=== PATIENT | female | born 1955 | race Caucasian/White ===

== ENCOUNTER → 2017-08-06 | Day surgery (SDC) | payer OTHER ==
[~2017-08-06] MED LIST: BETA15CR5 TP; COLC0.6T34 PO; DULA1.5P SQ; EXEN2VIA SQ; FURO-68 PO; HYDR-2680 PO; HYDROmorphone 2 MG/ML VIAL IV PRN; IV RINGERS,LACTATED 1000ML 1,000 ML IV SCH; LEVO112T4 PO; LIDOCAINE 1% 1 ML SYRINGE. ID PRN; LIDOCAINE 2% PF Vial for OR 5 ML VIAL. ONE; LOSA100T6 PO; MELO15TA6 PO; METF-620 PO; MORPHINE SULFATE 2 MG/ML DISP.SYRIN. IV PRN; OMEP20TA63 PO; ONDANSETRON PF 4 MG/2 ML VIAL. IV PRN; PENT400T2 PO; POTA20TA4 PO; PRED-220 PO; PROCHLORPERAZINE 10 MG/2 ML VIAL. IV PRN; PROPOFOL 40 ML IV ONE; VALS1TAB14 PO; fentaNYL PF VIAL 100 MCG/2 ML VIAL IV PRN
[2017-08-06 08:44] VITALS: BP 118/60
--- NOTE | 2017-08-07 10:26 | PATHOLOGY ---
PATHOLOGY REPORT * * * * * * * * FINAL DIAGNOSIS: A. Colonic mucosa "rectal polyp biopsy": - Tubular adenoma. - There is no evidence of high grade dysplasia or malignancy. B. Colonic mucosa "transverse colon polyp biopsy": - Tubular adenoma. - There is no evidence of high grade dysplasia or malignancy. ([facility]:mm; 08/07/2017) REPORT ELECTRONICALLY SIGNED BY: Gary Almazan M.D. DATE/TIME: 08/07/2017 10:25 * * * * * * * * GROSS PATHOLOGY: A. Received in formalin labeled "Tawana Epstein, rectal polyp," is a segment of butts soft tissue measuring 0.4 cm in maximum dimension. The specimen is submitted entirely in cassette A1. B. Received in formalin labeled "transverse colon polyp," is a segment of butts soft tissue measuring 0.3 cm in maximum dimension. The specimen is submitted entirely in cassette B1. ([facility]; 08/06/17) INITIAL CPT CODE(S): A; 29497 B; 81667 Professional services performed by [facility] [place] [address] Technical services performed by [facility] at [address] [place] [address]. SPECIMEN(S) RECEIVED: A.Rectal polyp B.Transverse colon polyp CLINICAL HISTORY: Anemia; non-erosive gastritis, rectal polyp, transverse colon polyp PATIENT: TAWANA EPSTEIN /AGE: 8 1955 (Age: 62) PATIENT #: [id number] ALT CASE #: SPECIMEN COLLECTION DATE: 08/06/2017 SPECIMEN RECEIVED DATE: 08/06/2017 [facility] - [address] [place] [address] - PHONE: [phone] * * * END OF REPORT * * *
== END | disposition home or self-care (01) ==
LOC: ENDOS 07:13
PROVIDERS: ATTEND Internal Medicine Gastroenterology
DX: D12.3 Benign neoplasm of transverse colon (principal); K62.1 Rectal polyp; D50.0 Iron deficiency anemia secondary to blood loss (chronic); K63.5 Polyp of colon; K64.0 First degree hemorrhoids; K29.50 Unspecified chronic gastritis without bleeding; E11.9 Type 2 diabetes mellitus without complications; M19.90 Unspecified osteoarthritis, unspecified site; K21.9 Gastro-esophageal reflux disease without esophagitis; E78.00 Pure hypercholesterolemia, unspecified; I10 Essential (primary) hypertension; E03.9 Hypothyroidism, unspecified; Z83.3 Family history of diabetes mellitus; Z82.49 Family history of ischemic heart disease and other diseases of the circulatory system; Z90.710 Acquired absence of both cervix and uterus; Z91.040 Latex allergy status; Z98.890 Other specified postprocedural states
CPT/HCPCS: 43235; 45385; 88305; J2704; J2001

== ENCOUNTER → 2019-12-27 | Outpatient (CLI) | payer OTHER ==
[2017-08-06 08:44] VITALS: BP 118/60
[~2019-12-27] MED LIST changes: +ALBU2.5V8 IH; +ALLO300T PO; +CALC625T PO; +CHOL-5 PO; +CLOB15CR TP; +CYCL10TA2 PO; +DAPA10TA PO; +DOCU-109 PO; +GLIM4TAB8 PO; -HYDROmorphone 2 MG/ML VIAL IV PRN; -IV RINGERS,LACTATED 1000ML 1,000 ML IV SCH; -LIDOCAINE 1% 1 ML SYRINGE. ID PRN; -LIDOCAINE 2% PF Vial for OR 5 ML VIAL. ONE; +LOSA100T14 PO; -LOSA100T6 PO; +MAGN400T5 PO; -METF-620 PO; +METF10007 PO; -MORPHINE SULFATE 2 MG/ML DISP.SYRIN. IV PRN; +ONDA8TAB9 PO; -ONDANSETRON PF 4 MG/2 ML VIAL. IV PRN; -PENT400T2 PO; +PENT400T7 PO; -PROCHLORPERAZINE 10 MG/2 ML VIAL. IV PRN; +PROM25TA10 PO; -PROPOFOL 40 ML IV ONE; +QUIN324C3 PO; +SITA100T PO; +VALS160T3 PO; -fentaNYL PF VIAL 100 MCG/2 ML VIAL IV PRN
[2019-12-27 09:05] LABS: ALBUMIN 3.7 g/dL (3.4-5.0); CALCIUM 9.5 mg/dL (8.5-10.1); CREATININE 0.8 mg/dL (0.6-1.0); GFR 72.2; POTASSIUM 4.4 mmol/L (3.5-5.1)
[2019-12-27 09:07] LABS: BASO % 1 % (0-3); EOS % 1 % (0-3); HEMATOCRIT 35.2 % (36.0-47.0); HEMOGLOBIN 11.7 g/dL (12.0-15.5); LYMPH % 24 % (24-48); MEAN CORPUSCULAR HEMOGLOBIN 31 pg (25-35); MEAN CORPUSCULAR HGB CONC 33 g/dL (31-37); MEAN CORPUSCULAR VOLUME 94 fL (79-100); MONO # 0.4 x10^3/uL (0.0-1.1); MONO % 10 % (0-9); NEUT # 2.6 x10^3/uL (1.8-7.7); NEUT % 64 % (31-73); PLATELET COUNT 122 x10^3/uL (140-400); RED BLOOD COUNT 3.74 x10^6/uL (3.50-5.40); RED CELL DISTRIBUTION WIDTH 17.2 % (11.5-14.5); WHITE BLOOD COUNT 4.1 x10^3/uL (4.0-11.0)
[2019-12-27 09:14] LABS: PROTHROMBIN TIME PATIENT 13.5 SEC (11.7-14.0)
--- NOTE | 2019-12-27 13:21 | EKG ---
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
--- NOTE | 2019-12-27 14:38 | RAD ---
EXAM: CHEST 2 VIEWS. HISTORY: Preoperative risk factors, hypertension. COMPARISON: None. FINDINGS: Frontal and lateral views of the chest are obtained. There are no confluent infiltrates. There is no pneumothorax or pleural effusion. The heart is not enlarged. There are atherosclerotic calcifications of the aorta. Calcified lymph nodes likely reflect old granulomatous disease. IMPRESSION: 1. No confluent infiltrates. Electronically signed by: King Rodriguez MD (12/27/2019 2:36 PM) [facility]
[2019-12-28 00:07] LABS: HEMOGLOBIN A1C 6.2 % (4.8-5.6)
== END | disposition home or self-care (01) ==
LOC: SURGPAT 13:45
PROVIDERS: ATTEND Orthopaedic Surgery Sports Medicine
DX: Z01.818 Encounter for other preprocedural examination (principal); M17.12 Unilateral primary osteoarthritis, left knee; Z91.041 Radiographic dye allergy status
CPT/HCPCS: 36415; 71046; 80048; 82040; 82306; 83036; 85025; 85610; 85651; 85730; 87641; 93005

== ENCOUNTER → 2020-01-05 | Outpatient (CLI) | payer OTHER ==
[2017-08-06 08:44] VITALS: BP 118/60
[~2020-01-05] MED LIST changes: +REGADENOSON 0.4 MG/5 ML DISP.SYRIN. IV ONE
--- NOTE | 2020-01-05 13:32 | RAD ---
MR#: [id number] Date of Study: 01/05/2020 Ordering Physician: ADRIÁN CHERY Referring Physician: PHIL MELVIN Tech: GUILHERME Stewart APPROVED REPORT Test Type: Pharmacological Stress Nurse/Tech: Damien Awan RN Test Indications: pre-op clearance Cardiac History: HTN, DM Medications: See Electronic Medical Record Medical History: See Electronic Medical Record Resting ECG: SR prolonged MS interval Resting Heart Rate: 70 bpm Resting Blood Pressure: 129/75mmHg Pretest Chest Pain: None Nurse/Tech Notes lungs CTA, S1S2. EKG and final report did not print during exam. No St elevation or depression noted during exam. Blood pressure remained stable. no ectopy noted. Pt did not have chest pain or pressure Consent: The procedure was explained to the patient in lay terms. Informed consent was witnessed. William eout was entered into Spiration. History and Stress Test performed by RT [facility] (R) (N) Pharm. Details Pharmacologic stress testing was performed using 0.4mg per 5ml of regadenoson given intravenously ove r 7-10 seconds. Stress Symptoms No chest pain or symptoms. POST EXERCISE Reason for Termination: Infusion complete Max HR: 97 bpm Max Blood Pressure: 135/58mmHg Blood Pressure response to exercise: Normal blood pressure response during stress. Heart Rate response to exercise: Normal response Chest Pain: No. Arrhythmia: No. ST Change: No. INTERPRETATION Stress EKG Conclusion: The resting EKG shows a sinus rhythm. The stress EKG shows no significant changes from baseline. No EKG evidence of stress induced ischemia. Imaging Protocol IMAGE PROTOCOL: Rest Tc-99m/stress Tc-99m 1 day Rest: Stress: Viability: Radiopharm.Tc99m FoeffnahkIx67m Sestamibi Bciw16yGo 33mCi Duration 15min. 13min. Img Date 01/05/2020 01/05/2020 Inj-Img Tdsh76ish. 60min. Rest Admin Site:IV - Right WristAdministrator:GUILHERME Stewart Stress Admin Site: IV - Right WristAdministrator: García Floyd, RT (R)(N) STRESS DATA End Diast. Vol.70.0mlLVEDV index BSA36.0ml End Syst. Vol.12.0mlLVESV index BSA6.0ml Myocardial Woeq833.0gEject. Gnjgkprq11.0% Stress Scores Regional WT0.00Summed WT3.00 Regional WM0.00Summed WM0.00 LV Perfusion The stress scans show no significant changes. The rest scans show no suignificant changes. Nuclear scans show no reversible ischemia or infarct. Wall Motion LV systiolic function is normal with an EF of greater than 70%. LV Perf. Quant 17 Seg. SSS0.00 17 Seg. SRS0.00 17 Seg. SDS0.00 Stress Defect Extent (% LAD)0.00Rest Defect Extent (% LAD)0.00Rev. Defect Extent (% LAD)0.00 Stress Defect Extent (% LCX) 0.00Rest Defect Extent (% LCX)0.00Rev. Defect Extent (% LCX)0.00 Stress Defect Extent (% RCA)0.00Rest Defect Extent (% RCA)0.00Rev. Defect Extent (% RCA)0.00 Stress Defect Extent (% GEMMA)0.00Rest Defect Extent (% GEMMA)0.00Rev. Defect Extent (% GEMMA)0.00 Conclusion 1. No EKG evidence of stress induced ischemia. 2. Nuclear imaging shows no reversibvble ischemia or infarct. 3. Normal LV function with an EF of greater than 70%. 4. Low risk study. Signed by : Michael Estrada MD Electronically Approved : 01/05/2020 13:31:50
== END | disposition home or self-care (01) ==
LOC: NM 08:33
PROVIDERS: ATTEND Internal Medicine Cardiovascular Disease
DX: Z01.818 Encounter for other preprocedural examination (principal); I10 Essential (primary) hypertension; E11.9 Type 2 diabetes mellitus without complications
CPT/HCPCS: 78452; 93017; A9500; J2785

== ENCOUNTER → 2020-01-10 | Outpatient (CLI) | payer OTHER ==
[2017-08-06 08:44] VITALS: BP 118/60
[~2020-01-10] MED LIST changes: +ACET500T68 PO; -ALBU2.5V8 IH; +ALBU2.5V8 INH; +CHOL500021 PO; +DIPH25TA24 PO; +LORA10TA68 PO; -REGADENOSON 0.4 MG/5 ML DISP.SYRIN. IV ONE
--- NOTE | 2020-01-10 13:48 | CARD ---
MR#: [id number] Date of Study: 01/10/2020 Ordering Physician: ADRIÁN JAMA, Referring Physician: ADRIÁN JAMA, Tech: Joellen Tucker ABBY APPROVED REPORT EXAM: Two-dimensional and M-mode echocardiogram with Doppler and color Doppler. Other Information Quality : GoodHR: 78bpm Rhythm : NSR INDICATION Pre-op knee replacement clearance. Hx: HTN, HLP, DM. 2D DIMENSIONS RVDd3.8 (2.9-3.5cm)IVSd1.2 (0.7-1.1cm) Aortic Root(2D)3.3 (2.0-3.7cm)LVDd3.8 (3.9-5.9cm) LVOT Diameter2.0 (1.8-2.4cm)PWd1.0 (0.7-1.1cm) LVDs2.6 (2.5-4.0cm)FS (%) 29.8 % SV34.8 mlLVEF(%)57.8 (>50%) Aortic Valve AoV Peak Zeferino.179.3cm/Genny Peak GR.12.9mmHg LVOT Peak Zeferino.138.5cm/sAVA (VMAX)2.34cm2 Mitral Valve MV E Ctgatzxx33.7cm/sMV DECEL CQBZ164nn MV A Gmxuugkc539.0cm/sE/A Ratio0.7 MV A Xualqogi452qk Pulmonary Valve PV Peak Sjyxiqkj387.0cm/s Tricuspid Valve TR P. Ekbyuhho625it/sRAP HMPIVUXF6knNz TR Peak Gr.37eqIiVBAT12jdQr Pulmonary Vein S1 Erhlpmfz45.0cm/sD2 Snkwkhfa92.8cm/s PVa arytozpf52llad LEFT VENTRICLE The left ventricle is normal size. Mild proximal septal thickening is noted. The left ventricular sys tolic function is normal. The Ejection Fraction is 65%. There is normal LV segmental wall motion. Tra nsmitral Doppler flow pattern is Grade I-abnormal relaxation pattern. RIGHT VENTRICLE The right ventricle is normal size. The right ventricular systolic function is normal. ATRIA The left atrium is mildly dilated. The right atrium size is normal. The interatrial septum is intact with no evidence for an atrial septal defect or patent foramen ovale as noted on 2-D or Doppler imagi ng. AORTIC VALVE The aortic valve is normal in structure and function. Leaflets are mildly calcified. No aortic regurg itation. No aortic valvular stenosis. MITRAL VALVE The mitral valve is normal in structure and function. There is no mitral valve stenosis. No mitral va lve regurgitation noted. TRICUSPID VALVE The tricuspid valve is normal in structure and function. Trace tricuspid regurgitation. Estimated PAP is 20-25mmHg. There is no tricuspid valve stenosis. PULMONIC VALVE The pulmonary valve is normal in structure and function. Trace pulmonic valvular regurgitation. GREAT VESSELS The aortic root is normal in size. The ascending aorta is normal in size. The IVC is normal in size a nd collapses >50% with inspiration. PERICARDIAL EFFUSION There is no evidence of significant pericardial effusion. Critical Notification Critical Value: No <Conclusion> The left ventricular systolic function is normal. The Ejection Fraction is 65%. There is normal LV segmental wall motion. Transmitral Doppler flow pattern is Grade I-abnormal relaxation pattern. Trace tricuspid regurgitation. Estimated PAP is 20-25mmHg. There is no evidence of significant pericardial effusion. Signed by : Adrián Jama, Electronically Approved : 01/10/2020 13:47:48
== END | disposition home or self-care (01) ==
LOC: ECHO 09:55
PROVIDERS: ATTEND Internal Medicine Cardiovascular Disease
DX: Z01.818 Encounter for other preprocedural examination (principal); M17.12 Unilateral primary osteoarthritis, left knee; I35.8 Other nonrheumatic aortic valve disorders
CPT/HCPCS: 93306

== ENCOUNTER 2020-01-17 06:06 | Inpatient (IN) | payer OTHER ==
[~2020-01-17] VITALS: Ht 167.6 cm; Wt 86.2 kg
[2020-01-17] VITALS (8 sets, daily range): BP systolic 98–130; BP diastolic 49–69
[~2020-01-17 06:06] MED LIST changes: +ACETAMINOPHEN 500 MG TABLET PO PRN; +MELOXICAM 7.5 MG TABLET PO PRN; +MORPHINE SULFATE 5 MG, KETOROLAC 30MG VIAL 30 MG, ROPIVacaine 0.5% PF 60 ML, EPINEPHrin... INT ART ONE; +TRANEXAMIC ACID 1,000 MG in IV NS 50ML -- 1ST BAG INJ ONE
[2020-01-17] MEDS: IV RINGERS,LACTATED 1000ML 1,000 ML IV SCH ×2 (06:55→09:42)
[2020-01-17] MEDS ORDERED: PROCHLORPERAZINE 10 MG/2 ML VIAL. IV PRN (07:00)
[2020-01-17] MEDS ORDERED: HYDROmorphone 2 MG/ML VIAL IV PRN (07:00)
[2020-01-17] MEDS ORDERED: ONDANSETRON PF 4 MG/2 ML VIAL. IV PRN (07:00)
[2020-01-17] MEDS ORDERED: LIDOCAINE 1% PF 2 ML VIAL. ID PRN (07:00)
[2020-01-17] MEDS ORDERED: fentaNYL PF VIAL 100 MCG/2 ML VIAL IV PRN ×2 (07:00→07:45)
[2020-01-17] MEDS ORDERED: ONDANSETRON PF 4 MG/2 ML VIAL. ONE ×2 (07:18→07:39)
[2020-01-17] MEDS ORDERED: LIDOCAINE 2% PF 5 ML VIAL. ONE (07:18)
[2020-01-17] MEDS ORDERED: FAMOTIDINE 20 MG/2 ML VIAL ONE (07:18)
[2020-01-17] MEDS ORDERED: DEXAMETHASONE SOD PHOS 4 MG/ML VIAL ONE (07:18)
[2020-01-17] MEDS ORDERED: PROPOFOL 20 ML IV ONE (07:18)
[2020-01-17] MEDS ORDERED: ROCURONIUM 50 MG/5 ML VIAL. ONE (07:19)
[2020-01-17] MEDS ORDERED: MIDAZOLAM HCL/PF 2 MG/2 ML VIAL. ONE (07:19)
[2020-01-17] MEDS ORDERED: fentaNYL PF VIAL 250 MCG/5 ML VIAL ONE (07:19)
[2020-01-17] MEDS: INSULIN LISPRO 100 UNIT/ML 3ML VIAL for OP,RR ONLY. SQ PRN ×2 (07:22→10:26)
[2020-01-17] MEDS ORDERED: diphenhydrAMINE 50 MG/ML VIAL ONE (07:39)
[2020-01-17] MEDS ORDERED: 0.9 % SODIUM CHLORIDE 10 ML DISP.SYRIN. IV PRN (07:45)
[2020-01-17] MEDS ORDERED: PROCHLORPERAZINE 5 MG TABLET. PO PRN (07:45)
[2020-01-17] MEDS ORDERED: NON FORMULARY ITEM (Ondansetron Hcl (Zofran) 8 MG) PO PRN (07:45)
[2020-01-17] MEDS ORDERED: DEXTROSE 50% 25 GM / 50ML DISP.SYRIN. IV PRN (07:45)
[2020-01-17] MEDS ORDERED: METOCLOPRAMIDE HCL 10 MG/2 ML VIAL. IV PRN (07:45)
[2020-01-17] MEDS ORDERED: MORPHINE SULFATE 2 MG/ML VIAL. IV PRN (07:45)
[2020-01-17] MEDS ORDERED: ZOLPIDEM 5 MG TABLET. PO PRN (07:45)
[2020-01-17] MEDS ORDERED: diphenhydrAMINE 50 MG/ML VIAL IV PRN (07:45)
[2020-01-17] MEDS ORDERED: CYCLOBENZAPRINE 10 MG TABLET. PO PRN (07:45)
[2020-01-17] MEDS ORDERED: CALCIUM CARBONATE 500 MG TAB.CHEW PO PRN (07:45)
[2020-01-17] MEDS ORDERED: COLCHICINE 0.6 MG TABLET PO PRN (07:45)
[2020-01-17] MEDS ORDERED: ALBUTEROL SULFATE 2.5 MG/3 ML NEBU. NEB PRN (08:00)
[2020-01-17] MEDS ORDERED: SCOPOLAMINE 1.5MG PATCH. TD ONE (08:00)
[2020-01-17] MEDS ORDERED: CLOBETASOL EMOLLIENT 0.05% TOPICAL CREAM 15GM TUBE. TP PRN (08:00)
[2020-01-17] MEDS ORDERED: TRANEXAMIC ACID 1,000 MG in IV NS 50ML -- 2ND BAG INJ ONE (08:00)
[2020-01-17] MEDS ORDERED: GLYCOPYRROLATE 1 MG/5 ML VIAL. ONE (08:54)
[2020-01-17] MEDS ORDERED: NEOSTIGMINE METHYLSULFATE 5 MG/5 ML SYRINGE. ONE (08:54)
--- NOTE | 2020-01-17 09:20 | PDOC4 ---
Operative Note Operative Note Date of procedure: 01/17/20 Surgeon: Jose Elias Munroe.: Esvin Gregorio, CRISTOBAL Camilo Preoperative diagnosis: Advanced primary left knee degenerative joint disease Postoperative diagnosis: Same Procedure performed: Left total knee arthroplasty, using robotic assistance Anesthesia: Gen. Findings: Advanced primary right knee degenerative joint disease Tourniquet time: 57 minutes Blood loss: 50 mL Complications: None Components inserted: Castro and nephew size 5 Journey II cobalt chrome right femur, 23 mm biconvex patella, 9 mm thick polyethylene articular insert, size 4 journey tibial baseplate Reason for procedure: Patient is a very pleasant woman who had seen in my outpatient clinic for complaints of progressive knee pain interfering with her activities of daily living. Clinical and radiographic examination were consistent with the preoperative diagnosis. She had tried and failed conservative therapies including an exercise program, anti-inflammatories, and injections and despite this her pain had been progressive. Therefore, herand I had a discussion of risks, benefits, and alternatives to proceeding with a right knee replacement and she wished to proceed. Description of procedure: Patient was greeted in the preoperative holding area by myself for the correct extremity was verified and marked. She was taken back to the operative suite and his antibiotics were started as he was brought back. Once in the operating room, she was transferred gently supine to the operative table and secured the bed with successful induction of a general anesthetic. All pressure points were padded. Examination under anesthesia demonstrated range of motion from 0 to 140. Knee was stable to varus and valgus. Nonsterile tourniquet was taped in place to her left upper thigh. Padded rest was secured to the bed at her hip as well as across foot of the bed to maintain her leg at 90 passively. Left lower extremity was then prepped and draped in our usual sterile fashion including an [place]. We then conducted our standard preoperative timeout. I then palpated and marked surface anatomy and erick a line from my standard anterior midline skin incision. Extremity was exsanguinated with an Esmarch and tourniquet was insufflated to 250 mmHg. Skin was incised with a scalpel and dissected subcutaneous tissue and cauterized bleeders with electrocautery. I identified the patients quadriceps tendon, borders of her patella, patellar tendon and tibial tubercle. I then made my standard medial parapatellar arthrotomy. The knee was then flexed and the cruciates were excised. After this, used a Rongeur to remove osteophytes. After this, I placed my robotic guidance pins unicortically at the distal femur and tibia. I made stab incisions and spread down to bone and then placed the pins unicortically under power. After this, I proceeded with capturing range of motion and testing stability as well as the hip center of rotation using the robotic assistance. I had also sent my rotational axis. I then painted the distal femur and proximal tibia until enough data had been gathered. I then confirm the robotic plan, making some small adjustments. After this, I used the tristan to remove the distal femur followed by burring my holes for my distal femoral cutting block, I then impacted the stylus and these as well. After this, I impacted my distal femoral 5 in 1 cutting block and secured it with threaded pins and made my distal femoral cuts. I then removed the cutting block and the loose bony pieces. I next directed my attention to using the top hat on the robotic tristan, and using this to guide placement of my proximal tibial cutting block which I then pinned into position. I protected the collaterals and had a posterior retractor and is well. I made my proximal tibial cut and deliver this from the operative field. I then proceeded to trial the above size tibial baseplate, I selected the 4. I then impacted this into position referencing her, tibial tubercle for rotation. I then drilled and punched for the tibial baseplate. I then directed my attention back to the femur and impacted my trial femoral component position, secured it with a pin and reamed and punched for the cam portion. I then applied and secured the cam portion in place. After this, I trialed the 10 mm trial polyethylene, which I felt was a little too tight, so I downsized to a 9 and was happy with the range of motion and stability. Range of motion was 0-140. Knee was stable to varus and valgus in extension and mid flexion. I then directed my attention to reaming for my patella, with all components and he had full range of motion, good stability and excellent patellar tracking. I then removed all trial components and thoroughly irrigated the bony surfaces and then proceeded to cement in place the tibial component followed by the femoral component. Care was taken to remove excess cement. A trial articular insert was then engaged into position and the cement was allowed to polymerize with the leg in extension. I again checked for any excess cement. The patellar button was clamped in place and secured with cement. I then injected my periarticular mixture into the arvind-incisional soft tissue envelope. The tourniquet was let down, bleeders were cauterized. She had a fair amount of oozing from the exposed bony surfaces and I elected to place a 1/8 inch Hemovac exiting superolaterally from her knee. After this, the arthrotomy was closed with simple interrupted #1 Vicryl with the exception of a rtuzfc-rt-aenvc proximally. Arthrotomy closure tested in flexion and no extravasation of blood was noted. Inverted interrupted 2 was used for subcutaneous tissue and running 3-0 Monocryl in a buried subcuticular fashion was used for skin. Prior to wound closure all counts correct 2. At the conclusion of the surgery, leg was cleansed and dried and our incisional wound vacuum was applied. Surgery was tolerated well by the patient. She was awakened from anesthesia and transferred gently supine to the hospital bed and taken to the PACU in a stable and ex tubated condition. Postoperative plan is to admit him to the floor, weightbearing as tolerated, she will receive DVT and antibiotic prophylaxis. She will also receive PT and OT. JOSE ELIAS MORRISON II, MD Jan 17, 2020 09:20
[2020-01-17] MEDS ORDERED: PROMETHAZINE 12.5 MG TABLET. PO PRN (09:30)
--- NOTE | 2020-01-17 09:58 | RAD ---
KNEE LEFT 2V History: Postop Technique: 2 views left knee. Comparison: September 21, 2019 Findings: Interval left total knee arthroplasty with expected postoperative changes subcutaneous and intra-articular gas. Surgical drain noted. Normal alignment. No fracture. Anterior knee soft tissue swelling. Surgical screw tracks within the distal femur and proximal tibia. Impression: 1. Interval left total knee arthroplasty. No immediate hardware complications. Electronically signed by: Don Elias DO (01/17/2020 9:55 AM) [id number]
[2020-01-17] MEDS: MORPHINE SULFATE 2 MG/ML VIAL. IV PRN ×2 (10:02→10:23)
[2020-01-17] MEDS: fentaNYL PF VIAL 100 MCG/2 ML VIAL IV PRN ×2 (10:16→10:27)
[2020-01-17] MEDS: ONDANSETRON PF 4 MG/2 ML VIAL. IV SCH ×2 (12:00→18:00)
[2020-01-17] MEDS: INSULIN LISPRO 300 UNITS/3 ML VIAL. SQ SCH ×2 (12:00→17:32)
[2020-01-17] MEDS ORDERED: IV NORMAL SALINE 1000ML BAG 1,000 ML IV SCH (12:00)
[2020-01-17] MEDS: ONDANSETRON ODT 4 MG TAB.RAPDIS. PO SCH ×2 (12:00→18:00)
[2020-01-17] MEDS: ALLOPURINOL 300 MG TABLET. PO SCH (12:30)
[2020-01-17] MEDS: PANTOPRAZOLE 40 MG TABLET.DR. PO SCH (12:30)
[2020-01-17] MEDS: LEVOTHYROXINE 112 MCG TABLET PO SCH (12:30)
[2020-01-17] MEDS: LOSARTAN POTASSIUM 50 MG TABLET. PO SCH (12:30)
[2020-01-17] MEDS: DOCUSATE SODIUM 100 MG CAPSULE. PO SCH (12:43)
[2020-01-17] MEDS: CETIRIZINE HCL 10 MG TABLET. PO SCH (12:43)
[2020-01-17] MEDS: LINAGLIPTIN 5 MG TABLET PO SCH (12:44)
[2020-01-17] MEDS: POTASSIUM CHLORIDE 20 MEQ TABLET.ER. PO SCH (12:44)
[2020-01-17] MEDS: oxyCODONE IR 5 MG TABLET PO PRN ×3 (12:45→21:00)
[2020-01-17] MEDS: FUROSEMIDE 40 MG TABLET. PO SCH (12:45)
[2020-01-17] MEDS ORDERED: WARFARIN 7.5 MG TABLET. PO ONE (16:00)
[2020-01-17] MEDS ORDERED: FERROUS SULFATE 325 MG TABLET. PO SCH (17:00)
[2020-01-17] MEDS: GLIMEPIRIDE 2 MG TABLET. PO SCH (17:06)
[2020-01-17] MEDS: CALCIUM POLYCARBOPHIL 625 MG TABLET PO SCH (17:06)
[2020-01-17] MEDS: metFORMIN 500 MG TABLET PO SCH (17:06)
[2020-01-17] MEDS: Dapagliflozin Propanediol (Farxiga) 10 MG PO SCH (17:27)
[2020-01-17] MEDS: MAGNESIUM OXIDE 400 MG TABLET PO SCH (21:00)
[2020-01-17] MEDS: ACETAMINOPHEN 500 MG TABLET PO SCH (21:34)
[2020-01-18] MEDS: oxyCODONE IR 5 MG TABLET PO PRN ×4 (02:27→21:05)
[2020-01-18 03:00] VITALS: BP 104/51
[2020-01-18] MEDS: ONDANSETRON PF 4 MG/2 ML VIAL. IV SCH ×2 (06:00)
[2020-01-18] MEDS ORDERED: MAGNESIUM HYDROXIDE 2,400 MG/30 ML ORAL.SUSP. PO PRN (06:00)
[2020-01-18] MEDS: traMADol 50 MG TABLET PO SCH ×3 (06:06→17:43)
[2020-01-18] MEDS: PANTOPRAZOLE 40 MG TABLET.DR. PO SCH (06:06)
[2020-01-18] MEDS: ACETAMINOPHEN 500 MG TABLET PO SCH ×3 (06:06→17:42)
[2020-01-18] MEDS: LEVOTHYROXINE 112 MCG TABLET PO SCH (06:06)
[2020-01-18] MEDS: ONDANSETRON ODT 4 MG TAB.RAPDIS. PO SCH ×2 (06:07)
[2020-01-18 07:02] LABS: HEMATOCRIT 30.3 % (36.0-47.0); HEMOGLOBIN 10.2 g/dL (12.0-15.5)
[2020-01-18 07:15] VITALS: BP 101/51
[2020-01-18 07:20] LABS: PROTHROMBIN TIME PATIENT 17.1 SEC (11.7-14.0)
--- NOTE | 2020-01-18 07:54 | PDOC ---
ORTHO PROGRESS NOTES Subjective c/o sore throat, usual for her secondary to PND. Pain tolerable, no other complaints Vitals Vital Signs Date Time Temp Pulse Resp B/P (MAP) Pulse Ox O2 Delivery O2 Flow Rate FiO2 01/18/20 07:15 101.1 90 20 101/51 (68) 95 Room Air 101.1 01/17/20 19:45 2.0 Labs Laboratory Tests Test 01/17/20 06:40 01/17/20 06:44 01/17/20 10:18 01/17/20 11:54 Prothrombin Time 14.0 SEC (11.7-14.0) Prothromb Time International Ratio 1.1 (0.8-1.1) Activated Partial Thromboplast Time 35 SEC (24-38) Glucose (Fingerstick) 134 mg/dL (70-99) 268 mg/dL (70-99) 240 mg/dL (70-99) Test 01/17/20 17:05 01/17/20 20:36 01/18/20 06:38 01/18/20 07:21 Glucose (Fingerstick) 256 mg/dL (70-99) 187 mg/dL (70-99) 108 mg/dL (70-99) Hemoglobin 10.2 g/dL (12.0-15.5) Hematocrit 30.3 % (36.0-47.0) Mean Corpuscular Hemoglobin Concent 34 g/dL (31-37) Prothrombin Time 17.1 SEC (11.7-14.0) Prothromb Time International Ratio 1.4 (0.8-1.1) Laboratory Tests Test 01/17/20 10:18 01/17/20 11:54 01/17/20 17:05 01/17/20 20:36 Glucose (Fingerstick) 268 mg/dL (70-99) 240 mg/dL (70-99) 256 mg/dL (70-99) 187 mg/dL (70-99) Test 01/18/20 06:38 01/18/20 07:21 Hemoglobin 10.2 g/dL (12.0-15.5) Hematocrit 30.3 % (36.0-47.0) Mean Corpuscular Hemoglobin Concent 34 g/dL (31-37) Prothrombin Time 17.1 SEC (11.7-14.0) Prothromb Time International Ratio 1.4 (0.8-1.1) Glucose (Fingerstick) 108 mg/dL (70-99) Notes A and A LLE: normal motor and sensation drain, dressing in place Assessment and Plan will admit PT/OT, coumadin will monitor temp, encouraged IS LOGAN MORRISON II, MD Jan 18, 2020 07:54
[2020-01-18] MEDS: INSULIN LISPRO 300 UNITS/3 ML VIAL. SQ SCH ×3 (08:00→16:29)
[2020-01-18] MEDS ORDERED: BENZOCAINE/MENTHOL LOZENGE. PO PRN (08:15)
[2020-01-18] MEDS: metFORMIN 500 MG TABLET PO SCH ×2 (08:46→16:28)
[2020-01-18] MEDS: ALLOPURINOL 300 MG TABLET. PO SCH (08:46)
[2020-01-18] MEDS: POTASSIUM CHLORIDE 20 MEQ TABLET.ER. PO SCH (08:46)
[2020-01-18] MEDS: DOCUSATE SODIUM 100 MG CAPSULE. PO SCH (08:46)
[2020-01-18] MEDS: CETIRIZINE HCL 10 MG TABLET. PO SCH (08:46)
[2020-01-18] MEDS: FUROSEMIDE 40 MG TABLET. PO SCH (08:47)
[2020-01-18] MEDS: CALCIUM POLYCARBOPHIL 625 MG TABLET PO SCH ×2 (08:47→16:29)
[2020-01-18] MEDS: GLIMEPIRIDE 2 MG TABLET. PO SCH ×2 (08:47→16:28)
[2020-01-18] MEDS: SENNOSIDES/DOCUSATE 8.6/50MG TABLET. PO SCH (08:47)
[2020-01-18] MEDS: Dapagliflozin Propanediol (Farxiga) 10 MG PO SCH (08:55)
[2020-01-18] MEDS: LOSARTAN POTASSIUM 50 MG TABLET. PO SCH (09:00)
[2020-01-18] MEDS: MULTIVITAMIN with MINERAL TABLET. PO SCH (09:01)
[2020-01-18] MEDS: LINAGLIPTIN 5 MG TABLET PO SCH (09:01)
[2020-01-18] MEDS ORDERED: ONDANSETRON PF 4 MG/2 ML VIAL. IV PRN (12:00)
[2020-01-18] MEDS ORDERED: ONDANSETRON ODT 4 MG TAB.RAPDIS. PO PRN (12:00)
--- NOTE | 2020-01-18 14:35 | NUR ---
Pharmacy Warfarin Dosing Note S:Pharmacy consulted to assist with anticoagulation therapy started 01/16/20 with target INR: 1.6 - 2.5 O:MARBELLA BURRELL is a 64 year old F with TKA LABS: Last INR: 1.4 Last HGB: 10.2 Last HCT: 30.3 Last PLT: - Last dose of 7.5 mg given on 01/17/20 at 1706 Vitamin K given: N A:INR of 1.4 is below desired range. Target range for this patient is: 1.6 - 2.5 P: Warfarin dose: 4 mg Today at 1600 Bridge Therapy: None Next INR due tomorrow Pharmacy anticoagulation service will continue to follow. Mag Mazariegos [facility], 01/18/20 4599
[2020-01-18] MEDS ORDERED: WARFARIN 4 MG TABLET. PO ONE (16:00)
[2020-01-18] MEDS ORDERED: BISACODYL 10 MG SUPP.RECT. PR PRN (16:00)
[2020-01-18 18:02] VITALS: BP 121/73
--- NOTE | 2020-01-18 21:00 | NUR ---
Nataliya given for c/o pain. In recliner, visiting w/ family. Saline lock DC'd per her request.
[2020-01-18] MEDS: MAGNESIUM OXIDE 400 MG TABLET PO SCH (21:05)
[2020-01-19] MEDS: ACETAMINOPHEN 500 MG TABLET PO SCH ×4 (02:27→17:48)
[2020-01-19] MEDS: oxyCODONE IR 5 MG TABLET PO PRN ×2 (02:27→08:49)
[2020-01-19 04:54] LABS: HEMATOCRIT 32.2 % (36.0-47.0); HEMOGLOBIN 10.8 g/dL (12.0-15.5)
[2020-01-19 04:59] LABS: PROTHROMBIN TIME PATIENT 19.1 SEC (11.7-14.0)
[2020-01-19 05:32] VITALS: BP 133/57
[2020-01-19] MEDS: PANTOPRAZOLE 40 MG TABLET.DR. PO SCH (06:54)
[2020-01-19] MEDS: traMADol 50 MG TABLET PO SCH ×4 (06:54→17:48)
[2020-01-19] MEDS: LEVOTHYROXINE 112 MCG TABLET PO SCH (06:54)
[2020-01-19] MEDS: INSULIN LISPRO 300 UNITS/3 ML VIAL. SQ SCH ×3 (08:00→17:03)
[2020-01-19] MEDS: LOSARTAN POTASSIUM 50 MG TABLET. PO SCH (08:14)
[2020-01-19] MEDS: CETIRIZINE HCL 10 MG TABLET. PO SCH (08:14)
[2020-01-19] MEDS: metFORMIN 500 MG TABLET PO SCH ×2 (08:15→16:56)
[2020-01-19] MEDS: DOCUSATE SODIUM 100 MG CAPSULE. PO SCH (08:15)
[2020-01-19] MEDS: ALLOPURINOL 300 MG TABLET. PO SCH (08:15)
[2020-01-19] MEDS: LINAGLIPTIN 5 MG TABLET PO SCH (08:15)
[2020-01-19] MEDS: SENNOSIDES/DOCUSATE 8.6/50MG TABLET. PO SCH (08:15)
[2020-01-19] MEDS: CALCIUM POLYCARBOPHIL 625 MG TABLET PO SCH ×2 (08:15→16:56)
[2020-01-19] MEDS: MULTIVITAMIN with MINERAL TABLET. PO SCH (08:15)
[2020-01-19] MEDS: GLIMEPIRIDE 2 MG TABLET. PO SCH ×2 (08:16→16:55)
[2020-01-19] MEDS: POTASSIUM CHLORIDE 20 MEQ TABLET.ER. PO SCH (08:16)
[2020-01-19] MEDS: FUROSEMIDE 40 MG TABLET. PO SCH (08:16)
[2020-01-19] MEDS: Dapagliflozin Propanediol (Farxiga) 10 MG PO SCH (08:17)
--- NOTE | 2020-01-19 09:09 | DISCH ---
DISCHARGE INSTRUCTIONS Condition on Discharge Condition on Discharge: Stable Activity After Discharge Activity Instructions for Disc: Activity as tolerated Bathing Instructions: Shower-keep dressing dry Driving Instructions after Dis: Do not drive Diet after Discharge Diet after Discharge: Regular Wound Incision Care Wound/Incision Care: Ice to area for comfort, Keep wound/cast CDI, Do not change dressing Contacting the DRFady after DC Call your doctor for: Concerns you may have Follow-Up Follow up with: Beverly in 2 weeks Follow Up With: outpatient physical therapy Warfarin Follow-Up Warfarin Follow UP: per pharmacy LOGAN MORRISON II, MD Jan 19, 2020 09:09
--- NOTE | 2020-01-19 09:10 | PDOC ---
ORTHO PROGRESS NOTES Subjective She feels like she is doing well overall. Her sore throat is better Vitals Vital Signs Date Time Temp Pulse Resp B/P (MAP) Pulse Ox O2 Delivery O2 Flow Rate FiO2 01/19/20 08:49 Room Air 01/19/20 08:14 103 133/57 01/19/20 06:54 20 01/19/20 05:32 100.2 93 100.2 Labs Laboratory Tests Test 01/17/20 10:18 01/17/20 11:54 01/17/20 17:05 01/17/20 20:36 Glucose (Fingerstick) 268 mg/dL (70-99) 240 mg/dL (70-99) 256 mg/dL (70-99) 187 mg/dL (70-99) Test 01/18/20 06:38 01/18/20 07:21 01/18/20 12:03 01/18/20 16:27 Hemoglobin 10.2 g/dL (12.0-15.5) Hematocrit 30.3 % (36.0-47.0) Mean Corpuscular Hemoglobin Concent 34 g/dL (31-37) Prothrombin Time 17.1 SEC (11.7-14.0) Prothromb Time International Ratio 1.4 (0.8-1.1) Glucose (Fingerstick) 108 mg/dL (70-99) 208 mg/dL (70-99) 125 mg/dL (70-99) Test 01/19/20 04:25 01/19/20 06:58 Hemoglobin 10.8 g/dL (12.0-15.5) Hematocrit 32.2 % (36.0-47.0) Mean Corpuscular Hemoglobin Concent 34 g/dL (31-37) Prothrombin Time 19.1 SEC (11.7-14.0) Prothromb Time International Ratio 1.6 (0.8-1.1) Glucose (Fingerstick) 111 mg/dL (70-99) Laboratory Tests Test 01/18/20 12:03 01/18/20 16:27 01/19/20 04:25 01/19/20 06:58 Glucose (Fingerstick) 208 mg/dL (70-99) 125 mg/dL (70-99) 111 mg/dL (70-99) Hemoglobin 10.8 g/dL (12.0-15.5) Hematocrit 32.2 % (36.0-47.0) Mean Corpuscular Hemoglobin Concent 34 g/dL (31-37) Prothrombin Time 19.1 SEC (11.7-14.0) Prothromb Time International Ratio 1.6 (0.8-1.1) Notes She is awake and alert and sitting in a chair. Normal motor and sensation are present in her leg, very small amount of dried drainage present at her dressing. Assessment and Plan We will continue PT OT, Coumadin, weight-bear as tolerated. I would anticipate discharge home tomorrow with outpatient physical therapy LOGAN MORRISON II, MD Jan 19, 2020 09:10
--- NOTE | 2020-01-19 15:23 | NUR ---
Pharmacy Warfarin Dosing Note S: Pharmacy consulted to assist with anticoagulation therapy started 01/16/20 O: MARBELLA BURRELL is a 64 year old F with TKA LABS: Last INR: 1.6 Last HGB: 10.8 Last HCT: 32.2 Last PLT: - Last dose of 4 mg given on 01/18/20 at 1628 Vitamin K given: N Ongoing Drug Interactions: allopurinol A:INR of 1.6 is within desired range. Target range for this patient is: 1.6 - 2.5 P: Warfarin dose: 3 mg Today at 1600 Bridge Therapy: None Next INR due tomorrow Pharmacy anticoagulation service will continue to follow. Mag Mazariegos Marta, 01/19/20 5416
[2020-01-19] MEDS ORDERED: WARFARIN 3 MG TABLET. PO ONE (16:00)
[2020-01-19 17:45] VITALS: BP 98/56
--- NOTE | 2020-01-19 18:06 | PATHOLOGY ---
[facility] Accession Number: [id number] . 01 Material submitted: . knee - LEFT KNEE BONE AND TISSUE. Modifiers: left . 01 Clinical history: . None provided . 02 Diagnosis: Segments of bone and soft tissue, robotic left total knee arthroplasty: - Degenerative arthritis. - Focal polarizable crystalline deposits within fibrocartilaginous tissue consistent with calcium pyrophosphate. - Focal mild chronic inflammation of synovial tissue. (JPM:paving rammer; 01/19/2020) MBR 01/19/2020 1659 Local . 02 Electronically signed: . Killian Bradshaw MD, Pathologist NPI- [id number] . 01 Gross description: . The specimen is received in formalin, labeled "Tawana Epstein, left knee bone and tissue" and consists of multiple segments of pink-butts bone including the tibial plateau as well as yellow lobulated soft tissue measuring 11.4 x 9.6 x 2.3 cm. The meniscus is present. The articular surfaces are smooth to roughened with adherent white soft chalky material. Analysis Director sections are submitted in A1-A2 with A2 following decalcification. (SDY; 01/17/2020) SYU/SYU 01/19/2020 1538 Local . 02 Pathologist provided ICD-10: M17.12 . 02 CPT . 500342, [id number] Specimen Comment: A courtesy copy of this report has been sent to [phone], [phone] Specimen Comment: [phone] Specimen Comment: Report sent to and Performed at: [address], [place], [place] [id number] MD Richard López MD Phone: [phone] Performed at: 02 [facility] [address] [place], [place] [id number] MD Killian Bradshaw MD Phone: [phone]
[2020-01-19] MEDS ORDERED: MAGNESIUM CITRATE 296 ML SOLUTION. PO ONE (19:30)
[2020-01-19] MEDS: MAGNESIUM OXIDE 400 MG TABLET PO SCH (20:40)
[2020-01-20] MEDS: ACETAMINOPHEN 500 MG TABLET PO SCH ×3 (00:32→11:57)
[2020-01-20] MEDS: oxyCODONE IR 5 MG TABLET PO PRN ×2 (00:32→15:41)
[2020-01-20 04:25] LABS: HEMATOCRIT 29.3 % (36.0-47.0); HEMOGLOBIN 9.9 g/dL (12.0-15.5)
[2020-01-20 04:36] LABS: PROTHROMBIN TIME PATIENT 18.4 SEC (11.7-14.0)
[2020-01-20] MEDS: LEVOTHYROXINE 112 MCG TABLET PO SCH (05:50)
[2020-01-20] MEDS: PANTOPRAZOLE 40 MG TABLET.DR. PO SCH (05:51)
[2020-01-20] MEDS: traMADol 50 MG TABLET PO SCH ×3 (05:51→11:57)
[2020-01-20 06:15] VITALS: BP 103/59
[2020-01-20] MEDS: INSULIN LISPRO 300 UNITS/3 ML VIAL. SQ SCH ×2 (07:59→11:57)
[2020-01-20 08:00] VITALS: BP 108/57
[2020-01-20] MEDS: POTASSIUM CHLORIDE 20 MEQ TABLET.ER. PO SCH (08:10)
[2020-01-20] MEDS: Dapagliflozin Propanediol (Farxiga) 10 MG PO SCH (08:10)
[2020-01-20] MEDS: CETIRIZINE HCL 10 MG TABLET. PO SCH (08:11)
[2020-01-20] MEDS: ALLOPURINOL 300 MG TABLET. PO SCH (08:11)
[2020-01-20] MEDS: CALCIUM POLYCARBOPHIL 625 MG TABLET PO SCH (08:11)
[2020-01-20] MEDS: FUROSEMIDE 40 MG TABLET. PO SCH (08:11)
[2020-01-20] MEDS: MULTIVITAMIN with MINERAL TABLET. PO SCH (08:11)
[2020-01-20] MEDS: metFORMIN 500 MG TABLET PO SCH (08:11)
[2020-01-20] MEDS: DOCUSATE SODIUM 100 MG CAPSULE. PO SCH (08:11)
[2020-01-20] MEDS: LINAGLIPTIN 5 MG TABLET PO SCH (08:11)
[2020-01-20] MEDS: GLIMEPIRIDE 2 MG TABLET. PO SCH (08:15)
[2020-01-20] MEDS: SENNOSIDES/DOCUSATE 8.6/50MG TABLET. PO SCH (08:15)
[2020-01-20] MEDS: LOSARTAN POTASSIUM 50 MG TABLET. PO SCH (09:00)
--- NOTE | 2020-01-20 09:10 | NUR ---
Pharmacy Warfarin Dosing Note S:Pharmacy consulted to assist with anticoagulation therapy started 01/16/20 with target INR: 1.6 - 2.5 O:MARBELLA BURRELL is a 64 year old F with TKA. LABS: Last INR: 1.6 Last HGB: 9.9 Last HCT: 29.3 Last PLT: - Last dose of 3 mg given on 01/19/20 at 1657 Vitamin K given: N A:INR of 1.6 is within desired range. Target range for this patient is: 1.6 - 2.5 P: Warfarin dose: 3 mg Prior to Discharge Bridge Therapy: None Next INR due 01/24/20. Pharmacy anticoagulation service will continue to follow. JENISE MCCULLOUGH Marta, 01/20/20 0957
[2020-01-20 09:43] VITALS: BP 100/59
--- NOTE | 2020-01-20 10:02 | PDOC3 ---
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 Brief Hospital Course Allergies Allergies Coded Allergies Type Severity Reaction Last Updated Verified Iezgjvv-Djl-Qya Reductase Inhibitor Allergy Intermediate RHABDO SYMPTOMS 01/17/20 Yes latex Allergy Intermediate RASH 01/17/20 Yes ezetimibe Adverse Reaction Intermediate BODY ACHES 01/17/20 Yes rosuvastatin Adverse Reaction Intermediate BODY ACHES 01/17/20 Yes Vital Signs Vital Signs Date Time Temp Pulse Resp B/P (MAP) Pulse Ox O2 Delivery O2 Flow Rate FiO2 01/20/20 09:43 77 100/59 (73) 01/20/20 08:00 Room Air 01/20/20 06:51 91 01/20/20 06:15 99.3 20 99.3 Lab Results Laboratory Tests Test 01/18/20 12:03 01/18/20 16:27 01/19/20 04:25 01/19/20 06:58 Glucose (Fingerstick) 208 mg/dL (70-99) 125 mg/dL (70-99) 111 mg/dL (70-99) Hemoglobin 10.8 g/dL (12.0-15.5) Hematocrit 32.2 % (36.0-47.0) Mean Corpuscular Hemoglobin Concent 34 g/dL (31-37) Prothrombin Time 19.1 SEC (11.7-14.0) Prothromb Time International Ratio 1.6 (0.8-1.1) Test 01/19/20 11:35 01/19/20 16:06 01/20/20 04:05 01/20/20 06:40 Glucose (Fingerstick) 171 mg/dL (70-99) 176 mg/dL (70-99) 69 mg/dL (70-99) Hemoglobin 9.9 g/dL (12.0-15.5) Hematocrit 29.3 % (36.0-47.0) Mean Corpuscular Hemoglobin Concent 34 g/dL (31-37) Prothrombin Time 18.4 SEC (11.7-14.0) Prothromb Time International Ratio 1.6 (0.8-1.1) Laboratory Tests Test 01/19/20 11:35 01/19/20 16:06 01/20/20 04:05 01/20/20 06:40 Glucose (Fingerstick) 171 mg/dL (70-99) 176 mg/dL (70-99) 69 mg/dL (70-99) Hemoglobin 9.9 g/dL (12.0-15.5) Hematocrit 29.3 % (36.0-47.0) Mean Corpuscular Hemoglobin Concent 34 g/dL (31-37) Prothrombin Time 18.4 SEC (11.7-14.0) Prothromb Time International Ratio 1.6 (0.8-1.1) Brief Hospital Course Ms. Epstein is a 64 old female who presented to my outpatient orthopedic surgery clinic with complaints of severe and progressive pain that failed conservative therapies including injections. We had a discussion of the risks, benefits, alternatives to total knee arthroplasty and she elected to proceed. She tolerated surgery well and recovered well from anesthesia in the PACU. She was then taken to the joint Center for care and observation. She did receive PT, OT, DVT and antibiotic prophylaxis. She recovered well from surgery and remained hemodynamically stable and afebrile throughout the hospitalization. Pain was controlled on oral pain medicine at the time of discharge. Good progress was made with therapy throughout the hospitalization, and activities of daily living were accomplished by the patient. The incision was clean dry and intact and the operative extremity had normal motor and sensation. Discharge Information Condition at Discharge: Stable Follow Up: Weeks Disposition/Orders: D/C to Home Scheduled Allopurinol (Allopurinol) 300 Mg Tablet, 300 MG PO DAILY for FOR GOUT, (Reported) Entered as Reported by: ARSLAN SIMPSON on 12/27/191100 Last Taken: Unknown Dose on 01/17/20 0530 Last Action: Continued on 01/17/20737 by LISA MORRISON MD Calcium Polycarbophil (Fibercon) 625 Mg Tablet, 2 TAB PO BIDWMEALS for PRVENT CONSTIPTATION, (Reported) Entered as Reported by: ARSLAN SIMPSON on 12/27/19 110 Last Taken: Unknown Dose on 01/16/20 Last Action: Continued on 01/17/20737 by LISA MORRISON MD Cholecalciferol (Vitamin D3) (D3-50) 50,000 Unit Capsule, 1 CAP PO FRIDAY for SUPPLEMENT, Ref 0 (Reported) Entered as Reported by: RED LUCERO RPH on 01/12/201627 Last Taken: Unknown Dose on 01/16/20 Last Action: Converted on 01/17/20737 by LISA MORRISON MD Dapagliflozin Propanediol (Farxiga) 10 Mg Tablet, 10 MG PO DAILY for CONTROL DIABETES, (Reported) Entered as Reported by: ARSLAN SIMPSON on 12/27/19 110 Last Taken: Unknown Dose on 01/16/20 Last Action: Converted on 01/17/20737 by LISA MORRISON MD Diphenhydramine Hcl (Diphenhydramine Hcl) 25 Mg Tablet, 25 MG PO QHS, (Reported) Entered as Reported by: RED LUCERO [facility] on 01/12/201627 Last Taken: Unknown Dose on 01/17/20 0200 Last Action: HELD on 01/17/20737 by LISA MORRISON MD Docusate Sodium (Colace) 100 Mg Capsule, 200 MG PO DAILY for PREVENT CONSTIPATION, (Reported) Entered as Reported by: ARSLAN SIMPSON on 12/27/191100 Last Taken: Unknown Dose on 01/16/20 Last Action: Continued on 01/17/20737 by LISA MORRISON MD Furosemide (Lasix) 40 Mg Tablet, 40 MG PO DAILY, (Reported) Entered as Reported by: KENYETTA CABRERA on 06/26/161104 Last Taken: Unknown Dose on 01/16/20 Last Action: Continued on 01/17/20737 by LISA MORRISON MD Glimepiride (Glimepiride) 4 Mg Tablet, 4 MG PO BIDWMEALS for CONTROL DIABETES, (Reported) Entered as Reported by: ARSLAN SIMPSON on 12/27/19 110 Last Taken: Unknown Dose on 01/16/20 Last Action: Converted on 01/17/20737 by LISA MORRISON MD Levothyroxine Sodium (Levothyroxine Sodium) 112 Mcg Tablet, 2 TAB PO DAILY for TREAT HYPOTHYROIDISM, #90 Ref 3 (Reported) Entered as Reported by: KENYETTA CABRERA on 06/26/16 110 Last Taken: Unknown Dose on 01/17/20 0530 Last Action: Continued on 01/17/20737 by LISA MORRISON MD Loratadine (Claritin) 10 Mg Tablet, 1 TAB PO DAILY for allergy symptoms, Ref 0 (Reported) Entered as Reported by: RED LUCERO RPH on 01/12/20 1628 Last Taken: Unknown Dose on 01/16/20 Last Action: Converted on 01/17/20737 by LISA MORRISON MD Magnesium Oxide (Magnesium Oxide) 400 Mg Tablet, 800 MG PO HS for SUPPLEMENT, (Reported) Entered as Reported by: ARSLAN SIMPSON on 12/27/191100 Last Taken: Unknown Dose on 01/16/20 Last Action: Converted on 01/17/20737 by LISA MORRISON MD Meloxicam (Mobic) 15 Mg Tablet, 15 MG PO DAILY, (Reported) Entered as Reported by: KENYETTA CABRERA on 06/26/161104 Last Taken: Unknown Dose on 01/16/20 Last Action: HELD on 01/17/20737 by LISA MORRISON MD Metformin Hcl (Metformin Hcl) 1,000 Mg Tablet, 1 TAB PO BIDWMEALS, #60 Ref 5 (Reported) Entered as Reported by: KENYETTA CABRERA on 06/26/161104 Last Taken: Unknown Dose on 01/16/20 Last Action: Converted on 01/17/20737 by LISA MORRISON MD Omeprazole Magnesium (Prilosec Otc) 20 Mg Tablet.dr, 20 MG PO DAILY, (Reported) Entered as Reported by: KENYETTA CABRERA on 06/26/161104 Last Taken: Unknown Dose on 01/17/20 0530 Last Action: Converted on 01/17/20737 by LISA MORRISON MD Potassium Chloride (Klor-Con M20) 20 Meq Tab.er.prt, 20 MEQ PO DAILY, (Reported) Entered as Reported by: KENYETTA CABRERA on 06/26/161104 Last Taken: Unknown Dose on 01/16/20 Last Action: Continued on 01/17/20737 by LISA MORRISON MD Sitagliptin Phosphate (Januvia) 100 Mg Tablet, 100 MG PO DAILY for XCONTROL DIABETES, (Reported) Entered as Reported by: ARSLAN SIMPSON on 12/27/19 110 Last Taken: Unknown Dose on 01/16/20 Last Action: Converted on 01/17/20737 by LISA MORRISON MD Valsartan (Diovan) 160 Mg Tablet, 160 MG PO DAILY for HYPERTENSION, (Reported) Entered as Reported by: ARSLAN SIMPSON on 12/27/191100 Last Taken: Unknown Dose on 01/17/20 0530 Last Action: Converted on 01/17/20737 by LISA MORRISON MD Scheduled PRN Acetaminophen (Acetaminophen) 500 Mg Tablet, 2 TAB PO PRN Q6HRS PRN for PAIN, Ref 0 (Reported) Entered as Reported by: RED LUCERO RP on 01/12/20 1628 Last Taken: Unknown Dose on 01/16/20 Last Action: HELD on 01/17/20737 by LISA MORRISON MD Albuterol Sulfate (Proair Hfa) 8.5 Gm Hfa.aer.ad, 2 PUFF INH PRN Q6HRS PRN for wheezing for 21 Days, #1 Ref 0 (Reported) Entered as Reported by: ARSLAN SIMPSON on 12/27/191100 Last Taken: Unknown Dose on 01/05/20 Last Action: Continued on 01/17/20737 by LISA MORRISON MD Clobetasol Propionate (Clobetasol Propionate) 15 Gm Cream..g., 0.5 % TP PRN BID PRN for RASH, (Reported) Entered as Reported by: ARSLAN SIMPSON on 12/27/191100 Last Taken: Unknown Dose on 01/16/20 Last Action: Converted on 01/17/20737 by LISA MORRISON MD Colchicine (Colcrys) 0.6 Mg Tablet, 0.6 MG PO PRN BID PRN for GOUT, (Reported) Entered as Reported by: KENYETTA CABRERA on 06/26/16 110 Last Taken: Unknown Dose on 01/16/20 Last Action: Continued on 01/17/20737 by LISA MORRISON MD Cyclobenzaprine Hcl (Cyclobenzaprine Hcl) 10 Mg Tablet, 10 MG PO TID PRN for MUSCLE PAIN, (Reported) Entered as Reported by: ARSLAN SIMPSON on 12/27/191100 Last Taken: Unknown Dose on 01/10/20 Last Action: Continued on 01/17/20737 by LISA MORRISON MD Hydrocodone/Acetaminophen (Lortab 10-325 mg Tablet) 1 Each Tablet, 1 TAB PO Q4HRS PRN for PAIN, Ref 0 (Reported) Entered as Reported by: KENYETTA CABRERA on 06/26/16 1105 Last Taken: Unknown Dose on 01/11/20 Last Action: HELD on 01/17/20737 by LISA MORRISON MD Ondansetron Hcl (Zofran) 8 Mg Tablet, 8 MG PO PRN Q8HRS PRN for NAUSEA/VOMITING, (Reported) Entered as Reported by: ARSLAN SIMPSON on 12/27/19 110 Last Taken: Unknown Dose on 01/10/20 Last Action: Converted on 01/17/20737 by LISA MORRISON MD Promethazine Hcl (Promethazine Hcl) 25 Mg Tablet, 25 MG PO Q6H PRN for NAUSEA/VOMITING, (Reported) Entered as Reported by: ARSLAN SIMPSON on 12/27/191100 Last Taken: Unknown Dose on 01/01/20 Last Action: Converted on 01/17/20737 by LISA MORRISON MD Patient Instructions Patient Instructions She will be discharged home. We will get her started on outpatient therapy as soon as we are able. The patient will be on Coumadin for a month. She can weight-bear as tolerated. Worrisome signs and symptoms that should prompt a phone call to my office were discussed. We'll see her back in 2 weeks, sooner should a problem arise. LOGAN MORRISON II, MD Jan 20, 2020 10:02
--- NOTE | 2020-01-20 10:06 | PDOC ---
ORTHO PROGRESS NOTES Subjective She feels like she is doing well, she is having a little constipation, this is not unusual for her. She is passing flatus, no nausea or vomiting Vitals Vital Signs Date Time Temp Pulse Resp B/P (MAP) Pulse Ox O2 Delivery O2 Flow Rate FiO2 01/20/20 09:43 77 100/59 (73) 01/20/20 08:00 Room Air 01/20/20 06:51 91 01/20/20 06:15 99.3 20 99.3 Labs Laboratory Tests Test 01/18/20 12:03 01/18/20 16:27 01/19/20 04:25 01/19/20 06:58 Glucose (Fingerstick) 208 mg/dL (70-99) 125 mg/dL (70-99) 111 mg/dL (70-99) Hemoglobin 10.8 g/dL (12.0-15.5) Hematocrit 32.2 % (36.0-47.0) Mean Corpuscular Hemoglobin Concent 34 g/dL (31-37) Prothrombin Time 19.1 SEC (11.7-14.0) Prothromb Time International Ratio 1.6 (0.8-1.1) Test 01/19/20 11:35 01/19/20 16:06 01/20/20 04:05 01/20/20 06:40 Glucose (Fingerstick) 171 mg/dL (70-99) 176 mg/dL (70-99) 69 mg/dL (70-99) Hemoglobin 9.9 g/dL (12.0-15.5) Hematocrit 29.3 % (36.0-47.0) Mean Corpuscular Hemoglobin Concent 34 g/dL (31-37) Prothrombin Time 18.4 SEC (11.7-14.0) Prothromb Time International Ratio 1.6 (0.8-1.1) Laboratory Tests Test 01/19/20 11:35 01/19/20 16:06 01/20/20 04:05 01/20/20 06:40 Glucose (Fingerstick) 171 mg/dL (70-99) 176 mg/dL (70-99) 69 mg/dL (70-99) Hemoglobin 9.9 g/dL (12.0-15.5) Hematocrit 29.3 % (36.0-47.0) Mean Corpuscular Hemoglobin Concent 34 g/dL (31-37) Prothrombin Time 18.4 SEC (11.7-14.0) Prothromb Time International Ratio 1.6 (0.8-1.1) Notes She is awake and alert and sitting in a chair. Left knee dressing is intact. Normal motor and sensation present in her left lower extremity Assessment and Plan We'll plan on discharge home today, she will continue PT as an outpatient. She will continue Coumadin LOGAN MORRISON II, MD Jan 20, 2020 10:06
[2020-01-20] MEDS ORDERED: WARF3TAB50 PO (10:31)
[2020-01-20] MEDS ORDERED: OXYC-325 PO (10:32)
[2020-01-20] MEDS ORDERED: WARFARIN 3 MG TABLET. PO ONE (14:00)
--- NOTE | 2020-01-20 16:25 | NUR ---
Patient left the building with her son around 1610. Discharge education completed by this nurse, therapy, pharmacy, and the doctor prior to dismissal. Coumadin education completed in detail by this nurse and pharmacy. RINA dressing instructions gone over in detail with the patient and her son present. RINA intact and working properly prior to discharge. Script given to the patient for percocet. OPT to start tomorrow at [facility], patient and son are both aware. NO concerns noted upon discharge.
[2020-01-24] MEDS ORDERED: ERGOCALCIFEROL (VITAMIN D2) 50,000 UNIT CAPSULE. PO SCH (09:00)
== END 2020-01-20 16:20 | disposition home or self-care (01) | DRG 470 ==
LOC: SURG 06:06 → EDSTATUS 07:30 → 4 NORTH 09:30 → OBSVTOIN 01-18 07:52 → 4 SOUTHEST 01-18 14:00
PROVIDERS: ADMIT Orthopaedic Surgery Sports Medicine; ATTEND Orthopaedic Surgery Sports Medicine
PROC: 8E0Y0CZ Robotic Assisted Procedure of Lower Extremity, Open Approach (ICD-10-PCS; 2020-01-17)
PROC: 0SRD0J9 Replacement of Left Knee Joint with Synthetic Substitute, Cemented, Open Approach (ICD-10-PCS; principal; 2020-01-17 07:30)
DX: M17.0 Bilateral primary osteoarthritis of knee (principal); Z79.01 Long term (current) use of anticoagulants; Z79.899 Other long term (current) drug therapy; Z88.8 Allergy status to other drugs, medicaments and biological substances; Z91.040 Latex allergy status
CPT/HCPCS: 36415; 73560; 82962; 85014; 85018; 85610; 85730; 86850; 86900; 86901; 88305; 88311; A7015; C1713; G0378; G0379; J0171; J0696; J1100; J1200; J1815; J1885; J2001; J2250; J2270; J2405; J2704; J2710; J2795; J3010; J3490; J7030; J7120; 97116; 97150; 97530; 97535; C1769

== ENCOUNTER → 2020-04-19 | Outpatient (CLI) | payer OTHER ==
[~2020-04-19] MED LIST changes: -ACETAMINOPHEN 500 MG TABLET PO PRN; -LEVO112T4 PO; +LEVO112T49 PO; -MELOXICAM 7.5 MG TABLET PO PRN; -MORPHINE SULFATE 5 MG, KETOROLAC 30MG VIAL 30 MG, ROPIVacaine 0.5% PF 60 ML, EPINEPHrin... INT ART ONE; +OXYC-325 PO; -QUIN324C3 PO; -TRANEXAMIC ACID 1,000 MG in IV NS 50ML -- 1ST BAG INJ ONE; +WARF3TAB50 PO; +[UNRECOGNIZED DRUG - CODE] PO
--- NOTE | 2020-04-20 10:08 | RAD ---
MR of the right knee HISTORY: Medial right knee pain. Patellar dislocation. TECHNIQUE: Routine multiplanar sequences are obtained. FINDINGS: Mild motion degradation. COMPARISON: None FINDINGS: No definite medial or lateral meniscal tear is identified. Mild signal within each menisci may be accentuated by motion degradation. Anterior and posterior cruciate ligaments are intact. Mild intercondylar notch stenosis due to osteophytes. Medial collateral ligament intact. Iliotibial band unremarkable. Fibular collateral ligament, biceps femoris tendon and popliteus tendon are intact. The quadriceps tendon and the patellar tendon are intact. Lateral tilt and subluxation of the patella. Subchondral marrow abnormality at the medial patella, with central fatty signal surrounded by marrow edema and low T1 signal. No acute-appearing retinacular rupture. No evidence of acute fracture. No evidence of aggressive bone destruction. Full-thickness articular cartilage defect at the lateral weightbearing aspect of the lateral femoral condyle, measuring 1 cm wide by 5 mm AP with mild subjacent marrow edema. This demonstrates a sharp margin with adjacent cartilage suggesting recent nature as well. Mild degenerative changes at the medial and lateral joint compartment. More severe degenerative changes at the patellofemoral joint with severe chondral loss and bone remodeling. No acute soft tissue abnormality. No significant Roach's cyst. Mild anterior subcutaneous edema/fluid. IMPRESSION: 1. Full-thickness articular cartilage defect at the lateral femoral condyle, may be due to recent posttraumatic chondral tear. A loose displaced articular cartilage is considered but not definitely seen. 2. Subchondral lesion at the inferomedial patella. This could represent a nondisplaced posttraumatic fracture, such as could be seen with recent lateral patellar dislocation or blunt trauma. Degenerative etiology or osteonecrosis could result in a similar appearance although thought to be less likely. 3. Severe patellofemoral joint DJD with lateral patellar tilt and subluxation. 4. Prepatellar subcutaneous edema/fluid, possibilities include prepatellar bursitis or hemorrhage. Electronically signed by: Nathanael Phoenix MD (04/20/2020 10:05 AM) [id number]
== END | disposition home or self-care (01) ==
LOC: MRI 14:45
PROVIDERS: ATTEND Physician Assistant
DX: S83.001A Unspecified subluxation of right patella, initial encounter (principal); M17.11 Unilateral primary osteoarthritis, right knee; X58.XXXA Exposure to other specified factors, initial encounter; Y93.89 Activity, other specified; Y92.89 Other specified places as the place of occurrence of the external cause; Y99.8 Other external cause status
CPT/HCPCS: 73721

== ENCOUNTER → 2020-05-18 | Outpatient (CLI) | payer OTHER ==
[2020-05-18 12:45] LABS: ALBUMIN 3.9 g/dL (3.4-5.0); DIRECT BILIRUBIN 0.2 mg/dL (0.0-0.2); TOTAL BILIRUBIN 0.4 mg/dL (0.2-1.0)
== END | disposition home or self-care (01) ==
LOC: ONCLAB 12:08
PROVIDERS: ATTEND Internal Medicine Hematology & Oncology
DX: D50.0 Iron deficiency anemia secondary to blood loss (chronic) (principal)
CPT/HCPCS: 36415; 80076; 82977

== ENCOUNTER 2020-09-13 12:04 | Inpatient (IN) | payer OTHER ==
[~2020-09-13] VITALS: Ht 170.2 cm; Wt 81.3 kg
[2020-09-13] MEDS ORDERED: IV NORMAL SALINE 1000ML BAG 1,000 ML IV ONE (15:15)
[2020-09-13] MEDS ORDERED: FAMOTIDINE 20 MG/2 ML VIAL IVP ONE (15:15)
[2020-09-13] MEDS ORDERED: ONDANSETRON PF 4 MG/2 ML VIAL. IVP ONE (15:15)
[2020-09-13 15:38] LABS: BACTERIA,URINE 0 /HPF (0-FEW); BILIRUBIN,URINE NEGATIVE (NEG); CLARITY,URINE CLEAR; COLOR,URINE YELLOW; NITRITE,URINE NEGATIVE (NEG); PH,URINE 5.5 (<5.0-8.0); PROTEIN,URINE NEGATIVE (NEG-TRACE); RBC,URINE 0 /HPF (0-2); UROBILINOGEN,URINE 0.2 mg/dL (0.2 mg/dL); WBC,URINE 0 /HPF (0-4)
[2020-09-13 15:51] LABS: BASO # 0.1 x10^3/uL (0.0-0.2); BASO % 1 % (0-3); EOS % 0 % (0-3); LYMPH # 1.9 x10^3/uL (1.0-4.8); LYMPH % 16 % (24-48); MEAN CORPUSCULAR HEMOGLOBIN 29 pg (25-35); MEAN CORPUSCULAR HGB CONC 33 g/dL (31-37); MEAN CORPUSCULAR VOLUME 88 fL (79-100); MONO # 0.8 x10^3/uL (0.0-1.1); MONO % 7 % (0-9); NEUT # 9.1 x10^3/uL (1.8-7.7); NEUT % 77 % (31-73); PLATELET COUNT 175 x10^3/uL (140-400); RED BLOOD COUNT 2.33 x10^6/uL (3.50-5.40); RED CELL DISTRIBUTION WIDTH 15.6 % (11.5-14.5); WHITE BLOOD COUNT 11.9 x10^3/uL (4.0-11.0)
[2020-09-13 15:56] LABS: HEMATOCRIT 20.6 % (36.0-47.0); HEMOGLOBIN 6.8 g/dL (12.0-15.5)
[2020-09-13 15:57] LABS: CALCIUM 9.2 mg/dL (8.5-10.1); CREATININE 1.2 mg/dL (0.6-1.0); GFR 45.1; POTASSIUM 5.1 mmol/L (3.5-5.1)
[2020-09-13 16:03] LABS: ALBUMIN 3.3 g/dL (3.4-5.0); MAGNESIUM 2.9 mg/dL (1.8-2.4); TOTAL BILIRUBIN 0.4 mg/dL (0.2-1.0); TOTAL PROTEIN 6.7 g/dL (6.4-8.2)
[2020-09-13 16:04] LABS: PROTHROMBIN TIME PATIENT 14.6 SEC (11.7-14.0)
--- NOTE | 2020-09-13 16:32 | RAD ---
Examination: CT ABDOMEN PELVIS WO CONTRAST History: Reason: rectal bleeding, nausea / Spl. Instructions: LOW GFR / Comparison/Correlation: None Findings: Axial images of the abdomen and pelvis were obtained without contrast. Sagittal and coronal reformatted images provided. Marked coronary arterial calcification is present. Calcified granulomas involving the posterior left lung base. Nodular contour of the liver is present. Gallbladder fossa is unremarkable. Spleen has a length of 14 cm. Pancreas is unremarkable. Diverticulum measuring 1.6 cm diameter involves the proximal duodenal sweep region. No ascites or pelvic free fluid. No enlarged abdominal or pelvic lymph nodes. Mild diverticulosis of the colon is present. Urinary bladder is unremarkable. Appendix is normal. No bowel obstruction or extraluminal gas. No enlarged abdominal or pelvic lymph nodes. Gallbladder fossa is normal. Epigastric nonenlarged lymph nodes are present. No collecting system obstruction. Moderate left renal atrophy is present. There is subtle high involving the distal right ureter but no hydroureter is seen. L4-5 disc space narrowing is present. Mild L3-4 disc space narrowing with concentric disc bulge noted. Spinal canal stenosis noted at this level. Hysterectomy noted. Circumferential soft tissue density at the anus is questioned. Impression: Nodular contour of the liver of concern for cirrhosis or other fibrotic processes. Splenomegaly which may relate to portal hypertension noted. Soft tissue density in the distal anus as questioned. Correlate with physical exam and possibly direct visualization for this patient with reported rectal bleeding. PQRS Compliance Statement: One or more of the following individualized dose reduction techniques were utilized for this examination: 1. Automated exposure control 2. Adjustment of the mA and/or kV according to patient size 3. Use of iterative reconstruction technique Electronically signed by: Javon Rashid MD (09/13/2020 4:29 PM) [facility]
[2020-09-13 17:52] VITALS: BP 134/62
[2020-09-13 18:07] VITALS: BP 126/57
--- NOTE | 2020-09-13 19:04 | HP ---
ADMIT DATE: 09/13/2020 CHIEF COMPLAINT: Rectal bleeding. HISTORY OF PRESENT ILLNESS: The patient is a pleasant middle-aged female who presents to the ER today with rectal bleeding. She rates her symptoms at 7/10. It has been occurring for several days. Her hemoglobin here in the ER is 6.8. I discussed the case with ER physician. We are going to admit the patient and consult GI. PAST MEDICAL HISTORY: Polypharmacy, nausea, allergic rhinitis, asthma, muscle spasms, chronic anticoagulation, she is on Coumadin. Hypertension, chronic pain, arthritis, edema, constipation, GERD, diabetes, gout, hypothyroidism. ALLERGIES: STATINS, LATEX, AND EZETIMIBE. FAMILY HISTORY: Diabetes. SOCIAL HISTORY: She does not drink, smoke or take drugs. 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 MEDICATIONS: Reviewed. She is on 27. Please refer to the MRAD. REVIEW OF SYSTEMS: GENERAL: No history of weight change, weakness or fevers. SKIN: No bruising, hair changes or rashes. EYES: No blurred, double or loss of vision. NOSE AND THROAT: No history of nosebleeds, hoarseness or sore throat. HEART: No history of palpitations, chest pain or shortness of breath on exertion. LUNGS: Denies cough, hemoptysis, wheezing or shortness of breath. GASTROINTESTINAL: She complains of abdominal pain and some rectal bleeding. GENITOURINARY: No history of frequency, urgency, hesitancy or nocturia. NEUROLOGIC: Denies history of numbness, tingling, tremor or weakness. PSYCHIATRIC: No history of panic, anxiety or depression. ENDOCRINE: No history of heat or cold intolerance, polyuria or polydipsia. EXTREMITIES: Denies muscle weakness, joint pain, pain on walking or stiffness. PHYSICAL EXAMINATION: VITALS: Within normal limits and are stable. GENERAL: No apparent distress. Alert and oriented. HEENT: Normal cephalic atraumatic, external auditory canals are patent EYES: Extraocular muscles are intact, pupils are equally round and reactive to light and accommodation MUSCULOSKELETAL: Well developed, well nourished, good range of motion ENDOCRINE: No thyromegaly was palpated LYMPHATICS: No cervical chain or axillary nodes were noted HEMATOPOIETIC: No bruising NECK: Supple, no JVD, no thyromegaly was noted. LUNGS: Clear to auscultation in all lung kilgore without rhonchi or wheezing. HEART: RRR, S1, S2 present. Peripheral pulses intact, no obvious murmurs were noted. ABDOMEN: Soft, nontender. Positive bowel sounds no organomegaly, normal bowel sounds. EXTREMITIES: Without any cyanosis, clubbing, or edema. Pedal pulses intact, Homans sign is negative. NEUROLOGIC: Normal speech, normal tone. A & O x3, moves all extremities, no obvious focal deficits. PSYCHIATRIC: Normal affect, normal mood. Stable. SKIN: No ulcerations or rashes, good skin turgor, no jaundice. VASCULAR: Good capillary refill, neurovascular bundle appears to be intact. LABORATORY DATA: Hemoglobin is 6.8, BUN 55, creatinine 1.2. INR is 1.2. Urinalysis negative. ASSESSMENT AND PLAN: Gastrointestinal bleed. The patient has been admitted. We will consult GI, transfuse 1 unit of packed red blood cells, IV fluids. Trend labs. Clear liquid diet. BUCKY GONZALEZ DO DR: KARL/robert JOB#: [id number] / [id number]
[2020-09-13] MEDS ORDERED: MORPHINE SULFATE 2 MG/ML VIAL. IV PRN (19:30)
[2020-09-13] MEDS ORDERED: ACETAMINOPHEN 325 MG TABLET. PO PRN (19:30)
--- NOTE | 2020-09-13 19:39 | PHYS DOC ---
Past Medical History Past Medical History: Diabetes-Type II, GERD, Other Additional Past Medical Histor: DJD; anemia (MAYIMARIO JAIN) Past Surgical History: Other Additional Past Surgical Histo: R knee (MAYIMARIO JAIN) Smoking Status: Never Smoker Alcohol Use: None (MAYIMARIO JAIN) General Adult EDM: Chief Complaint: RECTAL BLEED HPI: HPI: Patient is a 65 year old female with history of anemia who presents to the ED today complaining of rectal bleeding. Patient states on Friday she had black tarry stools, she states on Friday her bowels were normal then early this morning her bowels became bright red. She reports history of hemorrhoids. She states she has been feeling generalized weak since Friday. She is also repor ting nausea with no vomiting. (MAYIMARIO JAIN) Review of Systems: Review of Systems: Constitutional: Denies fever or chills. [] Eyes: Denies change in visual acuity. [] HENT: Denies nasal congestion or sore throat. [] Respiratory: Denies cough or shortness of breath. [] Cardiovascular: Denies chest pain or edema. [] GI: Reports rectal bleeding. Es abdominal pain, nausea, vomiting, bloody stools : Denies dysuria. [] Musculoskeletal: Denies back pain or joint pain. [] Integument: Denies rash. [] Neurologic: Denies headache, focal weakness or sensory changes. [] Psychiatric: Denies depression or anxiety. [] (MARIO SEE APRN) Heart Score: Risk Factors: Risk Factors: DM, Current or recent (<one month) smoker, HTN, HLP, family history of CAD, obesity. Risk Scores: Score 0 - 3: 2.5% MACE over next 6 weeks - Discharge Home Score 4 - 6: 20.3% MACE over next 6 weeks - Admit for Clinical Observation Score 7 - 10: 72.7% MACE over next 6 weeks - Early Invasive Strategies (MARIO SEE APRN) Current Medications: Current Medications Medications (Trade) Dose Ordered Sig/Brandy Start Time Stop Time Status Last Admin Dose Admin Famotidine (Pepcid Vial) 20 mg 1X ONCE 09/13/20 15:15 09/13/20 15:16 DC 09/13/20 15:15 20 MG Ondansetron HCl (Zofran) 4 mg 1X ONCE 09/13/20 15:15 09/13/20 15:16 DC 09/13/20 15:15 4 MG Sodium Chloride 1,000 ml @ 1,000 mls/hr 1X ONCE 09/13/20 15:15 09/13/20 16:14 DC 09/13/20 15:15 1,000 MLS/HR (MARIO SEE SWEATBAND CUTTING MACHINE OPERATOR) Allergies: Allergies: Allergies Coded Allergies Type Severity Reaction Last Updated Verified Wgzdodb-Dco-Pux Reductase Inhibitor Allergy Intermediate RHABDO SYMPTOMS 01/17/20 Yes latex Allergy Intermediate RASH 01/17/20 Yes ezetimibe Adverse Reaction Intermediate BODY ACHES 01/17/20 Yes rosuvastatin Adverse Reaction Intermediate BODY ACHES 01/17/20 Yes (MAYIMARIO SWEATBAND CUTTING MACHINE OPERATOR) Physical Exam: PE: Constitutional: Well developed, well nourished, no acute distress, non-toxic appearance. [] HENT: Normocephalic, atraumatic, bilateral external ears normal, oropharynx moist, no oral exudates, nose normal. [] Eyes: PERRLA, EOMI, conjunctiva normal, no discharge. [] Neck: Normal range of motion, no tenderness, supple, no stridor. [] Cardiovascular:Heart rate regular rhythm, no murmur [] Lungs & Thorax: Bilateral breath sounds clear to auscultation [] Abdomen: Bowel sounds normal, soft, no tenderness, no masses, no pulsatile masses. [] Rectal exam-external hemorrhoids noted, then nonthrombosed. No fecal material available during rectal exam for Hemoccult testing Skin: Warm, dry, no erythema, no rash. [] Back: No tenderness, no CVA tenderness. [] Extremities: No tenderness, no cyanosis, no clubbing, ROM intact, no edema. [] Neurologic: Alert and oriented X 3, normal motor function, normal sensory function, no focal deficits noted. [] Psychologic: Affect normal, judgement normal, mood normal. [] (MAYIMARIO SWEATBAND CUTTING MACHINE OPERATOR) Current Patient Data: Labs: Laboratory Tests Test 09/13/20 14:45 09/13/20 15:40 Urine Collection Type Void Urine Color Yellow Urine Clarity Clear Urine pH 5.5 (<5.0-8.0) Urine Specific [place] 1.025 (1.000-1.030) Urine Protein Negative mg/dL (NEG-TRACE) Urine Glucose (UA) >=1000 mg/dL (NEG) Urine Ketones (Stick) 15 mg/dL (NEG) Urine Blood Negative (NEG) Urine Nitrite Negative (NEG) Urine Bilirubin Negative (NEG) Urine Urobilinogen Dipstick 0.2 mg/dL (0.2 mg/dL) Urine Leukocyte Esterase Negative (NEG) Urine RBC 0 /HPF (0-2) Urine WBC 0 /HPF (0-4) Urine Bacteria 0 /HPF (0-FEW) White Blood Count 11.9 x10^3/uL (4.0-11.0) H Red Blood Count 2.33 x10^6/uL (3.50-5.40) L Hemoglobin 6.8 g/dL (12.0-15.5) *L Hematocrit 20.6 % (36.0-47.0) *L Mean Corpuscular Volume 88 fL (79-100) Mean Corpuscular Hemoglobin 29 pg (25-35) Mean Corpuscular Hemoglobin Concent 33 g/dL (31-37) Red Cell Distribution Width 15.6 % (11.5-14.5) H Platelet Count 175 x10^3/uL (140-400) Neutrophils (%) (Auto) 77 % (31-73) H Lymphocytes (%) (Auto) 16 % (24-48) L Monocytes (%) (Auto) 7 % (0-9) Eosinophils (%) (Auto) 0 % (0-3) Basophils (%) (Auto) 1 % (0-3) Neutrophils # (Auto) 9.1 x10^3/uL (1.8-7.7) H Lymphocytes # (Auto) 1.9 x10^3/uL (1.0-4.8) Monocytes # (Auto) 0.8 x10^3/uL (0.0-1.1) Eosinophils # (Auto) 0.0 x10^3/uL (0.0-0.7) Basophils # (Auto) 0.1 x10^3/uL (0.0-0.2) Prothrombin Time 14.6 SEC (11.7-14.0) H Prothrombin Time INR 1.2 (0.8-1.1) H Activated Partial Thromboplast Time 31 SEC (24-38) Sodium Level 136 mmol/L (136-145) Potassium Level 5.1 mmol/L (3.5-5.1) Chloride Level 103 mmol/L (98-107) Carbon Dioxide Level 18 mmol/L (21-32) L Anion Gap 15 (6-14) H Blood Urea Nitrogen 55 mg/dL (7-20) H Creatinine 1.2 mg/dL (0.6-1.0) H Estimated GFR (Cockcroft-Gault) 45.1 BUN/Creatinine Ratio 46 (6-20) H Glucose Level 296 mg/dL (70-99) H Calcium Level 9.2 mg/dL (8.5-10.1) Magnesium Level 2.9 mg/dL (1.8-2.4) H Total Bilirubin 0.4 mg/dL (0.2-1.0) Aspartate Amino Transferase (AST) 20 U/L (15-37) Alanine Aminotransferase (ALT) 36 U/L (14-59) Alkaline Phosphatase 113 U/L (46-116) Total Protein 6.7 g/dL (6.4-8.2) Albumin 3.3 g/dL (3.4-5.0) L Albumin/Globulin Ratio 1.0 (1.0-1.7) Lipase 435 U/L (73-393) H Laboratory Tests 09/13/20 15:40 Laboratory Tests 09/13/20 15:40 Vital Signs: Vital Signs Date Time Temp Pulse Resp B/P (MAP) Pulse Ox O2 Delivery O2 Flow Rate FiO2 09/13/20 18:07 99.6 103 16 126/57 99.6 09/13/20 13:33 98 Room Air (MARIO SEE APRN) EKG: EKG: [] (MARIO SEE APRN) Radiology/Procedures: Radiology/Procedures: []PROCEDURE: CT ABDOMEN PELVIS WO CONTRAST Examination: CT ABDOMEN PELVIS WO CONTRAST History: Reason: rectal bleeding, nausea / Spl. Instructions: LOW GFR / Comparison/Correlation: None Findings: Axial images of the abdomen and pelvis were obtained without contrast. Sagittal and coronal reformatted images provided. Marked coronary arterial calcification is present. Calcified granulomas involving the posterior left lung base. Nodular contour of the liver is present. Gallbladder fossa is unremarkable. Spleen has a length of 14 cm. Pancreas is unremarkable. Diverticulum measuring 1.6 cm diameter involves the proximal duodenal sweep region. No ascites or pelvic free fluid. No enlarged abdominal or pelvic lymph nodes. Mild diverticulosis of the colon is present. Urinary bladder is unremarkable. Appendix is normal. No bowel obstruction or extraluminal gas. No enlarged abdominal or pelvic lymph nodes. Gallbladder fossa is normal. Epigastric nonenlarged lymph nodes are present. No collecting system obstruction. Moderate left renal atrophy is present. There is subtle high involving the distal right ureter but no hydroureter is seen. L4-5 disc space narrowing is present. Mild L3-4 disc space narrowing with concentric disc bulge noted. Spinal canal stenosis noted at this level. Hysterectomy noted. Circumferential soft tissue density at the anus is questioned. Impression: Nodular contour of the liver of concern for cirrhosis or other fibrotic processes. Splenomegaly which may relate to portal hypertension noted. Soft tissue density in the distal anus as questioned. Correlate with physical exam and possibly direct visualization for this patient with reported rectal bleeding. PQRS Compliance Statement: One or more of the following individualized dose reduction techniques were utilized for this examination: 1. Automated exposure control 2. Adjustment of the mA and/or kV according to patient size 3. Use of iterative reconstruction technique Electronically signed by: Javon Zee MD (09/13/2020 4:29 PM) [facility] DICTATED and SIGNED BY: JAVON ZEE MD DATE: 09/13/20 1629 (MARIO SEE APRN) Course & Med Decision Making: Course & Med Decision Making Pertinent Labs and Imaging studies reviewed. (See chart for details) This is a 65-year-old female patient presenting to the ED today complaining of rectal bleeding. Hemoglobin 6.8, hematocrit 20.6. CMP with creatinine of 1.2, BUN of 55, glucose of 296 with anion gap of 15, lipase 435. 1 unit of blood was ordered. Spoke with Dr. Emerson who accepted patient for admission. GI consult placed. CT of the abdomen and pelvic pending. (MARIO SEE APRN) Course & Med Decision Making I have reviewed the PA/TELEVISION MAINTENANCE MAN's note and Plan of Care. I was available for consultation as needed during the patient's visit in the emergency department. I agree with the clinical impression, plans and disposition. (REMINGTON DUMONT MD) Dragkatie Disclaimer: Dragon Disclaimer: This electronic medical record was generated, in whole or in part, using a voice recognition dictation system. (MARIO SEE APRN) Departure Departure Impression: Primary Impression: Rectal bleed Additional Impression: Anemia Qualified Codes: D64.9 - Anemia, unspecified Disposition: 09 ADMITTED INPT THIS HOSP Condition: STABLE Referrals: DIONISIO WORLEY (PCP) MARIO SEE APRN Sep 13, 2020 19:39 REMINGTON DUMONT MD Sep 14, 2020 02:52
[2020-09-13 20:00] VITALS: BP 147/63
[2020-09-13] MEDS ORDERED: LOSA-73 PO (20:14)
[2020-09-13] MEDS ORDERED: IV DEXTROSE 5% 250 ML BAG. IV PRN (21:00)
[2020-09-13] MEDS ORDERED: DEXTROSE 50% 25 GM / 50ML DISP.SYRIN. IV PRN (21:00)
[2020-09-13 21:30] VITALS: BP 132/68
[2020-09-13] MEDS: INSULIN LISPRO 300 UNITS/3 ML VIAL. SQ SCH (21:30)
[2020-09-13] MEDS: PROMETHAZINE 12.5 MG TABLET. PO PRN (21:31)
[2020-09-13] MEDS: diphenhydrAMINE HCL 25 MG CAPSULE PO SCH (21:31)
[2020-09-13] MEDS: HYDROcodone/APAP 10/325 1 TAB TABLET PO PRN (22:12)
[2020-09-13 23:00] VITALS: BP 91/33
[2020-09-13] MEDS: ONDANSETRON PF 4 MG/2 ML VIAL. IV PRN (23:30)
[2020-09-13 23:39] VITALS: BP 88/43
[2020-09-14] VITALS (20 sets, daily range): BP systolic 94–123; BP diastolic 47–69
[2020-09-14] MEDS: IV NORMAL SALINE 1000ML BAG 1,000 ML IV SCH ×3 (00:25→19:30)
[2020-09-14] MEDS ORDERED: IV NORMAL SALINE 1000ML BAG 1,000 ML IV ONE (00:30)
[2020-09-14 01:42] LABS: BASO # 0.1 x10^3/uL (0.0-0.2); BASO % 1 % (0-3); EOS % 0 % (0-3); LYMPH # 2.4 x10^3/uL (1.0-4.8); LYMPH % 21 % (24-48); MEAN CORPUSCULAR HEMOGLOBIN 30 pg (25-35); MEAN CORPUSCULAR HGB CONC 33 g/dL (31-37); MEAN CORPUSCULAR VOLUME 89 fL (79-100); MONO % 9 % (0-9); NEUT # 7.6 x10^3/uL (1.8-7.7); NEUT % 69 % (31-73); PLATELET COUNT 141 x10^3/uL (140-400); RED BLOOD COUNT 1.67 x10^6/uL (3.50-5.40); RED CELL DISTRIBUTION WIDTH 15.4 % (11.5-14.5); WHITE BLOOD COUNT 11.1 x10^3/uL (4.0-11.0)
--- NOTE | 2020-09-14 06:40 | NUR ---
2330 ,BP 86/42 with symptoms, dizziness and weakness , Dr Roach Notified with new orders. Critical labs noted and relayed result to Dr Roach with order to transfused 2 unit of PRBC. 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 Consults called to Provider. Patient informed of new orders.
[2020-09-14] MEDS: INSULIN LISPRO 300 UNITS/3 ML VIAL. SQ SCH ×4 (07:52→21:00)
[2020-09-14] MEDS ORDERED: INSULIN LISPRO 300 UNITS/3 ML VIAL. SQ SCH (08:00)
[2020-09-14] MEDS: ALLOPURINOL 300 MG TABLET. PO SCH (09:00)
[2020-09-14] MEDS ORDERED: FLU VACC QS 2020-21(6MOS+)/PF 0.5 ML SYRINGE. VAX IM ONE (09:00)
[2020-09-14] MEDS: LOSARTAN POTASSIUM 50 MG TABLET. PO SCH (09:00)
[2020-09-14] MEDS: CETIRIZINE HCL 10 MG TABLET. PO SCH (09:00)
--- NOTE | 2020-09-14 09:54 | PDOC2 ---
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 She's not feeling very well this morning, history is a bit limited - needs to go to commode, has some dizziness. Some nausea, no abd pain. Her mouth is very dry and she needs ice chips. Reports onset of black stool on Friday, then black stool mixed w/ red blood on Friday, then significant dizziness on Friday. Noted w/ profound anemia here - Hgb 6.8 to 5, BUN 55, Cr 1.5. Has transfused three units pRBCs and we are awaiting Hgb recheck. Hgb was 12 in 05/2020. H/o GERD controlled w/ omeprazole. Daily Meloxicam. No iron. Had GI workup for GÓMEZ in [id number] w/ Dr. Masters: EGD 08/2017: normal esophagus, chronic gastritis, normal duodenum - no biopsies. Colonoscopy 08/2017:non-bleeding internal hemorrhoids, 9mm adenomatous polyp in rectum, 8mm adenomatous polyp in transverse colon. SBS 03/2018: normal. SBCE 05/2018: minimal inflammation of ileum. Recommendation for iron supplements/IV iron. CT this time w/ ?cirrhosis, soft tissue density in distal santhosh, duodenal diverticulum, and mild colon diverticulosis. Says she has a h/o elevated liver enzymes (though normal here). PMH: PMH: HTN, HLD, hypothyroidism, GERD, OA, GÓMEZ, DM hysterectomy, tonsillectomy, left knee surgery FH: Family History: Cancer (breast - mother), DM, Hypertension, Other ([place]) Social History: Smoke: No ALCOHOL: none ROS: Limited, defer to HPI. Vitals: Vitals: Vital Signs Date Time Temp Pulse Resp B/P (MAP) Pulse Ox O2 Delivery O2 Flow Rate FiO2 09/14/20 09:00 101 108/66 09/14/20 07:30 98.8 16 98.8 09/14/20 07:00 97 Room Air Labs: Labs: Laboratory Tests Test 09/13/20 14:45 09/13/20 15:40 09/13/20 20:07 09/13/20 23:54 Urine Collection Type Void Urine Color Yellow Urine Clarity Clear Urine pH 5.5 (<5.0-8.0) Urine Specific [place] 1.025 (1.000-1.030) Urine Protein Negative mg/dL (NEG-TRACE) Urine Glucose (UA) >=1000 mg/dL (NEG) Urine Ketones (Stick) 15 mg/dL (NEG) Urine Blood Negative (NEG) Urine Nitrite Negative (NEG) Urine Bilirubin Negative (NEG) Urine Urobilinogen Dipstick 0.2 mg/dL (0.2 mg/dL) Urine Leukocyte Esterase Negative (NEG) Urine RBC 0 /HPF (0-2) Urine WBC 0 /HPF (0-4) Urine Bacteria 0 /HPF (0-FEW) White Blood Count 11.9 x10^3/uL (4.0-11.0) Red Blood Count 2.33 x10^6/uL (3.50-5.40) Hemoglobin 6.8 g/dL (12.0-15.5) Hematocrit 20.6 % (36.0-47.0) Mean Corpuscular Volume 88 fL (79-100) Mean Corpuscular Hemoglobin 29 pg (25-35) Mean Corpuscular Hemoglobin Concent 33 g/dL (31-37) Red Cell Distribution Width 15.6 % (11.5-14.5) Platelet Count 175 x10^3/uL (140-400) Neutrophils (%) (Auto) 77 % (31-73) Lymphocytes (%) (Auto) 16 % (24-48) Monocytes (%) (Auto) 7 % (0-9) Eosinophils (%) (Auto) 0 % (0-3) Basophils (%) (Auto) 1 % (0-3) Neutrophils # (Auto) 9.1 x10^3/uL (1.8-7.7) Lymphocytes # (Auto) 1.9 x10^3/uL (1.0-4.8) Monocytes # (Auto) 0.8 x10^3/uL (0.0-1.1) Eosinophils # (Auto) 0.0 x10^3/uL (0.0-0.7) Basophils # (Auto) 0.1 x10^3/uL (0.0-0.2) Prothrombin Time 14.6 SEC (11.7-14.0) Prothromb Time International Ratio 1.2 (0.8-1.1) Activated Partial Thromboplast Time 31 SEC (24-38) Sodium Level 136 mmol/L (136-145) Potassium Level 5.1 mmol/L (3.5-5.1) Chloride Level 103 mmol/L (98-107) Carbon Dioxide Level 18 mmol/L (21-32) Anion Gap 15 (6-14) Blood Urea Nitrogen 55 mg/dL (7-20) Creatinine 1.2 mg/dL (0.6-1.0) Estimated GFR (Cockcroft-Gault) 45.1 BUN/Creatinine Ratio 46 (6-20) Glucose Level 296 mg/dL (70-99) Calcium Level 9.2 mg/dL (8.5-10.1) Magnesium Level 2.9 mg/dL (1.8-2.4) Total Bilirubin 0.4 mg/dL (0.2-1.0) Aspartate Amino Transf (AST/SGOT) 20 U/L (15-37) Alanine Aminotransferase (ALT/SGPT) 36 U/L (14-59) Alkaline Phosphatase 113 U/L (46-116) Total Protein 6.7 g/dL (6.4-8.2) Albumin 3.3 g/dL (3.4-5.0) Albumin/Globulin Ratio 1.0 (1.0-1.7) Lipase 435 U/L (73-393) Glucose (Fingerstick) 317 mg/dL (70-99) 404 mg/dL (70-99) Test 09/14/20 01:34 09/14/20 07:44 White Blood Count 11.1 x10^3/uL (4.0-11.0) Red Blood Count 1.67 x10^6/uL (3.50-5.40) Hemoglobin 5.0 g/dL (12.0-15.5) Hematocrit 15.0 % (36.0-47.0) Mean Corpuscular Volume 89 fL (79-100) Mean Corpuscular Hemoglobin 30 pg (25-35) Mean Corpuscular Hemoglobin Concent 33 g/dL (31-37) Red Cell Distribution Width 15.4 % (11.5-14.5) Platelet Count 141 x10^3/uL (140-400) Neutrophils (%) (Auto) 69 % (31-73) Lymphocytes (%) (Auto) 21 % (24-48) Monocytes (%) (Auto) 9 % (0-9) Eosinophils (%) (Auto) 0 % (0-3) Basophils (%) (Auto) 1 % (0-3) Neutrophils # (Auto) 7.6 x10^3/uL (1.8-7.7) Lymphocytes # (Auto) 2.4 x10^3/uL (1.0-4.8) Monocytes # (Auto) 1.0 x10^3/uL (0.0-1.1) Eosinophils # (Auto) 0.0 x10^3/uL (0.0-0.7) Basophils # (Auto) 0.1 x10^3/uL (0.0-0.2) Glucose (Fingerstick) 385 mg/dL (70-99) Allergies: Coded Allergies: latex (Verified Allergy, Intermediate, RASH, 01/17/20) ezetimibe (Verified Adverse Reaction, Intermediate, BODY ACHES, 01/17/20) rosuvastatin (Verified Adverse Reaction, Intermediate, BODY ACHES, 01/17/20) Medications: Current Medications Medications (Trade) Dose Ordered Sig/Brandy Route PRN Reason Start Time Stop Time Status Last Admin Dose Admin Sodium Chloride 1,000 ml @ 1,000 mls/hr 1X ONCE IV 09/13/20 15:15 09/13/20 16:14 DC 09/13/20 15:15 Famotidine (Pepcid Vial) 20 mg 1X ONCE IVP 09/13/20 15:15 09/13/20 15:16 DC 09/13/20 15:15 Ondansetron HCl (Zofran) 4 mg 1X ONCE IVP 09/13/20 15:15 09/13/20 15:16 DC 09/13/20 15:15 Ondansetron HCl (Zofran) 4 mg PRN Q8HRS PRN IV NAUSEA/VOMITING 09/13/20 19:30 09/14/20 19:29 09/13/20 23:30 Acetaminophen (Tylenol) 650 mg PRN Q4HRS PRN PO FEVER > 100.3'F 09/13/20 19:30 09/14/20 19:29 09/13/20 21:39 Acetaminophen/ Hydrocodone Bitart (Lortab ) 1 tab PRN Q4HRS PRN PO PAIN 09/13/20 21:00 09/13/20 22:12 Diphenhydramine HCl (Benadryl) 25 mg QHS PO 09/13/20 21:15 09/13/20 21:31 Promethazine HCl (Phenergan) 25 mg PRN Q6HRS PRN PO NAUSEA/VOMITING 09/13/20 21:30 09/13/20 21:31 Insulin Human Lispro (HumaLOG) 0-5 UNITS QIDACHS SQ 09/13/20 21:30 09/14/20 07:52 Sodium Chloride 1,000 ml @ 1,000 mls/hr 1X ONCE IV 09/14/20 00:30 09/14/20 01:29 DC 09/14/20 00:25 Sodium Chloride 1,000 ml @ 100 mls/hr Q10H IV 09/14/20 00:30 09/14/20 00:25 Imaging: Imaging: CT A/P Impression: Nodular contour of the liver of concern for cirrhosis or other fibrotic processes. Splenomegaly which may relate to portal hypertension noted. Soft tissue density in the distal anus as questioned. Correlate with physical exam and possibly direct visualization for this patient with reported rectal bleeding. PE: GEN: appears ill/weak - helped to commode HEENT: Atraumatic, PERRL LUNGS: CTAB HEART: tachycardic ABD: NABS, S/ND/NT EXTREMITY: No edema SKIN: No rashes, no jaundice NEURO/PSYCH: A & O 3 A/P: A/P: Melena/hematochezia Profound anemia, h/o GÓMEZ GERD - on PPI CRC screen, h/o adenomatous polyps - UTD (2017) Diverticulosis - duodenal, colon - on CT Hemorrhoids ?cirrhosis - on CT NSAID use -- Await Hgb recheck, transfuse as needed for Hgb <7. Check COVID, plan for EGD this afternoon. Add IV PPI. Address abnormal liver imaging once stable. RENY FRIAS Sep 14, 2020 09:54
[2020-09-14] MEDS: PANTOPRAZOLE IV PUSH 40 MG VIAL. IVP SCH ×2 (10:00→17:41)
[2020-09-14 10:17] LABS: HEMATOCRIT 20.9 % (36.0-47.0)
[2020-09-14 10:38] LABS: LACTATE DEHYDROGENASE 134 U/L (81-234)
--- NOTE | 2020-09-14 11:18 | PDOC ---
[employer] PROGRESS NOTE Date of Service DOS: DATE: 09/14/20 TIME: 11:08 Chief Complaint Chief Complaint Rectal bleeding Anemia nausea allergic rhinitis asthma muscle spasms chronic anticoagulation: she is on Coumadin Hypertension Chronic pain arthritis edema constipation GERD diabetes gout hypothyroidism. History of Present Illness History of Present Illness 09/14/2020 Pt seen and examined ROGERIO BEATTY case management Vitals/I&O Vitals/I&O: Vital Signs Date Time Temp Pulse Resp B/P (MAP) Pulse Ox O2 Delivery O2 Flow Rate FiO2 09/14/20 09:00 101 108/66 09/14/20 07:30 98.8 16 98.8 09/14/20 07:00 97 Room Air I & O 09/13/20 09/13/20 09/14/20 15:00 23:00 07:00 Intake Total 300 ml Balance 300 ml Physical Exam General: Alert, Oriented X3, Cooperative, No acute distress, Other (Pale and pallor appearance) Heart: Regular rate, Normal S1, Normal S2, No murmurs Lungs: Clear Abdomen: Normal bowel sounds Extremities: No clubbing, No cyanosis, No edema, Normal pulses, No tenderness/swelling Skin: No rashes, No breakdown, No significant lesion, Other Labs Labs: Laboratory Tests Test 09/13/20 14:45 09/13/20 15:40 09/13/20 20:07 09/13/20 23:54 Urine Collection Type Void Urine Color Yellow Urine Clarity Clear Urine pH 5.5 (<5.0-8.0) Urine Specific [place] 1.025 (1.000-1.030) Urine Protein Negative mg/dL (NEG-TRACE) Urine Glucose (UA) >=1000 mg/dL (NEG) Urine Ketones (Stick) 15 mg/dL (NEG) Urine Blood Negative (NEG) Urine Nitrite Negative (NEG) Urine Bilirubin Negative (NEG) Urine Urobilinogen Dipstick 0.2 mg/dL (0.2 mg/dL) Urine Leukocyte Esterase Negative (NEG) Urine RBC 0 /HPF (0-2) Urine WBC 0 /HPF (0-4) Urine Bacteria 0 /HPF (0-FEW) White Blood Count 11.9 x10^3/uL (4.0-11.0) Red Blood Count 2.33 x10^6/uL (3.50-5.40) Hemoglobin 6.8 g/dL (12.0-15.5) Hematocrit 20.6 % (36.0-47.0) Mean Corpuscular Volume 88 fL (79-100) Mean Corpuscular Hemoglobin 29 pg (25-35) Mean Corpuscular Hemoglobin Concent 33 g/dL (31-37) Red Cell Distribution Width 15.6 % (11.5-14.5) Platelet Count 175 x10^3/uL (140-400) Neutrophils (%) (Auto) 77 % (31-73) Lymphocytes (%) (Auto) 16 % (24-48) Monocytes (%) (Auto) 7 % (0-9) Eosinophils (%) (Auto) 0 % (0-3) Basophils (%) (Auto) 1 % (0-3) Neutrophils # (Auto) 9.1 x10^3/uL (1.8-7.7) Lymphocytes # (Auto) 1.9 x10^3/uL (1.0-4.8) Monocytes # (Auto) 0.8 x10^3/uL (0.0-1.1) Eosinophils # (Auto) 0.0 x10^3/uL (0.0-0.7) Basophils # (Auto) 0.1 x10^3/uL (0.0-0.2) Prothrombin Time 14.6 SEC (11.7-14.0) Prothromb Time International Ratio 1.2 (0.8-1.1) Activated Partial Thromboplast Time 31 SEC (24-38) Sodium Level 136 mmol/L (136-145) Potassium Level 5.1 mmol/L (3.5-5.1) Chloride Level 103 mmol/L (98-107) Carbon Dioxide Level 18 mmol/L (21-32) Anion Gap 15 (6-14) Blood Urea Nitrogen 55 mg/dL (7-20) Creatinine 1.2 mg/dL (0.6-1.0) Estimated GFR (Cockcroft-Gault) 45.1 BUN/Creatinine Ratio 46 (6-20) Glucose Level 296 mg/dL (70-99) Calcium Level 9.2 mg/dL (8.5-10.1) Magnesium Level 2.9 mg/dL (1.8-2.4) Total Bilirubin 0.4 mg/dL (0.2-1.0) Aspartate Amino Transf (AST/SGOT) 20 U/L (15-37) Alanine Aminotransferase (ALT/SGPT) 36 U/L (14-59) Alkaline Phosphatase 113 U/L (46-116) Total Protein 6.7 g/dL (6.4-8.2) Albumin 3.3 g/dL (3.4-5.0) Albumin/Globulin Ratio 1.0 (1.0-1.7) Lipase 435 U/L (73-393) Glucose (Fingerstick) 317 mg/dL (70-99) 404 mg/dL (70-99) Test 09/14/20 01:34 09/14/20 07:44 09/14/20 09:26 White Blood Count 11.1 x10^3/uL (4.0-11.0) Red Blood Count 1.67 x10^6/uL (3.50-5.40) 2.35 x10^6/uL (3.50-5.70) Hemoglobin 5.0 g/dL (12.0-15.5) 7.0 g/dL (12.0-15.5) Hematocrit 15.0 % (36.0-47.0) 20.9 % (36.0-47.0) Mean Corpuscular Volume 89 fL (79-100) Mean Corpuscular Hemoglobin 30 pg (25-35) Mean Corpuscular Hemoglobin Concent 33 g/dL (31-37) 33 g/dL (31-37) Red Cell Distribution Width 15.4 % (11.5-14.5) Platelet Count 141 x10^3/uL (140-400) Neutrophils (%) (Auto) 69 % (31-73) Lymphocytes (%) (Auto) 21 % (24-48) Monocytes (%) (Auto) 9 % (0-9) Eosinophils (%) (Auto) 0 % (0-3) Basophils (%) (Auto) 1 % (0-3) Neutrophils # (Auto) 7.6 x10^3/uL (1.8-7.7) Lymphocytes # (Auto) 2.4 x10^3/uL (1.0-4.8) Monocytes # (Auto) 1.0 x10^3/uL (0.0-1.1) Eosinophils # (Auto) 0.0 x10^3/uL (0.0-0.7) Basophils # (Auto) 0.1 x10^3/uL (0.0-0.2) Glucose (Fingerstick) 385 mg/dL (70-99) Absolute Reticulocyte Count 0.124 x10^6/uL (0.020-0.120) Percent Reticulocyte Count 5.3 % (0.5-2.3) Immature Reticulocyte Fraction 0.74 (0.20-0.60) Iron Level 122 ug/dL (50-170) Total Iron Binding Capacity 290 ug/dL (250-450) Iron Saturation 42 % (15-34) Ferritin 16 ng/mL (8-252) Lactate Dehydrogenase 134 U/L (81-234) Vitamin B12 Level 544 pg/mL (247-911) Review of Systems Review of Systems: No signs of cyanosis, clubbing, or SOB. Assessment and Plan Assessmemt and Plan Problems Medical Problems: (1) Anemia Status: Acute (2) Rectal bleed Status: Acute Rectal bleeding Anemia nausea allergic rhinitis asthma muscle spasms chronic anticoagulation: she is on Coumadin Hypertension Chronic pain arthritis edema constipation GERD diabetes gout hypothyroidism. Plan: Trend Hgb Transfuse PRN Await endoscopy Full code Follow labs Appreciate subspecialist input Comment Review of Relevant I have reviewed the following items fiordaliza (where applicable) has been applied. Medications: Current Medications Medications (Trade) Dose Ordered Sig/Brandy Route PRN Reason Start Time Stop Time Status Last Admin Dose Admin Sodium Chloride 1,000 ml @ 1,000 mls/hr 1X ONCE IV 09/13/20 15:15 09/13/20 16:14 DC 09/13/20 15:15 Famotidine (Pepcid Vial) 20 mg 1X ONCE IVP 09/13/20 15:15 09/13/20 15:16 DC 09/13/20 15:15 Ondansetron HCl (Zofran) 4 mg 1X ONCE IVP 09/13/20 15:15 09/13/20 15:16 DC 09/13/20 15:15 Ondansetron HCl (Zofran) 4 mg PRN Q8HRS PRN IV NAUSEA/VOMITING 09/13/20 19:30 09/14/20 19:29 09/13/20 23:30 Acetaminophen (Tylenol) 650 mg PRN Q4HRS PRN PO FEVER > 100.3'F 09/13/20 19:30 09/14/20 19:29 09/13/20 21:39 Acetaminophen/ Hydrocodone Bitart (Lortab ) 1 tab PRN Q4HRS PRN PO PAIN 09/13/20 21:00 09/13/20 22:12 Diphenhydramine HCl (Benadryl) 25 mg QHS PO 09/13/20 21:15 09/13/20 21:31 Promethazine HCl (Phenergan) 25 mg PRN Q6HRS PRN PO NAUSEA/VOMITING 09/13/20 21:30 09/13/20 21:31 Insulin Human Lispro (HumaLOG) 0-5 UNITS QIDACHS SQ 09/13/20 21:30 09/14/20 07:52 Sodium Chloride 1,000 ml @ 1,000 mls/hr 1X ONCE IV 09/14/20 00:30 09/14/20 01:29 DC 09/14/20 00:25 Sodium Chloride 1,000 ml @ 100 mls/hr Q10H IV 09/14/20 00:30 09/14/20 00:25 Justifications for Admission Other Justification BUCKY GONZALEZ III DO Sep 14, 2020 11:18
[2020-09-14] MEDS: ONDANSETRON PF 4 MG/2 ML VIAL. IV PRN (11:24)
[2020-09-14] MEDS ORDERED: IV RINGERS,LACTATED 1000ML 1,000 ML IV SCH (11:30)
[2020-09-14] MEDS ORDERED: LIDOCAINE 2% PF 5 ML VIAL. ONE (12:09)
[2020-09-14] MEDS ORDERED: PROPOFOL 10 MG/ML (20ML) VIAL. IV ONE ×2 (12:09→12:49)
--- NOTE | 2020-09-14 12:47 | PDOC4 ---
Operative Note Operative Note EGD with band ligation Meds propofol per anesthesia Pre-op dx Melena/acute blood loss anemia Post-op dx Esophageal varices s/p band ligations x 6 Plan cirrhosis work-up with serologies repeat band ligation in several weeks ammonia level REMINGTON NIXON MD Sep 14, 2020 12:47
--- NOTE | 2020-09-14 16:42 | RAD ---
Limited abdominal Doppler ultrasound INDICATION: Cirrhosis, and varices. Assess portal vein patency. COMPARISON: 09/13/[address] without IV contrast TECHNIQUE: Grayscale, color and spectral Doppler imaging of the liver focused on the portal vein was performed. FINDINGS: The liver is enlarged measuring 21.6 cm in length and demonstrates diffuse increased echogenicity compatible with fatty infiltration. No discrete liver masses are identified. Patency of the main, right and left portal veins is demonstrated on color and spectral Doppler imaging with normal directional flow. IMPRESSION: Patent, normal directional flow in the main, right and left portal veins with hepatomegaly and steatosis noted. Electronically signed by: Derek Salter MD (09/14/2020 4:39 PM) [id number]
[2020-09-14] MEDS ORDERED: IV NORMAL SALINE 500ML BAG 500 ML IV ONE (17:30)
[2020-09-14] MEDS ORDERED: INSULIN REGULAR 100 UNIT/ML 3ML VIAL. IV ONE ×2 (17:30→22:15)
[2020-09-14 18:25] LABS: HEMATOCRIT 23.9 % (36.0-47.0); HEMOGLOBIN 7.8 g/dL (12.0-15.5)
[2020-09-14] MEDS ORDERED: DEXTROSE 50% 25 GM / 50ML DISP.SYRIN. IV PRN (22:00)
[2020-09-14] MEDS: diphenhydrAMINE HCL 25 MG CAPSULE PO SCH (22:16)
[2020-09-14] MEDS: PROMETHAZINE 12.5 MG TABLET. PO PRN (22:18)
[2020-09-14] MEDS: HYDROcodone/APAP 10/325 1 TAB TABLET PO PRN (22:18)
[2020-09-15] VITALS (15 sets, daily range): BP systolic 84–121; BP diastolic 29–64
[2020-09-15] MEDS: IV NORMAL SALINE 1000ML BAG 1,000 ML IV SCH ×2 (06:24→18:01)
[2020-09-15 06:50] LABS: BASO % 0 % (0-3); EOS % 0 % (0-3); HEMATOCRIT 21.4 % (36.0-47.0); HEMOGLOBIN 7.1 g/dL (12.0-15.5); LYMPH # 3.1 x10^3/uL (1.0-4.8); LYMPH % 18 % (24-48); MEAN CORPUSCULAR HEMOGLOBIN 30 pg (25-35); MEAN CORPUSCULAR HGB CONC 33 g/dL (31-37); MEAN CORPUSCULAR VOLUME 91 fL (79-100); MONO # 1.7 x10^3/uL (0.0-1.1); MONO % 10 % (0-9); NEUT # 12.8 x10^3/uL (1.8-7.7); NEUT % 72 % (31-73); PLATELET COUNT 135 x10^3/uL (140-400); RED BLOOD COUNT 2.35 x10^6/uL (3.50-5.40); RED CELL DISTRIBUTION WIDTH 15.4 % (11.5-14.5); WHITE BLOOD COUNT 17.7 x10^3/uL (4.0-11.0)
[2020-09-15 07:07] LABS: CALCIUM 7.9 mg/dL (8.5-10.1); CREATININE 1.3 mg/dL (0.6-1.0); GFR 41.1; POTASSIUM 5.2 mmol/L (3.5-5.1)
[2020-09-15] MEDS ORDERED: INSULIN LISPRO 300 UNITS/3 ML VIAL. SQ ONE ×2 (08:30→13:00)
[2020-09-15] MEDS: CETIRIZINE HCL 10 MG TABLET. PO SCH (08:32)
[2020-09-15] MEDS: PANTOPRAZOLE IV PUSH 40 MG VIAL. IVP SCH (08:32)
[2020-09-15] MEDS: LOSARTAN POTASSIUM 50 MG TABLET. PO SCH (08:32)
[2020-09-15] MEDS: ALLOPURINOL 300 MG TABLET. PO SCH (08:32)
[2020-09-15] MEDS: INSULIN LISPRO 300 UNITS/3 ML VIAL. SQ SCH ×4 (08:44→16:47)
--- NOTE | 2020-09-15 09:30 | PDOC ---
Date of Service: DATE: 09/15/20 TIME: 09:19 Subjective: Subjective: No bleeding, "bored silly," wants to eat and leave. Objective: Vital Signs: Vital Signs Date Time Temp Pulse Resp B/P (MAP) Pulse Ox O2 Delivery O2 Flow Rate FiO2 09/15/20 08:32 103 121/64 09/15/20 06:31 98.2 18 95 Room Air 98.2 09/14/20 13:05 2 Labs: Laboratory Tests Test 09/14/20 09:26 09/14/20 10:25 09/14/20 15:08 09/14/20 17:17 Red Blood Count 2.35 x10^6/uL Hemoglobin 7.0 g/dL Hematocrit 20.9 % Mean Corpuscular Hemoglobin Concent 33 g/dL Absolute Reticulocyte Count 0.124 x10^6/uL Percent Reticulocyte Count 5.3 % Immature Reticulocyte Fraction 0.74 Haptoglobin 74 mg/dL Iron Level 122 ug/dL Total Iron Binding Capacity 290 ug/dL Iron Saturation 42 % Erythropoietin Pending Ferritin 16 ng/mL Lactate Dehydrogenase 134 U/L Vitamin B12 Level 544 pg/mL Hepatitis A IgM Antibody Nonreactive Hepatitis B Surface Antigen Nonreactive Hepatitis B Core IgM Antibody Nonreactive Hepatitis C IgG Antibody Nonreactive SARS-CoV-2 Antigen (Rapid) Negative Ammonia 65 mcmol/L Glucose (Fingerstick) 549 mg/dL Test 09/14/20 18:15 09/14/20 20:13 09/14/20 23:34 09/15/20 05:35 Hemoglobin 7.8 g/dL 7.1 g/dL Hematocrit 23.9 % 21.4 % Mean Corpuscular Hemoglobin Concent 33 g/dL 33 g/dL Glucose (Fingerstick) 441 mg/dL 476 mg/dL White Blood Count 17.7 x10^3/uL Red Blood Count 2.35 x10^6/uL Mean Corpuscular Volume 91 fL Mean Corpuscular Hemoglobin 30 pg Red Cell Distribution Width 15.4 % Platelet Count 135 x10^3/uL Neutrophils (%) (Auto) 72 % Lymphocytes (%) (Auto) 18 % Monocytes (%) (Auto) 10 % Eosinophils (%) (Auto) 0 % Basophils (%) (Auto) 0 % Neutrophils # (Auto) 12.8 x10^3/uL Lymphocytes # (Auto) 3.1 x10^3/uL Monocytes # (Auto) 1.7 x10^3/uL Eosinophils # (Auto) 0.0 x10^3/uL Basophils # (Auto) 0.0 x10^3/uL Platelet Estimate Pending Sodium Level 138 mmol/L Potassium Level 5.2 mmol/L Chloride Level 109 mmol/L Carbon Dioxide Level 17 mmol/L Anion Gap 12 Blood Urea Nitrogen 64 mg/dL Creatinine 1.3 mg/dL Estimated GFR (Cockcroft-Gault) 41.1 Glucose Level 455 mg/dL Calcium Level 7.9 mg/dL Test 09/15/20 07:25 Glucose (Fingerstick) 405 mg/dL Imaging: EGD 09/14 EGD with band ligation Meds propofol per anesthesia Pre-op dx Melena/acute blood loss anemia Post-op dx Esophageal varices s/p band ligations x 6 Plan cirrhosis work-up with serologies repeat band ligation in several weeks ammonia level Doppler US 09/14 IMPRESSION: Patent, normal directional flow in the main, right and left portal veins with hepatomegaly and steatosis noted. PE: GEN: NAD LUNGS: CTAB HEART: RRR ABD: NABS, S/ND/NT NEURO/PSYCH: A & O 3 A/P: Melena/hematochezia - resolved s/p EGD w/ banding of esophageal varices GÓMEZ - Hgb stable in 7s Cirrhosis - ?CHAVEZ - Hep panel neg, denies alcohol GERD - on PPI CRC screen, h/o adenomatous polyps - UTD Diverticulosis, hemorrhoids -- Reviewed w/ Dr. Masters - try clears, ADAT - DC per primary. Change to PO PPI. Start lactulose. Follow-up for repeat banding - our office will call to schedule. Justicifation of Admission Dx: Justifications for Admission: Justification of Admission Dx: Yes RENY FRIAS Sep 15, 2020 09:30
[2020-09-15 09:59] LABS: % BANDS 3 % (0-9); % LYMPHS 12 % (24-48); % MONOS 5 % (0-10); % SEGS 80 % (35-66); ANISOCYTOSIS PRESENT; PLT ESTIMATE DECREASED (ADEQUATE)
[2020-09-15] MEDS: LACTULOSE 20 GM/30 ML SOLUTION. PO SCH ×2 (10:00→21:10)
[2020-09-15] MEDS: FERROUS SULFATE 325 MG TABLET. PO SCH ×2 (10:00→16:47)
[2020-09-15] MEDS ORDERED: FERR325T72 PO (11:17)
--- NOTE | 2020-09-15 11:19 | PDOC ---
[employer] PROGRESS NOTE Date of Service DOS: DATE: 09/15/20 TIME: 11:15 Chief Complaint Chief Complaint Esophageal Varices Rectal bleeding Anemia nausea allergic rhinitis asthma muscle spasms chronic anticoagulation: she is on Coumadin Hypertension Chronic pain arthritis edema constipation GERD diabetes gout hypothyroidism. History of Present Illness History of Present Illness 09/15/2020 Pt seen and examined ROGERIO BEATTY case management 09/14/2020 Pt seen and examined ROGERIO BEATTY case management Vitals/I&O Vitals/I&O: Vital Signs Date Time Temp Pulse Resp B/P (MAP) Pulse Ox O2 Delivery O2 Flow Rate FiO2 09/15/20 08:32 103 121/64 09/15/20 08:00 Room Air 09/15/20 06:31 98.2 18 95 98.2 09/14/20 13:05 2 I & O 09/14/20 09/14/20 09/15/20 15:00 23:00 07:00 Intake Total 375 ml Balance 375 ml Physical Exam General: Alert, Oriented X3, Cooperative, No acute distress, Other (Pale and pallor appearance) Heart: Regular rate, Normal S1, Normal S2, No murmurs Lungs: Clear Abdomen: Normal bowel sounds Extremities: No clubbing, No cyanosis, No edema, Normal pulses, No tenderness/swelling Skin: No rashes, No breakdown, No significant lesion, Other Labs Labs: Laboratory Tests Test 09/14/20 15:08 09/14/20 17:17 09/14/20 18:15 09/14/20 20:13 Ammonia 65 mcmol/L (11-34) Glucose (Fingerstick) 549 mg/dL (70-99) 441 mg/dL (70-99) Hemoglobin 7.8 g/dL (12.0-15.5) Hematocrit 23.9 % (36.0-47.0) Mean Corpuscular Hemoglobin Concent 33 g/dL (31-37) Test 09/14/20 23:34 09/15/20 05:35 09/15/20 07:25 Glucose (Fingerstick) 476 mg/dL (70-99) 405 mg/dL (70-99) White Blood Count 17.7 x10^3/uL (4.0-11.0) Red Blood Count 2.35 x10^6/uL (3.50-5.40) Hemoglobin 7.1 g/dL (12.0-15.5) Hematocrit 21.4 % (36.0-47.0) Mean Corpuscular Volume 91 fL (79-100) Mean Corpuscular Hemoglobin 30 pg (25-35) Mean Corpuscular Hemoglobin Concent 33 g/dL (31-37) Red Cell Distribution Width 15.4 % (11.5-14.5) Platelet Count 135 x10^3/uL (140-400) Neutrophils (%) (Auto) 72 % (31-73) Lymphocytes (%) (Auto) 18 % (24-48) Monocytes (%) (Auto) 10 % (0-9) Eosinophils (%) (Auto) 0 % (0-3) Basophils (%) (Auto) 0 % (0-3) Neutrophils # (Auto) 12.8 x10^3/uL (1.8-7.7) Lymphocytes # (Auto) 3.1 x10^3/uL (1.0-4.8) Monocytes # (Auto) 1.7 x10^3/uL (0.0-1.1) Eosinophils # (Auto) 0.0 x10^3/uL (0.0-0.7) Basophils # (Auto) 0.0 x10^3/uL (0.0-0.2) Segmented Neutrophils % 80 % (35-66) Band Neutrophils % 3 % (0-9) Lymphocytes % 12 % (24-48) Monocytes % 5 % (0-10) Platelet Estimate Decreased (ADEQUATE) Anisocytosis Present Sodium Level 138 mmol/L (136-145) Potassium Level 5.2 mmol/L (3.5-5.1) Chloride Level 109 mmol/L (98-107) Carbon Dioxide Level 17 mmol/L (21-32) Anion Gap 12 (6-14) Blood Urea Nitrogen 64 mg/dL (7-20) Creatinine 1.3 mg/dL (0.6-1.0) Estimated GFR (Cockcroft-Gault) 41.1 Glucose Level 455 mg/dL (70-99) Calcium Level 7.9 mg/dL (8.5-10.1) Review of Systems Review of Systems: No digital clubbing, cyanosis, or SOB noted. Assessment and Plan Assessmemt and Plan Problems Medical Problems: (1) Anemia Status: Acute (2) Rectal bleed Status: Acute Esophageal Varices Rectal bleeding Anemia nausea allergic rhinitis asthma muscle spasms chronic anticoagulation: she is on Coumadin Hypertension Chronic pain arthritis edema constipation GERD diabetes gout hypothyroidism. Plan: Trend Hgb Transfuse PRN Hope to DC this pm pending GI DVT prophylaxis Follow labs Appreciate subspecialist input Comment Review of Relevant I have reviewed the following items fiordaliza (where applicable) has been applied. Medications: Current Medications Medications (Trade) Dose Ordered Sig/Brandy Route PRN Reason Start Time Stop Time Status Last Admin Dose Admin Ringer's Solution 1,000 ml @ 0 mls/hr Q0M IV 09/14/20 11:30 09/14/20 11:23 Insulin Human Regular (HumuLIN R VIAL) 5 unit 1X ONCE IV 09/14/20 17:30 09/14/20 17:35 DC 09/14/20 17:49 Sodium Chloride 500 ml @ 500 mls/hr 1X ONCE IV 09/14/20 17:30 09/14/20 18:29 DC 09/14/20 18:00 Insulin Human Regular (HumuLIN R VIAL) 5 unit 1X ONCE IV 09/14/20 22:15 09/14/20 22:16 DC 09/14/20 22:27 Insulin Human Lispro (HumaLOG) 0-9 UNITS TIDWMEALS SQ 09/15/20 08:00 09/15/20 08:44 Insulin Human Lispro (HumaLOG) 10 units 1X ONCE SQ 09/15/20 08:30 09/15/20 08:31 DC 09/15/20 08:44 Justifications for Admission Other Justification BUCKY GONZALEZ III DO Sep 15, 2020 11:19
--- NOTE | 2020-09-15 11:20 | SNU/HH DC ---
DISCHARGE WITH HOME HEALTH DISCHARGE INFORMATION: Final Diagnosis: Problems Medical Problems: (1) Anemia Status: Acute (2) Rectal bleed Status: Acute Condition on Discharge: Stable CODE STATUS: Code Status: Full HOME HEALTH: Face to Face: I certify this patient is under my care and that I, or a nurse practitioner or physician's senior underwriting assistant working with me, had a face to face encounter that meets the physician face to face encounter requirements with this patient on []. Medical Complications: Other (Recent GI bleed periodic hypotension) Mcfp For: Assess & Educate Safety RN For Eval/Treatment: Yes Physical Therapy For: Evalulation/Treatment Occupational Therapy For: Evaluation/Treatment Home Health Aide For: Self-care WORLD LANGUAGE TEACHER For: Community Resources Pt Meets Homebound Status: Poor coordination w/ amb. POST DISCHARGE ORDERS: Activity Instructions for Disc: Activity as tolerated, Avoid exertion, Progressive ambulation Bathing Instructions: Shower-keep dressing dry DIET AFTER DISCHARGE: Cardiac Wound/Incision Care: Ice to area for comfort, Keep wound/cast CDI, Do not change dressing CERTIFICATION STATEMENT: Certification Statement: Certification Statement: Based on the above finding, I certify that this patient is confined to the home and needs intermittent jail care, physical therapy and/or speech therapy, or continues to need occupational therapy.~ This patient is under my care, and I have initiated the establishment of the plan of care.~ This patient will be followed by myself or a community physician who will periodically review the plan of care. Home Meds Active Scripts Ferrous Sulfate (FEOSOL) 325 Mg Tablet, 325 MG PO BIDWMEALS for . for 30 Days, #60 TAB Prov:CASTLE,NIAL K III DO 09/15/20 Reported Medications Acetaminophen (ACETAMINOPHEN) 500 Mg Tablet, 2 TAB PO PRN Q6HRS PRN for PAIN, TAB 0 Refills 01/12/20 Diphenhydramine Hcl (DIPHENHYDRAMINE HCL) 25 Mg Tablet, 25 MG PO QHS, TAB 01/12/20 Loratadine (CLARITIN) 10 Mg Tablet, 1 TAB PO DAILY for allergy symptoms, TAB 0 Refills 01/12/20 Cholecalciferol (Vitamin D3) (D3-50) 50,000 Unit Capsule, 1 CAP PO FRIDAY for SUPPLEMENT for 14 Days, #1 CAP 0 Refills 01/12/20 Promethazine Hcl (PROMETHAZINE HCL) 25 Mg Tablet, 25 MG PO Q6H PRN for NAUSEA /VOMITING, TAB 12/27/19 Ondansetron Hcl (ZOFRAN) 8 Mg Tablet, 8 MG PO PRN Q8HRS PRN for NAUSEA/VOMITING, TAB 12/27/19 Glimepiride (GLIMEPIRIDE) 4 Mg Tablet, 4 MG PO BIDWMEALS for CONTROL DIABETES, TAB 12/27/19 Dapagliflozin Propanediol (FARXIGA) 10 Mg Tablet, 10 MG PO DAILY for CONTROL DIABETES, TAB 12/27/19 Allopurinol (ALLOPURINOL) 300 Mg Tablet, 300 MG PO DAILY for FOR GOUT, TAB 12/27/19 Sitagliptin Phosphate (JANUVIA) 100 Mg Tablet, 100 MG PO DAILY for XCONTROL DIABETES, TAB 12/27/19 Clobetasol Propionate (CLOBETASOL PROPIONATE) 15 Gm Cream..g., 0.5 % TP PRN BID PRN for RASH, EACH 12/27/19 Calcium Polycarbophil (FIBERCON) 625 Mg Tablet, 2 TAB PO BIDWMEALS for PRVENT CONSTIPTATION, TAB 12/27/19 Magnesium Oxide (MAGNESIUM OXIDE) 400 Mg Tablet, 800 MG PO HS for SUPPLEMENT, TAB 12/27/19 Docusate Sodium (COLACE) 100 Mg Capsule, 200 MG PO DAILY for PREVENT CONSTIPATION, CAP 12/27/19 Hydrocodone/Acetaminophen (Lortab 10-325 mg Tablet) 1 Each Tablet, 1 TAB PO Q4HRS PRN for PAIN, TAB 0 Refills 06/26/16 Omeprazole Magnesium (PRILOSEC OTC) 20 Mg Tablet.dr, 20 MG PO DAILY, TAB 06/26/16 Levothyroxine Sodium (LEVOTHYROXINE SODIUM) 112 Mcg Tablet, 2 TAB PO DAILY for TREAT HYPOTHYROIDISM, #90 TAB 3 Refills 06/26/16 Metformin Hcl (METFORMIN HCL) 1,000 Mg Tablet, 1 TAB PO BIDWMEALS, #60 TAB 5 Refills 06/26/16 Meloxicam (MOBIC) 15 Mg Tablet, 15 MG PO DAILY, TAB 06/26/16 Potassium Chloride (KLOR-CON M20) 20 Meq Tab.er.prt, 20 MEQ PO DAILY, TAB.SR 06/26/16 Furosemide (LASIX) 40 Mg Tablet, 40 MG PO DAILY, TAB 7/27/16 Discontinued Reported Medications Losartan Potassium (LOSARTAN POTASSIUM) 50 Mg Tablet, 50 MG PO DAILY for HYPERTENSION, TAB 09/13/20 Oxycodone HCl/Acetaminophen (Percocet 5-325 mg Tablet) 1 Each Tablet, 1 TAB PO PRN Q3HRS PRN for PAIN for 30 Days, #50 TAB 0 Refills 01/20/20 Warfarin Sodium (WARFARIN SODIUM) 3 Mg Tablet, 3 MG PO DAILY for DVT prophylaxis, #30 TAB 01/20/20 Cyclobenzaprine Hcl (CYCLOBENZAPRINE HCL) 10 Mg Tablet, 10 MG PO TID PRN for MUSCLE PAIN, TAB 12/27/19 Valsartan (DIOVAN) 160 Mg Tablet, 160 MG PO DAILY for HYPERTENSION, TAB 12/27/19 Albuterol Sulfate (Proair Hfa) 8.5 Gm Hfa.aer.ad, 2 PUFF INH PRN Q6HRS PRN for wheezing for 21 Days, #1 INHALER 0 Refills 12/27/19 Colchicine (COLCRYS) 0.6 Mg Tablet, 0.6 MG PO PRN BID PRN for GOUT 06/26/16 BUCKY GONZALEZ III DO Sep 15, 2020 11:20
[2020-09-15 14:36] LABS: HEMOGLOBIN 5.9 g/dL (12.0-15.5)
[2020-09-15 14:37] LABS: HEMATOCRIT 17.9 % (36.0-47.0)
[2020-09-15] MEDS: HYDROcodone/APAP 10/325 1 TAB TABLET PO PRN ×2 (15:47→21:10)
--- NOTE | 2020-09-15 17:21 | PDOC2 ---
CONSULT Date of Consult Date of Consult DATE: 09/15/20 TIME: 17:07 Reason for Consult Reason for Consult: Anemia Referring Physician Referring Physician: Dr Gallagher Identification/Chief Complaint Chief Complaint Bloody stools Source Source: Chart review, Patient History of Present Illness Reason for Visit: Tawana Epstein is a 65 year old female with hx of anemia secondary to iron deficiency who has been admitted after presenting with rectal bleeding. She reports having these symptoms for several days. Her Hb at initial presentation was found to be 6.8. She was admitted to the hospital and received an EGD which showed varices. Banding was performed. CT abdomen obtained during this hospitalization showed a nodular liver suggestive of cirrhosis in addition to splenomegaly. The patient has no hx of cirrhosis. She denies alcohol use. She does report that she has type 2 diabetes. 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 GI is following for evaluation for etiology of cirrhosis. Dr Gallagher has consulted hematology for anemia Social History No ALCOHOL: none Current Problem List Problem List Problems Medical Problems: (1) Anemia Status: Acute (2) Rectal bleed Status: Acute Current Medications Current Medications Current Medications Sodium Chloride 1,000 ml @ 1,000 mls/hr 1X ONCE IV Last administered on 09/13/20at 15:15; Start 09/13/20 at 15:15; Stop 09/13/20 at 16:14; Status DC Famotidine (Pepcid Vial) 20 mg 1X ONCE IVP Last administered on 09/13/20at 15:15; Start 09/13/20 at 15:15; Stop 09/13/20 at 15:16; Status DC Ondansetron HCl (Zofran) 4 mg 1X ONCE IVP Last administered on 09/13/20at 15:15; Start 09/13/20 at 15:15; Stop 09/13/20 at 15:16; Status DC Ondansetron HCl (Zofran) 4 mg PRN Q8HRS PRN IV NAUSEA/VOMITING Last administered on 09/14/20at 11:24; Start 09/13/20 at 19:30; Stop 09/14/20 at 19:29; Status DC Morphine Sulfate (Morphine Sulfate) 2 mg PRN Q2HR PRN IV PAIN; Start 09/13/20 at 19:30; Stop 09/14/20 at 19:29; Status DC Acetaminophen (Tylenol) 650 mg PRN Q4HRS PRN PO FEVER > 100.3'F Last administered on 09/13/20at 21:39; Start 09/13/20 at 19:30; Stop 09/14/20 at 19:29; Status DC Insulin Human Lispro (HumaLOG) 0-5 UNITS TIDWMEALS SQ ; Start 09/14/20 at 08:00; Stop 09/13/20 at 21:29; Status DC Dextrose (Dextrose 50%-Water Syringe) 12.5 gm PRN Q15MIN PRN IV SEE COMMENTS; Start 09/13/20 at 21:00; Stop 09/14/20 at 21:58; Status DC Dextrose (Iv Dextrose 5%) 250 ml PRN Q15MIN PRN IV SEE COMMENTS; Start 09/13/20 at 21:00; Status UNV Allopurinol (Zyloprim) 300 mg DAILY PO Last administered on 09/15/20at 08:32; Start 09/14/20 at 09:00 Acetaminophen/ Hydrocodone Bitart (Lortab 10/325) 1 tab PRN Q4HRS PRN PO PAIN Last administered on 09/15/20at 15:47; Start 09/13/20 at 21:00 Losartan Potassium (Cozaar) 50 mg DAILY PO Last administered on 09/15/20at 08:32; Start 09/14/20 at 09:00 Diphenhydramine HCl (Benadryl) 25 mg QHS PO Last administered on 09/14/20at 22:16; Start 09/13/20 at 21:15 Cetirizine HCl (ZyrTEC) 10 mg DAILY PO Last administered on 09/15/20at 08:32; Start 09/14/20 at 09:00 Meloxicam (Mobic) 15 mg DAILY PO ; Start 09/19/20 at 09:00; Stop 09/14/20 at 10:24; Status DC Promethazine HCl (Phenergan) 25 mg PRN Q6HRS PRN PO NAUSEA/VOMITING Last administered on 09/14/20at 22:18; Start 09/13/20 at 21:30 Insulin Human Lispro (HumaLOG) 0-5 UNITS QIDACHS SQ Last administered on 09/14/20at 17:48; Start 09/13/20 at 21:30; Stop 09/14/20 at 21:56; Status DC Influenza Virus Vaccine Quadrival (Fluzone Quad Syringe) 0.5 ml ONCE ONCE VAX IM ; Start 09/14/20 at 09:00; Stop 09/14/20 at 09:01; Status DC Sodium Chloride 1,000 ml @ 1,000 mls/hr 1X ONCE IV Last administered on 09/14/20at 00:25; Start 09/14/20 at 00:30; Stop 09/14/20 at 01:29; Status DC Sodium Chloride 1,000 ml @ 100 mls/hr Q10H IV Last administered on 09/15/20at 06:24; Start 09/14/20 at 00:30 Pantoprazole Sodium (PROTONIX VIAL for IV PUSH) 40 mg BIDAC IVP Last administered on 09/15/20at 08:32; Start 09/14/20 at 10:00; Stop 09/15/20 at 09:33; Status DC Ringer's Solution 1,000 ml @ 0 mls/hr Q0M IV Last administered on 09/14/20at 11:23; Start 09/14/20 at 11:30 Propofol (Diprivan) 200 mg STK-MED ONCE IV ; Start 09/14/20 at 12:09; Stop 09/14/20 at 12:09; Status DC Lidocaine HCl (Lidocaine Pf 2% Vial) 5 ml STK-MED ONCE .ROUTE ; Start 09/14/20 at 12:09; Stop 09/14/20 at 12:09; Status DC Propofol (Diprivan) 200 mg STK-MED ONCE IV ; Start 09/14/20 at 12:49; Stop 09/14/20 at 12:49; Status DC Insulin Human Regular (HumuLIN R VIAL) 5 unit 1X ONCE IV Last administered on 09/14/20at 17:49; Start 09/14/20 at 17:30; Stop 09/14/20 at 17:35; Status DC Sodium Chloride 500 ml @ 500 mls/hr 1X ONCE IV Last administered on 09/14/20at 18:00; Start 09/14/20 at 17:30; Stop 09/14/20 at 18:29; Status DC Insulin Human Regular (HumuLIN R VIAL) 5 unit 1X ONCE IV Last administered on 09/14/20at 22:27; Start 09/14/20 at 22:15; Stop 09/14/20 at 22:16; Status DC Insulin Human Lispro (HumaLOG) 0-9 UNITS TIDWMEALS SQ Last administered on 09/15/20at 16:47; Start 09/15/20 at 08:00 Dextrose (Dextrose 50%-Water Syringe) 12.5 gm PRN Q15MIN PRN IV SEE COMMENTS; Start 09/14/20 at 22:00 Insulin Human Lispro (HumaLOG) 10 units 1X ONCE SQ Last administered on 09/15/20at 08:44; Start 09/15/20 at 08:30; Stop 09/15/20 at 08:31; Status DC Pantoprazole Sodium (Protonix) 40 mg DAILYAC PO ; Start 09/16/20 at 07:30 Lactulose (Lactulose) 20 gm BID PO ; Start 09/15/20 at 10:00 Ferrous Sulfate (Feosol) 325 mg BIDWMEALS PO ; Start 09/15/20 at 10:00 Insulin Human Lispro (HumaLOG) 11 units 1X ONCE SQ Last administered on 09/15/20at 13:08; Start 09/15/20 at 13:00; Stop 09/15/20 at 13:01; Status DC Insulin Human Lispro (HumaLOG) 5 units TIDAC SQ Last administered on 09/15/20at 16:46; Start 09/15/20 at 16:30 Insulin Glargine (Lantus Syringe) 10 unit QHS SQ ; Start 09/15/20 at 21:00 Active Scripts Active Feosol (Ferrous Sulfate) 325 Mg Tablet 325 Mg PO BIDWMEALS 30 Days Reported Acetaminophen 500 Mg Tablet 2 Tab PO PRN Q6HRS PRN Diphenhydramine Hcl 25 Mg Tablet 25 Mg PO QHS Claritin (Loratadine) 10 Mg Tablet 1 Tab PO DAILY D3-50 (Cholecalciferol (Vitamin D3)) 50,000 Unit Capsule 1 Cap PO FRIDAY 14 Days Promethazine Hcl 25 Mg Tablet 25 Mg PO Q6H PRN Zofran (Ondansetron Hcl) 8 Mg Tablet 8 Mg PO PRN Q8HRS PRN Glimepiride 4 Mg Tablet 4 Mg PO BIDWMEALS Farxiga (Dapagliflozin Propanediol) 10 Mg Tablet 10 Mg PO DAILY Allopurinol 300 Mg Tablet 300 Mg PO DAILY Januvia (Sitagliptin Phosphate) 100 Mg Tablet 100 Mg PO DAILY Clobetasol Propionate 15 Gm Cream..g. 0.5 % TP PRN BID PRN Fibercon (Calcium Polycarbophil) 625 Mg Tablet 2 Tab PO BIDWMEALS Magnesium Oxide 400 Mg Tablet 800 Mg PO HS Colace (Docusate Sodium) 100 Mg Capsule 200 Mg PO DAILY Lortab 10-325 mg Tablet (Hydrocodone/Acetaminophen) 1 Each Tablet 1 Tab PO Q4HRS PRN Prilosec Otc (Omeprazole Magnesium) 20 Mg Tablet.dr 20 Mg PO DAILY Levothyroxine Sodium 112 Mcg Tablet 2 Tab PO DAILY Metformin Hcl 1,000 Mg Tablet 1 Tab PO BIDWMEALS Mobic (Meloxicam) 15 Mg Tablet 15 Mg PO DAILY Klor-Con M20 (Potassium Chloride) 20 Meq Tab.er.prt 20 Meq PO DAILY Lasix (Furosemide) 40 Mg Tablet 40 Mg PO DAILY Allergies Allergies: Coded Allergies: latex (Verified Allergy, Intermediate, RASH, 09/14/20) ezetimibe (Verified Adverse Reaction, Intermediate, BODY ACHES, 09/14/20) rosuvastatin (Verified Adverse Reaction, Intermediate, BODY ACHES, 09/14/20) ROS General: No: Chills, Night Sweats PSYCHOLOGICAL ROS: No: Anxiety, Behavioral Disorder Eyes: No Blurry vision, No Decreased vision HEENT: No: Heacaches, Visual Changes ALLERGY AND IMMUNOLOGY: No: Nasal Congestion, Post Nasal Drip Hematological and Lymphatic: YES: Bleeding Problems; No: Blood Clots, Blood Transfusions, Night Sweats, Swollen Lymph Nodes Respiratory: No: Cough, Hemoptysis Cardiovascular: No Chest Pain, No Palpitations Gastrointestinal: No Nausea, No Vomiting Genitourinary: No Dysuria, No Flank Pain Musculoskeletal: No Gait Disturbance, No Joint Pain Neurological: No Behavorial Changes, No Bowel/Bladder ControlChng Skin: No Dry Skin, No Rash Physical Exam General: Alert, Oriented X3 HEENT: Atraumatic Lungs: Clear to auscultation Heart: Regular rate, Normal S2 Abdomen: Normal bowel sounds, Soft Extremities: No clubbing Skin: No rashes Neuro: Normal gait MUSCULOSKELETAL: No swelling Vitals VITALS Vital Signs Date Time Temp Pulse Resp B/P (MAP) Pulse Ox O2 Delivery O2 Flow Rate FiO2 10/16/20 16:35 97.6 79 18 91/38 97.6 09/15/20 15:47 Room Air 09/15/20 15:00 97 09/14/20 13:05 2 Labs Labs Laboratory Tests Test 09/13/20 20:07 09/13/20 23:54 09/14/20 01:09 09/14/20 01:34 Glucose (Fingerstick) 317 mg/dL (70-99) 404 mg/dL (70-99) Tumor Marker Alpha Fetoprotein 1.4 ng/mL (0.0-8.3) White Blood Count 11.1 x10^3/uL (4.0-11.0) Red Blood Count 1.67 x10^6/uL (3.50-5.40) Hemoglobin 5.0 g/dL (12.0-15.5) Hematocrit 15.0 % (36.0-47.0) Mean Corpuscular Volume 89 fL (79-100) Mean Corpuscular Hemoglobin 30 pg (25-35) Mean Corpuscular Hemoglobin Concent 33 g/dL (31-37) Red Cell Distribution Width 15.4 % (11.5-14.5) Platelet Count 141 x10^3/uL (140-400) Neutrophils (%) (Auto) 69 % (31-73) Lymphocytes (%) (Auto) 21 % (24-48) Monocytes (%) (Auto) 9 % (0-9) Eosinophils (%) (Auto) 0 % (0-3) Basophils (%) (Auto) 1 % (0-3) Neutrophils # (Auto) 7.6 x10^3/uL (1.8-7.7) Lymphocytes # (Auto) 2.4 x10^3/uL (1.0-4.8) Monocytes # (Auto) 1.0 x10^3/uL (0.0-1.1) Eosinophils # (Auto) 0.0 x10^3/uL (0.0-0.7) Basophils # (Auto) 0.1 x10^3/uL (0.0-0.2) Test 09/14/20 07:44 09/14/20 09:26 09/14/20 10:25 09/14/20 15:08 Glucose (Fingerstick) 385 mg/dL (70-99) Red Blood Count 2.35 x10^6/uL (3.50-5.70) Hemoglobin 7.0 g/dL (12.0-15.5) Hematocrit 20.9 % (36.0-47.0) Mean Corpuscular Hemoglobin Concent 33 g/dL (31-37) Absolute Reticulocyte Count 0.124 x10^6/uL (0.020-0.120) Percent Reticulocyte Count 5.3 % (0.5-2.3) Immature Reticulocyte Fraction 0.74 (0.20-0.60) Haptoglobin 74 mg/dL (37-355) Iron Level 122 ug/dL (50-170) Total Iron Binding Capacity 290 ug/dL (250-450) Iron Saturation 42 % (15-34) Erythropoietin 904.0 mIU/mL (2.6-18.5) Ferritin 16 ng/mL (8-252) Lactate Dehydrogenase 134 U/L (81-234) Vitamin B12 Level 544 pg/mL (247-911) Hepatitis A IgM Antibody Nonreactive (Nonreactive) Hepatitis B Surface Antigen Nonreactive (Nonreactive) Hepatitis B Core IgM Antibody Nonreactive (Nonreactive) Hepatitis C IgG Antibody Nonreactive (Nonreactive) Coronavirus (PCR) Not detected (Not Detected) SARS-CoV-2 Antigen (Rapid) Negative (NEGATIVE) Ammonia 65 mcmol/L (11-34) Test 09/14/20 17:17 09/14/20 18:15 09/14/20 20:13 09/14/20 23:34 Glucose (Fingerstick) 549 mg/dL (70-99) 441 mg/dL (70-99) 476 mg/dL (70-99) Hemoglobin 7.8 g/dL (12.0-15.5) Hematocrit 23.9 % (36.0-47.0) Mean Corpuscular Hemoglobin Concent 33 g/dL (31-37) Test 09/15/20 05:35 09/15/20 07:25 09/15/20 11:55 09/15/20 14:00 White Blood Count 17.7 x10^3/uL (4.0-11.0) Red Blood Count 2.35 x10^6/uL (3.50-5.40) Hemoglobin 7.1 g/dL (12.0-15.5) 5.9 g/dL (12.0-15.5) Hematocrit 21.4 % (36.0-47.0) 17.9 % (36.0-47.0) Mean Corpuscular Volume 91 fL (79-100) Mean Corpuscular Hemoglobin 30 pg (25-35) Mean Corpuscular Hemoglobin Concent 33 g/dL (31-37) 33 g/dL (31-37) Red Cell Distribution Width 15.4 % (11.5-14.5) Platelet Count 135 x10^3/uL (140-400) Neutrophils (%) (Auto) 72 % (31-73) Lymphocytes (%) (Auto) 18 % (24-48) Monocytes (%) (Auto) 10 % (0-9) Eosinophils (%) (Auto) 0 % (0-3) Basophils (%) (Auto) 0 % (0-3) Neutrophils # (Auto) 12.8 x10^3/uL (1.8-7.7) Lymphocytes # (Auto) 3.1 x10^3/uL (1.0-4.8) Monocytes # (Auto) 1.7 x10^3/uL (0.0-1.1) Eosinophils # (Auto) 0.0 x10^3/uL (0.0-0.7) Basophils # (Auto) 0.0 x10^3/uL (0.0-0.2) Segmented Neutrophils % 80 % (35-66) Band Neutrophils % 3 % (0-9) Lymphocytes % 12 % (24-48) Monocytes % 5 % (0-10) Platelet Estimate Decreased (ADEQUATE) Anisocytosis Present Sodium Level 138 mmol/L (136-145) Potassium Level 5.2 mmol/L (3.5-5.1) Chloride Level 109 mmol/L (98-107) Carbon Dioxide Level 17 mmol/L (21-32) Anion Gap 12 (6-14) Blood Urea Nitrogen 64 mg/dL (7-20) Creatinine 1.3 mg/dL (0.6-1.0) Estimated GFR (Cockcroft-Gault) 41.1 Glucose Level 455 mg/dL (70-99) Calcium Level 7.9 mg/dL (8.5-10.1) Glucose (Fingerstick) 405 mg/dL (70-99) 401 mg/dL (70-99) Test 09/15/20 16:35 Glucose (Fingerstick) 280 mg/dL (70-99) Laboratory Tests Test 09/14/20 17:17 09/14/20 18:15 09/14/20 20:13 09/14/20 23:34 Glucose (Fingerstick) 549 mg/dL (70-99) 441 mg/dL (70-99) 476 mg/dL (70-99) Hemoglobin 7.8 g/dL (12.0-15.5) Hematocrit 23.9 % (36.0-47.0) Mean Corpuscular Hemoglobin Concent 33 g/dL (31-37) Test 09/15/20 05:35 09/15/20 07:25 09/15/20 11:55 09/15/20 14:00 White Blood Count 17.7 x10^3/uL (4.0-11.0) Red Blood Count 2.35 x10^6/uL (3.50-5.40) Hemoglobin 7.1 g/dL (12.0-15.5) 5.9 g/dL (12.0-15.5) Hematocrit 21.4 % (36.0-47.0) 17.9 % (36.0-47.0) Mean Corpuscular Volume 91 fL (79-100) Mean Corpuscular Hemoglobin 30 pg (25-35) Mean Corpuscular Hemoglobin Concent 33 g/dL (31-37) 33 g/dL (31-37) Red Cell Distribution Width 15.4 % (11.5-14.5) Platelet Count 135 x10^3/uL (140-400) Neutrophils (%) (Auto) 72 % (31-73) Lymphocytes (%) (Auto) 18 % (24-48) Monocytes (%) (Auto) 10 % (0-9) Eosinophils (%) (Auto) 0 % (0-3) Basophils (%) (Auto) 0 % (0-3) Neutrophils # (Auto) 12.8 x10^3/uL (1.8-7.7) Lymphocytes # (Auto) 3.1 x10^3/uL (1.0-4.8) Monocytes # (Auto) 1.7 x10^3/uL (0.0-1.1) Eosinophils # (Auto) 0.0 x10^3/uL (0.0-0.7) Basophils # (Auto) 0.0 x10^3/uL (0.0-0.2) Segmented Neutrophils % 80 % (35-66) Band Neutrophils % 3 % (0-9) Lymphocytes % 12 % (24-48) Monocytes % 5 % (0-10) Platelet Estimate Decreased (ADEQUATE) Anisocytosis Present Sodium Level 138 mmol/L (136-145) Potassium Level 5.2 mmol/L (3.5-5.1) Chloride Level 109 mmol/L (98-107) Carbon Dioxide Level 17 mmol/L (21-32) Anion Gap 12 (6-14) Blood Urea Nitrogen 64 mg/dL (7-20) Creatinine 1.3 mg/dL (0.6-1.0) Estimated GFR (Cockcroft-Gault) 41.1 Glucose Level 455 mg/dL (70-99) Calcium Level 7.9 mg/dL (8.5-10.1) Glucose (Fingerstick) 405 mg/dL (70-99) 401 mg/dL (70-99) Test 09/15/20 16:35 Glucose (Fingerstick) 280 mg/dL (70-99) Images Images Reviewed CT abdomen Assessment/Plan Assessment/Plan Assessment: Anemia, multifactorial: iron deficiency from blood loss, chronic disease and splenomegaly Acute GI bleed secodnary to varices s/p banding Cirrhosis: unclear etiology. possibly CHAVEZ, GI following Type 2 diabetes Recommendations: -Check iron studies, B12. Recommended multivitamin -Given anemia from GI bleeding, she may benefit from parenteral iron. Will assess tolerance to oral iron first -Will arrange outpatient follow-up to discuss IV iron. -Evaluation of cirrhosis per GI -Rest per Dr Gallagher -Please call [phone] with any questions KEELEY RILEY MD Sep 15, 2020 17:20
[2020-09-15] MEDS: diphenhydrAMINE HCL 25 MG CAPSULE PO SCH (21:10)
[2020-09-15] MEDS: INSULIN GLARGINE SYRINGE. SQ SCH (21:14)
[2020-09-15 21:56] LABS: HEMATOCRIT 25.2 % (36.0-47.0); HEMOGLOBIN 8.3 g/dL (12.0-15.5); RED BLOOD COUNT 2.8 x10^6/uL (3.50-5.40); RED CELL DISTRIBUTION WIDTH 15.4 % (11.5-14.5); WHITE BLOOD COUNT 14.5 x10^3/uL (4.0-11.0)
[2020-09-16] MEDS: IV NORMAL SALINE 1000ML BAG 1,000 ML IV SCH ×3 (02:19→22:53)
[2020-09-16 03:00] VITALS: BP 105/53
[2020-09-16 07:00] VITALS: BP 108/50
[2020-09-16] MEDS: FERROUS SULFATE 325 MG TABLET. PO SCH ×3 (08:00→17:00)
[2020-09-16 08:37] LABS: BASO % 0 % (0-3); EOS # 0.1 x10^3/uL (0.0-0.7); EOS % 0 % (0-3); HEMATOCRIT 27.1 % (36.0-47.0); HEMOGLOBIN 8.8 g/dL (12.0-15.5); LYMPH # 2.2 x10^3/uL (1.0-4.8); LYMPH % 17 % (24-48); MEAN CORPUSCULAR HEMOGLOBIN 30 pg (25-35); MEAN CORPUSCULAR HGB CONC 33 g/dL (31-37); MEAN CORPUSCULAR VOLUME 92 fL (79-100); MONO # 0.9 x10^3/uL (0.0-1.1); MONO % 7 % (0-9); NEUT # 9.6 x10^3/uL (1.8-7.7); NEUT % 75 % (31-73); PLATELET COUNT 118 x10^3/uL (140-400); RED BLOOD COUNT 2.95 x10^6/uL (3.50-5.40); RED CELL DISTRIBUTION WIDTH 15.5 % (11.5-14.5); WHITE BLOOD COUNT 12.8 x10^3/uL (4.0-11.0)
[2020-09-16 08:51] LABS: CALCIUM 7.6 mg/dL (8.5-10.1); CREATININE 0.9 mg/dL (0.6-1.0); GFR 62.8; POTASSIUM 4.8 mmol/L (3.5-5.1)
[2020-09-16] MEDS: PANTOPRAZOLE 40 MG TABLET.DR. PO SCH (08:51)
[2020-09-16] MEDS: LOSARTAN POTASSIUM 50 MG TABLET. PO SCH ×2 (08:54→09:00)
[2020-09-16] MEDS: LACTULOSE 20 GM/30 ML SOLUTION. PO SCH ×2 (08:54→21:06)
[2020-09-16] MEDS: ALLOPURINOL 300 MG TABLET. PO SCH (08:54)
[2020-09-16] MEDS: CETIRIZINE HCL 10 MG TABLET. PO SCH (08:54)
[2020-09-16] MEDS: INSULIN LISPRO 300 UNITS/3 ML VIAL. SQ SCH ×6 (09:12→17:37)
[2020-09-16 10:51] VITALS: BP 103/58
--- NOTE | 2020-09-16 10:51 | PDOC ---
[employer] PROGRESS NOTE Date of Service DOS: DATE: 09/16/20 TIME: 10:46 Chief Complaint Chief Complaint Esophageal Varices Rectal bleeding Anemia nausea allergic rhinitis asthma muscle spasms chronic anticoagulation: she is on Coumadin Hypertension Chronic pain arthritis edema constipation GERD diabetes gout hypothyroidism. History of Present Illness History of Present Illness 09/16/2020 Pt seen and examined ROGERIO RN Pallor noticeably improved 09/15/2020 Pt seen and examined ROGERIO RN ROGERIO case management 09/14/2020 Pt seen and examined ROGERIO RN ROGERIO case management Vitals/I&O Vitals/I&O: Vital Signs Date Time Temp Pulse Resp B/P (MAP) Pulse Ox O2 Delivery O2 Flow Rate FiO2 09/16/20 07:00 98.0 75 18 108/50 (69) 97 Room Air 98.0 I & O 09/15/20 09/15/20 09/16/20 15:00 23:00 07:00 Intake Total 1490 ml Balance 1490 ml Physical Exam General: Alert, Oriented X3 Heart: Regular rate, Normal S2 Lungs: Clear Abdomen: Normal bowel sounds, Soft Extremities: No clubbing Skin: No rashes Labs Labs: Laboratory Tests Test 09/15/20 11:55 09/15/20 14:00 09/15/20 16:35 09/15/20 20:08 Glucose (Fingerstick) 401 mg/dL (70-99) 280 mg/dL (70-99) 178 mg/dL (70-99) Hemoglobin 5.9 g/dL (12.0-15.5) Hematocrit 17.9 % (36.0-47.0) Mean Corpuscular Hemoglobin Concent 33 g/dL (31-37) Test 09/15/20 21:50 09/16/20 07:23 09/16/20 08:01 White Blood Count 14.5 x10^3/uL (4.0-11.0) 12.8 x10^3/uL (4.0-11.0) Red Blood Count 2.80 x10^6/uL (3.50-5.40) 2.95 x10^6/uL (3.50-5.40) Hemoglobin 8.3 g/dL (12.0-15.5) 8.8 g/dL (12.0-15.5) Hematocrit 25.2 % (36.0-47.0) 27.1 % (36.0-47.0) Mean Corpuscular Volume 90 fL (79-100) 92 fL (79-100) Mean Corpuscular Hemoglobin 30 pg (25-35) 30 pg (25-35) Mean Corpuscular Hemoglobin Concent 33 g/dL (31-37) 33 g/dL (31-37) Red Cell Distribution Width 15.4 % (11.5-14.5) 15.5 % (11.5-14.5) Platelet Count 102 x10^3/uL (140-400) 118 x10^3/uL (140-400) Glucose (Fingerstick) 249 mg/dL (70-99) Neutrophils (%) (Auto) 75 % (31-73) Lymphocytes (%) (Auto) 17 % (24-48) Monocytes (%) (Auto) 7 % (0-9) Eosinophils (%) (Auto) 0 % (0-3) Basophils (%) (Auto) 0 % (0-3) Neutrophils # (Auto) 9.6 x10^3/uL (1.8-7.7) Lymphocytes # (Auto) 2.2 x10^3/uL (1.0-4.8) Monocytes # (Auto) 0.9 x10^3/uL (0.0-1.1) Eosinophils # (Auto) 0.1 x10^3/uL (0.0-0.7) Basophils # (Auto) 0.0 x10^3/uL (0.0-0.2) Sodium Level 137 mmol/L (136-145) Potassium Level 4.8 mmol/L (3.5-5.1) Chloride Level 107 mmol/L (98-107) Carbon Dioxide Level 18 mmol/L (21-32) Anion Gap 12 (6-14) Blood Urea Nitrogen 37 mg/dL (7-20) Creatinine 0.9 mg/dL (0.6-1.0) Estimated GFR (Cockcroft-Gault) 62.8 Glucose Level 276 mg/dL (70-99) Calcium Level 7.6 mg/dL (8.5-10.1) Review of Systems Review of Systems: No signs of headache, digital clubbing, or SOB noted. Assessment and Plan Assessmemt and Plan Problems Medical Problems: (1) Anemia Status: Acute (2) Rectal bleed Status: Acute Esophageal Varices Rectal bleeding Anemia nausea allergic rhinitis asthma muscle spasms chronic anticoagulation: she is on Coumadin Hypertension Chronic pain arthritis edema constipation GERD diabetes gout hypothyroidism. Plan: Novolog 5 units tid ac Lantus pen 10 units Follow Iron, B12 Trend labs Evaluation for cirrhosis DVT prophylaxis Discharge disposition pending Full code Comment Review of Relevant I have reviewed the following items fiordaliza (where applicable) has been applied. Medications: Current Medications Medications (Trade) Dose Ordered Sig/Brandy Route PRN Reason Start Time Stop Time Status Last Admin Dose Admin Pantoprazole Sodium (Protonix) 40 mg DAILYAC PO 09/16/20 07:30 09/16/20 08:51 Insulin Human Lispro (HumaLOG) 11 units 1X ONCE SQ 09/15/20 13:00 09/15/20 13:01 DC 09/15/20 13:08 Insulin Human Lispro (HumaLOG) 5 units TIDAC SQ 09/15/20 16:30 09/16/20 09:12 Insulin Glargine (Lantus Syringe) 10 unit QHS SQ 09/15/20 21:00 09/15/20 21:14 Justifications for Admission Other Justification BUCKY GONZALEZ III DO Sep 16, 2020 10:51
--- NOTE | 2020-09-16 13:07 | PDOC ---
G I PROGRESS NOTE Subjective Still had a melanotic stool. No hematemesis. Would like more to eat. Wonders what can take for arthritis. Physical Exam Lungs clear, RRR Abdomen somewhat firm, non-tender. Review of Relevant I have reviewed the following items fiordaliza (where applicable) has been applied. Labs Laboratory Tests Test 09/14/20 15:08 09/14/20 17:17 09/14/20 18:15 09/14/20 20:13 Ammonia 65 mcmol/L (11-34) Glucose (Fingerstick) 549 mg/dL (70-99) 441 mg/dL (70-99) Hemoglobin 7.8 g/dL (12.0-15.5) Hematocrit 23.9 % (36.0-47.0) Mean Corpuscular Hemoglobin Concent 33 g/dL (31-37) Test 09/14/20 23:34 09/15/20 05:35 09/15/20 07:25 09/15/20 11:55 Glucose (Fingerstick) 476 mg/dL (70-99) 405 mg/dL (70-99) 401 mg/dL (70-99) White Blood Count 17.7 x10^3/uL (4.0-11.0) Red Blood Count 2.35 x10^6/uL (3.50-5.40) Hemoglobin 7.1 g/dL (12.0-15.5) Hematocrit 21.4 % (36.0-47.0) Mean Corpuscular Volume 91 fL (79-100) Mean Corpuscular Hemoglobin 30 pg (25-35) Mean Corpuscular Hemoglobin Concent 33 g/dL (31-37) Red Cell Distribution Width 15.4 % (11.5-14.5) Platelet Count 135 x10^3/uL (140-400) Neutrophils (%) (Auto) 72 % (31-73) Lymphocytes (%) (Auto) 18 % (24-48) Monocytes (%) (Auto) 10 % (0-9) Eosinophils (%) (Auto) 0 % (0-3) Basophils (%) (Auto) 0 % (0-3) Neutrophils # (Auto) 12.8 x10^3/uL (1.8-7.7) Lymphocytes # (Auto) 3.1 x10^3/uL (1.0-4.8) Monocytes # (Auto) 1.7 x10^3/uL (0.0-1.1) Eosinophils # (Auto) 0.0 x10^3/uL (0.0-0.7) Basophils # (Auto) 0.0 x10^3/uL (0.0-0.2) Segmented Neutrophils % 80 % (35-66) Band Neutrophils % 3 % (0-9) Lymphocytes % 12 % (24-48) Monocytes % 5 % (0-10) Platelet Estimate Decreased (ADEQUATE) Anisocytosis Present Sodium Level 138 mmol/L (136-145) Potassium Level 5.2 mmol/L (3.5-5.1) Chloride Level 109 mmol/L (98-107) Carbon Dioxide Level 17 mmol/L (21-32) Anion Gap 12 (6-14) Blood Urea Nitrogen 64 mg/dL (7-20) Creatinine 1.3 mg/dL (0.6-1.0) Estimated GFR (Cockcroft-Gault) 41.1 Glucose Level 455 mg/dL (70-99) Calcium Level 7.9 mg/dL (8.5-10.1) Test 09/15/20 14:00 09/15/20 16:35 09/15/20 20:08 09/15/20 21:50 Hemoglobin 5.9 g/dL (12.0-15.5) 8.3 g/dL (12.0-15.5) Hematocrit 17.9 % (36.0-47.0) 25.2 % (36.0-47.0) Mean Corpuscular Hemoglobin Concent 33 g/dL (31-37) 33 g/dL (31-37) Glucose (Fingerstick) 280 mg/dL (70-99) 178 mg/dL (70-99) White Blood Count 14.5 x10^3/uL (4.0-11.0) Red Blood Count 2.80 x10^6/uL (3.50-5.40) Mean Corpuscular Volume 90 fL (79-100) Mean Corpuscular Hemoglobin 30 pg (25-35) Red Cell Distribution Width 15.4 % (11.5-14.5) Platelet Count 102 x10^3/uL (140-400) Test 09/16/20 07:23 09/16/20 08:01 09/16/20 10:26 Glucose (Fingerstick) 249 mg/dL (70-99) 285 mg/dL (70-99) White Blood Count 12.8 x10^3/uL (4.0-11.0) Red Blood Count 2.95 x10^6/uL (3.50-5.40) Hemoglobin 8.8 g/dL (12.0-15.5) Hematocrit 27.1 % (36.0-47.0) Mean Corpuscular Volume 92 fL (79-100) Mean Corpuscular Hemoglobin 30 pg (25-35) Mean Corpuscular Hemoglobin Concent 33 g/dL (31-37) Red Cell Distribution Width 15.5 % (11.5-14.5) Platelet Count 118 x10^3/uL (140-400) Neutrophils (%) (Auto) 75 % (31-73) Lymphocytes (%) (Auto) 17 % (24-48) Monocytes (%) (Auto) 7 % (0-9) Eosinophils (%) (Auto) 0 % (0-3) Basophils (%) (Auto) 0 % (0-3) Neutrophils # (Auto) 9.6 x10^3/uL (1.8-7.7) Lymphocytes # (Auto) 2.2 x10^3/uL (1.0-4.8) Monocytes # (Auto) 0.9 x10^3/uL (0.0-1.1) Eosinophils # (Auto) 0.1 x10^3/uL (0.0-0.7) Basophils # (Auto) 0.0 x10^3/uL (0.0-0.2) Sodium Level 137 mmol/L (136-145) Potassium Level 4.8 mmol/L (3.5-5.1) Chloride Level 107 mmol/L (98-107) Carbon Dioxide Level 18 mmol/L (21-32) Anion Gap 12 (6-14) Blood Urea Nitrogen 37 mg/dL (7-20) Creatinine 0.9 mg/dL (0.6-1.0) Estimated GFR (Cockcroft-Gault) 62.8 Glucose Level 276 mg/dL (70-99) Calcium Level 7.6 mg/dL (8.5-10.1) Laboratory Tests Test 09/15/20 14:00 09/15/20 16:35 09/15/20 20:08 09/15/20 21:50 Hemoglobin 5.9 g/dL (12.0-15.5) 8.3 g/dL (12.0-15.5) Hematocrit 17.9 % (36.0-47.0) 25.2 % (36.0-47.0) Mean Corpuscular Hemoglobin Concent 33 g/dL (31-37) 33 g/dL (31-37) Glucose (Fingerstick) 280 mg/dL (70-99) 178 mg/dL (70-99) White Blood Count 14.5 x10^3/uL (4.0-11.0) Red Blood Count 2.80 x10^6/uL (3.50-5.40) Mean Corpuscular Volume 90 fL (79-100) Mean Corpuscular Hemoglobin 30 pg (25-35) Red Cell Distribution Width 15.4 % (11.5-14.5) Platelet Count 102 x10^3/uL (140-400) Test 09/16/20 07:23 09/16/20 08:01 09/16/20 10:26 Glucose (Fingerstick) 249 mg/dL (70-99) 285 mg/dL (70-99) White Blood Count 12.8 x10^3/uL (4.0-11.0) Red Blood Count 2.95 x10^6/uL (3.50-5.40) Hemoglobin 8.8 g/dL (12.0-15.5) Hematocrit 27.1 % (36.0-47.0) Mean Corpuscular Volume 92 fL (79-100) Mean Corpuscular Hemoglobin 30 pg (25-35) Mean Corpuscular Hemoglobin Concent 33 g/dL (31-37) Red Cell Distribution Width 15.5 % (11.5-14.5) Platelet Count 118 x10^3/uL (140-400) Neutrophils (%) (Auto) 75 % (31-73) Lymphocytes (%) (Auto) 17 % (24-48) Monocytes (%) (Auto) 7 % (0-9) Eosinophils (%) (Auto) 0 % (0-3) Basophils (%) (Auto) 0 % (0-3) Neutrophils # (Auto) 9.6 x10^3/uL (1.8-7.7) Lymphocytes # (Auto) 2.2 x10^3/uL (1.0-4.8) Monocytes # (Auto) 0.9 x10^3/uL (0.0-1.1) Eosinophils # (Auto) 0.1 x10^3/uL (0.0-0.7) Basophils # (Auto) 0.0 x10^3/uL (0.0-0.2) Sodium Level 137 mmol/L (136-145) Potassium Level 4.8 mmol/L (3.5-5.1) Chloride Level 107 mmol/L (98-107) Carbon Dioxide Level 18 mmol/L (21-32) Anion Gap 12 (6-14) Blood Urea Nitrogen 37 mg/dL (7-20) Creatinine 0.9 mg/dL (0.6-1.0) Estimated GFR (Cockcroft-Gault) 62.8 Glucose Level 276 mg/dL (70-99) Calcium Level 7.6 mg/dL (8.5-10.1) Hemoglobin stable. Vitals/I & O Vital Sign - Last 24 Hours 09/15/20 09/15/20 09/15/20 09/15/20 15:00 15:35 15:47 15:50 Temp 98.0 98.8 97.6 98.0 98.8 97.6 Pulse 79 79 78 Resp 18 18 18 B/P (MAP) 84/29 (47) 84/29 93/37 Pulse Ox 97 O2 Delivery Room Air Room Air 09/15/20 09/15/20 09/15/20 09/15/20 16:35 16:47 17:38 17:55 Temp 97.6 97.9 97.9 97.6 97.9 97.9 Pulse 79 74 73 Resp 18 18 B/P (MAP) 91/38 90/34 85/45 O2 Delivery Room Air 09/15/20 09/15/20 09/15/20 09/15/20 18:10 18:31 18:55 19:55 Temp 98.0 98.0 98.2 98.2 98.0 98.0 98.2 98.2 Pulse 78 75 75 75 Resp 18 18 18 20 B/P (MAP) 99/49 90/34 (52) 97/51 104/44 Pulse Ox 95 O2 Delivery Room Air 09/15/20 09/15/20 09/15/20 09/15/20 20:00 21:10 21:14 22:10 Temp 97.9 97.9 Pulse 72 Resp 18 B/P (MAP) 111/45 O2 Delivery Room Air Room Air Room Air 09/15/20 09/16/20 09/16/20 09/16/20 23:00 03:00 07:00 10:51 Temp 97.9 97.9 98.0 98.0 97.9 97.9 98.0 98.0 Pulse 69 72 75 79 Resp 18 18 18 18 B/P (MAP) 103/49 (67) 105/53 (70) 108/50 (69) 103/58 (73) Pulse Ox 96 97 97 98 O2 Delivery Room Air Room Air Room Air Room Air Intake and Output 09/15/20 09/15/20 09/16/20 15:00 23:00 07:00 Intake Total 1490 ml Balance 1490 ml Problem List Problems Medical Problems: (1) Anemia Status: Acute (2) Rectal bleed Status: Acute Assessment Recent variceal bleed, banded, apparently successfully. 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 Ascites? Not on prior imaging, but IVF's since. Plan of Care Note Try full liquids. sonogram Follow hemoglobin. Defer pain control to primary. We'd be OK with tramadol for minor pain. Justicifation of Admission Dx: Justifications for Admission: Justification of Admission Dx: Yes JOSE FRANCISCO COON MD Sep 16, 2020 13:07
[2020-09-16 14:36] VITALS: BP 106/54
[2020-09-16 19:00] VITALS: BP 111/61
[2020-09-16] MEDS: diphenhydrAMINE HCL 25 MG CAPSULE PO SCH (21:06)
[2020-09-16] MEDS: HYDROcodone/APAP 10/325 1 TAB TABLET PO PRN (21:07)
[2020-09-16] MEDS: INSULIN GLARGINE SYRINGE. SQ SCH (21:10)
--- NOTE | 2020-09-16 21:54 | RAD ---
Limited ultrasound of the abdomen 09/16/2020 CLINICAL HISTORY: Abdominal bloating. TECHNIQUE: A real-time ultrasound examination of all 4 quadrants of the abdomen was performed. Multiple images were obtained. FINDINGS: Comparison is made to a CT scan of the abdomen and pelvis dated 09/13/2020. A trace amount of ascites is seen medial to the liver. No additional ascites is noted. IMPRESSION: Trace amount of ascites is seen. Electronically signed by: Dre Mar MD (09/16/2020 9:51 PM) [id number]
[2020-09-16 23:00] VITALS: BP 111/64
[2020-09-17] MEDS: HYDROcodone/APAP 10/325 1 TAB TABLET PO PRN ×2 (01:12→20:59)
[2020-09-17 03:00] VITALS: BP 104/58
[2020-09-17 07:15] VITALS: BP 105/57
[2020-09-17 07:38] LABS: CALCIUM 7.8 mg/dL (8.5-10.1); CREATININE 0.9 mg/dL (0.6-1.0); GFR 62.8; POTASSIUM 4.1 mmol/L (3.5-5.1)
[2020-09-17] MEDS: PANTOPRAZOLE 40 MG TABLET.DR. PO SCH (07:38)
[2020-09-17] MEDS: FERROUS SULFATE 325 MG TABLET. PO SCH ×2 (07:38→16:43)
[2020-09-17] MEDS: CETIRIZINE HCL 10 MG TABLET. PO SCH (07:38)
[2020-09-17] MEDS: ALLOPURINOL 300 MG TABLET. PO SCH (07:38)
[2020-09-17] MEDS: LACTULOSE 20 GM/30 ML SOLUTION. PO SCH ×2 (07:38→20:58)
[2020-09-17 07:39] LABS: BASO % 0 % (0-3); EOS # 0.1 x10^3/uL (0.0-0.7); EOS % 1 % (0-3); HEMATOCRIT 22.7 % (36.0-47.0); HEMOGLOBIN 7.6 g/dL (12.0-15.5); LYMPH % 28 % (24-48); MEAN CORPUSCULAR HEMOGLOBIN 31 pg (25-35); MEAN CORPUSCULAR HGB CONC 34 g/dL (31-37); MEAN CORPUSCULAR VOLUME 91 fL (79-100); MONO # 0.6 x10^3/uL (0.0-1.1); MONO % 8 % (0-9); NEUT # 4.4 x10^3/uL (1.8-7.7); NEUT % 62 % (31-73); PLATELET COUNT 100 x10^3/uL (140-400); RED BLOOD COUNT 2.48 x10^6/uL (3.50-5.40); RED CELL DISTRIBUTION WIDTH 15.7 % (11.5-14.5)
[2020-09-17] MEDS: LOSARTAN POTASSIUM 50 MG TABLET. PO SCH (07:39)
[2020-09-17] MEDS: INSULIN LISPRO 300 UNITS/3 ML VIAL. SQ SCH ×6 (07:46→17:09)
[2020-09-17] MEDS: IV NORMAL SALINE 1000ML BAG 1,000 ML IV SCH ×2 (09:10→18:45)
[2020-09-17 10:50] VITALS: BP 114/55
--- NOTE | 2020-09-17 11:33 | PDOC ---
[facility] PROGRESS NOTE Date of Service DOS: DATE: 09/17/20 TIME: 11:29 Chief Complaint Chief Complaint Esophageal Varices Rectal bleeding Anemia nausea allergic rhinitis asthma muscle spasms chronic anticoagulation: she is on Coumadin Hypertension Chronic pain arthritis edema constipation GERD diabetes gout hypothyroidism. History of Present Illness History of Present Illness 09/17/2020 Pt seen and examined Resting with NAD Still having large bloody stools 09/16/2020 Pt seen and examined ROGERIO RN Pallor noticeably improved 09/15/2020 Pt seen and examined DW RN DW case management 09/14/2020 Pt seen and examined DW RN DW case management Vitals/I&O Vitals/I&O: Vital Signs Date Time Temp Pulse Resp B/P (MAP) Pulse Ox O2 Delivery O2 Flow Rate FiO2 09/17/20 08:00 Room Air 2.0 09/17/20 07:15 97.9 69 19 105/57 (73) 99 97.9 I & O 09/16/20 09/16/20 09/17/20 15:00 23:00 07:00 Intake Total 300 ml 200 ml 100 ml Balance 300 ml 200 ml 100 ml Physical Exam General: Alert, Oriented X3 Heart: Regular rate, Normal S2 Lungs: Clear Abdomen: Normal bowel sounds, Soft Extremities: No clubbing Skin: No rashes Labs Labs: Laboratory Tests Test 09/16/20 16:19 09/16/20 20:52 09/17/20 06:29 09/17/20 07:30 Glucose (Fingerstick) 190 mg/dL (70-99) 216 mg/dL (70-99) 179 mg/dL (70-99) White Blood Count 7.0 x10^3/uL (4.0-11.0) Red Blood Count 2.48 x10^6/uL (3.50-5.40) Hemoglobin 7.6 g/dL (12.0-15.5) Hematocrit 22.7 % (36.0-47.0) Mean Corpuscular Volume 91 fL (79-100) Mean Corpuscular Hemoglobin 31 pg (25-35) Mean Corpuscular Hemoglobin Concent 34 g/dL (31-37) Red Cell Distribution Width 15.7 % (11.5-14.5) Platelet Count 100 x10^3/uL (140-400) Neutrophils (%) (Auto) 62 % (31-73) Lymphocytes (%) (Auto) 28 % (24-48) Monocytes (%) (Auto) 8 % (0-9) Eosinophils (%) (Auto) 1 % (0-3) Basophils (%) (Auto) 0 % (0-3) Neutrophils # (Auto) 4.4 x10^3/uL (1.8-7.7) Lymphocytes # (Auto) 2.0 x10^3/uL (1.0-4.8) Monocytes # (Auto) 0.6 x10^3/uL (0.0-1.1) Eosinophils # (Auto) 0.1 x10^3/uL (0.0-0.7) Basophils # (Auto) 0.0 x10^3/uL (0.0-0.2) Sodium Level 138 mmol/L (136-145) Potassium Level 4.1 mmol/L (3.5-5.1) Chloride Level 109 mmol/L (98-107) Carbon Dioxide Level 20 mmol/L (21-32) Anion Gap 9 (6-14) Blood Urea Nitrogen 21 mg/dL (7-20) Creatinine 0.9 mg/dL (0.6-1.0) Estimated GFR (Cockcroft-Gault) 62.8 Glucose Level 191 mg/dL (70-99) Calcium Level 7.8 mg/dL (8.5-10.1) Review of Systems Review of Systems: No digital clubbing, cyanosis, or SOB noted. Assessment and Plan Assessmemt and Plan Problems Medical Problems: (1) Anemia Status: Acute (2) Rectal bleed Status: Acute Esophageal Varices Rectal bleeding Anemia nausea allergic rhinitis asthma muscle spasms chronic anticoagulation: she is on Coumadin Hypertension Chronic pain arthritis edema constipation GERD diabetes gout hypothyroidism. Plan: PPI Trend Hgb PRN transfusions DVT prophylaxis Full code Discontinue Losartan Comment Review of Relevant I have reviewed the following items fiordaliza (where applicable) has been applied. Justifications for Admission Other Justification BUCKY GONZALEZ III DO Sep 17, 2020 11:33
[2020-09-17 14:50] VITALS: BP 106/71
--- NOTE | 2020-09-17 14:54 | PDOC ---
G I PROGRESS NOTE Subjective Still with melenotic stools, but looser and not excessive. No N, V. Physical Exam Lungs clear. RRR Abdomen soft, not tender. Review of Relevant I have reviewed the following items fiordaliza (where applicable) has been applied. Labs Laboratory Tests Test 09/15/20 16:35 09/15/20 20:08 09/15/20 21:50 09/16/20 07:23 Glucose (Fingerstick) 280 mg/dL (70-99) 178 mg/dL (70-99) 249 mg/dL (70-99) White Blood Count 14.5 x10^3/uL (4.0-11.0) Red Blood Count 2.80 x10^6/uL (3.50-5.40) Hemoglobin 8.3 g/dL (12.0-15.5) Hematocrit 25.2 % (36.0-47.0) Mean Corpuscular Volume 90 fL (79-100) Mean Corpuscular Hemoglobin 30 pg (25-35) Mean Corpuscular Hemoglobin Concent 33 g/dL (31-37) Red Cell Distribution Width 15.4 % (11.5-14.5) Platelet Count 102 x10^3/uL (140-400) Test 09/16/20 08:01 09/16/20 10:26 09/16/20 16:19 09/16/20 20:52 White Blood Count 12.8 x10^3/uL (4.0-11.0) Red Blood Count 2.95 x10^6/uL (3.50-5.40) Hemoglobin 8.8 g/dL (12.0-15.5) Hematocrit 27.1 % (36.0-47.0) Mean Corpuscular Volume 92 fL (79-100) Mean Corpuscular Hemoglobin 30 pg (25-35) Mean Corpuscular Hemoglobin Concent 33 g/dL (31-37) Red Cell Distribution Width 15.5 % (11.5-14.5) Platelet Count 118 x10^3/uL (140-400) Neutrophils (%) (Auto) 75 % (31-73) Lymphocytes (%) (Auto) 17 % (24-48) Monocytes (%) (Auto) 7 % (0-9) Eosinophils (%) (Auto) 0 % (0-3) Basophils (%) (Auto) 0 % (0-3) Neutrophils # (Auto) 9.6 x10^3/uL (1.8-7.7) Lymphocytes # (Auto) 2.2 x10^3/uL (1.0-4.8) Monocytes # (Auto) 0.9 x10^3/uL (0.0-1.1) Eosinophils # (Auto) 0.1 x10^3/uL (0.0-0.7) Basophils # (Auto) 0.0 x10^3/uL (0.0-0.2) Sodium Level 137 mmol/L (136-145) Potassium Level 4.8 mmol/L (3.5-5.1) Chloride Level 107 mmol/L (98-107) Carbon Dioxide Level 18 mmol/L (21-32) Anion Gap 12 (6-14) Blood Urea Nitrogen 37 mg/dL (7-20) Creatinine 0.9 mg/dL (0.6-1.0) Estimated GFR (Cockcroft-Gault) 62.8 Glucose Level 276 mg/dL (70-99) Calcium Level 7.6 mg/dL (8.5-10.1) Glucose (Fingerstick) 285 mg/dL (70-99) 190 mg/dL (70-99) 216 mg/dL (70-99) Test 09/17/20 06:29 09/17/20 07:30 09/17/20 11:32 White Blood Count 7.0 x10^3/uL (4.0-11.0) Red Blood Count 2.48 x10^6/uL (3.50-5.40) Hemoglobin 7.6 g/dL (12.0-15.5) Hematocrit 22.7 % (36.0-47.0) Mean Corpuscular Volume 91 fL (79-100) Mean Corpuscular Hemoglobin 31 pg (25-35) Mean Corpuscular Hemoglobin Concent 34 g/dL (31-37) Red Cell Distribution Width 15.7 % (11.5-14.5) Platelet Count 100 x10^3/uL (140-400) Neutrophils (%) (Auto) 62 % (31-73) Lymphocytes (%) (Auto) 28 % (24-48) Monocytes (%) (Auto) 8 % (0-9) Eosinophils (%) (Auto) 1 % (0-3) Basophils (%) (Auto) 0 % (0-3) Neutrophils # (Auto) 4.4 x10^3/uL (1.8-7.7) Lymphocytes # (Auto) 2.0 x10^3/uL (1.0-4.8) Monocytes # (Auto) 0.6 x10^3/uL (0.0-1.1) Eosinophils # (Auto) 0.1 x10^3/uL (0.0-0.7) Basophils # (Auto) 0.0 x10^3/uL (0.0-0.2) Sodium Level 138 mmol/L (136-145) Potassium Level 4.1 mmol/L (3.5-5.1) Chloride Level 109 mmol/L (98-107) Carbon Dioxide Level 20 mmol/L (21-32) Anion Gap 9 (6-14) Blood Urea Nitrogen 21 mg/dL (7-20) Creatinine 0.9 mg/dL (0.6-1.0) Estimated GFR (Cockcroft-Gault) 62.8 Glucose Level 191 mg/dL (70-99) Calcium Level 7.8 mg/dL (8.5-10.1) Glucose (Fingerstick) 179 mg/dL (70-99) 199 mg/dL (70-99) Laboratory Tests Test 09/16/20 16:19 09/16/20 20:52 09/17/20 06:29 09/17/20 07:30 Glucose (Fingerstick) 190 mg/dL (70-99) 216 mg/dL (70-99) 179 mg/dL (70-99) White Blood Count 7.0 x10^3/uL (4.0-11.0) Red Blood Count 2.48 x10^6/uL (3.50-5.40) Hemoglobin 7.6 g/dL (12.0-15.5) Hematocrit 22.7 % (36.0-47.0) Mean Corpuscular Volume 91 fL (79-100) Mean Corpuscular Hemoglobin 31 pg (25-35) Mean Corpuscular Hemoglobin Concent 34 g/dL (31-37) Red Cell Distribution Width 15.7 % (11.5-14.5) Platelet Count 100 x10^3/uL (140-400) Neutrophils (%) (Auto) 62 % (31-73) Lymphocytes (%) (Auto) 28 % (24-48) Monocytes (%) (Auto) 8 % (0-9) Eosinophils (%) (Auto) 1 % (0-3) Basophils (%) (Auto) 0 % (0-3) Neutrophils # (Auto) 4.4 x10^3/uL (1.8-7.7) Lymphocytes # (Auto) 2.0 x10^3/uL (1.0-4.8) Monocytes # (Auto) 0.6 x10^3/uL (0.0-1.1) Eosinophils # (Auto) 0.1 x10^3/uL (0.0-0.7) Basophils # (Auto) 0.0 x10^3/uL (0.0-0.2) Sodium Level 138 mmol/L (136-145) Potassium Level 4.1 mmol/L (3.5-5.1) Chloride Level 109 mmol/L (98-107) Carbon Dioxide Level 20 mmol/L (21-32) Anion Gap 9 (6-14) Blood Urea Nitrogen 21 mg/dL (7-20) Creatinine 0.9 mg/dL (0.6-1.0) Estimated GFR (Cockcroft-Gault) 62.8 Glucose Level 191 mg/dL (70-99) Calcium Level 7.8 mg/dL (8.5-10.1) Test 09/17/20 11:32 Glucose (Fingerstick) 199 mg/dL (70-99) Some drop in hemoglobin. Vitals/I & O Vital Sign - Last 24 Hours 09/16/20 09/16/20 09/16/20 09/16/20 19:00 19:40 21:07 22:41 Temp 98.6 98.6 Pulse 72 Resp 18 B/P (MAP) 111/61 (78) Pulse Ox 98 O2 Delivery Room Air Room Air Room Air Room Air 09/16/20 09/17/20 09/17/20 09/17/20 23:00 01:12 02:38 03:00 Temp 98.2 98.0 98.2 98.0 Pulse 68 69 Resp 18 18 B/P (MAP) 111/64 (80) 104/58 (73) Pulse Ox 98 98 O2 Delivery Room Air Room Air Room Air Room Air 09/17/20 09/17/20 09/17/20 07:15 08:00 10:50 Temp 97.9 97.9 97.9 97.9 Pulse 69 69 Resp 19 18 B/P (MAP) 105/57 (73) 114/55 (74) Pulse Ox 99 98 O2 Delivery Room Air Room Air Room Air O2 Flow Rate 2.0 Intake and Output 09/16/20 09/16/20 09/17/20 15:00 23:00 07:00 Intake Total 300 ml 200 ml 100 ml Balance 300 ml 200 ml 100 ml Images Sonogram w/o ascites. Problem List Problems Medical Problems: (1) Anemia Status: Acute (2) Rectal bleed Status: Acute Assessment Cirrhosis, likely CHAVEZ Variceal bleed, stable. Plan of Care Note Continue as now and observe. Justicifation of Admission Dx: Justifications for Admission: Justification of Admission Dx: Yes JOSE FRANCISCO COON MD Sep 17, 2020 14:54
[2020-09-17] MEDS ORDERED: ACETAMINOPHEN 325 MG TABLET. PO PRN (15:15)
[2020-09-17 19:00] VITALS: BP 106/58
[2020-09-17] MEDS: diphenhydrAMINE HCL 25 MG CAPSULE PO SCH (20:58)
[2020-09-17] MEDS: INSULIN GLARGINE SYRINGE. SQ SCH (21:03)
[2020-09-17 23:00] VITALS: BP 107/58
[2020-09-18] VITALS (7 sets, daily range): BP systolic 115–136; BP diastolic 57–70
[2020-09-18 04:25] LABS: BASO % 1 % (0-3); EOS # 0.1 x10^3/uL (0.0-0.7); EOS % 2 % (0-3); HEMATOCRIT 21.6 % (36.0-47.0); HEMOGLOBIN 7.3 g/dL (12.0-15.5); LYMPH # 2.1 x10^3/uL (1.0-4.8); LYMPH % 36 % (24-48); MEAN CORPUSCULAR HEMOGLOBIN 31 pg (25-35); MEAN CORPUSCULAR HGB CONC 34 g/dL (31-37); MEAN CORPUSCULAR VOLUME 91 fL (79-100); MONO # 0.5 x10^3/uL (0.0-1.1); MONO % 9 % (0-9); NEUT # 3.1 x10^3/uL (1.8-7.7); NEUT % 53 % (31-73); PLATELET COUNT 99 x10^3/uL (140-400); RED BLOOD COUNT 2.37 x10^6/uL (3.50-5.40); RED CELL DISTRIBUTION WIDTH 16.1 % (11.5-14.5); WHITE BLOOD COUNT 5.9 x10^3/uL (4.0-11.0)
[2020-09-18] MEDS: IV NORMAL SALINE 1000ML BAG 1,000 ML IV SCH ×2 (04:36→15:14)
[2020-09-18 04:39] LABS: CREATININE 0.8 mg/dL (0.6-1.0); POTASSIUM 3.9 mmol/L (3.5-5.1)
[2020-09-18] MEDS: CETIRIZINE HCL 10 MG TABLET. PO SCH (07:57)
[2020-09-18] MEDS: ALLOPURINOL 300 MG TABLET. PO SCH (07:57)
[2020-09-18] MEDS: PANTOPRAZOLE 40 MG TABLET.DR. PO SCH (07:57)
[2020-09-18] MEDS: LOSARTAN POTASSIUM 50 MG TABLET. PO SCH (07:57)
[2020-09-18] MEDS: LACTULOSE 20 GM/30 ML SOLUTION. PO SCH ×2 (08:00→20:47)
[2020-09-18] MEDS: FERROUS SULFATE 325 MG TABLET. PO SCH ×2 (08:00→17:00)
[2020-09-18] MEDS: INSULIN LISPRO 300 UNITS/3 ML VIAL. SQ SCH ×6 (08:06→17:08)
--- NOTE | 2020-09-18 08:58 | PDOC ---
PROGRESS NOTES Date of Service: DATE: 09/18/20 TIME: 08:58 Chief Complaint Chief Complaint IMPRESSION Esophageal Varices Melena/hematochezia - s/p EGD/banding of esophageal varices Rectal bleeding WITH ACUTE BLOOD LOSS ANEMIA Nodular contour of the liver of concern for cirrhosis or other fibrotic processes. Splenomegaly which may relate to portal hypertension noted. Soft tissue density in the distal anus as questioned. ON CT D/w nurse - dark stool w/ red blood. 3 stools charted. 09-18 Anemia nausea allergic rhinitis asthma muscle spasms chronic anticoagulation: // on Coumadin Hypertension Chronic pain arthritis edema constipation GERD diabetes gout hypothyroidism. HEPATIC ENCEPHALOPATHY PLAN= SERIAL HGB GI FOLLOWING 37 MIN PT EXAM, CHART REVIEW, > 50% OF TIME SPENT WITH EXAM, CHART REVIEW, PT CARE COORDINATION History of Present Illness History of Present Illness 09/18/2020 Pt seen and examined Resting with NAD Still having large bloody stools D/W RN Operative Note 09-14 Operative Note EGD with band ligation Meds propofol per anesthesia Pre-op dx Melena/acute blood loss anemia Post-op dx Esophageal varices s/p band ligations x 6 Plan cirrhosis work-up with serologies repeat band ligation in several weeks ammonia level 09-18 38 MIN PT EXAM, CHART REVIEW, > 50% OF TIME SPENT WITH EXAM, CHART REVIEW, PT CARE COORDINATION 09/16/2020 Pt seen and examined ROGERIO RN Pallor noticeably improved 09/15/2020 Pt seen and examined ROGERIO RN ROGERIO case management 09/14/2020 Pt seen and examined ROGERIO RN ROGERIO case management Vitals Vitals Vital Signs Date Time Temp Pulse Resp B/P (MAP) Pulse Ox O2 Delivery O2 Flow Rate FiO2 09/18/20 07:00 97.8 18 18 124/57 (79) 99 Room Air 97.8 09/17/20 08:00 2.0 Physical Exam General: Alert, Oriented X3, Cooperative, No acute distress Heart: Regular rate, Normal S2 Lungs: Clear Abdomen: Normal bowel sounds, Soft Extremities: No clubbing Skin: No rashes Labs LABS STATUS: ADM IN ORD. PHYSICIAN: JOSE FRANCISCO COON MD REASON: ascites now? Abd Bloating PROCEDURE: ABDOMEN LTD Limited ultrasound of the abdomen 09/16/2020 CLINICAL HISTORY: Abdominal bloating. TECHNIQUE: A real-time ultrasound examination of all 4 quadrants of the abdomen was performed. Multiple images were obtained. FINDINGS: Comparison is made to a CT scan of the abdomen and pelvis dated 09/13/2020. A trace amount of ascites is seen medial to the liver. No additional ascites is noted. IMPRESSION: Trace amount of ascites is seen. Electronically signed by: Dre Mcgrath MD (09/16/2020 9:51 PM) [id number] DICTATED and SIGNED BY: DRE MCGRATH MD DATE: 09/16/202150 Examination: CT ABDOMEN PELVIS WO CONTRAST History: Reason: rectal bleeding, nausea / Spl. Instructions: LOW GFR / Comparison/Correlation: None Findings: Axial images of the abdomen and pelvis were obtained without contrast. Sagittal and coronal reformatted images provided. Marked coronary arterial calcification is present. Calcified granulomas involving the posterior left lung base. Nodular contour of the liver is present. Gallbladder fossa is unremarkable. Spleen has a length of 14 cm. Pancreas is unremarkable. Diverticulum measuring 1.6 cm diameter involves the proximal duodenal sweep region. No ascites or pelvic free fluid. No enlarged abdominal or pelvic lymph nodes. Mild diverticulosis of the colon is present. Urinary bladder is unremarkable. Appendix is normal. No bowel obstruction or extraluminal gas. No enlarged abdominal or pelvic lymph nodes. Gallbladder fossa is normal. Epigastric nonenlarged lymph nodes are present. No collecting system obstruction. Moderate left renal atrophy is present. There is subtle high involving the distal right ureter but no hydroureter is seen. L4-5 disc space narrowing is present. Mild L3-4 disc space narrowing with concentric disc bulge noted. Spinal canal stenosis noted at this level. Hysterectomy noted. Circumferential soft tissue density at the anus is questioned. Impression: Nodular contour of the liver of concern for cirrhosis or other fibrotic processes. Splenomegaly which may relate to portal hypertension noted. Soft tissue density in the distal anus as questioned. Correlate with physical exam and possibly direct visualization for this patient with reported rectal bleeding. PQRS Compliance Statement: One or more of the following individualized dose reduction techniques were utilized for this examination: 1. Automated exposure control 2. Adjustment of the mA and/or kV according to patient size 3. Use of iterative reconstruction technique Laboratory Tests Test 09/17/20 11:32 09/17/20 16:48 09/17/20 20:57 09/18/20 02:56 Glucose (Fingerstick) 199 mg/dL (70-99) 138 mg/dL (70-99) 226 mg/dL (70-99) White Blood Count 5.9 x10^3/uL (4.0-11.0) Red Blood Count 2.37 x10^6/uL (3.50-5.40) Hemoglobin 7.3 g/dL (12.0-15.5) Hematocrit 21.6 % (36.0-47.0) Mean Corpuscular Volume 91 fL (79-100) Mean Corpuscular Hemoglobin 31 pg (25-35) Mean Corpuscular Hemoglobin Concent 34 g/dL (31-37) Red Cell Distribution Width 16.1 % (11.5-14.5) Platelet Count 99 x10^3/uL (140-400) Neutrophils (%) (Auto) 53 % (31-73) Lymphocytes (%) (Auto) 36 % (24-48) Monocytes (%) (Auto) 9 % (0-9) Eosinophils (%) (Auto) 2 % (0-3) Basophils (%) (Auto) 1 % (0-3) Neutrophils # (Auto) 3.1 x10^3/uL (1.8-7.7) Lymphocytes # (Auto) 2.1 x10^3/uL (1.0-4.8) Monocytes # (Auto) 0.5 x10^3/uL (0.0-1.1) Eosinophils # (Auto) 0.1 x10^3/uL (0.0-0.7) Basophils # (Auto) 0.0 x10^3/uL (0.0-0.2) Sodium Level 137 mmol/L (136-145) Potassium Level 3.9 mmol/L (3.5-5.1) Chloride Level 108 mmol/L (98-107) Carbon Dioxide Level 18 mmol/L (21-32) Anion Gap 11 (6-14) Blood Urea Nitrogen 13 mg/dL (7-20) Creatinine 0.8 mg/dL (0.6-1.0) Estimated GFR (Cockcroft-Gault) 72.0 Glucose Level 176 mg/dL (70-99) Calcium Level 8.0 mg/dL (8.5-10.1) Test 09/18/20 07:20 Glucose (Fingerstick) 191 mg/dL (70-99) Assessment and Plan Assessmemt and Plan Problems Medical Problems: (1) Anemia Status: Acute (2) Rectal bleed Status: Acute Comment Review of Relevant I have reviewed the following items fiordaliza (where applicable) has been applied. Labs Laboratory Tests Test 09/16/20 10:26 09/16/20 16:19 09/16/20 20:52 09/17/20 06:29 Glucose (Fingerstick) 285 mg/dL (70-99) 190 mg/dL (70-99) 216 mg/dL (70-99) White Blood Count 7.0 x10^3/uL (4.0-11.0) Red Blood Count 2.48 x10^6/uL (3.50-5.40) Hemoglobin 7.6 g/dL (12.0-15.5) Hematocrit 22.7 % (36.0-47.0) Mean Corpuscular Volume 91 fL (79-100) Mean Corpuscular Hemoglobin 31 pg (25-35) Mean Corpuscular Hemoglobin Concent 34 g/dL (31-37) Red Cell Distribution Width 15.7 % (11.5-14.5) Platelet Count 100 x10^3/uL (140-400) Neutrophils (%) (Auto) 62 % (31-73) Lymphocytes (%) (Auto) 28 % (24-48) Monocytes (%) (Auto) 8 % (0-9) Eosinophils (%) (Auto) 1 % (0-3) Basophils (%) (Auto) 0 % (0-3) Neutrophils # (Auto) 4.4 x10^3/uL (1.8-7.7) Lymphocytes # (Auto) 2.0 x10^3/uL (1.0-4.8) Monocytes # (Auto) 0.6 x10^3/uL (0.0-1.1) Eosinophils # (Auto) 0.1 x10^3/uL (0.0-0.7) Basophils # (Auto) 0.0 x10^3/uL (0.0-0.2) Sodium Level 138 mmol/L (136-145) Potassium Level 4.1 mmol/L (3.5-5.1) Chloride Level 109 mmol/L (98-107) Carbon Dioxide Level 20 mmol/L (21-32) Anion Gap 9 (6-14) Blood Urea Nitrogen 21 mg/dL (7-20) Creatinine 0.9 mg/dL (0.6-1.0) Estimated GFR (Cockcroft-Gault) 62.8 Glucose Level 191 mg/dL (70-99) Calcium Level 7.8 mg/dL (8.5-10.1) Test 09/17/20 07:30 09/17/20 11:32 09/17/20 16:48 09/17/20 20:57 Glucose (Fingerstick) 179 mg/dL (70-99) 199 mg/dL (70-99) 138 mg/dL (70-99) 226 mg/dL (70-99) Test 09/18/20 02:56 09/18/20 07:20 White Blood Count 5.9 x10^3/uL (4.0-11.0) Red Blood Count 2.37 x10^6/uL (3.50-5.40) Hemoglobin 7.3 g/dL (12.0-15.5) Hematocrit 21.6 % (36.0-47.0) Mean Corpuscular Volume 91 fL (79-100) Mean Corpuscular Hemoglobin 31 pg (25-35) Mean Corpuscular Hemoglobin Concent 34 g/dL (31-37) Red Cell Distribution Width 16.1 % (11.5-14.5) Platelet Count 99 x10^3/uL (140-400) Neutrophils (%) (Auto) 53 % (31-73) Lymphocytes (%) (Auto) 36 % (24-48) Monocytes (%) (Auto) 9 % (0-9) Eosinophils (%) (Auto) 2 % (0-3) Basophils (%) (Auto) 1 % (0-3) Neutrophils # (Auto) 3.1 x10^3/uL (1.8-7.7) Lymphocytes # (Auto) 2.1 x10^3/uL (1.0-4.8) Monocytes # (Auto) 0.5 x10^3/uL (0.0-1.1) Eosinophils # (Auto) 0.1 x10^3/uL (0.0-0.7) Basophils # (Auto) 0.0 x10^3/uL (0.0-0.2) Sodium Level 137 mmol/L (136-145) Potassium Level 3.9 mmol/L (3.5-5.1) Chloride Level 108 mmol/L (98-107) Carbon Dioxide Level 18 mmol/L (21-32) Anion Gap 11 (6-14) Blood Urea Nitrogen 13 mg/dL (7-20) Creatinine 0.8 mg/dL (0.6-1.0) Estimated GFR (Cockcroft-Gault) 72.0 Glucose Level 176 mg/dL (70-99) Calcium Level 8.0 mg/dL (8.5-10.1) Glucose (Fingerstick) 191 mg/dL (70-99) Laboratory Tests Test 09/17/20 11:32 09/17/20 16:48 09/17/20 20:57 09/18/20 02:56 Glucose (Fingerstick) 199 mg/dL (70-99) 138 mg/dL (70-99) 226 mg/dL (70-99) White Blood Count 5.9 x10^3/uL (4.0-11.0) Red Blood Count 2.37 x10^6/uL (3.50-5.40) Hemoglobin 7.3 g/dL (12.0-15.5) Hematocrit 21.6 % (36.0-47.0) Mean Corpuscular Volume 91 fL (79-100) Mean Corpuscular Hemoglobin 31 pg (25-35) Mean Corpuscular Hemoglobin Concent 34 g/dL (31-37) Red Cell Distribution Width 16.1 % (11.5-14.5) Platelet Count 99 x10^3/uL (140-400) Neutrophils (%) (Auto) 53 % (31-73) Lymphocytes (%) (Auto) 36 % (24-48) Monocytes (%) (Auto) 9 % (0-9) Eosinophils (%) (Auto) 2 % (0-3) Basophils (%) (Auto) 1 % (0-3) Neutrophils # (Auto) 3.1 x10^3/uL (1.8-7.7) Lymphocytes # (Auto) 2.1 x10^3/uL (1.0-4.8) Monocytes # (Auto) 0.5 x10^3/uL (0.0-1.1) Eosinophils # (Auto) 0.1 x10^3/uL (0.0-0.7) Basophils # (Auto) 0.0 x10^3/uL (0.0-0.2) Sodium Level 137 mmol/L (136-145) Potassium Level 3.9 mmol/L (3.5-5.1) Chloride Level 108 mmol/L (98-107) Carbon Dioxide Level 18 mmol/L (21-32) Anion Gap 11 (6-14) Blood Urea Nitrogen 13 mg/dL (7-20) Creatinine 0.8 mg/dL (0.6-1.0) Estimated GFR (Cockcroft-Gault) 72.0 Glucose Level 176 mg/dL (70-99) Calcium Level 8.0 mg/dL (8.5-10.1) Test 09/18/20 07:20 Glucose (Fingerstick) 191 mg/dL (70-99) Medications Current Medications Sodium Chloride 1,000 ml @ 1,000 mls/hr 1X ONCE IV Last administered on 09/13/20at 15:15; Start 09/13/20 at 15:15; Stop 09/13/20 at 16:14; Status DC Famotidine (Pepcid Vial) 20 mg 1X ONCE IVP Last administered on 09/13/20at 15:15; Start 09/13/20 at 15:15; Stop 09/13/20 at 15:16; Status DC Ondansetron HCl (Zofran) 4 mg 1X ONCE IVP Last administered on 09/13/20at 15:15; Start 09/13/20 at 15:15; Stop 09/13/20 at 15:16; Status DC Ondansetron HCl (Zofran) 4 mg PRN Q8HRS PRN IV NAUSEA/VOMITING Last administered on 09/14/20at 11:24; Start 09/13/20 at 19:30; Stop 09/14/20 at 19:29; Status DC Morphine Sulfate (Morphine Sulfate) 2 mg PRN Q2HR PRN IV PAIN; Start 09/13/20 at 19:30; Stop 09/14/20 at 19:29; Status DC Acetaminophen (Tylenol) 650 mg PRN Q4HRS PRN PO FEVER > 100.3'F Last administered on 09/13/20at 21:39; Start 09/13/20 at 19:30; Stop 09/14/20 at 19:29; Status DC Insulin Human Lispro (HumaLOG) 0-5 UNITS TIDWMEALS SQ ; Start 09/14/20 at 08:00; Stop 09/13/20 at 21:29; Status DC Dextrose (Dextrose 50%-Water Syringe) 12.5 gm PRN Q15MIN PRN IV SEE COMMENTS; Start 09/13/20 at 21:00; Stop 09/14/20 at 21:58; Status DC Dextrose (Iv Dextrose 5%) 250 ml PRN Q15MIN PRN IV SEE COMMENTS; Start 09/13/20 at 21:00; Status UNV Allopurinol (Zyloprim) 300 mg DAILY PO Last administered on 09/18/20at 07:57; Start 09/14/20 at 09:00 Acetaminophen/ Hydrocodone Bitart (Lortab 10/325) 1 tab PRN Q4HRS PRN PO PAIN Last administered on 09/17/20at 20:59; Start 09/13/20 at 21:00 Losartan Potassium (Cozaar) 50 mg DAILY PO Last administered on 09/15/20at 08:32; Start 09/14/20 at 09:00 Diphenhydramine HCl (Benadryl) 25 mg QHS PO Last administered on 09/17/20at 20:58; Start 09/13/20 at 21:15 Cetirizine HCl (ZyrTEC) 10 mg DAILY PO Last administered on 09/18/20at 07:57; Start 09/14/20 at 09:00 Meloxicam (Mobic) 15 mg DAILY PO ; Start 09/19/20 at 09:00; Stop 09/14/20 at 10:24; Status DC Promethazine HCl (Phenergan) 25 mg PRN Q6HRS PRN PO NAUSEA/VOMITING Last administered on 09/14/20at 22:18; Start 09/13/20 at 21:30 Insulin Human Lispro (HumaLOG) 0-5 UNITS QIDACHS SQ Last administered on 09/14/20at 17:48; Start 09/13/20 at 21:30; Stop 09/14/20 at 21:56; Status DC Influenza Virus Vaccine Quadrival (Fluzone Quad Syringe) 0.5 ml ONCE ONCE VAX IM ; Start 09/14/20 at 09:00; Stop 09/14/20 at 09:01; Status DC Sodium Chloride 1,000 ml @ 1,000 mls/hr 1X ONCE IV Last administered on 09/14/20at 00:25; Start 09/14/20 at 00:30; Stop 09/14/20 at 01:29; Status DC Sodium Chloride 1,000 ml @ 100 mls/hr Q10H IV Last administered on 09/18/20at 04:36; Start 09/14/20 at 00:30 Pantoprazole Sodium (PROTONIX VIAL for IV PUSH) 40 mg BIDAC IVP Last administered on 09/15/20at 08:32; Start 09/14/20 at 10:00; Stop 09/15/20 at 09:33; Status DC Ringer's Solution 1,000 ml @ 0 mls/hr Q0M IV Last administered on 09/14/20at 1 1:23; Start 09/14/20 at 11:30 Propofol (Diprivan) 200 mg STK-MED ONCE IV ; Start 09/14/20 at 12:09; Stop 09/14/20 at 12:09; Status DC Lidocaine HCl (Lidocaine Pf 2% Vial) 5 ml STK-MED ONCE .ROUTE ; Start 09/14/20 at 12:09; Stop 09/14/20 at 12:09; Status DC Propofol (Diprivan) 200 mg STK-MED ONCE IV ; Start 09/14/20 at 12:49; Stop 09/14/20 at 12:49; Status DC Insulin Human Regular (HumuLIN R VIAL) 5 unit 1X ONCE IV Last administered on 09/14/20at 17:49; Start 09/14/20 at 17:30; Stop 09/14/20 at 17:35; Status DC Sodium Chloride 500 ml @ 500 mls/hr 1X ONCE IV Last administered on 09/14/20at 18:00; Start 09/14/20 at 17:30; Stop 09/14/20 at 18:29; Status DC Insulin Human Regular (HumuLIN R VIAL) 5 unit 1X ONCE IV Last administered on 09/14/20at 22:27; Start 09/14/20 at 22:15; Stop 09/14/20 at 22:16; Status DC Insulin Human Lispro (HumaLOG) 0-9 UNITS TIDWMEALS SQ Last administered on 09/18/20at 08:07; Start 09/15/20 at 08:00 Dextrose (Dextrose 50%-Water Syringe) 12.5 gm PRN Q15MIN PRN IV SEE COMMENTS; Start 09/14/20 at 22:00 Insulin Human Lispro (HumaLOG) 10 units 1X ONCE SQ Last administered on 09/15/20at 08:44; Start 09/15/20 at 08:30; Stop 09/15/20 at 08:31; Status DC Pantoprazole Sodium (Protonix) 40 mg DAILYAC PO Last administered on 09/18/20at 07:57; Start 09/16/20 at 07:30 Lactulose (Lactulose) 20 gm BID PO Last administered on 09/18/20at 08:00; Start 09/15/20 at 10:00 Ferrous Sulfate (Feosol) 325 mg BIDWMEALS PO ; Start 09/15/20 at 10:00 Insulin Human Lispro (HumaLOG) 11 units 1X ONCE SQ Last administered on 09/15/20at 13:08; Start 09/15/20 at 13:00; Stop 09/15/20 at 13:01; Status DC Insulin Human Lispro (HumaLOG) 5 units TIDAC SQ Last administered on 09/18/20at 08:06; Start 09/15/20 at 16:30 Insulin Glargine (Lantus Syringe) 10 unit QHS SQ Last administered on 09/17/20at 21:03; Start 09/15/20 at 21:00 Acetaminophen (Tylenol) 650 mg PRN Q6HRS PRN PO MILD PAIN / TEMP > 100.3'F Last administered on 09/17/20at 15:12; Start 09/17/20 at 15:15 Active Scripts Active Feosol (Ferrous Sulfate) 325 Mg Tablet 325 Mg PO BIDWMEALS 30 Days Reported Acetaminophen 500 Mg Tablet 2 Tab PO PRN Q6HRS PRN Diphenhydramine Hcl 25 Mg Tablet 25 Mg PO QHS Claritin (Loratadine) 10 Mg Tablet 1 Tab PO DAILY D3-50 (Cholecalciferol (Vitamin D3)) 50,000 Unit Capsule 1 Cap PO FRIDAY 14 Days Promethazine Hcl 25 Mg Tablet 25 Mg PO Q6H PRN Zofran (Ondansetron Hcl) 8 Mg Tablet 8 Mg PO PRN Q8HRS PRN Glimepiride 4 Mg Tablet 4 Mg PO BIDWMEALS Farxiga (Dapagliflozin Propanediol) 10 Mg Tablet 10 Mg PO DAILY Allopurinol 300 Mg Tablet 300 Mg PO DAILY Januvia (Sitagliptin Phosphate) 100 Mg Tablet 100 Mg PO DAILY Clobetasol Propionate 15 Gm Cream..g. 0.5 % TP PRN BID PRN Fibercon (Calcium Polycarbophil) 625 Mg Tablet 2 Tab PO BIDWMEALS Magnesium Oxide 400 Mg Tablet 800 Mg PO HS Colace (Docusate Sodium) 100 Mg Capsule 200 Mg PO DAILY Lortab 10-325 mg Tablet (Hydrocodone/Acetaminophen) 1 Each Tablet 1 Tab PO Q4HRS PRN Prilosec Otc (Omeprazole Magnesium) 20 Mg Tablet.dr 20 Mg PO DAILY Levothyroxine Sodium 112 Mcg Tablet 2 Tab PO DAILY Metformin Hcl 1,000 Mg Tablet 1 Tab PO BIDWMEALS Mobic (Meloxicam) 15 Mg Tablet 15 Mg PO DAILY Klor-Con M20 (Potassium Chloride) 20 Meq Tab.er.prt 20 Meq PO DAILY Lasix (Furosemide) 40 Mg Tablet 40 Mg PO DAILY Vitals/I & O Vital Sign - Last 24 Hours 09/17/20 09/17/20 09/17/20 09/17/20 10:50 14:50 19:00 19:30 Temp 97.9 98.1 98.6 97.9 98.1 98.6 Pulse 69 67 67 Resp 18 18 18 B/P (MAP) 114/55 (74) 106/71 (83) 106/58 (74) Pulse Ox 98 99 99 O2 Delivery Room Air Room Air Room Air Room Air 09/17/20 09/17/20 09/17/20 09/18/20 20:59 22:00 23:00 03:00 Temp 98.1 98.1 98.1 98.1 Pulse 68 65 Resp 18 18 B/P (MAP) 107/58 (74) 115/66 (82) Pulse Ox 93 97 O2 Delivery Room Air Room Air Room Air Room Air 09/18/20 07:00 Temp 97.8 97.8 Pulse 18 Resp 18 B/P (MAP) 124/57 (79) Pulse Ox 99 O2 Delivery Room Air Justicifation of Admission Dx: Justifications for Admission: Justification of Admission Dx: Yes MATTHEW MITTAL MD Sep 18, 2020 08:58
--- NOTE | 2020-09-18 09:42 | PDOC ---
Date of Service: DATE: 09/18/20 TIME: 09:38 Subjective: Subjective: Abdomen feels distended, wonders about gas. Dark stools ongoing. Taking full liquids. Objective: Objective: D/w nurse - dark stool w/ red blood. 3 stools charted. Getting lactulose and iron BID. Vital Signs: Vital Signs Date Time Temp Pulse Resp B/P (MAP) Pulse Ox O2 Delivery O2 Flow Rate FiO2 09/18/20 08:00 Room Air 09/18/20 07:00 97.8 18 18 124/57 (79) 99 97.8 09/17/20 08:00 2.0 Labs: Laboratory Tests Test 09/17/20 11:32 09/17/20 16:48 09/17/20 20:57 09/18/20 07:20 Glucose (Fingerstick) 199 mg/dL (70-99) 138 mg/dL (70-99) 226 mg/dL (70-99) 191 mg/dL (70-99) Imaging: Abd US 09/16 IMPRESSION: Trace amount of ascites is seen. PE: GEN: NAD LUNGS: clear anteriorly HEART: RRR ABD: distended, somewhat tight EXTREMITY: trace edema BLE NEURO/PSYCH: A & O 3, maybe a bit slow to react A/P: Melena/hematochezia - s/p EGD/banding of esophageal varices GÓMEZ - Hgb in 7s yesterday and today Cirrhosis - ?CHAVEZ GERD - on PPI CRC screen, h/o adenomatous polyps - UTD Diverticulosis, hemorrhoids -- D/w Propeck - check bleeding scan. Will also recheck US re: abd distention, ?ascites. Justicifation of Admission Dx: Justifications for Admission: Justification of Admission Dx: Yes RENY FRIAS Sep 18, 2020 09:42
[2020-09-18] MEDS ORDERED: HEPARIN for NUC MED 500 UNIT/5 ML DISP.SYRIN. IV ONE ×2 (09:45→09:48)
[2020-09-18] MEDS: HYDROcodone/APAP 10/325 1 TAB TABLET PO PRN ×2 (11:48→20:52)
--- NOTE | 2020-09-18 14:59 | RAD ---
ABDOMEN LTD History: Abdominal distention Comparison: 09/16/2020 Findings: Sonographic images of the abdomen are submitted. There is overall small quantity of free fluid, largest pocket in the right lower quadrant, minimal fluid in the left lower quadrant and right upper quadrant. Impression: 1. There is some free fluid present with the largest pocket in the right lower quadrant. Electronically signed by: Willie Mohan MD (09/18/2020 2:56 PM) [facility]
--- NOTE | 2020-09-18 15:36 | RAD ---
NUCLEAR MEDICINE GI BLEEDING STUDY Clinical indications: Melanoma/hematochezia. TECHNIQUE: After labeling of autologous red blood cells with 33 mCi of technetium 99m UltraTag, anterior planar images of the abdomen and pelvis were performed which included dynamic flow images and static images up to 53 minutes. COMPARISON: None available FINDINGS: No abnormal accumulation of radiotracer activity is seen to indicate an active GI bleeding site. IMPRESSION: No active GI bleeding site is seen. Electronically signed by: Randolph Rudolph MD (09/18/2020 3:33 PM) [id number]
[2020-09-18] MEDS: diphenhydrAMINE HCL 25 MG CAPSULE PO SCH (20:47)
[2020-09-18] MEDS: INSULIN GLARGINE SYRINGE. SQ SCH (20:49)
[2020-09-19] VITALS (11 sets, daily range): BP systolic 101–137; BP diastolic 51–73
[2020-09-19] MEDS: IV NORMAL SALINE 1000ML BAG 1,000 ML IV SCH ×3 (00:21→21:22)
[2020-09-19 04:59] LABS: BASO % 0 % (0-3); EOS # 0.1 x10^3/uL (0.0-0.7); EOS % 1 % (0-3); LYMPH # 1.6 x10^3/uL (1.0-4.8); LYMPH % 23 % (24-48); MEAN CORPUSCULAR HEMOGLOBIN 30 pg (25-35); MEAN CORPUSCULAR HGB CONC 33 g/dL (31-37); MEAN CORPUSCULAR VOLUME 91 fL (79-100); MONO # 0.7 x10^3/uL (0.0-1.1); MONO % 10 % (0-9); NEUT # 4.4 x10^3/uL (1.8-7.7); NEUT % 65 % (31-73); PLATELET COUNT 106 x10^3/uL (140-400); RED BLOOD COUNT 2.27 x10^6/uL (3.50-5.40); WHITE BLOOD COUNT 6.7 x10^3/uL (4.0-11.0)
[2020-09-19 05:07] LABS: HEMATOCRIT 20.7 % (36.0-47.0); HEMOGLOBIN 6.9 g/dL (12.0-15.5)
[2020-09-19 05:11] LABS: CALCIUM 7.8 mg/dL (8.5-10.1); CREATININE 0.7 mg/dL (0.6-1.0); POTASSIUM 3.6 mmol/L (3.5-5.1)
[2020-09-19] MEDS: FERROUS SULFATE 325 MG TABLET. PO SCH ×2 (08:00→17:00)
[2020-09-19] MEDS: LOSARTAN POTASSIUM 50 MG TABLET. PO SCH (08:09)
[2020-09-19] MEDS: LACTULOSE 20 GM/30 ML SOLUTION. PO SCH ×2 (08:11→21:22)
[2020-09-19] MEDS: ALLOPURINOL 300 MG TABLET. PO SCH (08:11)
[2020-09-19] MEDS: PANTOPRAZOLE 40 MG TABLET.DR. PO SCH (08:11)
[2020-09-19] MEDS: CETIRIZINE HCL 10 MG TABLET. PO SCH (08:11)
[2020-09-19] MEDS: INSULIN LISPRO 300 UNITS/3 ML VIAL. SQ SCH ×6 (08:19→18:18)
[2020-09-19] MEDS ORDERED: MELOXICAM 7.5 MG TABLET PO SCH (09:00)
[2020-09-19] MEDS: POLYETHYLENE GLYCOL 3350 BTL 238 GM POWDER PO ONE ×2 (10:00→15:38)
--- NOTE | 2020-09-19 10:07 | PDOC ---
PROGRESS NOTES Date of Service: DATE: 09/19/20 TIME: 10:04 Chief Complaint Chief Complaint IMPRESSION Esophageal Varices Melena/hematochezia - s/p EGD/banding of esophageal varices Rectal bleeding WITH ACUTE BLOOD LOSS ANEMIA Nodular contour of the liver of concern for cirrhosis or other fibrotic processes. Splenomegaly which may relate to portal hypertension noted. Soft tissue density in the distal anus as questioned. ON CT D/w nurse - dark stool w/ red blood. 3 stools charted. 09-18 Anemia nausea allergic rhinitis asthma muscle spasms chronic anticoagulation: // on Coumadin Hypertension Chronic pain arthritis edema constipation GERD diabetes gout hypothyroidism. HEPATIC ENCEPHALOPATHY PLAN= SERIAL HGB GI FOLLOWING 37 MIN PT EXAM, CHART REVIEW, > 50% OF TIME SPENT WITH EXAM, CHART REVIEW, PT CARE COORDINATION History of Present Illness History of Present Illness 09/19/2020 Pt seen and examined Resting Still having bloody stools D/W RN BLOOD LOSS TO HGB 6.9, TRANSFUSE COLONOSCOPY 09-20 Operative Note 09-14 Operative Note EGD with band ligation Meds propofol per anesthesia Pre-op dx Melena/acute blood loss anemia Post-op dx Esophageal varices s/p band ligations x 6 Plan cirrhosis work-up with serologies repeat band ligation in several weeks ammonia level 09-18 37 MIN PT EXAM, CHART REVIEW, > 50% OF TIME SPENT WITH EXAM, CHART REVIEW, PT CARE COORDINATION 09/16/2020 Pt seen and examined ROGERIO RN Pallor noticeably improved 09/15/2020 Pt seen and examined ROGERIO RN ROGERIO case management 09/14/2020 Pt seen and examined ROGERIO BEATTY case management Vitals Vitals Vital Signs Date Time Temp Pulse Resp B/P (MAP) Pulse Ox O2 Delivery O2 Flow Rate FiO2 09/19/20 07:00 98.1 71 16 101/51 (68) 97 Room Air 98.1 Physical Exam General: Alert, Oriented X3, Cooperative, No acute distress Heart: Regular rate, Normal S2 Lungs: Clear Abdomen: Normal bowel sounds, Soft, Other (DISTENDED) Extremities: No clubbing, No cyanosis Skin: No rashes Labs LABS Laboratory Tests Test 09/18/20 11:40 09/18/20 16:41 09/18/20 19:05 09/18/20 20:38 Glucose (Fingerstick) 198 mg/dL (70-99) 157 mg/dL (70-99) 166 mg/dL (70-99) Ammonia 23 mcmol/L (11-34) Test 09/19/20 03:45 09/19/20 07:18 White Blood Count 6.7 x10^3/uL (4.0-11.0) Red Blood Count 2.27 x10^6/uL (3.50-5.40) Hemoglobin 6.9 g/dL (12.0-15.5) Hematocrit 20.7 % (36.0-47.0) Mean Corpuscular Volume 91 fL (79-100) Mean Corpuscular Hemoglobin 30 pg (25-35) Mean Corpuscular Hemoglobin Concent 33 g/dL (31-37) Red Cell Distribution Width 16.0 % (11.5-14.5) Platelet Count 106 x10^3/uL (140-400) Neutrophils (%) (Auto) 65 % (31-73) Lymphocytes (%) (Auto) 23 % (24-48) Monocytes (%) (Auto) 10 % (0-9) Eosinophils (%) (Auto) 1 % (0-3) Basophils (%) (Auto) 0 % (0-3) Neutrophils # (Auto) 4.4 x10^3/uL (1.8-7.7) Lymphocytes # (Auto) 1.6 x10^3/uL (1.0-4.8) Monocytes # (Auto) 0.7 x10^3/uL (0.0-1.1) Eosinophils # (Auto) 0.1 x10^3/uL (0.0-0.7) Basophils # (Auto) 0.0 x10^3/uL (0.0-0.2) Sodium Level 137 mmol/L (136-145) Potassium Level 3.6 mmol/L (3.5-5.1) Chloride Level 107 mmol/L (98-107) Carbon Dioxide Level 16 mmol/L (21-32) Anion Gap 14 (6-14) Blood Urea Nitrogen 8 mg/dL (7-20) Creatinine 0.7 mg/dL (0.6-1.0) Estimated GFR (Cockcroft-Gault) 84.0 Glucose Level 179 mg/dL (70-99) Calcium Level 7.8 mg/dL (8.5-10.1) Glucose (Fingerstick) 175 mg/dL (70-99) Assessment and Plan Assessmemt and Plan Problems Medical Problems: (1) Anemia Status: Acute (2) Rectal bleed Status: Acute Comment Review of Relevant I have reviewed the following items fiordaliza (where applicable) has been applied. Labs Laboratory Tests Test 09/17/20 11:32 09/17/20 16:48 09/17/20 20:57 09/18/20 02:56 Glucose (Fingerstick) 199 mg/dL (70-99) 138 mg/dL (70-99) 226 mg/dL (70-99) White Blood Count 5.9 x10^3/uL (4.0-11.0) Red Blood Count 2.37 x10^6/uL (3.50-5.40) Hemoglobin 7.3 g/dL (12.0-15.5) Hematocrit 21.6 % (36.0-47.0) Mean Corpuscular Volume 91 fL (79-100) Mean Corpuscular Hemoglobin 31 pg (25-35) Mean Corpuscular Hemoglobin Concent 34 g/dL (31-37) Red Cell Distribution Width 16.1 % (11.5-14.5) Platelet Count 99 x10^3/uL (140-400) Neutrophils (%) (Auto) 53 % (31-73) Lymphocytes (%) (Auto) 36 % (24-48) Monocytes (%) (Auto) 9 % (0-9) Eosinophils (%) (Auto) 2 % (0-3) Basophils (%) (Auto) 1 % (0-3) Neutrophils # (Auto) 3.1 x10^3/uL (1.8-7.7) Lymphocytes # (Auto) 2.1 x10^3/uL (1.0-4.8) Monocytes # (Auto) 0.5 x10^3/uL (0.0-1.1) Eosinophils # (Auto) 0.1 x10^3/uL (0.0-0.7) Basophils # (Auto) 0.0 x10^3/uL (0.0-0.2) Sodium Level 137 mmol/L (136-145) Potassium Level 3.9 mmol/L (3.5-5.1) Chloride Level 108 mmol/L (98-107) Carbon Dioxide Level 18 mmol/L (21-32) Anion Gap 11 (6-14) Blood Urea Nitrogen 13 mg/dL (7-20) Creatinine 0.8 mg/dL (0.6-1.0) Estimated GFR (Cockcroft-Gault) 72.0 Glucose Level 176 mg/dL (70-99) Calcium Level 8.0 mg/dL (8.5-10.1) Test 09/18/20 07:20 09/18/20 11:40 09/18/20 16:41 09/18/20 19:05 Glucose (Fingerstick) 191 mg/dL (70-99) 198 mg/dL (70-99) 157 mg/dL (70-99) Ammonia 23 mcmol/L (11-34) Test 09/18/20 20:38 09/19/20 03:45 09/19/20 07:18 Glucose (Fingerstick) 166 mg/dL (70-99) 175 mg/dL (70-99) White Blood Count 6.7 x10^3/uL (4.0-11.0) Red Blood Count 2.27 x10^6/uL (3.50-5.40) Hemoglobin 6.9 g/dL (12.0-15.5) Hematocrit 20.7 % (36.0-47.0) Mean Corpuscular Volume 91 fL (79-100) Mean Corpuscular Hemoglobin 30 pg (25-35) Mean Corpuscular Hemoglobin Concent 33 g/dL (31-37) Red Cell Distribution Width 16.0 % (11.5-14.5) Platelet Count 106 x10^3/uL (140-400) Neutrophils (%) (Auto) 65 % (31-73) Lymphocytes (%) (Auto) 23 % (24-48) Monocytes (%) (Auto) 10 % (0-9) Eosinophils (%) (Auto) 1 % (0-3) Basophils (%) (Auto) 0 % (0-3) Neutrophils # (Auto) 4.4 x10^3/uL (1.8-7.7) Lymphocytes # (Auto) 1.6 x10^3/uL (1.0-4.8) Monocytes # (Auto) 0.7 x10^3/uL (0.0-1.1) Eosinophils # (Auto) 0.1 x10^3/uL (0.0-0.7) Basophils # (Auto) 0.0 x10^3/uL (0.0-0.2) Sodium Level 137 mmol/L (136-145) Potassium Level 3.6 mmol/L (3.5-5.1) Chloride Level 107 mmol/L (98-107) Carbon Dioxide Level 16 mmol/L (21-32) Anion Gap 14 (6-14) Blood Urea Nitrogen 8 mg/dL (7-20) Creatinine 0.7 mg/dL (0.6-1.0) Estimated GFR (Cockcroft-Gault) 84.0 Glucose Level 179 mg/dL (70-99) Calcium Level 7.8 mg/dL (8.5-10.1) Laboratory Tests Test 09/18/20 11:40 09/18/20 16:41 09/18/20 19:05 09/18/20 20:38 Glucose (Fingerstick) 198 mg/dL (70-99) 157 mg/dL (70-99) 166 mg/dL (70-99) Ammonia 23 mcmol/L (11-34) Test 09/19/20 03:45 09/19/20 07:18 White Blood Count 6.7 x10^3/uL (4.0-11.0) Red Blood Count 2.27 x10^6/uL (3.50-5.40) Hemoglobin 6.9 g/dL (12.0-15.5) Hematocrit 20.7 % (36.0-47.0) Mean Corpuscular Volume 91 fL (79-100) Mean Corpuscular Hemoglobin 30 pg (25-35) Mean Corpuscular Hemoglobin Concent 33 g/dL (31-37) Red Cell Distribution Width 16.0 % (11.5-14.5) Platelet Count 106 x10^3/uL (140-400) Neutrophils (%) (Auto) 65 % (31-73) Lymphocytes (%) (Auto) 23 % (24-48) Monocytes (%) (Auto) 10 % (0-9) Eosinophils (%) (Auto) 1 % (0-3) Basophils (%) (Auto) 0 % (0-3) Neutrophils # (Auto) 4.4 x10^3/uL (1.8-7.7) Lymphocytes # (Auto) 1.6 x10^3/uL (1.0-4.8) Monocytes # (Auto) 0.7 x10^3/uL (0.0-1.1) Eosinophils # (Auto) 0.1 x10^3/uL (0.0-0.7) Basophils # (Auto) 0.0 x10^3/uL (0.0-0.2) Sodium Level 137 mmol/L (136-145) Potassium Level 3.6 mmol/L (3.5-5.1) Chloride Level 107 mmol/L (98-107) Carbon Dioxide Level 16 mmol/L (21-32) Anion Gap 14 (6-14) Blood Urea Nitrogen 8 mg/dL (7-20) Creatinine 0.7 mg/dL (0.6-1.0) Estimated GFR (Cockcroft-Gault) 84.0 Glucose Level 179 mg/dL (70-99) Calcium Level 7.8 mg/dL (8.5-10.1) Glucose (Fingerstick) 175 mg/dL (70-99) Medications Current Medications Sodium Chloride 1,000 ml @ 1,000 mls/hr 1X ONCE IV Last administered on 09/13/20at 15:15; Start 09/13/20 at 15:15; Stop 09/13/20 at 16:14; Status DC Famotidine (Pepcid Vial) 20 mg 1X ONCE IVP Last administered on 09/13/20at 15:15; Start 09/13/20 at 15:15; Stop 09/13/20 at 15:16; Status DC Ondansetron HCl (Zofran) 4 mg 1X ONCE IVP Last administered on 09/13/20at 15:15; Start 09/13/20 at 15:15; Stop 09/13/20 at 15:16; Status DC Ondansetron HCl (Zofran) 4 mg PRN Q8HRS PRN IV NAUSEA/VOMITING Last administered on 09/14/20at 11:24; Start 09/13/20 at 19:30; Stop 09/14/20 at 19:29; Status DC Morphine Sulfate (Morphine Sulfate) 2 mg PRN Q2HR PRN IV PAIN; Start 09/13/20 at 19:30; Stop 09/14/20 at 19:29; Status DC Acetaminophen (Tylenol) 650 mg PRN Q4HRS PRN PO FEVER > 100.3'F Last administered on 09/13/20at 21:39; Start 09/13/20 at 19:30; Stop 09/14/20 at 19:29; Status DC Insulin Human Lispro (HumaLOG) 0-5 UNITS TIDWMEALS SQ ; Start 09/14/20 at 08:00; Stop 09/13/20 at 21:29; Status DC Dextrose (Dextrose 50%-Water Syringe) 12.5 gm PRN Q15MIN PRN IV SEE COMMENTS; Start 09/13/20 at 21:00; Stop 09/14/20 at 21:58; Status DC Dextrose (Iv Dextrose 5%) 250 ml PRN Q15MIN PRN IV SEE COMMENTS; Start 09/13/20 at 21:00; Status UNV Allopurinol (Zyloprim) 300 mg DAILY PO Last administered on 09/19/20at 08:11; Start 09/14/20 at 09:00 Acetaminophen/ Hydrocodone Bitart (Lortab 10/325) 1 tab PRN Q4HRS PRN PO MODERATE PAIN, SEVERE PAIN Last administered on 09/18/20at 20:52; Start 09/13/20 at 21:00 Losartan Potassium (Cozaar) 50 mg DAILY PO Last administered on 09/15/20at 08:32; Start 09/14/20 at 09:00 Diphenhydramine HCl (Benadryl) 25 mg QHS PO Last administered on 09/18/20at 20:47; Start 09/13/20 at 21:15 Cetirizine HCl (ZyrTEC) 10 mg DAILY PO Last administered on 09/19/20at 08:11; Start 09/14/20 at 09:00 Meloxicam (Mobic) 15 mg DAILY PO ; Start 09/19/20 at 09:00; Stop 09/14/20 at 10:24; Status DC Promethazine HCl (Phenergan) 25 mg PRN Q6HRS PRN PO NAUSEA/VOMITING Last administered on 09/14/20at 22:18; Start 09/13/20 at 21:30 Insulin Human Lispro (HumaLOG) 0-5 UNITS QIDACHS SQ Last administered on 09/14/20at 17:48; Start 09/13/20 at 21:30; Stop 09/14/20 at 21:56; Status DC Influenza Virus Vaccine Quadrival (Fluzone Quad Syringe) 0.5 ml ONCE ONCE VAX IM ; Start 09/14/20 at 09:00; Stop 09/14/20 at 09:01; Status DC Sodium Chloride 1,000 ml @ 1,000 mls/hr 1X ONCE IV Last administered on 09/14/20at 00:25; Start 09/14/20 at 00:30; Stop 09/14/20 at 01:29; Status DC Sodium Chloride 1,000 ml @ 100 mls/hr Q10H IV Last administered on 09/19/20at 00:21; Start 09/14/20 at 00:30 Pantoprazole Sodium (PROTONIX VIAL for IV PUSH) 40 mg BIDAC IVP Last administered on 09/15/20at 08:32; Start 09/14/20 at 10:00; Stop 09/15/20 at 09:33; Status DC Ringer's Solution 1,000 ml @ 0 mls/hr Q0M IV Last administered on 09/14/20at 11:23; Start 09/14/20 at 11:30 Propofol (Diprivan) 200 mg STK-MED ONCE IV ; Start 09/14/20 at 12:09; Stop 09/14/20 at 12:09; Status DC Lidocaine HCl (Lidocaine Pf 2% Vial) 5 ml STK-MED ONCE .ROUTE ; Start 09/14/20 at 12:09; Stop 09/14/20 at 12:09; Status DC Propofol (Diprivan) 200 mg STK-MED ONCE IV ; Start 09/14/20 at 12:49; Stop 09/14/20 at 12:49; Status DC Insulin Human Regular (HumuLIN R VIAL) 5 unit 1X ONCE IV Last administered on 09/14/20at 17:49; Start 09/14/20 at 17:30; Stop 09/14/20 at 17:35; Status DC Sodium Chloride 500 ml @ 500 mls/hr 1X ONCE IV Last administered on 09/14/20at 18:00; Start 09/14/20 at 17:30; Stop 09/14/20 at 18:29; Status DC Insulin Human Regular (HumuLIN R VIAL) 5 unit 1X ONCE IV Last administered on 09/14/20at 22:27; Start 09/14/20 at 22:15; Stop 09/14/20 at 22:16; Status DC Insulin Human Lispro (HumaLOG) 0-9 UNITS TIDWMEALS SQ Last administered on 09/19/20at 08:21; Start 09/15/20 at 08:00 Dextrose (Dextrose 50%-Water Syringe) 12.5 gm PRN Q15MIN PRN IV SEE COMMENTS; Start 09/14/20 at 22:00 Insulin Human Lispro (HumaLOG) 10 units 1X ONCE SQ Last administered on 09/15/20at 08:44; Start 09/15/20 at 08:30; Stop 09/15/20 at 08:31; Status DC Pantoprazole Sodium (Protonix) 40 mg DAILYAC PO Last administered on 09/19/20at 08:11; Start 09/16/20 at 07:30 Lactulose (Lactulose) 20 gm BID PO Last administered on 09/19/20at 08:11; Start 09/15/20 at 10:00 Ferrous Sulfate (Feosol) 325 mg BIDWMEALS PO ; Start 09/15/20 at 10:00 Insulin Human Lispro (HumaLOG) 11 units 1X ONCE SQ Last administered on 09/15/20at 13:08; Start 09/15/20 at 13:00; Stop 09/15/20 at 13:01; Status DC Insulin Human Lispro (HumaLOG) 5 units TIDAC SQ Last administered on 09/19/20at 08:19; Start 09/15/20 at 16:30 Insulin Glargine (Lantus Syringe) 10 unit QHS SQ Last administered on 09/18/20at 20:49; Start 09/15/20 at 21:00 Acetaminophen (Tylenol) 650 mg PRN Q6HRS PRN PO MILD PAIN / TEMP > 100.3'F Last administered on 09/17/20at 15:12; Start 09/17/20 at 15:15 Heparin Sodium (Porcine) (HEPARIN for NUC MED) 100 unit 1X ONCE IV ; Start 09/18/20 at 09:45; Stop 09/18/20 at 09:48; Status DC Heparin Sodium (Porcine) (HEPARIN for NUC MED) 500 unit STK-MED ONCE IV ; Start 09/18/20 at 09:48; Stop 09/18/20 at 09:48; Status DC Polyethylene Glycol (miraLAX Powder BULK BOTTLE) 238 gm 1X ONCE PO ; Start 09/19/20 at 10:00; Stop 09/19/20 at 10:01; Status DC Active Scripts Active Feosol (Ferrous Sulfate) 325 Mg Tablet 325 Mg PO BIDWMEALS 30 Days Reported Acetaminophen 500 Mg Tablet 2 Tab PO PRN Q6HRS PRN Diphenhydramine Hcl 25 Mg Tablet 25 Mg PO QHS Claritin (Loratadine) 10 Mg Tablet 1 Tab PO DAILY D3-50 (Cholecalciferol (Vitamin D3)) 50,000 Unit Capsule 1 Cap PO FRIDAY 14 Days Promethazine Hcl 25 Mg Tablet 25 Mg PO Q6H PRN Zofran (Ondansetron Hcl) 8 Mg Tablet 8 Mg PO PRN Q8HRS PRN Glimepiride 4 Mg Tablet 4 Mg PO BIDWMEALS Farxiga (Dapagliflozin Propanediol) 10 Mg Tablet 10 Mg PO DAILY Allopurinol 300 Mg Tablet 300 Mg PO DAILY Januvia (Sitagliptin Phosphate) 100 Mg Tablet 100 Mg PO DAILY Clobetasol Propionate 15 Gm Cream..g. 0.5 % TP PRN BID PRN Fibercon (Calcium Polycarbophil) 625 Mg Tablet 2 Tab PO BIDWMEALS Magnesium Oxide 400 Mg Tablet 800 Mg PO HS Colace (Docusate Sodium) 100 Mg Capsule 200 Mg PO DAILY Lortab 10-325 mg Tablet (Hydrocodone/Acetaminophen) 1 Each Tablet 1 Tab PO Q4HRS PRN Prilosec Otc (Omeprazole Magnesium) 20 Mg Tablet.dr 20 Mg PO DAILY Levothyroxine Sodium 112 Mcg Tablet 2 Tab PO DAILY Metformin Hcl 1,000 Mg Tablet 1 Tab PO BIDWMEALS Mobic (Meloxicam) 15 Mg Tablet 15 Mg PO DAILY Klor-Con M20 (Potassium Chloride) 20 Meq Tab.er.prt 20 Meq PO DAILY Lasix (Furosemide) 40 Mg Tablet 40 Mg PO DAILY Vitals/I & O Vital Sign - Last 24 Hours 09/18/20 09/18/20 09/18/20 09/18/20 11:00 11:48 12:50 15:00 Temp 98.0 98.0 98.0 98.0 Pulse 75 74 Resp 18 18 B/P (MAP) 119/64 (82) 122/68 (86) Pulse Ox 99 99 O2 Delivery Room Air Room Air Room Air Room Air 09/18/20 09/18/20 09/18/20 09/18/20 19:00 20:00 20:52 21:52 Temp 97.7 97.7 Pulse 78 Resp 18 14 16 B/P (MAP) 123/70 (87) Pulse Ox 99 O2 Delivery Room Air Room Air Room Air Room Air 09/18/20 09/19/20 09/19/20 23:00 03:00 07:00 Temp 99.0 99.0 98.1 99.0 99.0 98.1 Pulse 71 78 71 Resp 18 18 16 B/P (MAP) 136/67 (90) 115/65 (82) 101/51 (68) Pulse Ox 98 97 97 O2 Delivery Room Air Room Air Room Air Intake and Output 09/18/20 09/18/20 09/19/20 15:00 23:00 07:00 Intake Total 840 ml 480 ml 600 ml Balance 840 ml 480 ml 600 ml Justicifation of Admission Dx: Justifications for Admission: Justification of Admission Dx: Yes MATTHEW MITTAL MD Sep 19, 2020 10:06
--- NOTE | 2020-09-19 10:32 | PDOC ---
Date of Service: DATE: 09/19/20 TIME: 10:27 Subjective: Subjective: Feels really bloated. Passed some stool w/ blood yesterday - not today. Objective: Objective: D/w nurse - transfusion ordered. Vital Signs: Vital Signs Date Time Temp Pulse Resp B/P (MAP) Pulse Ox O2 Delivery O2 Flow Rate FiO2 09/19/20 07:00 98.1 71 16 101/51 (68) 97 Room Air 98.1 Labs: Laboratory Tests Test 09/18/20 11:40 09/18/20 16:41 09/18/20 19:05 09/18/20 20:38 Glucose (Fingerstick) 198 mg/dL 157 mg/dL 166 mg/dL Ammonia 23 mcmol/L Test 09/19/20 03:45 09/19/20 07:18 White Blood Count 6.7 x10^3/uL Red Blood Count 2.27 x10^6/uL Hemoglobin 6.9 g/dL Hematocrit 20.7 % Mean Corpuscular Volume 91 fL Mean Corpuscular Hemoglobin 30 pg Mean Corpuscular Hemoglobin Concent 33 g/dL Red Cell Distribution Width 16.0 % Platelet Count 106 x10^3/uL Neutrophils (%) (Auto) 65 % Lymphocytes (%) (Auto) 23 % Monocytes (%) (Auto) 10 % Eosinophils (%) (Auto) 1 % Basophils (%) (Auto) 0 % Neutrophils # (Auto) 4.4 x10^3/uL Lymphocytes # (Auto) 1.6 x10^3/uL Monocytes # (Auto) 0.7 x10^3/uL Eosinophils # (Auto) 0.1 x10^3/uL Basophils # (Auto) 0.0 x10^3/uL Sodium Level 137 mmol/L Potassium Level 3.6 mmol/L Chloride Level 107 mmol/L Carbon Dioxide Level 16 mmol/L Anion Gap 14 Blood Urea Nitrogen 8 mg/dL Creatinine 0.7 mg/dL Estimated GFR (Cockcroft-Gault) 84.0 Glucose Level 179 mg/dL Calcium Level 7.8 mg/dL Glucose (Fingerstick) 175 mg/dL Imaging: Bleeding Scan 09/18 IMPRESSION: No active GI bleeding site is seen. LTD US 09/18 Findings: Sonographic images of the abdomen are submitted. There is overall small quantity of free fluid, largest pocket in the right lower quadrant, minimal fluid in the left lower quadrant and right upper quadrant. Impression: 1. There is some free fluid present with the largest pocket in the right lower quadrant. PE: GEN: NAD - up in chair LUNGS: CTAB HEART: RRR ABD: distended, quiet BS, non-tender NEURO/PSYCH: A & O 3 A/P: Melena/hematochezia - slowing? GÓMEZ - requiring transfusions Cirrhosis - ?CHAVEZ - s/p EGD w/ variceal banding 09/14/[address] - soft tissue density in distal anus GERD - on PPI CRC screen, h/o adenomatous polyps - UTD (2017) Diverticulosis - duodenal, colon - on CT COVID-negative 09/14 -- Plans for colonoscopy tomorrow after prep. Will review abdominal distention w/ Dr. Masters. Justicifation of Admission Dx: Justifications for Admission: Justification of Admission Dx: Yes RENY FRIAS Sep 19, 2020 10:32
--- NOTE | 2020-09-19 13:11 | NUR ---
Non admin Miralax - patient has been having regular bowel movements
[2020-09-19 20:52] LABS: HEMATOCRIT 29.2 % (36.0-47.0); HEMOGLOBIN 9.7 g/dL (12.0-15.5)
[2020-09-19] MEDS: diphenhydrAMINE HCL 25 MG CAPSULE PO SCH (21:22)
[2020-09-19] MEDS: INSULIN GLARGINE SYRINGE. SQ SCH (21:28)
[2020-09-20] VITALS (8 sets, daily range): BP systolic 103–134; BP diastolic 61–89
--- NOTE | 2020-09-20 05:38 | PDOC ---
PROGRESS NOTES Date of Service: DATE: 09/20/20 TIME: 05:38 Chief Complaint Chief Complaint IMPRESSION Esophageal Varices Melena/hematochezia - s/p EGD/banding of esophageal varices Rectal bleeding WITH ACUTE BLOOD LOSS ANEMIA Nodular contour of the liver of concern for cirrhosis or other fibrotic processes. Splenomegaly which may relate to portal hypertension noted. Soft tissue density in the distal anus as questioned. ON CT D/w nurse - dark stool w/ red blood. 3 stools charted. 09-18 Anemia nausea allergic rhinitis asthma muscle spasms chronic anticoagulation: // on Coumadin Hypertension Chronic pain arthritis edema constipation GERD diabetes gout hypothyroidism. HEPATIC ENCEPHALOPATHY PLAN= SERIAL HGB GI FOLLOWING 37 MIN PT EXAM, CHART REVIEW, > 50% OF TIME SPENT WITH EXAM, CHART REVIEW, PT CARE COORDINATION History of Present Illness History of Present Illness 09/20/2020 Pt seen and examined Resting Still having bloody stools D/W RN BLOOD LOSS TO HGB 6.9, TRANSFUSE COLONOSCOPY 09-20 Operative Note 09-14 Operative Note EGD with band ligation Meds propofol per anesthesia Pre-op dx Melena/acute blood loss anemia Post-op dx Esophageal varices s/p band ligations x 6 Plan cirrhosis work-up with serologies repeat band ligation in several weeks ammonia level 09-18 Operative Note Operative Note Colonoscopy with polypectomies Meds propofol per anesthesia Pre-op dx melena/abnl CT scan post-op dx internal/external hemorrhoids transverse/ascending colon polyps s/p snare polypectomies Plan resume diet release home if Hg stable repeat band ligation in 2-3 weeks TIPS if unable to control bleeding with above. REMINGTON NIXON MD Sep 20, 2020 08:30 39 MIN PT EXAM, CHART REVIEW, > 50% OF TIME SPENT WITH EXAM, CHART REVIEW, PT CARE COORDINATION 09/16/2020 Pt seen and examined ROGERIO RN Pallor noticeably improved 09/15/2020 Pt seen and examined ROGERIO RN DW case management 09/14/2020 Pt seen and examined ROGERIO RN DW case management Vitals Vitals Vital Signs Date Time Temp Pulse Resp B/P (MAP) Pulse Ox O2 Delivery O2 Flow Rate FiO2 09/20/20 03:01 98.1 84 16 131/65 (87) 98 Room Air 98.1 Physical Exam General: Alert, Oriented X3, Cooperative, No acute distress Heart: Regular rate, Normal S2 Lungs: Clear Abdomen: Normal bowel sounds, Soft, Other (DISTENDED) Extremities: No clubbing, No cyanosis Skin: No rashes Labs LABS Laboratory Tests Test 09/19/20 07:18 09/19/20 11:01 09/19/20 16:54 09/19/20 20:30 Glucose (Fingerstick) 175 mg/dL (70-99) 261 mg/dL (70-99) 293 mg/dL (70-99) Hemoglobin 9.7 g/dL (12.0-15.5) Hematocrit 29.2 % (36.0-47.0) Mean Corpuscular Hemoglobin Concent 33 g/dL (31-37) Test 09/19/20 20:35 Glucose (Fingerstick) 286 mg/dL (70-99) Assessment and Plan Assessmemt and Plan Problems Medical Problems: (1) Anemia Status: Acute (2) Rectal bleed Status: Acute Comment Review of Relevant I have reviewed the following items fiordaliza (where applicable) has been applied. Labs Laboratory Tests Test 09/18/20 07:20 09/18/20 11:40 09/18/20 16:41 09/18/20 19:05 Glucose (Fingerstick) 191 mg/dL (70-99) 198 mg/dL (70-99) 157 mg/dL (70-99) Ammonia 23 mcmol/L (11-34) Test 09/18/20 20:38 09/19/20 03:45 09/19/20 07:18 09/19/20 11:01 Glucose (Fingerstick) 166 mg/dL (70-99) 175 mg/dL (70-99) 261 mg/dL (70-99) White Blood Count 6.7 x10^3/uL (4.0-11.0) Red Blood Count 2.27 x10^6/uL (3.50-5.40) Hemoglobin 6.9 g/dL (12.0-15.5) Hematocrit 20.7 % (36.0-47.0) Mean Corpuscular Volume 91 fL (79-100) Mean Corpuscular Hemoglobin 30 pg (25-35) Mean Corpuscular Hemoglobin Concent 33 g/dL (31-37) Red Cell Distribution Width 16.0 % (11.5-14.5) Platelet Count 106 x10^3/uL (140-400) Neutrophils (%) (Auto) 65 % (31-73) Lymphocytes (%) (Auto) 23 % (24-48) Monocytes (%) (Auto) 10 % (0-9) Eosinophils (%) (Auto) 1 % (0-3) Basophils (%) (Auto) 0 % (0-3) Neutrophils # (Auto) 4.4 x10^3/uL (1.8-7.7) Lymphocytes # (Auto) 1.6 x10^3/uL (1.0-4.8) Monocytes # (Auto) 0.7 x10^3/uL (0.0-1.1) Eosinophils # (Auto) 0.1 x10^3/uL (0.0-0.7) Basophils # (Auto) 0.0 x10^3/uL (0.0-0.2) Sodium Level 137 mmol/L (136-145) Potassium Level 3.6 mmol/L (3.5-5.1) Chloride Level 107 mmol/L (98-107) Carbon Dioxide Level 16 mmol/L (21-32) Anion Gap 14 (6-14) Blood Urea Nitrogen 8 mg/dL (7-20) Creatinine 0.7 mg/dL (0.6-1.0) Estimated GFR (Cockcroft-Gault) 84.0 Glucose Level 179 mg/dL (70-99) Calcium Level 7.8 mg/dL (8.5-10.1) Test 09/19/20 16:54 09/19/20 20:30 09/19/20 20:35 Glucose (Fingerstick) 293 mg/dL (70-99) 286 mg/dL (70-99) Hemoglobin 9.7 g/dL (12.0-15.5) Hematocrit 29.2 % (36.0-47.0) Mean Corpuscular Hemoglobin Concent 33 g/dL (31-37) Laboratory Tests Test 09/19/20 07:18 09/19/20 11:01 09/19/20 16:54 09/19/20 20:30 Glucose (Fingerstick) 175 mg/dL (70-99) 261 mg/dL (70-99) 293 mg/dL (70-99) Hemoglobin 9.7 g/dL (12.0-15.5) Hematocrit 29.2 % (36.0-47.0) Mean Corpuscular Hemoglobin Concent 33 g/dL (31-37) Test 09/19/20 20:35 Glucose (Fingerstick) 286 mg/dL (70-99) Medications Current Medications Sodium Chloride 1,000 ml @ 1,000 mls/hr 1X ONCE IV Last administered on 09/13/20at 15:15; Start 09/13/20 at 15:15; Stop 09/13/20 at 16:14; Status DC Famotidine (Pepcid Vial) 20 mg 1X ONCE IVP Last administered on 09/13/20at 15:15; Start 09/13/20 at 15:15; Stop 09/13/20 at 15:16; Status DC Ondansetron HCl (Zofran) 4 mg 1X ONCE IVP Last administered on 09/13/20at 15:15; Start 09/13/20 at 15:15; Stop 09/13/20 at 15:16; Status DC Ondansetron HCl (Zofran) 4 mg PRN Q8HRS PRN IV NAUSEA/VOMITING Last administered on 09/14/20at 11:24; Start 09/13/20 at 19:30; Stop 09/14/20 at 19:29; Status DC Morphine Sulfate (Morphine Sulfate) 2 mg PRN Q2HR PRN IV PAIN; Start 09/13/20 at 19:30; Stop 09/14/20 at 19:29; Status DC Acetaminophen (Tylenol) 650 mg PRN Q4HRS PRN PO FEVER > 100.3'F Last administered on 09/13/20at 21:39; Start 09/13/20 at 19:30; Stop 09/14/20 at 19:29; Status DC Insulin Human Lispro (HumaLOG) 0-5 UNITS TIDWMEALS SQ ; Start 09/14/20 at 08:00; Stop 09/13/20 at 21:29; Status DC Dextrose (Dextrose 50%-Water Syringe) 12.5 gm PRN Q15MIN PRN IV SEE COMMENTS; Start 09/13/20 at 21:00; Stop 09/14/20 at 21:58; Status DC Dextrose (Iv Dextrose 5%) 250 ml PRN Q15MIN PRN IV SEE COMMENTS; Start 09/13/20 at 21:00; Status UNV Allopurinol (Zyloprim) 300 mg DAILY PO Last administered on 09/19/20at 08:11; Start 09/14/20 at 09:00 Acetaminophen/ Hydrocodone Bitart (Lortab 10/325) 1 tab PRN Q4HRS PRN PO MODERATE PAIN, SEVERE PAIN Last administered on 09/18/20at 20:52; Start 09/13/20 at 21:00 Losartan Potassium (Cozaar) 50 mg DAILY PO Last administered on 09/15/20at 08:32; Start 09/14/20 at 09:00 Diphenhydramine HCl (Benadryl) 25 mg QHS PO Last administered on 09/19/20at 21:22; Start 09/13/20 at 21:15 Cetirizine HCl (ZyrTEC) 10 mg DAILY PO Last administered on 09/19/20at 08:11; Start 09/14/20 at 09:00 Meloxicam (Mobic) 15 mg DAILY PO ; Start 09/19/20 at 09:00; Stop 09/14/20 at 10:24; Status DC Promethazine HCl (Phenergan) 25 mg PRN Q6HRS PRN PO NAUSEA/VOMITING Last administered on 09/14/20at 22:18; Start 09/13/20 at 21:30 Insulin Human Lispro (HumaLOG) 0-5 UNITS QIDACHS SQ Last administered on 09/14/20at 17:48; Start 09/13/20 at 21:30; Stop 09/14/20 at 21:56; Status DC Influenza Virus Vaccine Quadrival (Fluzone Quad Syringe) 0.5 ml ONCE ONCE VAX IM ; Start 09/14/20 at 09:00; Stop 09/14/20 at 09:01; Status DC Sodium Chloride 1,000 ml @ 1,000 mls/hr 1X ONCE IV Last administered on 09/14/20at 00:25; Start 09/14/20 at 00:30; Stop 09/14/20 at 01:29; Status DC Sodium Chloride 1,000 ml @ 100 mls/hr Q10H IV Last administered on 09/19/20at 21:22; Start 09/14/20 at 00:30 Pantoprazole Sodium (PROTONIX VIAL for IV PUSH) 40 mg BIDAC IVP Last administered on 09/15/20at 08:32; Start 09/14/20 at 10:00; Stop 09/15/20 at 09:33; Status DC Ringer's Solution 1,000 ml @ 0 mls/hr Q0M IV Last administered on 09/14/20at 11:23; Start 09/14/20 at 11:30 Propofol (Diprivan) 200 mg STK-MED ONCE IV ; Start 09/14/20 at 12:09; Stop at 12:09; Status DC Lidocaine HCl (Lidocaine Pf 2% Vial) 5 ml STK-MED ONCE .ROUTE ; Start 09/14/20 at 12:09; Stop 09/14/20 at 12:09; Status DC Propofol (Diprivan) 200 mg STK-MED ONCE IV ; Start 09/14/20 at 12:49; Stop 09/14/20 at 12:49; Status DC Insulin Human Regular (HumuLIN R VIAL) 5 unit 1X ONCE IV Last administered on 09/14/20at 17:49; Start 09/14/20 at 17:30; Stop 09/14/20 at 17:35; Status DC Sodium Chloride 500 ml @ 500 mls/hr 1X ONCE IV Last administered on 09/14/20at 18:00; Start 09/14/20 at 17:30; Stop 09/14/20 at 18:29; Status DC Insulin Human Regular (HumuLIN R VIAL) 5 unit 1X ONCE IV Last administered on 09/14/20at 22:27; Start 09/14/20 at 22:15; Stop 09/14/20 at 22:16; Status DC Insulin Human Lispro (HumaLOG) 0-9 UNITS TIDWMEALS SQ Last administered on 09/19/20at 18:18; Start 09/15/20 at 08:00 Dextrose (Dextrose 50%-Water Syringe) 12.5 gm PRN Q15MIN PRN IV SEE COMMENTS; Start 09/14/20 at 22:00 Insulin Human Lispro (HumaLOG) 10 units 1X ONCE SQ Last administered on 09/15/20at 08:44; Start 09/15/20 at 08:30; Stop 09/15/20 at 08:31; Status DC Pantoprazole Sodium (Protonix) 40 mg DAILYAC PO Last administered on 09/19/20at 08:11; Start 09/16/20 at 07:30 Lactulose (Lactulose) 20 gm BID PO Last administered on 09/19/20at 21:22; Start 09/15/20 at 10:00 Ferrous Sulfate (Feosol) 325 mg BIDWMEALS PO ; Start 09/15/20 at 10:00 Insulin Human Lispro (HumaLOG) 11 units 1X ONCE SQ Last administered on 09/15/20at 13:08; Start 09/15/20 at 13:00; Stop 09/15/20 at 13:01; Status DC Insulin Human Lispro (HumaLOG) 5 units TIDAC SQ Last administered on 09/19/20at 18:17; Start 09/15/20 at 16:30 Insulin Glargine (Lantus Syringe) 10 unit QHS SQ Last administered on 09/19/20at 21:28; Start 09/15/20 at 21:00 Acetaminophen (Tylenol) 650 mg PRN Q6HRS PRN PO MILD PAIN / TEMP > 100.3'F Last administered on 09/17/20at 15:12; Start 09/17/20 at 15:15 Heparin Sodium (Porcine) (HEPARIN for NUC MED) 100 unit 1X ONCE IV ; Start 09/18/20 at 09:45; Stop 09/18/20 at 09:48; Status DC Heparin Sodium (Porcine) (HEPARIN for NUC MED) 500 unit STK-MED ONCE IV ; Start 09/18/20 at 09:48; Stop 09/18/20 at 09:48; Status DC Polyethylene Glycol (miraLAX Powder BULK BOTTLE) 238 gm 1X ONCE PO Last administered on 09/19/20at 15:38; Start 09/19/20 at 10:00; Stop 09/19/20 at 10:01; Status DC Ringer's Solution 1,000 ml @ 50 mls/hr Q20H IV ; Start 09/20/20 at 07:00; Sto p 09/20/20 at 18:59 Active Scripts Active Feosol (Ferrous Sulfate) 325 Mg Tablet 325 Mg PO BIDWMEALS 30 Days Reported Acetaminophen 500 Mg Tablet 2 Tab PO PRN Q6HRS PRN Diphenhydramine Hcl 25 Mg Tablet 25 Mg PO QHS Claritin (Loratadine) 10 Mg Tablet 1 Tab PO DAILY D3-50 (Cholecalciferol (Vitamin D3)) 50,000 Unit Capsule 1 Cap PO FRIDAY 14 Days Promethazine Hcl 25 Mg Tablet 25 Mg PO Q6H PRN Zofran (Ondansetron Hcl) 8 Mg Tablet 8 Mg PO PRN Q8HRS PRN Glimepiride 4 Mg Tablet 4 Mg PO BIDWMEALS Farxiga (Dapagliflozin Propanediol) 10 Mg Tablet 10 Mg PO DAILY Allopurinol 300 Mg Tablet 300 Mg PO DAILY Januvia (Sitagliptin Phosphate) 100 Mg Tablet 100 Mg PO DAILY Clobetasol Propionate 15 Gm Cream..g. 0.5 % TP PRN BID PRN Fibercon (Calcium Polycarbophil) 625 Mg Tablet 2 Tab PO BIDWMEALS Magnesium Oxide 400 Mg Tablet 800 Mg PO HS Colace (Docusate Sodium) 100 Mg Capsule 200 Mg PO DAILY Lortab 10-325 mg Tablet (Hydrocodone/Acetaminophen) 1 Each Tablet 1 Tab PO Q4HRS PRN Prilosec Otc (Omeprazole Magnesium) 20 Mg Tablet.dr 20 Mg PO DAILY Levothyroxine Sodium 112 Mcg Tablet 2 Tab PO DAILY Metformin Hcl 1,000 Mg Tablet 1 Tab PO BIDWMEALS Mobic (Meloxicam) 15 Mg Tablet 15 Mg PO DAILY Klor-Con M20 (Potassium Chloride) 20 Meq Tab.er.prt 20 Meq PO DAILY Lasix (Furosemide) 40 Mg Tablet 40 Mg PO DAILY Vitals/I & O Vital Sign - Last 24 Hours 09/19/20 09/19/20 09/19/20 09/19/20 07:00 11:00 11:43 12:07 Temp 98.1 97.8 97.8 97.4 98.1 97.8 97.8 97.4 Pulse 71 74 75 82 Resp 16 18 16 16 B/P (MAP) 101/51 (68) 122/71 (88) 123/66 134/73 Pulse Ox 97 98 O2 Delivery Room Air Room Air 09/19/20 09/19/20 09/19/20 09/19/20 13:02 15:00 15:25 15:43 Temp 97.8 98.3 98.3 98.6 97.8 98.3 98.3 98.6 Pulse 75 71 91 84 Resp 16 16 16 B/P (MAP) 130/69 119/65 (83) 119/65 137/73 Pulse Ox 99 O2 Delivery Room Air 09/19/20 09/19/20 09/19/20 09/20/20 19:10 20:00 23:02 03:01 Temp 98.0 97.7 98.1 98.0 97.7 98.1 Pulse 78 78 84 Resp 16 16 16 B/P (MAP) 118/68 (85) 126/67 (86) 131/65 (87) Pulse Ox 97 99 98 O2 Delivery Room Air Room Air Room Air Room Air Intake and Output 09/19/20 09/19/20 09/20/20 15:00 23:00 07:00 Intake Total 350 ml 2705 ml 150 ml Balance 350 ml 2705 ml 150 ml Justicifation of Admission Dx: Justifications for Admission: Justification of Admission Dx: Yes MATTHEW MITTAL MD Sep 20, 2020 05:38
[2020-09-20] MEDS: IV NORMAL SALINE 1000ML BAG 1,000 ML IV SCH ×3 (06:30→23:37)
[2020-09-20 07:00] LABS: CREATININE 0.6 mg/dL (0.6-1.0); GFR 100.3; POTASSIUM 3.2 mmol/L (3.5-5.1)
[2020-09-20] MEDS ORDERED: IV RINGERS,LACTATED 1000ML 1,000 ML IV SCH (07:00)
[2020-09-20 07:15] LABS: BASO % 1 % (0-3); EOS # 0.1 x10^3/uL (0.0-0.7); EOS % 2 % (0-3); HEMATOCRIT 25.6 % (36.0-47.0); HEMOGLOBIN 8.6 g/dL (12.0-15.5); LYMPH # 1.6 x10^3/uL (1.0-4.8); LYMPH % 25 % (24-48); MEAN CORPUSCULAR HEMOGLOBIN 30 pg (25-35); MEAN CORPUSCULAR HGB CONC 34 g/dL (31-37); MEAN CORPUSCULAR VOLUME 90 fL (79-100); MONO # 0.6 x10^3/uL (0.0-1.1); MONO % 10 % (0-9); NEUT % 63 % (31-73); PLATELET COUNT 121 x10^3/uL (140-400); RED BLOOD COUNT 2.84 x10^6/uL (3.50-5.40); RED CELL DISTRIBUTION WIDTH 15.3 % (11.5-14.5); WHITE BLOOD COUNT 6.3 x10^3/uL (4.0-11.0)
[2020-09-20] MEDS: IV RINGERS,LACTATED 1000ML 1,000 ML IV SCH ×2 (07:22→20:50)
[2020-09-20] MEDS: INSULIN LISPRO 300 UNITS/3 ML VIAL. SQ SCH ×6 (07:30→17:18)
[2020-09-20] MEDS: FERROUS SULFATE 325 MG TABLET. PO SCH ×2 (08:00→17:00)
--- NOTE | 2020-09-20 08:30 | PDOC4 ---
Operative Note Operative Note Colonoscopy with polypectomies Meds propofol per anesthesia Pre-op dx melena/abnl CT scan post-op dx internal/external hemorrhoids transverse/ascending colon polyps s/p snare polypectomies Plan resume diet release home if Hg stable repeat band ligation in 2-3 weeks TIPS if unable to control bleeding with above. REMINGTON NIXON MD Sep 20, 2020 08:30
[2020-09-20] MEDS: LOSARTAN POTASSIUM 50 MG TABLET. PO SCH (09:00)
[2020-09-20] MEDS: LACTULOSE 20 GM/30 ML SOLUTION. PO SCH ×2 (09:00→21:10)
[2020-09-20] MEDS: HYDROcodone/APAP 10/325 1 TAB TABLET PO PRN ×2 (09:52→23:37)
[2020-09-20] MEDS: ALLOPURINOL 300 MG TABLET. PO SCH (09:52)
[2020-09-20] MEDS: CETIRIZINE HCL 10 MG TABLET. PO SCH (09:52)
[2020-09-20] MEDS: PANTOPRAZOLE 40 MG TABLET.DR. PO SCH (09:52)
[2020-09-20] MEDS ORDERED: POTASSIUM CHLORIDE 20 MEQ TABLET.ER. PO ONE (10:00)
[2020-09-20] MEDS: FUROSEMIDE 40 MG TABLET. PO SCH (14:43)
[2020-09-20] MEDS: diphenhydrAMINE HCL 25 MG CAPSULE PO SCH (21:10)
[2020-09-20] MEDS: INSULIN GLARGINE SYRINGE. SQ SCH (21:19)
[2020-09-21 03:00] VITALS: BP 112/65
[2020-09-21 05:18] LABS: BASO # 0.1 x10^3/uL (0.0-0.2); BASO % 1 % (0-3); EOS # 0.1 x10^3/uL (0.0-0.7); EOS % 1 % (0-3); HEMATOCRIT 22.9 % (36.0-47.0); HEMOGLOBIN 7.6 g/dL (12.0-15.5); LYMPH # 1.8 x10^3/uL (1.0-4.8); LYMPH % 34 % (24-48); MEAN CORPUSCULAR HEMOGLOBIN 30 pg (25-35); MEAN CORPUSCULAR HGB CONC 33 g/dL (31-37); MEAN CORPUSCULAR VOLUME 90 fL (79-100); MONO # 0.5 x10^3/uL (0.0-1.1); MONO % 9 % (0-9); NEUT % 55 % (31-73); PLATELET COUNT 133 x10^3/uL (140-400); RED BLOOD COUNT 2.55 x10^6/uL (3.50-5.40); RED CELL DISTRIBUTION WIDTH 15.6 % (11.5-14.5); WHITE BLOOD COUNT 5.4 x10^3/uL (4.0-11.0)
[2020-09-21 05:26] LABS: CALCIUM 7.8 mg/dL (8.5-10.1); CREATININE 0.8 mg/dL (0.6-1.0); POTASSIUM 3.4 mmol/L (3.5-5.1)
[2020-09-21 07:00] VITALS: BP 113/68
[2020-09-21] MEDS: PANTOPRAZOLE 40 MG TABLET.DR. PO SCH (07:44)
[2020-09-21] MEDS: FERROUS SULFATE 325 MG TABLET. PO SCH (07:44)
[2020-09-21] MEDS: INSULIN LISPRO 300 UNITS/3 ML VIAL. SQ SCH ×4 (07:54→12:00)
[2020-09-21] MEDS ORDERED: POTASSIUM CHLORIDE 20 MEQ TABLET.ER. PO SCH (08:00)
--- NOTE | 2020-09-21 08:39 | PDOC ---
PROGRESS NOTES Date of Service: DATE: 09/21/20 TIME: 08:39 Chief Complaint Chief Complaint IMPRESSION Esophageal Varices Melena/hematochezia - s/p EGD/banding of esophageal varices Rectal bleeding WITH ACUTE BLOOD LOSS ANEMIA Nodular contour of the liver of concern for cirrhosis or other fibrotic processes. Splenomegaly which may relate to portal hypertension noted. Soft tissue density in the distal anus as questioned. ON CT D/w nurse - dark stool w/ red blood. 3 stools charted. 09-18 Anemia HGB DROP 1 GM OVERNIGHT 09-21 nausea allergic rhinitis asthma muscle spasms chronic anticoagulation: // on Coumadin Hypertension Chronic pain arthritis edema constipation GERD diabetes gout hypothyroidism. HEPATIC ENCEPHALOPATHY PLAN= SERIAL HGB, IN AM GI FOLLOWING 27 MIN PT EXAM, CHART REVIEW, > 50% OF TIME SPENT WITH EXAM, CHART REVIEW, PT CARE COORDINATION History of Present Illness History of Present Illness 09/21/2020 Pt seen and examined Resting hgb drop overnight 09-21 D/W RN BLOOD LOSS TO HGB 6.9, TRANSFUSE COLONOSCOPY 09-20 Operative Note 09-14 Operative Note EGD with band ligation Meds propofol per anesthesia Pre-op dx Melena/acute blood loss anemia Post-op dx Esophageal varices s/p band ligations x 6 Plan cirrhosis work-up with serologies repeat band ligation in several weeks ammonia level 09-18 Operative Note Operative Note Colonoscopy with polypectomies Meds propofol per anesthesia Pre-op dx melena/abnl CT scan post-op dx internal/external hemorrhoids transverse/ascending colon polyps s/p snare polypectomies Plan resume diet release home if Hg stable repeat band ligation in 2-3 weeks TIPS if unable to control bleeding with above. REMINGTON NIXON MD Sep 20, 2020 08:30 39 MIN PT EXAM, CHART REVIEW, > 50% OF TIME SPENT WITH EXAM, CHART REVIEW, PT CARE COORDINATION 09/16/2020 Pt seen and examined DW RN Pallor noticeably improved 09/15/2020 Pt seen and examined DW RN DW case management 09/14/2020 Pt seen and examined ROGERIO RN DW case management Vitals Vitals Vital Signs Date Time Temp Pulse Resp B/P (MAP) Pulse Ox O2 Delivery O2 Flow Rate FiO2 09/21/20 03:00 98.3 68 18 112/65 (81) 99 Room Air 98.3 09/20/20 09:00 2.0 Physical Exam General: Alert, Oriented X3, Cooperative, No acute distress Heart: Regular rate, Normal S2 Lungs: Clear Abdomen: Normal bowel sounds, Soft, No tenderness, Other (DISTENDED, less) Extremities: No clubbing, No cyanosis Skin: No rashes, No significant lesion Labs LABS Laboratory Tests Test 09/20/20 09:16 09/20/20 11:27 09/20/20 16:19 09/20/20 20:35 Glucose (Fingerstick) 148 mg/dL (70-99) 283 mg/dL (70-99) 231 mg/dL (70-99) 201 mg/dL (70-99) Test 09/21/20 04:00 09/21/20 07:48 White Blood Count 5.4 x10^3/uL (4.0-11.0) Red Blood Count 2.55 x10^6/uL (3.50-5.40) Hemoglobin 7.6 g/dL (12.0-15.5) Hematocrit 22.9 % (36.0-47.0) Mean Corpuscular Volume 90 fL (79-100) Mean Corpuscular Hemoglobin 30 pg (25-35) Mean Corpuscular Hemoglobin Concent 33 g/dL (31-37) Red Cell Distribution Width 15.6 % (11.5-14.5) Platelet Count 133 x10^3/uL (140-400) Neutrophils (%) (Auto) 55 % (31-73) Lymphocytes (%) (Auto) 34 % (24-48) Monocytes (%) (Auto) 9 % (0-9) Eosinophils (%) (Auto) 1 % (0-3) Basophils (%) (Auto) 1 % (0-3) Neutrophils # (Auto) 3.0 x10^3/uL (1.8-7.7) Lymphocytes # (Auto) 1.8 x10^3/uL (1.0-4.8) Monocytes # (Auto) 0.5 x10^3/uL (0.0-1.1) Eosinophils # (Auto) 0.1 x10^3/uL (0.0-0.7) Basophils # (Auto) 0.1 x10^3/uL (0.0-0.2) Sodium Level 138 mmol/L (136-145) Potassium Level 3.4 mmol/L (3.5-5.1) Chloride Level 109 mmol/L (98-107) Carbon Dioxide Level 18 mmol/L (21-32) Anion Gap 11 (6-14) Blood Urea Nitrogen 6 mg/dL (7-20) Creatinine 0.8 mg/dL (0.6-1.0) Estimated GFR (Cockcroft-Gault) 72.0 Glucose Level 168 mg/dL (70-99) Calcium Level 7.8 mg/dL (8.5-10.1) Glucose (Fingerstick) 145 mg/dL (70-99) Assessment and Plan Assessmemt and Plan Problems Medical Problems: (1) Anemia Status: Acute (2) Rectal bleed Status: Acute Comment Review of Relevant I have reviewed the following items fiordaliza (where applicable) has been applied. Labs Laboratory Tests Test 09/19/20 11:01 09/19/20 16:54 09/19/20 20:30 09/19/20 20:35 Glucose (Fingerstick) 261 mg/dL (70-99) 293 mg/dL (70-99) 286 mg/dL (70-99) Hemoglobin 9.7 g/dL (12.0-15.5) Hematocrit 29.2 % (36.0-47.0) Mean Corpuscular Hemoglobin Concent 33 g/dL (31-37) Test 09/20/20 06:25 09/20/20 07:17 09/20/20 09:16 09/20/20 11:27 White Blood Count 6.3 x10^3/uL (4.0-11.0) Red Blood Count 2.84 x10^6/uL (3.50-5.40) Hemoglobin 8.6 g/dL (12.0-15.5) Hematocrit 25.6 % (36.0-47.0) Mean Corpuscular Volume 90 fL (79-100) Mean Corpuscular Hemoglobin 30 pg (25-35) Mean Corpuscular Hemoglobin Concent 34 g/dL (31-37) Red Cell Distribution Width 15.3 % (11.5-14.5) Platelet Count 121 x10^3/uL (140-400) Neutrophils (%) (Auto) 63 % (31-73) Lymphocytes (%) (Auto) 25 % (24-48) Monocytes (%) (Auto) 10 % (0-9) Eosinophils (%) (Auto) 2 % (0-3) Basophils (%) (Auto) 1 % (0-3) Neutrophils # (Auto) 4.0 x10^3/uL (1.8-7.7) Lymphocytes # (Auto) 1.6 x10^3/uL (1.0-4.8) Monocytes # (Auto) 0.6 x10^3/uL (0.0-1.1) Eosinophils # (Auto) 0.1 x10^3/uL (0.0-0.7) Basophils # (Auto) 0.0 x10^3/uL (0.0-0.2) Sodium Level 139 mmol/L (136-145) Potassium Level 3.2 mmol/L (3.5-5.1) Chloride Level 110 mmol/L (98-107) Carbon Dioxide Level 18 mmol/L (21-32) Anion Gap 11 (6-14) Blood Urea Nitrogen 4 mg/dL (7-20) Creatinine 0.6 mg/dL (0.6-1.0) Estimated GFR (Cockcroft-Gault) 100.3 Glucose Level 141 mg/dL (70-99) Calcium Level 8.0 mg/dL (8.5-10.1) Glucose (Fingerstick) 151 mg/dL (70-99) 148 mg/dL (70-99) 283 mg/dL (70-99) Test 09/20/20 16:19 09/20/20 20:35 09/21/20 04:00 09/21/20 07:48 Glucose (Fingerstick) 231 mg/dL (70-99) 201 mg/dL (70-99) 145 mg/dL (70-99) White Blood Count 5.4 x10^3/uL (4.0-11.0) Red Blood Count 2.55 x10^6/uL (3.50-5.40) Hemoglobin 7.6 g/dL (12.0-15.5) Hematocrit 22.9 % (36.0-47.0) Mean Corpuscular Volume 90 fL (79-100) Mean Corpuscular Hemoglobin 30 pg (25-35) Mean Corpuscular Hemoglobin Concent 33 g/dL (31-37) Red Cell Distribution Width 15.6 % (11.5-14.5) Platelet Count 133 x10^3/uL (140-400) Neutrophils (%) (Auto) 55 % (31-73) Lymphocytes (%) (Auto) 34 % (24-48) Monocytes (%) (Auto) 9 % (0-9) Eosinophils (%) (Auto) 1 % (0-3) Basophils (%) (Auto) 1 % (0-3) Neutrophils # (Auto) 3.0 x10^3/uL (1.8-7.7) Lymphocytes # (Auto) 1.8 x10^3/uL (1.0-4.8) Monocytes # (Auto) 0.5 x10^3/uL (0.0-1.1) Eosinophils # (Auto) 0.1 x10^3/uL (0.0-0.7) Basophils # (Auto) 0.1 x10^3/uL (0.0-0.2) Sodium Level 138 mmol/L (136-145) Potassium Level 3.4 mmol/L (3.5-5.1) Chloride Level 109 mmol/L (98-107) Carbon Dioxide Level 18 mmol/L (21-32) Anion Gap 11 (6-14) Blood Urea Nitrogen 6 mg/dL (7-20) Creatinine 0.8 mg/dL (0.6-1.0) Estimated GFR (Cockcroft-Gault) 72.0 Glucose Level 168 mg/dL (70-99) Calcium Level 7.8 mg/dL (8.5-10.1) Laboratory Tests Test 09/20/20 09:16 09/20/20 11:27 09/20/20 16:19 09/20/20 20:35 Glucose (Fingerstick) 148 mg/dL (70-99) 283 mg/dL (70-99) 231 mg/dL (70-99) 201 mg/dL (70-99) Test 09/21/20 04:00 09/21/20 07:48 White Blood Count 5.4 x10^3/uL (4.0-11.0) Red Blood Count 2.55 x10^6/uL (3.50-5.40) Hemoglobin 7.6 g/dL (12.0-15.5) Hematocrit 22.9 % (36.0-47.0) Mean Corpuscular Volume 90 fL (79-100) Mean Corpuscular Hemoglobin 30 pg (25-35) Mean Corpuscular Hemoglobin Concent 33 g/dL (31-37) Red Cell Distribution Width 15.6 % (11.5-14.5) Platelet Count 133 x10^3/uL (140-400) Neutrophils (%) (Auto) 55 % (31-73) Lymphocytes (%) (Auto) 34 % (24-48) Monocytes (%) (Auto) 9 % (0-9) Eosinophils (%) (Auto) 1 % (0-3) Basophils (%) (Auto) 1 % (0-3) Neutrophils # (Auto) 3.0 x10^3/uL (1.8-7.7) Lymphocytes # (Auto) 1.8 x10^3/uL (1.0-4.8) Monocytes # (Auto) 0.5 x10^3/uL (0.0-1.1) Eosinophils # (Auto) 0.1 x10^3/uL (0.0-0.7) Basophils # (Auto) 0.1 x10^3/uL (0.0-0.2) Sodium Level 138 mmol/L (136-145) Potassium Level 3.4 mmol/L (3.5-5.1) Chloride Level 109 mmol/L (98-107) Carbon Dioxide Level 18 mmol/L (21-32) Anion Gap 11 (6-14) Blood Urea Nitrogen 6 mg/dL (7-20) Creatinine 0.8 mg/dL (0.6-1.0) Estimated GFR (Cockcroft-Gault) 72.0 Glucose Level 168 mg/dL (70-99) Calcium Level 7.8 mg/dL (8.5-10.1) Glucose (Fingerstick) 145 mg/dL (70-99) Medications Current Medications Sodium Chloride 1,000 ml @ 1,000 mls/hr 1X ONCE IV Last administered on 09/13/20at 15:15; Start 09/13/20 at 15:15; Stop 09/13/20 at 16:14; Status DC Famotidine (Pepcid Vial) 20 mg 1X ONCE IVP Last administered on 09/13/20at 15:15; Start 09/13/20 at 15:15; Stop 09/13/20 at 15:16; Status DC Ondansetron HCl (Zofran) 4 mg 1X ONCE IVP Last administered on 09/13/20at 15:15; Start 09/13/20 at 15:15; Stop 09/13/20 at 15:16; Status DC Ondansetron HCl (Zofran) 4 mg PRN Q8HRS PRN IV NAUSEA/VOMITING Last administered on 09/14/20at 11:24; Start 09/13/20 at 19:30; Stop 09/14/20 at 19:29; Status DC Morphine Sulfate (Morphine Sulfate) 2 mg PRN Q2HR PRN IV PAIN; Start 09/13/20 at 19:30; Stop 09/14/20 at 19:29; Status DC Acetaminophen (Tylenol) 650 mg PRN Q4HRS PRN PO FEVER > 100.3'F Last administered on 09/13/20at 21:39; Start 09/13/20 at 19:30; Stop 09/14/20 at 19:29; Status DC Insulin Human Lispro (HumaLOG) 0-5 UNITS TIDWMEALS SQ ; Start 09/14/20 at 08:0 0; Stop 09/13/20 at 21:29; Status DC Dextrose (Dextrose 50%-Water Syringe) 12.5 gm PRN Q15MIN PRN IV SEE COMMENTS; Start 09/13/20 at 21:00; Stop 09/14/20 at 21:58; Status DC Dextrose (Iv Dextrose 5%) 250 ml PRN Q15MIN PRN IV SEE COMMENTS; Start at 21:00; Status UNV Allopurinol (Zyloprim) 300 mg DAILY PO Last administered on 09/20/20at 09:52; Start 09/14/20 at 09:00 Acetaminophen/ Hydrocodone Bitart (Lortab 10/325) 1 tab PRN Q4HRS PRN PO MODERATE PAIN, SEVERE PAIN Last administered on 09/20/20at 23:37; Start 09/13/20 at 21:00 Losartan Potassium (Cozaar) 50 mg DAILY PO Last administered on 09/15/20at 08:32; Start 09/14/20 at 09:00 Diphenhydramine HCl (Benadryl) 25 mg QHS PO Last administered on 09/20/20at 21:10; Start 09/13/20 at 21:15 Cetirizine HCl (ZyrTEC) 10 mg DAILY PO Last administered on 09/20/20at 09:52; Start 09/14/20 at 09:00 Meloxicam (Mobic) 15 mg DAILY PO ; Start 09/19/20 at 09:00; Stop 09/14/20 at 10:24; Status DC Promethazine HCl (Phenergan) 25 mg PRN Q6HRS PRN PO NAUSEA/VOMITING Last administered on 09/14/20at 22:18; Start 09/13/20 at 21:30 Insulin Human Lispro (HumaLOG) 0-5 UNITS QIDACHS SQ Last administered on 09/14/20at 17:48; Start 09/13/20 at 21:30; Stop 09/14/20 at 21:56; Status DC Influenza Virus Vaccine Quadrival (Fluzone Quad Syringe) 0.5 ml ONCE ONCE VAX IM ; Start 09/14/20 at 09:00; Stop 09/14/20 at 09:01; Status DC Sodium Chloride 1,000 ml @ 1,000 mls/hr 1X ONCE IV Last administered on 09/14/20at 00:25; Start 09/14/20 at 00:30; Stop 09/14/20 at 01:29; Status DC Sodium Chloride 1,000 ml @ 100 mls/hr Q10H IV Last administered on 09/19/20at 21:22; Start 09/14/20 at 00:30 Pantoprazole Sodium (PROTONIX VIAL for IV PUSH) 40 mg BIDAC IVP Last administered on 09/15/20at 08:32; Start 09/14/20 at 10:00; Stop 09/15/20 at 09:33; Status DC Ringer's Solution 1,000 ml @ 0 mls/hr Q0M IV Last administered on 09/14/20at 11:23; Start 09/14/20 at 11:30; Stop 09/20/20 at 13:34; Status DC Propofol (Diprivan) 200 mg STK-MED ONCE IV ; Start 09/14/20 at 12:09; Stop 09/14/20 at 12:09; Status DC Lidocaine HCl (Lidocaine Pf 2% Vial) 5 ml STK-MED ONCE .ROUTE ; Start 09/14/20 at 12:09; Stop 09/14/20 at 12:09; Status DC Propofol (Diprivan) 200 mg STK-MED ONCE IV ; Start 09/14/20 at 12:49; Stop 09/14/20 at 12:49; Status DC Insulin Human Regular (HumuLIN R VIAL) 5 unit 1X ONCE IV Last administered on 09/14/20at 17:49; Start 09/14/20 at 17:30; Stop 09/14/20 at 17:35; Status DC Sodium Chloride 500 ml @ 500 mls/hr 1X ONCE IV Last administered on 09/14/20at 18:00; Start 09/14/20 at 17:30; Stop 09/14/20 at 18:29; Status DC Insulin Human Regular (HumuLIN R VIAL) 5 unit 1X ONCE IV Last administered on 09/14/20at 22:27; Start 09/14/20 at 22:15; Stop 09/14/20 at 22:16; Status DC Insulin Human Lispro (HumaLOG) 0-9 UNITS TIDWMEALS SQ Last administered on 09/20/20at 17:18; Start 09/15/20 at 08:00 Dextrose (Dextrose 50%-Water Syringe) 12.5 gm PRN Q15MIN PRN IV SEE COMMENTS; Start 09/14/20 at 22:00 Insulin Human Lispro (HumaLOG) 10 units 1X ONCE SQ Last administered on 09/15/20at 08:44; Start 09/15/20 at 08:30; Stop 09/15/20 at 08:31; Status DC Pantoprazole Sodium (Protonix) 40 mg DAILYAC PO Last administered on 09/21/20at 07:44; Start 09/16/20 at 07:30 Lactulose (Lactulose) 20 gm BID PO Last administered on 09/20/20at 21:10; Start 09/15/20 at 10:00 Ferrous Sulfate (Feosol) 325 mg BIDWMEALS PO ; Start 09/15/20 at 10:00 Insulin Human Lispro (HumaLOG) 11 units 1X ONCE SQ Last administered on 09/15/20at 13:08; Start 09/15/20 at 13:00; Stop 09/15/20 at 13:01; Status DC Insulin Human Lispro (HumaLOG) 5 units TIDAC SQ Last administered on 09/21/20at 07:54; Start 09/15/20 at 16:30 Insulin Glargine (Lantus Syringe) 10 unit QHS SQ Last administered on 09/20/20at 21:19; Start 09/15/20 at 21:00 Acetaminophen (Tylenol) 650 mg PRN Q6HRS PRN PO MILD PAIN / TEMP > 100.3'F Last administered on 09/17/20at 15:12; Start 09/17/20 at 15:15 Heparin Sodium (Porcine) (HEPARIN for NUC MED) 100 unit 1X ONCE IV ; Start 09/18/20 at 09:45; Stop 09/18/20 at 09:48; Status DC Heparin Sodium (Porcine) (HEPARIN for NUC MED) 500 unit STK-MED ONCE IV ; Start 09/18/20 at 09:48; Stop 09/18/20 at 09:48; Status DC Polyethylene Glycol (miraLAX Powder BULK BOTTLE) 238 gm 1X ONCE PO Last administered on 09/19/20at 15:38; Start 09/19/20 at 10:00; Stop 09/19/20 at 10:01; Status DC Ringer's Solution 1,000 ml @ 50 mls/hr Q20H IV Last administered on 09/20/20at 07:22; Start 09/20/20 at 07:00; Stop 09/20/20 at 18:59; Status DC Ringer's Solution 1,000 ml @ 75 mls/hr [id number] IV Last administered on 09/20/20at 07:22; Start 09/20/20 at 07:30 Potassium Chloride (Klor-Con) 40 meq 1X ONCE PO Last administered on 09/20/20at 11:40; Start 09/20/20 at 10:00; Stop 09/20/20 at 10:01; Status DC Potassium Chloride (Klor-Con) 20 meq [id number] PO Last administered on 09/21/20at 07:44; Start 09/21/20 at 08:00 Furosemide (Lasix) 40 mg DAILY PO Last administered on 09/20/20at 14:43; Start 09/20/20 at 14:00 Active Scripts Active Feosol (Ferrous Sulfate) 325 Mg Tablet 325 Mg PO BIDWMEALS 30 Days Reported Acetaminophen 500 Mg Tablet 2 Tab PO PRN Q6HRS PRN Diphenhydramine Hcl 25 Mg Tablet 25 Mg PO QHS Claritin (Loratadine) 10 Mg Tablet 1 Tab PO DAILY D3-50 (Cholecalciferol (Vitamin D3)) 50,000 Unit Capsule 1 Cap PO FRIDAY 14 Days Promethazine Hcl 25 Mg Tablet 25 Mg PO Q6H PRN Zofran (Ondansetron Hcl) 8 Mg Tablet 8 Mg PO PRN Q8HRS PRN Glimepiride 4 Mg Tablet 4 Mg PO BIDWMEALS Farxiga (Dapagliflozin Propanediol) 10 Mg Tablet 10 Mg PO DAILY Allopurinol 300 Mg Tablet 300 Mg PO DAILY Januvia (Sitagliptin Phosphate) 100 Mg Tablet 100 Mg PO DAILY Clobetasol Propionate 15 Gm Cream..g. 0.5 % TP PRN BID PRN Fibercon (Calcium Polycarbophil) 625 Mg Tablet 2 Tab PO BIDWMEALS Magnesium Oxide 400 Mg Tablet 800 Mg PO HS Colace (Docusate Sodium) 100 Mg Capsule 200 Mg PO DAILY Lortab 10-325 mg Tablet (Hydrocodone/Acetaminophen) 1 Each Tablet 1 Tab PO Q4HRS PRN Prilosec Otc (Omeprazole Magnesium) 20 Mg Tablet.dr 20 Mg PO DAILY Levothyroxine Sodium 112 Mcg Tablet 2 Tab PO DAILY Metformin Hcl 1,000 Mg Tablet 1 Tab PO BIDWMEALS Mobic (Meloxicam) 15 Mg Tablet 15 Mg PO DAILY Klor-Con M20 (Potassium Chloride) 20 Meq Tab.er.prt 20 Meq PO DAILY Lasix (Furosemide) 40 Mg Tablet 40 Mg PO DAILY Vitals/I & O Vital Sign - Last 24 Hours 09/20/20 09/20/20 09/20/20 09/20/20 08:45 09:00 09:30 09:45 Temp 97.7 97.7 Pulse 61 60 61 62 Resp 20 18 17 B/P (MAP) 110/64 116/64 129/89 (102) 131/84 (100) Pulse Ox 96 96 100 100 O2 Delivery Room Air Room Air O2 Flow Rate 2.0 09/20/20 09/20/20 09/20/20 09/20/20 09:52 10:00 10:15 10:52 Pulse 62 81 Resp 18 B/P (MAP) 131/61 (84) 134/63 (86) Pulse Ox 100 97 O2 Delivery Room Air Room Air 09/20/20 09/20/20 09/20/20 09/20/20 15:00 19:00 20:00 23:00 Temp 97.9 98.6 98.7 97.9 98.6 98.7 Pulse 70 75 72 Resp 19 18 18 B/P (MAP) 107/61 (76) 103/66 (78) 114/63 (80) Pulse Ox 96 100 100 O2 Delivery Room Air Room Air Room Air Room Air 09/20/20 09/21/20 09/21/20 23:37 01:00 03:00 Temp 98.3 98.3 Pulse 68 Resp 16 14 18 B/P (MAP) 112/65 (81) Pulse Ox 99 O2 Delivery Room Air Room Air Room Air Intake and Output 09/20/20 09/20/20 09/21/20 15:00 23:00 07:00 Intake Total 600 ml 900 ml Balance 600 ml 900 ml Justicifation of Admission Dx: Justifications for Admission: Justification of Admission Dx: Yes MATTHEW MITTAL MD Sep 21, 2020 08:39
[2020-09-21] MEDS ORDERED: POTASSIUM CHLORIDE 20 MEQ TABLET.ER. PO ONE (08:45)
[2020-09-21] MEDS: LOSARTAN POTASSIUM 50 MG TABLET. PO SCH (09:00)
[2020-09-21] MEDS: LACTULOSE 20 GM/30 ML SOLUTION. PO SCH (09:28)
[2020-09-21] MEDS: FUROSEMIDE 40 MG TABLET. PO SCH (09:28)
[2020-09-21] MEDS: CETIRIZINE HCL 10 MG TABLET. PO SCH (09:29)
[2020-09-21] MEDS: ALLOPURINOL 300 MG TABLET. PO SCH (09:29)
--- NOTE | 2020-09-21 09:44 | NUR ---
SW following. Discussed with RN, per chart notes from planner intern, Luli Mcfadden - pt does not want any services upon discharge. Pt's hemoglobin dropped today, anticipate possible discharge tomorrow (09/22/2020), if hgn does not drop again. SW will continue to follow.
--- NOTE | 2020-09-21 09:56 | PDOC ---
Date of Service: DATE: 09/21/20 TIME: 09:53 Subjective: Subjective: No bleeding, no stools. Really wants to go home. Now relates she does not tolerate PO iron and gets iron infusions through hematology. Objective: Vital Signs: Vital Signs Date Time Temp Pulse Resp B/P (MAP) Pulse Ox O2 Delivery O2 Flow Rate FiO2 09/21/20 07:00 98.3 70 18 113/68 (83) 99 Room Air 98.3 09/20/20 09:00 2.0 Labs: Laboratory Tests Test 09/20/20 11:27 09/20/20 16:19 09/20/20 20:35 09/21/20 07:48 Glucose (Fingerstick) 283 mg/dL (70-99) 231 mg/dL (70-99) 201 mg/dL (70-99) 145 mg/dL (70-99) Imaging: Colonoscopy with polypectomies 09/20/20 Meds propofol per anesthesia Pre-op dx melena/abnl CT scan post-op dx internal/external hemorrhoids transverse/ascending colon polyps s/p snare polypectomies Plan resume diet release home if Hg stable repeat band ligation in 2-3 weeks TIPS if unable to control bleeding with above. PE: GEN: NAD - in recliner LUNGS: CTAB HEART: RRR ABD: still w/ distention NEURO/PSYCH: A & O 3 A/P: Melena/hematochezia - resolved? GÓMEZ - Hgb drifting; h/o outpt iron infusions Cirrhosis - s/p EGD w/ variceal banding 09/14/20 -- She'd like to go home. Will review w/ Dr. Masters. D/w Dr. Masters - if discharges, would pursue outpt labs (retic and haptoglobin) to asses for bone marrow dysfunction. Our office will contact to schedule repeat EGD for banding in 2-3 weeks. Justicifation of Admission Dx: Justifications for Admission: Justification of Admission Dx: Yes RENY FRIAS Sep 21, 2020 09:56
[2020-09-21] MEDS: IV RINGERS,LACTATED 1000ML 1,000 ML IV SCH (10:10)
[2020-09-21 11:00] VITALS: BP 106/58
[2020-09-21] MEDS: IV NORMAL SALINE 1000ML BAG 1,000 ML IV SCH (12:30)
--- NOTE | 2020-09-21 14:19 | PDOC3 ---
Discharge Summary Date of Admission: Sep 13, 2020 Date of Discharge: Sep 21, 2020 Follow-Up: 3-5 days Admitting Diagnosis comment: DISCHARGE DX Esophageal Varices Melena/hematochezia - s/p EGD/banding of esophageal varices Rectal bleeding WITH ACUTE BLOOD LOSS ANEMIA Nodular contour of the liver of concern for cirrhosis or other fibrotic processes. Splenomegaly which may relate to portal hypertension noted. Soft tissue density in the distal anus as questioned. ON CT D/w nurse - dark stool w/ red blood. 3 stools charted. 09-18 Anemia HGB DROP 1 GM OVERNIGHT 09-21 nausea allergic rhinitis asthma muscle spasms chronic anticoagulation: // on Coumadin Hypertension Chronic pain arthritis edema constipation GERD diabetes gout hypothyroidism. HEPATIC ENCEPHALOPATHY PLAN= SERIAL HGB, GI FOLLOWING ok with d/c 09-21 \ 27 MIN PT EXAM, CHART REVIEW d/c planning , > 50% OF TIME SPENT WITH EXAM, CHART REVIEW, PT CARE COORDINATION , see pcp 2 days for lab History of Present Illness History of Present Illness 09/21/2020 Pt seen and examined Resting hgb drop overnight 09-21 D/W RN BLOOD LOSS TO HGB 6.9, TRANSFUSE COLONOSCOPY 09-20 Operative Note 09-14 Operative Note EGD with band ligation Meds propofol per anesthesia Pre-op dx Melena/acute blood loss anemia Post-op dx Esophageal varices s/p band ligations x 6 Plan cirrhosis work-up with serologies repeat band ligation in several weeks ammonia level - Operative Note Operative Note Colonoscopy with polypectomies Meds propofol per anesthesia Pre-op dx melena/abnl CT scan post-op dx internal/external hemorrhoids transverse/ascending colon polyps s/p snare polypectomies Plan resume diet release home if Hg stable repeat band ligation in 2-3 weeks TIPS if unable to control bleeding with above. REMINGTON NIXON MD Sep 20, 2020 08:30 39 MIN PT EXAM, CHART REVIEW, > 50% OF TIME SPENT WITH EXAM, CHART REVIEW, PT CARE COORDINATION 09/16/2020 Pt seen and examined DW RN Pallor noticeably improved 09/15/2020 Pt seen and examined DW RN DW case management 09/14/2020 Pt seen and examined DW RN DW case management Vitals Vitals Vital Signs Date Time Temp Pulse Resp B/P (MAP) Pulse Ox O2 Delivery O2 Flow Rate FiO2 09/21/20 03:00 98.3 68 18 112/65 (81) 99 Room Air 98.3 09/20/20 09:00 2.0 Physical Exam General: Alert, Oriented X3, Cooperative, No acute distress Heart: Regular rate, Normal S2 Lungs: Clear Abdomen: Normal bowel sounds, Soft, No tenderness, Other (DISTENDED, less) Extremities: No clubbing, No cyanosis Skin: No rashes, No significant lesion FINAL DIAGNOSIS Problems Medical Problems: (1) Anemia Status: Acute (2) Rectal bleed Status: Acute Brief Hospital Course Ms. Epstein is a 65 old [sex] who presented with [ ACUTE GI BLEEDING] CONDITION AT DISCHARGE: Improved Discharge Medications Current Medications Sodium Chloride 1,000 ml @ 1,000 mls/hr 1X ONCE IV Last administered on 09/13/20at 15:15; Start 09/13/20 at 15:15; Stop 09/13/20 at 16:14; Status DC Famotidine (Pepcid Vial) 20 mg 1X ONCE IVP Last administered on 09/13/20at 15:15; Start 09/13/20 at 15:15; Stop 09/13/20 at 15:16; Status DC Ondansetron HCl (Zofran) 4 mg 1X ONCE IVP Last administered on 09/13/20at 15:15; Start 09/13/20 at 15:15; Stop 09/13/20 at 15:16; Status DC Ondansetron HCl (Zofran) 4 mg PRN Q8HRS PRN IV NAUSEA/VOMITING Last administered on 09/14/20at 11:24; Start 09/13/20 at 19:30; Stop 09/14/20 at 19:29; Status DC Morphine Sulfate (Morphine Sulfate) 2 mg PRN Q2HR PRN IV PAIN; Start 09/13/20 at 19:30; Stop 09/14/20 at 19:29; Status DC Acetaminophen (Tylenol) 650 mg PRN Q4HRS PRN PO FEVER > 100.3'F Last administered on 09/13/20at 21:39; Start 09/13/20 at 19:30; Stop 09/14/20 at 19:29; Status DC Insulin Human Lispro (HumaLOG) 0-5 UNITS TIDWMEALS SQ ; Start 09/14/20 at 08:00; Stop 09/13/20 at 21:29; Status DC Dextrose (Dextrose 50%-Water Syringe) 12.5 gm PRN Q15MIN PRN IV SEE COMMENTS; Start 09/13/20 at 21:00; Stop 09/14/20 at 21:58; Status DC Dextrose (Iv Dextrose 5%) 250 ml PRN Q15MIN PRN IV SEE COMMENTS; Start 09/13/20 at 21:00; Status UNV Allopurinol (Zyloprim) 300 mg DAILY PO Last administered on 09/21/20at 09:29; Start 09/14/20 at 09:00 Acetaminophen/ Hydrocodone Bitart (Lortab 10/325) 1 tab PRN Q4HRS PRN PO MODERATE PAIN, SEVERE PAIN Last administered on 09/20/20at 23:37; Start 09/13/20 at 21:00 Losartan Potassium (Cozaar) 50 mg DAILY PO Last administered on 09/15/20at 08:32; Start 09/14/20 at 09:00 Diphenhydramine HCl (Benadryl) 25 mg QHS PO Last administered on 09/20/20at 21:10; Start 09/13/20 at 21:15 Cetirizine HCl (ZyrTEC) 10 mg DAILY PO Last administered on 09/21/20at 09:29; Start 09/14/20 at 09:00 Meloxicam (Mobic) 15 mg DAILY PO ; Start 09/19/20 at 09:00; Stop 09/14/20 at 10:24; Status DC Promethazine HCl (Phenergan) 25 mg PRN Q6HRS PRN PO NAUSEA/VOMITING Last administered on 09/14/20at 22:18; Start 09/13/20 at 21:30 Insulin Human Lispro (HumaLOG) 0-5 UNITS QIDACHS SQ Last administered on 09/14/20at 17:48; Start 09/13/20 at 21:30; Stop 09/14/20 at 21:56; Status DC Influenza Virus Vaccine Quadrival (Fluzone Quad Syringe) 0.5 ml ONCE ONCE VAX IM ; Start 09/14/20 at 09:00; Stop 09/14/20 at 09:01; Status DC Sodium Chloride 1,000 ml @ 1,000 mls/hr 1X ONCE IV Last administered on 09/14/20at 00:25; Start 09/14/20 at 00:30; Stop 09/14/20 at 01:29; Status DC Sodium Chloride 1,000 ml @ 100 mls/hr Q10H IV Last administered on 09/19/20at 21:22; Start 09/14/20 at 00:30 Pantoprazole Sodium (PROTONIX VIAL for IV PUSH) 40 mg BIDAC IVP Last administered on 09/15/20at 08:32; Start 09/14/20 at 10:00; Stop 09/15/20 at 09:33; Status DC Ringer's Solution 1,000 ml @ 0 mls/hr Q0M IV Last administered on 09/14/20at 11:23; Start 09/14/20 at 11:30; Stop 09/20/20 at 13:34; Status DC Propofol (Diprivan) 200 mg STK-MED ONCE IV ; Start 09/14/20 at 12:09; Stop 09/14/20 at 12:09; Status DC Lidocaine HCl (Lidocaine Pf 2% Vial) 5 ml STK-MED ONCE .ROUTE ; Start 09/14/20 at 12:09; Stop 09/14/20 at 12:09; Status DC Propofol (Diprivan) 200 mg STK-MED ONCE IV ; Start 09/14/20 at 12:49; Stop 09/14/20 at 12:49; Status DC Insulin Human Regular (HumuLIN R VIAL) 5 unit 1X ONCE IV Last administered on 09/14/20at 17:49; Start 09/14/20 at 17:30; Stop 09/14/20 at 17:35; Status DC Sodium Chloride 500 ml @ 500 mls/hr 1X ONCE IV Last administered on 09/14/20at 18:00; Start 09/14/20 at 17:30; Stop 09/14/20 at 18:29; Status DC Insulin Human Regular (HumuLIN R VIAL) 5 unit 1X ONCE IV Last administered on 09/14/20at 22:27; Start 09/14/20 at 22:15; Stop 09/14/20 at 22:16; Status DC Insulin Human Lispro (HumaLOG) 0-9 UNITS TIDWMEALS SQ Last administered on 09/21/20at 12:00; Start 09/15/20 at 08:00 Dextrose (Dextrose 50%-Water Syringe) 12.5 gm PRN Q15MIN PRN IV SEE COMMENTS; Start 09/14/20 at 22:00 Insulin Human Lispro (HumaLOG) 10 units 1X ONCE SQ Last administered on 09/15/20at 08:44; Start 09/15/20 at 08:30; Stop 09/15/20 at 08:31; Status DC Pantoprazole Sodium (Protonix) 40 mg DAILYAC PO Last administered on 09/21/20at 07:44; Start 09/16/20 at 07:30 Lactulose (Lactulose) 20 gm BID PO Last administered on 09/21/20at 09:28; Start 09/15/20 at 10:00 Ferrous Sulfate (Feosol) 325 mg BIDWMEALS PO ; Start 09/15/20 at 10:00; Stop 09/21/20 at 09:58; Status DC Insulin Human Lispro (HumaLOG) 11 units 1X ONCE SQ Last administered on 09/15/20at 13:08; Start 09/15/20 at 13:00; Stop 09/15/20 at 13:01; Status DC Insulin Human Lispro (HumaLOG) 5 units TIDAC SQ Last administered on 09/21/20at 11:59; Start 09/15/20 at 16:30 Insulin Glargine (Lantus Syringe) 10 unit QHS SQ Last administered on 09/20/20at 21:19; Start 09/15/20 at 21:00 Acetaminophen (Tylenol) 650 mg PRN Q6HRS PRN PO MILD PAIN / TEMP > 100.3'F Last administered on 09/17/20at 15:12; Start 09/17/20 at 15:15 Heparin Sodium (Porcine) (HEPARIN for NUC MED) 100 unit 1X ONCE IV ; Start 09/18/20 at 09:45; Stop 09/18/20 at 09:48; Status DC Heparin Sodium (Porcine) (HEPARIN for NUC MED) 500 unit STK-MED ONCE IV ; Start 09/18/20 at 09:48; Stop 09/18/20 at 09:48; Status DC Polyethylene Glycol (miraLAX Powder BULK BOTTLE) 238 gm 1X ONCE PO Last administered on 09/19/20at 15:38; Start 09/19/20 at 10:00; Stop 09/19/20 at 10:01; Status DC Ringer's Solution 1,000 ml @ 50 mls/hr Q20H IV Last administered on 09/20/20at 07:22; Start 09/20/20 at 07:00; Stop 09/20/20 at 18:59; Status DC Ringer's Solution 1,000 ml @ 75 mls/hr [id number] IV Last administered on 09/20/20at 07:22; Start 09/20/20 at 07:30 Potassium Chloride (Klor-Con) 40 meq 1X ONCE PO Last administered on 0at 11:40; Start 09/20/20 at 10:00; Stop 09/20/20 at 10:01; Status DC Potassium Chloride (Klor-Con) 20 meq DAILYWBKFT PO Last administered on 09/21/20at 07:44; Start 09/21/20 at 08:00 Furosemide (Lasix) 40 mg DAILY PO Last administered on 09/21/20at 09:28; Start 09/20/20 at 14:00 Potassium Chloride (Klor-Con) 40 meq 1X ONCE PO Last administered on 09/21/20at 09:33; Start 09/21/20 at 08:45; Stop 09/21/20 at 08:46; Status DC Active Scripts Active Feosol (Ferrous Sulfate) 325 Mg Tablet 325 Mg PO BIDWMEALS 30 Days Reported Acetaminophen 500 Mg Tablet 2 Tab PO PRN Q6HRS PRN Diphenhydramine Hcl 25 Mg Tablet 25 Mg PO QHS Claritin (Loratadine) 10 Mg Tablet 1 Tab PO DAILY D3-50 (Cholecalciferol (Vitamin D3)) 50,000 Unit Capsule 1 Cap PO FRIDAY 14 Days Promethazine Hcl 25 Mg Tablet 25 Mg PO Q6H PRN Zofran (Ondansetron Hcl) 8 Mg Tablet 8 Mg PO PRN Q8HRS PRN Glimepiride 4 Mg Tablet 4 Mg PO BIDWMEALS Farxiga (Dapagliflozin Propanediol) 10 Mg Tablet 10 Mg PO DAILY Allopurinol 300 Mg Tablet 300 Mg PO DAILY Januvia (Sitagliptin Phosphate) 100 Mg Tablet 100 Mg PO DAILY Clobetasol Propionate 15 Gm Cream..g. 0.5 % TP PRN BID PRN Fibercon (Calcium Polycarbophil) 625 Mg Tablet 2 Tab PO BIDWMEALS Magnesium Oxide 400 Mg Tablet 800 Mg PO HS Colace (Docusate Sodium) 100 Mg Capsule 200 Mg PO DAILY Lortab 10-325 mg Tablet (Hydrocodone/Acetaminophen) 1 Each Tablet 1 Tab PO Q4HRS PRN Prilosec Otc (Omeprazole Magnesium) 20 Mg Tablet.dr 20 Mg PO DAILY Levothyroxine Sodium 112 Mcg Tablet 2 Tab PO DAILY Metformin Hcl 1,000 Mg Tablet 1 Tab PO BIDWMEALS Mobic (Meloxicam) 15 Mg Tablet 15 Mg PO DAILY Klor-Con M20 (Potassium Chloride) 20 Meq Tab.er.prt 20 Meq PO DAILY Lasix (Furosemide) 40 Mg Tablet 40 Mg PO DAILY Vital Signs Vital Signs Date Time Temp Pulse Resp B/P (MAP) Pulse Ox O2 Delivery O2 Flow Rate FiO2 09/21/20 11:00 98.3 68 18 106/58 (74) 99 Room Air 98.3 09/20/20 09:00 2.0 Labs Laboratory Tests Test 09/19/20 16:54 09/19/20 20:30 09/19/20 20:35 09/20/20 06:25 Glucose (Fingerstick) 293 mg/dL (70-99) 286 mg/dL (70-99) Hemoglobin 9.7 g/dL (12.0-15.5) 8.6 g/dL (12.0-15.5) Hematocrit 29.2 % (36.0-47.0) 25.6 % (36.0-47.0) Mean Corpuscular Hemoglobin Concent 33 g/dL (31-37) 34 g/dL (31-37) White Blood Count 6.3 x10^3/uL (4.0-11.0) Red Blood Count 2.84 x10^6/uL (3.50-5.40) Mean Corpuscular Volume 90 fL (79-100) Mean Corpuscular Hemoglobin 30 pg (25-35) Red Cell Distribution Width 15.3 % (11.5-14.5) Platelet Count 121 x10^3/uL (140-400) Neutrophils (%) (Auto) 63 % (31-73) Lymphocytes (%) (Auto) 25 % (24-48) Monocytes (%) (Auto) 10 % (0-9) Eosinophils (%) (Auto) 2 % (0-3) Basophils (%) (Auto) 1 % (0-3) Neutrophils # (Auto) 4.0 x10^3/uL (1.8-7.7) Lymphocytes # (Auto) 1.6 x10^3/uL (1.0-4.8) Monocytes # (Auto) 0.6 x10^3/uL (0.0-1.1) Eosinophils # (Auto) 0.1 x10^3/uL (0.0-0.7) Basophils # (Auto) 0.0 x10^3/uL (0.0-0.2) Sodium Level 139 mmol/L (136-145) Potassium Level 3.2 mmol/L (3.5-5.1) Chloride Level 110 mmol/L (98-107) Carbon Dioxide Level 18 mmol/L (21-32) Anion Gap 11 (6-14) Blood Urea Nitrogen 4 mg/dL (7-20) Creatinine 0.6 mg/dL (0.6-1.0) Estimated GFR (Cockcroft-Gault) 100.3 Glucose Level 141 mg/dL (70-99) Calcium Level 8.0 mg/dL (8.5-10.1) Test 09/20/20 07:17 09/20/20 09:16 09/20/20 11:27 09/20/20 16:19 Glucose (Fingerstick) 151 mg/dL (70-99) 148 mg/dL (70-99) 283 mg/dL (70-99) 231 mg/dL (70-99) Test 09/20/20 20:35 09/21/20 04:00 09/21/20 07:48 09/21/20 11:12 Glucose (Fingerstick) 201 mg/dL (70-99) 145 mg/dL (70-99) 176 mg/dL (70-99) White Blood Count 5.4 x10^3/uL (4.0-11.0) Red Blood Count 2.55 x10^6/uL (3.50-5.40) Hemoglobin 7.6 g/dL (12.0-15.5) Hematocrit 22.9 % (36.0-47.0) Mean Corpuscular Volume 90 fL (79-100) Mean Corpuscular Hemoglobin 30 pg (25-35) Mean Corpuscular Hemoglobin Concent 33 g/dL (31-37) Red Cell Distribution Width 15.6 % (11.5-14.5) Platelet Count 133 x10^3/uL (140-400) Neutrophils (%) (Auto) 55 % (31-73) Lymphocytes (%) (Auto) 34 % (24-48) Monocytes (%) (Auto) 9 % (0-9) Eosinophils (%) (Auto) 1 % (0-3) Basophils (%) (Auto) 1 % (0-3) Neutrophils # (Auto) 3.0 x10^3/uL (1.8-7.7) Lymphocytes # (Auto) 1.8 x10^3/uL (1.0-4.8) Monocytes # (Auto) 0.5 x10^3/uL (0.0-1.1) Eosinophils # (Auto) 0.1 x10^3/uL (0.0-0.7) Basophils # (Auto) 0.1 x10^3/uL (0.0-0.2) Sodium Level 138 mmol/L (136-145) Potassium Level 3.4 mmol/L (3.5-5.1) Chloride Level 109 mmol/L (98-107) Carbon Dioxide Level 18 mmol/L (21-32) Anion Gap 11 (6-14) Blood Urea Nitrogen 6 mg/dL (7-20) Creatinine 0.8 mg/dL (0.6-1.0) Estimated GFR (Cockcroft-Gault) 72.0 Glucose Level 168 mg/dL (70-99) Calcium Level 7.8 mg/dL (8.5-10.1) Laboratory Tests Test 09/20/20 16:19 09/20/20 20:35 09/21/20 04:00 09/21/20 07:48 Glucose (Fingerstick) 231 mg/dL (70-99) 201 mg/dL (70-99) 145 mg/dL (70-99) White Blood Count 5.4 x10^3/uL (4.0-11.0) Red Blood Count 2.55 x10^6/uL (3.50-5.40) Hemoglobin 7.6 g/dL (12.0-15.5) Hematocrit 22.9 % (36.0-47.0) Mean Corpuscular Volume 90 fL (79-100) Mean Corpuscular Hemoglobin 30 pg (25-35) Mean Corpuscular Hemoglobin Concent 33 g/dL (31-37) Red Cell Distribution Width 15.6 % (11.5-14.5) Platelet Count 133 x10^3/uL (140-400) Neutrophils (%) (Auto) 55 % (31-73) Lymphocytes (%) (Auto) 34 % (24-48) Monocytes (%) (Auto) 9 % (0-9) Eosinophils (%) (Auto) 1 % (0-3) Basophils (%) (Auto) 1 % (0-3) Neutrophils # (Auto) 3.0 x10^3/uL (1.8-7.7) Lymphocytes # (Auto) 1.8 x10^3/uL (1.0-4.8) Monocytes # (Auto) 0.5 x10^3/uL (0.0-1.1) Eosinophils # (Auto) 0.1 x10^3/uL (0.0-0.7) Basophils # (Auto) 0.1 x10^3/uL (0.0-0.2) Sodium Level 138 mmol/L (136-145) Potassium Level 3.4 mmol/L (3.5-5.1) Chloride Level 109 mmol/L (98-107) Carbon Dioxide Level 18 mmol/L (21-32) Anion Gap 11 (6-14) Blood Urea Nitrogen 6 mg/dL (7-20) Creatinine 0.8 mg/dL (0.6-1.0) Estimated GFR (Cockcroft-Gault) 72.0 Glucose Level 168 mg/dL (70-99) Calcium Level 7.8 mg/dL (8.5-10.1) Test 09/21/20 11:12 Glucose (Fingerstick) 176 mg/dL (70-99) Allergies Allergies Coded Allergies Type Severity Reaction Last Updated Verified latex Allergy Intermediate RASH 09/20/20 Yes ezetimibe Adverse Reaction Intermediate BODY ACHES 09/20/20 Yes rosuvastatin Adverse Reaction Intermediate BODY ACHES 09/20/20 Yes Disposition/Orders: D/C to Home Justicifation of Admission Dx: Justifications for Admission: Justification of Admission Dx: Yes MATTHEW MITTAL MD Sep 21, 2020 14:19
--- NOTE | 2020-09-21 14:22 | SNU/HH DC ---
DISCHARGE WITH HOME HEALTH DISCHARGE INFORMATION: Discharge Date: Sep 21, 2020 Final Diagnosis: Problems Medical Problems: (1) Anemia Status: Acute (2) Rectal bleed Status: Acute Condition on Discharge: Guarded CODE STATUS: Code Status: Full HOME HEALTH: Face to Face: I certify this patient is under my care and that I, or a nurse practitioner or physician's press assistant working with me, had a face to face encounter that meets the physician face to face encounter requirements with this patient on []. Medical Complications: Other (GI BLEEDING) Retirement For: Assess & Educate Safety, Assess/Skilled Observatio, Bowel/Bladder Training, Medication Management RN For Eval/Treatment: Yes Physical Therapy For: Evalulation/Treatment Occupational Therapy For: Evaluation/Treatment Speech Language Pathology For: Evaluation/Treatment Home Health Aide For: Self-care DIAGNOSTIC TECHNICIAN For: Community Resources Pt Meets Homebound Status: Fatigue w/ amb., Limited distance walking POST DISCHARGE ORDERS: Activity Instructions for Disc: Activity as tolerated, Avoid exertion, Progressive ambulation Bathing Instructions: Shower-keep dressing dry DIET AFTER DISCHARGE: Cardiac Wound/Incision Care: Ice to area for comfort, Keep wound/cast CDI, Do not change dressing CHECKS AFTER DISCHARGE: Checks after discharge: Check blood press - daily FOLLOW-UP: PCP to follow Home Health: TOMORROW Follow up with: PCP IN 2 DAYS Additional Instructions: CBC THREE TIMES A WEEK X 1 WEEK, THEN WEEKLY, CALL TO PCP TREATMENT/EQUIPMENT ORDERS: Adaptive Equipment Issued: None CERTIFICATION STATEMENT: Certification Statement: Certification Statement: Based on the above finding, I certify that this patient is confined to the home and needs intermittent group home care, physical therapy and/or speech therapy, or continues to need occupational therapy.~ This patient is under my care, and I have initiated the establishment of the plan of care.~ This patient will be followed by myself or a community physician who will periodically review the plan of care. Home Meds Active Scripts Ferrous Sulfate (FEOSOL) 325 Mg Tablet, 325 MG PO BIDWMEALS for . for 30 Days, #60 TAB Prov:CASTLE,NIAL K III DO 09/15/20 Reported Medications Acetaminophen (ACETAMINOPHEN) 500 Mg Tablet, 2 TAB PO PRN Q6HRS PRN for PAIN, TAB 0 Refills 01/12/20 Diphenhydramine Hcl (DIPHENHYDRAMINE HCL) 25 Mg Tablet, 25 MG PO QHS, TAB 01/12/20 Loratadine (CLARITIN) 10 Mg Tablet, 1 TAB PO DAILY for allergy symptoms, TAB 0 Refills 01/12/20 Cholecalciferol (Vitamin D3) (D3-50) 50,000 Unit Capsule, 1 CAP PO FRIDAY for SUPPLEMENT for 14 Days, #1 CAP 0 Refills 01/12/20 Promethazine Hcl (PROMETHAZINE HCL) 25 Mg Tablet, 25 MG PO Q6H PRN for NAUSEA/VOMITING, TAB 12/27/19 Ondansetron Hcl (ZOFRAN) 8 Mg Tablet, 8 MG PO PRN Q8HRS PRN for NAUSEA/VOMITING, TAB 12/27/19 Glimepiride (GLIMEPIRIDE) 4 Mg Tablet, 4 MG PO BIDWMEALS for CONTROL DIABETES, TAB 12/27/19 Dapagliflozin Propanediol (FARXIGA) 10 Mg Tablet, 10 MG PO DAILY for CONTROL DIABETES, TAB 12/27/19 Allopurinol (ALLOPURINOL) 300 Mg Tablet, 300 MG PO DAILY for FOR GOUT, TAB 12/27/19 Sitagliptin Phosphate (JANUVIA) 100 Mg Tablet, 100 MG PO DAILY for XCONTROL DIABETES, TAB 12/27/19 Clobetasol Propionate (CLOBETASOL PROPIONATE) 15 Gm Cream..g., 0.5 % TP PRN BID PRN for RASH, EACH 12/27/19 Calcium Polycarbophil (FIBERCON) 625 Mg Tablet, 2 TAB PO BIDWMEALS for PRVENT CONSTIPTATION, TAB 12/27/19 Magnesium Oxide (MAGNESIUM OXIDE) 400 Mg Tablet, 800 MG PO HS for SUPPLEMENT, TAB 12/27/19 Docusate Sodium (COLACE) 100 Mg Capsule, 200 MG PO DAILY for PREVENT CONSTIPATION, CAP 12/27/19 Hydrocodone/Acetaminophen (Lortab 10-325 mg Tablet) 1 Each Tablet, 1 TAB PO Q4HRS PRN for PAIN, TAB 0 Refills 06/26/16 Omeprazole Magnesium (PRILOSEC OTC) 20 Mg Tablet.dr, 20 MG PO DAILY, TAB 06/26/16 Levothyroxine Sodium (LEVOTHYROXINE SODIUM) 112 Mcg Tablet, 2 TAB PO DAILY for TREAT HYPOTHYROIDISM, #90 TAB 3 Refills 06/26/16 Metformin Hcl (METFORMIN HCL) 1,000 Mg Tablet, 1 TAB PO BIDWMEALS, #60 TAB 5 Refills 06/26/16 Meloxicam (MOBIC) 15 Mg Tablet, 15 MG PO DAILY, TAB 06/26/16 Potassium Chloride (KLOR-CON M20) 20 Meq Tab.er.prt, 20 MEQ PO DAILY, TAB.SR 06/26/16 Furosemide (LASIX) 40 Mg Tablet, 40 MG PO DAILY, TAB 06/26/16 Discontinued Reported Medications Losartan Potassium (LOSARTAN POTASSIUM) 50 Mg Tablet, 50 MG PO DAILY for HYPERTENSION, TAB 09/13/20 Oxycodone HCl/Acetaminophen (Percocet 5-325 mg Tablet) 1 Each Tablet, 1 TAB PO PRN Q3HRS PRN for PAIN for 30 Days, #50 TAB 0 Refills 01/20/20 Warfarin Sodium (WARFARIN SODIUM) 3 Mg Tablet, 3 MG PO DAILY for DVT prophylaxis, #30 TAB 01/20/20 Cyclobenzaprine Hcl (CYCLOBENZAPRINE HCL) 10 Mg Tablet, 10 MG PO TID PRN for MUSCLE PAIN, TAB 12/27/19 Valsartan (DIOVAN) 160 Mg Tablet, 160 MG PO DAILY for HYPERTENSION, TAB 12/27/19 Albuterol Sulfate (Proair Hfa) 8.5 Gm Hfa.aer.ad, 2 PUFF INH PRN Q6HRS PRN for wheezing for 21 Days, #1 INHALER 0 Refills 12/27/19 Colchicine (COLCRYS) 0.6 Mg Tablet, 0.6 MG PO PRN BID PRN for GOUT 06/26/16 MATTHEW MITTAL MD Sep 21, 2020 14:22
[2020-09-21] MEDS ORDERED: LACT20SO PO (14:26)
[2020-09-21] MEDS ORDERED: POTA20TA4 PO (14:26)
[2020-09-21] MEDS ORDERED: INSU100V8 SQ (14:26)
[2020-09-21] MEDS ORDERED: INSU100V35 SQ (14:26)
[2020-09-21] MEDS ORDERED: LOSA-73 PO (14:26)
[2020-09-21] MEDS ORDERED: PANT40TA77 PO (14:26)
--- NOTE | 2020-09-21 17:00 | NUR ---
Pt discharged home with self care. Discharge instructions and prescriptions discussed. Pt verbalized understanding. IV removed. Pt assisted to wheelchair and was secured in car with son.
--- NOTE | 2020-09-22 15:09 | PATHOLOGY ---
[facility] Accession Number: [id number] . 01 Material submitted: . colon - ASCENDING COLON POLYP. Modifiers: ascending . 01 Clinical history: . RECTAL BLEED, ANEMIA . 02 Diagnosis: Colon biopsies, ascending colon polyp: - Tubular adenoma. - Fecal (vegetable) material. (JPM:ambrocio; 09/22/2020) QMS 09/22/2020 0908 Local . 02 Comment: There is no high grade dysplasia or evidence of malignancy. (JPM:ambrocio; 09/22/2020) . 02 Electronically signed: . Killian Bradshaw MD, Pathologist NPI- [id number] . 01 Gross description: . Received in formalin labeled "Henre, Tawana, ascending colon polyp" are multiple butts-brown soft tissue fragments measuring in aggregate 1.4 x 0.6 x 0.2 cm. The specimen is submitted entirely in A1. [place] [place]/[facility] 09/21/2020 1158 Local . 02 Pathologist provided ICD-10: D12.2 . 02 CPT . 562016 Specimen Comment: A courtesy copy of this report has been sent to [phone], [phone] Specimen Comment: [phone], Specimen Comment: Report sent to ,DR GONZALEZ / DR WORLEY Performed at: 01 [facility] [address], [place] [id number] MD Richard López MD Phone: [phone] Performed at: 02 [facility] [address], [place] [id number] MD Killian Bradshaw MD Phone: [phone]
== END 2020-09-21 17:05 | disposition home health service (06) | DRG 441 ==
LOC: ER 12:04 → 4 NORTH 17:38
PROVIDERS: ADMIT Internal Medicine; ATTEND Internal Medicine
PROC: 06L38CZ Occlusion of Esophageal Vein with Extraluminal Device, Via Natural or Artificial Opening Endoscopic (ICD-10-PCS; principal; 2020-09-14 12:00)
PROC: 0DBK8ZZ Excision of Ascending Colon, Via Natural or Artificial Opening Endoscopic (ICD-10-PCS; 2020-09-19)
PROC: 0DBL8ZZ Excision of Transverse Colon, Via Natural or Artificial Opening Endoscopic (ICD-10-PCS; 2020-09-19)
PROC: 30233N1 Transfusion of Nonautologous Red Blood Cells into Peripheral Vein, Percutaneous Approach (ICD-10-PCS; 2020-09-19)
DX: K72.90 Hepatic failure, unspecified without coma (principal); K57.51 Diverticulosis of both small and large intestine without perforation or abscess with bleeding; D62 Acute posthemorrhagic anemia; I85.10 Secondary esophageal varices without bleeding; R18.8 Other ascites; K74.60 Unspecified cirrhosis of liver; D63.8 Anemia in other chronic diseases classified elsewhere; E03.9 Hypothyroidism, unspecified; E11.9 Type 2 diabetes mellitus without complications; E78.5 Hyperlipidemia, unspecified; G89.29 Other chronic pain; I10 Essential (primary) hypertension; J45.909 Unspecified asthma, uncomplicated; K21.9 Gastro-esophageal reflux disease without esophagitis; K59.00 Constipation, unspecified; K63.5 Polyp of colon; K64.4 Residual hemorrhoidal skin tags; K64.8 Other hemorrhoids; K75.81 Nonalcoholic steatohepatitis (NASH); M10.9 Gout, unspecified; M19.90 Unspecified osteoarthritis, unspecified site; Z79.01 Long term (current) use of anticoagulants; Z80.3 Family history of malignant neoplasm of breast; Z82.49 Family history of ischemic heart disease and other diseases of the circulatory system; Z83.3 Family history of diabetes mellitus; Z86.010 Personal history of colon polyps; Z90.710 Acquired absence of both cervix and uterus
CPT/HCPCS: 36415; 36430; 43244; 45380; 74176; 76705; 78278; 80048; 80053; 81001; 82105; 82140; 82607; 82668; 82728; 82962; 83010; 83540; 83550; 83615; 83690; 83735; 85007; 85014; 85018; 85025; 85027; 85045; 85610; 85730; 86705; 86709; 86803; 86850; 86900; 86901; 86920; 87340; 87426; 93976; 96374; 96375; A9560; C9113; J1815; J2405; J2704; J3490; J7030; J7040; J7120; P9016; 97116-GP; 99285-25; G0378; Q0163; Q0169; U0003-CS

== ENCOUNTER → 2020-10-13 | Day surgery (SDC) | payer OTHER ==
[~2020-10-13] MED LIST changes: +FERR325T72 PO; +HYDROmorphone 2 MG/ML VIAL IV PRN; +INSU100V35 SQ; +INSU100V8 SQ; +IV RINGERS,LACTATED 1000ML 1,000 ML IV SCH; +LACT20SO PO; +LIDOCAINE 2% PF 5 ML VIAL. ONE; +LOSA-73 PO; +MORPHINE SULFATE 2 MG/ML VIAL. IV PRN; +ONDANSETRON PF 4 MG/2 ML VIAL. IV PRN; +PANT40TA77 PO; +PROCHLORPERAZINE 10 MG/2 ML VIAL. IV PRN; +PROPOFOL 10 MG/ML (20ML) VIAL. IV ONE; +fentaNYL PF VIAL 100 MCG/2 ML VIAL IV PRN
[2020-10-13 10:25] VITALS: BP 105/53
== END | disposition home or self-care (01) ==
LOC: SURG 08:43
PROVIDERS: ATTEND Internal Medicine Gastroenterology
DX: I85.00 Esophageal varices without bleeding (principal); K29.50 Unspecified chronic gastritis without bleeding; K21.9 Gastro-esophageal reflux disease without esophagitis; I10 Essential (primary) hypertension; E03.9 Hypothyroidism, unspecified; M19.90 Unspecified osteoarthritis, unspecified site; E78.00 Pure hypercholesterolemia, unspecified; E11.9 Type 2 diabetes mellitus without complications; M10.9 Gout, unspecified; Z90.710 Acquired absence of both cervix and uterus; Z98.890 Other specified postprocedural states; Z79.899 Other long term (current) drug therapy; Z79.84 Long term (current) use of oral hypoglycemic drugs; Z91.040 Latex allergy status; Z88.8 Allergy status to other drugs, medicaments and biological substances; Z20.828 Contact with and (suspected) exposure to other viral communicable diseases
CPT/HCPCS: 43244; 87426; C9803; J2704; U0003

== ENCOUNTER → 2020-11-16 | Day surgery (SDC) | payer OTHER ==
[~2020-11-16] MED LIST changes: +GLYCOPYRROLATE 1 MG/5 ML VIAL. ONE; -HYDROmorphone 2 MG/ML VIAL IV PRN; +HYDROmorphone 2 MG/ML VIAL IVP PRN; -MORPHINE SULFATE 2 MG/ML VIAL. IV PRN; +MORPHINE SULFATE 2 MG/ML VIAL. IVP PRN; -ONDANSETRON PF 4 MG/2 ML VIAL. IV PRN; -PROCHLORPERAZINE 10 MG/2 ML VIAL. IV PRN; +PROCHLORPERAZINE 10 MG/2 ML VIAL. IVP PRN; -fentaNYL PF VIAL 100 MCG/2 ML VIAL IV PRN
[2020-11-16 13:19] VITALS: BP 128/72
--- NOTE | 2020-11-16 14:03 | HP ---
ADMIT DATE: 11/16/2020 REASON: Esophageal varices. REFERRING PHYSICIAN: ZEINAB Rutledge HISTORY OF PRESENT ILLNESS: A 65-year-old female with past medical history significant for gouty arthritis, diabetes, hypothyroidism, cirrhosis, is seen for interval banding. Previous banding was successful. No bleeding afterwards. She did have significant atypical chest pain and some dysphagia, which has subsequently resolved. She is here today for repeat banding. PAST MEDICAL HISTORY: Hypertension, hyperlipidemia, hypothyroidism, GERD, cirrhosis, varices. ALLERGIES: ROSUVASTATIN, EZETIMIBE, LATEX. MEDICATIONS: Include allopurinol, calcium, cholecalciferol, Farxiga, glimepiride, lactulose, levothyroxine, losartan, metformin, and pantoprazole. FAMILY HISTORY: Significant for breast cancer with mother, diabetes, hypertension. SOCIAL HISTORY: Nondrinker, nonsmoker. REVIEW OF SYSTEMS: Per records. PHYSICAL EXAMINATION: GENERAL: Reveals a well-nourished, well-developed female who is alert, cooperative, in no acute distress. VITAL SIGNS: Temperature 98.1, pulse 76, respirations ____, and pulse ox 96%. LUNGS: Clear. CARDIOVASCULAR: Reveals an S1, S2 without S3, S4 or appreciable murmur. ABDOMEN: With a soft abdomen with normal bowel sounds, without appreciable hepatosplenomegaly. EXTREMITIES: No cyanosis, clubbing or edema. IMPRESSION: History of varices. Interval endoscopy with possible band ligation recommended. Risks and benefits were discussed with the patient including risk of hemorrhage and perforation and is willing to proceed. I would like to thank Cassandra Nichols for allowing us to consult and participate in this patient's care. REMINGTON NIXON MD DR: JENNIFER/robert JOB#: [id number] / [id number] CASSANDRA Terry
== END | disposition home or self-care (01) ==
LOC: ENDOS 10:57
PROVIDERS: ATTEND Internal Medicine Gastroenterology
DX: I85.00 Esophageal varices without bleeding (principal); K29.50 Unspecified chronic gastritis without bleeding; I10 Essential (primary) hypertension; E03.9 Hypothyroidism, unspecified; K21.9 Gastro-esophageal reflux disease without esophagitis; E78.00 Pure hypercholesterolemia, unspecified; M19.90 Unspecified osteoarthritis, unspecified site; M10.9 Gout, unspecified; Z90.710 Acquired absence of both cervix and uterus; Z98.890 Other specified postprocedural states; Z79.899 Other long term (current) drug therapy; Z79.84 Long term (current) use of oral hypoglycemic drugs; Z82.49 Family history of ischemic heart disease and other diseases of the circulatory system; Z83.3 Family history of diabetes mellitus; Z91.040 Latex allergy status; Z88.8 Allergy status to other drugs, medicaments and biological substances; Z20.828 Contact with and (suspected) exposure to other viral communicable diseases
CPT/HCPCS: 43244; 87426; C9803; J2704; J3490; U0003

== ENCOUNTER → 2020-11-20 | Outpatient (CLI) | payer OTHER ==
[2020-11-16 13:19] VITALS: BP 128/72
[~2020-11-20] MED LIST changes: -GLYCOPYRROLATE 1 MG/5 ML VIAL. ONE; -HYDROmorphone 2 MG/ML VIAL IVP PRN; -IV RINGERS,LACTATED 1000ML 1,000 ML IV SCH; -LIDOCAINE 2% PF 5 ML VIAL. ONE; -MORPHINE SULFATE 2 MG/ML VIAL. IVP PRN; -PROCHLORPERAZINE 10 MG/2 ML VIAL. IVP PRN; -PROPOFOL 10 MG/ML (20ML) VIAL. IV ONE
[2020-11-20 10:59] LABS: BASO # 0.1 x10^3/uL (0.0-0.2); BASO % 1 % (0-3); EOS % 1 % (0-3); HEMATOCRIT 37.5 % (36.0-47.0); HEMOGLOBIN 12.4 g/dL (12.0-15.5); LYMPH # 0.7 x10^3/uL (1.0-4.8); LYMPH % 18 % (24-48); MEAN CORPUSCULAR HEMOGLOBIN 30 pg (25-35); MEAN CORPUSCULAR HGB CONC 33 g/dL (31-37); MEAN CORPUSCULAR VOLUME 91 fL (79-100); MONO # 0.4 x10^3/uL (0.0-1.1); MONO % 10 % (0-9); NEUT # 2.8 x10^3/uL (1.8-7.7); NEUT % 70 % (31-73); PLATELET COUNT 94 x10^3/uL (140-400); RED BLOOD COUNT 4.12 x10^6/uL (3.50-5.40); RED CELL DISTRIBUTION WIDTH 19.1 % (11.5-14.5)
== END ==
LOC: ONCLAB 08:09
PROVIDERS: ATTEND Internal Medicine Hematology & Oncology
DX: D50.0 Iron deficiency anemia secondary to blood loss (chronic) (principal)
CPT/HCPCS: 36415; 82728; 83540; 83550; 85025

== ENCOUNTER 2020-12-16 11:50 | Inpatient (IN) | payer OTHER ==
[~2020-12-16] VITALS: Ht 170.2 cm; Wt 79.5 kg
[2020-12-16 12:47] LABS: BASO # 0.1 x10^3/uL (0.0-0.2); BASO % 1 % (0-3); EOS % 1 % (0-3); HEMATOCRIT 28.5 % (36.0-47.0); HEMOGLOBIN 9.5 g/dL (12.0-15.5); LYMPH # 1.2 x10^3/uL (1.0-4.8); LYMPH % 15 % (24-48); MEAN CORPUSCULAR HEMOGLOBIN 30 pg (25-35); MEAN CORPUSCULAR HGB CONC 33 g/dL (31-37); MEAN CORPUSCULAR VOLUME 91 fL (79-100); MONO # 0.5 x10^3/uL (0.0-1.1); MONO % 6 % (0-9); NEUT % 77 % (31-73); PLATELET COUNT 142 x10^3/uL (140-400); RED BLOOD COUNT 3.11 x10^6/uL (3.50-5.40); RED CELL DISTRIBUTION WIDTH 16.7 % (11.5-14.5); WHITE BLOOD COUNT 7.8 x10^3/uL (4.0-11.0)
[2020-12-16 12:58] LABS: CALCIUM 9.2 mg/dL (8.5-10.1); GFR 55.6; POTASSIUM 4.4 mmol/L (3.5-5.1)
[2020-12-16 13:03] LABS: ALBUMIN 3.3 g/dL (3.4-5.0); DIRECT BILIRUBIN 0.1 mg/dL (0.0-0.2); TOTAL BILIRUBIN 0.5 mg/dL (0.2-1.0); TOTAL PROTEIN 6.6 g/dL (6.4-8.2)
[2020-12-16 13:08] LABS: PROTHROMBIN TIME PATIENT 13.6 SEC (11.7-14.0)
--- NOTE | 2020-12-16 13:38 | PHYS DOC ---
Past Medical History Past Medical History: Diabetes-Type II, GERD, Other Additional Past Medical Histor: DJD; anemia Past Surgical History: Other Additional Past Surgical Histo: R knee, left replacment Smoking Status: Never Smoker Alcohol Use: None Adult General Chief Complaint Chief Complaint: RECTAL BLEED [facility] HPI Patient is a 65 year old female with a past medical history of chronic cirrhosis with variceal banding currently follows up with a facilities and grounds director monthly now presents emergency department for new onset of black tarry stools. Patient states she is having to her approximate 5 months ago during which time she was noted to have a variceal bleed. Patient also notes that she is a history of hemorrhoids but believes that the symptoms are different. Denies any nausea, vomiting, fever, chills, chest pain or shortness of Review of Systems Review of Systems Constitutional: Denies fever or chills [] Eyes: Denies change in visual acuity, redness, or eye pain [] HENT: Denies nasal congestion or sore throat [] Respiratory: Denies cough or shortness of breath [] Cardiovascular: No additional information not addressed in HPI [] GI: Denies abdominal pain, nausea, vomiting, bloody stools or diarrhea [] : Denies dysuria or hematuria [] Musculoskeletal: Denies back pain or joint pain [] Integument: Denies rash or skin lesions [] Neurologic: Denies headache, focal weakness or sensory changes [] Endocrine: Denies polyuria or polydipsia [] All other systems were reviewed and found to be within normal limits, except as documented in this note. Current Medications Current Medications Current Medications Medications (Trade) Dose Ordered Sig/Brandy Start Time Stop Time Status Last Admin Dose Admin Octreotide Acetate 500 mcg/ Sodium Chloride 101 ml @ 0 mls/hr CONT PRN 12/16/20 17:30 Ondansetron HCl (Zofran) 4 mg PRN Q8HRS PRN 12/16/20 17:45 12/17/20 17:44 Pantoprazole Sodium 80 mg/ Sodium Chloride 100 ml @ 10 mls/hr 1X ONCE 12/16/20 17:30 12/17/20 03:29 Sodium Chloride 1,000 ml @ 1,000 mls/hr 1X ONCE 12/16/20 14:30 12/16/20 15:29 DC 12/16/20 14:55 1,000 MLS/HR Allergies Allergies Allergies Coded Allergies Type Severity Reaction Last Updated Verified latex Allergy Intermediate RASH 11/16/20 Yes ezetimibe Adverse Reaction Intermediate BODY ACHES 11/16/20 Yes rosuvastatin Adverse Reaction Intermediate BODY ACHES 11/16/20 Yes Physical Exam Physical Exam Constitutional: Well developed, well nourished, no acute distress, non-toxic appearance. [] HENT: Normocephalic, atraumatic, bilateral external ears normal, oropharynx moist, no oral exudates, nose normal. [] Eyes: PERRLA, EOMI, conjunctiva normal, no discharge. [] Neck: Normal range of motion, no tenderness, supple, no stridor. [] Cardiovascular:Heart rate regular rhythm, no murmur [] Lungs & Thorax: Bilateral breath sounds clear to auscultation [] Abdomen: Bowel sounds normal, soft, no tenderness, no masses, no pulsatile masses. [] Skin: Warm, dry, no erythema, no rash. [] Back: No tenderness, no CVA tenderness. [] Extremities: No tenderness, no cyanosis, no clubbing, ROM intact, no edema. [] Neurologic: Alert and oriented X 3, normal motor function, normal sensory function, no focal deficits noted. [] Psychologic: Affect normal, judgement normal, mood normal. [] Current Patient Data Vital Signs Vital Signs Date Time Temp Pulse Resp B/P (MAP) Pulse Ox O2 Delivery O2 Flow Rate FiO2 12/16/20 13:30 104 18 133/65 (87) 97 Room Air 12/16/20 11:57 98.0 98.0 Lab Values Laboratory Tests Test 12/16/20 12:37 12/16/20 14:53 12/16/20 15:40 White Blood Count 7.8 x10^3/uL (4.0-11.0) Red Blood Count 3.11 x10^6/uL (3.50-5.40) L Hemoglobin 9.5 g/dL (12.0-15.5) L 9.1 g/dL (12.0-15.5) L Hematocrit 28.5 % (36.0-47.0) L Mean Corpuscular Volume 91 fL (79-100) Mean Corpuscular Hemoglobin 30 pg (25-35) Mean Corpuscular Hemoglobin Concent 33 g/dL (31-37) Red Cell Distribution Width 16.7 % (11.5-14.5) H Platelet Count 142 x10^3/uL (140-400) Neutrophils (%) (Auto) 77 % (31-73) H Lymphocytes (%) (Auto) 15 % (24-48) L Monocytes (%) (Auto) 6 % (0-9) Eosinophils (%) (Auto) 1 % (0-3) Basophils (%) (Auto) 1 % (0-3) Neutrophils # (Auto) 6.0 x10^3/uL (1.8-7.7) Lymphocytes # (Auto) 1.2 x10^3/uL (1.0-4.8) Monocytes # (Auto) 0.5 x10^3/uL (0.0-1.1) Eosinophils # (Auto) 0.0 x10^3/uL (0.0-0.7) Basophils # (Auto) 0.1 x10^3/uL (0.0-0.2) Prothrombin Time 13.6 SEC (11.7-14.0) Prothrombin Time INR 1.1 (0.8-1.1) Sodium Level 138 mmol/L (136-145) Potassium Level 4.4 mmol/L (3.5-5.1) Chloride Level 103 mmol/L (98-107) Carbon Dioxide Level 19 mmol/L (21-32) L Anion Gap 16 (6-14) H Blood Urea Nitrogen 43 mg/dL (7-20) H Creatinine 1.0 mg/dL (0.6-1.0) Estimated GFR (Cockcroft-Gault) 55.6 Glucose Level 344 mg/dL (70-99) H Calcium Level 9.2 mg/dL (8.5-10.1) Total Bilirubin 0.5 mg/dL (0.2-1.0) Direct Bilirubin 0.1 mg/dL (0.0-0.2) Aspartate Amino Transferase (AST) 21 U/L (15-37) Alanine Aminotransferase (ALT) 61 U/L (14-59) H Alkaline Phosphatase 99 U/L (46-116) Total Protein 6.6 g/dL (6.4-8.2) Albumin 3.3 g/dL (3.4-5.0) L Stool Occult Blood Positive (NEG) Laboratory Tests 12/16/20 12:37 12/16/20 15:40 Laboratory Tests 12/16/20 12:37 EKG EKG [] Radiology/Procedures Radiology/Procedures [] Course & Med Decision Making Course & Med Decision Making Pertinent Labs and Imaging studies reviewed. (See chart for details) 65F presented boxers which affect concern for new onset of upper GI bleed. Will obtain abdominal labs and an H&H and reevaluate Dragon Disclaimer Dragon Disclaimer This electronic medical record was generated, in whole or in part, using a voice recognition dictation system. Departure Departure Impression: Primary Impression: GI bleed Disposition: ADMITTED INPT THIS HOSP Condition: STABLE Referrals: DIONISIO WORLEY (PCP) OUSMANE PANCHAL MD Dec 16, 2020 13:38
[2020-12-16] MEDS ORDERED: IV NORMAL SALINE 1000ML BAG 1,000 ML IV ONE ×2 (14:30→18:45)
[2020-12-16 15:08] LABS: FECAL OB PT POSITIVE (NEG)
[2020-12-16] MEDS ORDERED: PANTOPRAZOLE SODIUM IV DRIP 80 MG in IV NORMAL SALINE 100ML 100 ML IV ONE (17:30)
[2020-12-16] MEDS ORDERED: ONDANSETRON PF 4 MG/2 ML VIAL. IV PRN (17:45)
--- NOTE | 2020-12-16 17:51 | PDOC1 ---
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 Patient states she is having to her approximate 5 months ago during which time she was noted to have a variceal bleed. Patient also notes that she is a history of hemorrhoids but believes that the symptoms are different. Denies any nausea, vomiting, fever, chills, chest pain or shortness of Past Medical/Surgical History: PMH/PSH: Past Medical History: Diabetes-Type II, GERD, DJD; anemia, cirrhosis non- alcoholic Past Surgical History: R knee, left replacment, EGD with banding of esophageal varices 11/20/20 Allergies: Allergies: Coded Allergies: latex (Verified Allergy, Intermediate, RASH, 11/16/20) ezetimibe (Verified Adverse Reaction, Intermediate, BODY ACHES, 11/16/20) rosuvastatin (Verified Adverse Reaction, Intermediate, BODY ACHES, 11/16/20) Family History: Family History: Reviewed and significant for cardiovascular disease in the father and breast cancer in the mother Social History: Social History: Smoking Status: Never Smoker Alcohol Use: None Current Medications: Current Medications Current Medications Sodium Chloride 1,000 ml @ 1,000 mls/hr 1X ONCE IV Last administered on 12/16/20at 14:55; Start 12/16/20 at 14:30; Stop 12/16/20 at 15:29; Status DC Octreotide Acetate 500 mcg/ Sodium Chloride 101 ml @ 0 mls/hr CONT PRN IV SEE I/O RECORD; Start 12/16/20 at 17:30 Pantoprazole Sodium 80 mg/ Sodium Chloride 100 ml @ 10 mls/hr 1X ONCE IV ; Start 12/16/20 at 17:30; Stop 12/17/20 at 03:29 Active Scripts Active Pantoprazole Sodium (Pantoprazole Sodium) 40 Mg Tablet. 40 Mg PO DAILYAC 30 Days Lactulose 20 Gm/30 Ml Solution 20 Gm PO BID 30 Days Laura (Losartan Potassium) 50 Mg Tablet 50 Mg PO DAILY 30 Days Reported Metformin Hcl 1,000 Mg Tablet 1,000 Mg PO BIDWMEALS Acetaminophen 500 Mg Tablet 2 Tab PO PRN Q6HRS PRN Diphenhydramine Hcl 25 Mg Tablet 25 Mg PO QHS Claritin (Loratadine) 10 Mg Tablet 1 Tab PO DAILY D3-50 (Cholecalciferol (Vitamin D3)) 50,000 Unit Capsule 1 Cap PO FRIDAY 14 Days Promethazine Hcl 25 Mg Tablet 25 Mg PO Q6H PRN Zofran (Ondansetron Hcl) 8 Mg Tablet 8 Mg PO PRN Q8HRS PRN Glimepiride 4 Mg Tablet 4 Mg PO BIDWMEALS Farxiga (Dapagliflozin Propanediol) 10 Mg Tablet 10 Mg PO DAILY Allopurinol 300 Mg Tablet 300 Mg PO DAILY Januvia (Sitagliptin Phosphate) 100 Mg Tablet 100 Mg PO DAILY Clobetasol Propionate 15 Gm Cream..g. 0.5 % TP PRN BID PRN Fibercon (Calcium Polycarbophil) 625 Mg Tablet 2 Tab PO BIDWMEALS Magnesium Oxide 400 Mg Tablet 800 Mg PO HS Lortab 10-325 mg Tablet (Hydrocodone/Acetaminophen) 1 Each Tablet 1 Tab PO Q4HRS PRN Levothyroxine Sodium 112 Mcg Tablet 2 Tab PO DAILY Klor-Con M20 (Potassium Chloride) 20 Meq Tab.er.prt 20 Meq PO DAILY Lasix (Furosemide) 40 Mg Tablet 40 Mg PO DAILY ROS: Review of Systems Review of System REVIEW OF SYSTEMS: GENERAL: Denies weakness SKIN: No bruising, hair changes or rashes. EYES: No blurred, double or loss of vision. NOSE AND THROAT: No history of nosebleeds, hoarseness or sore throat. HEART: No history of palpitations, chest pain or shortness of breath on exertion. LUNGS: Denies cough, hemoptysis, wheezing or shortness of breath. GASTROINTESTINAL: Denies changes in appetite, nausea, vomiting, diarrhea or constipation. GENITOURINARY: No history of frequency, urgency, hesitancy or nocturia. NEUROLOGIC: Denies history of numbness, tingling, or tremor. PSYCHIATRIC: No history of panic, anxiety or depression. ENDOCRINE: No history of heat or cold intolerance, polyuria or polydipsia. EXTREMITIES: Denies joint pain, pain on walking or stiffness. Physical Exam: Vital Signs: Vital Signs Date Time Temp Pulse Resp B/P (MAP) Pulse Ox O2 Delivery O2 Flow Rate FiO2 12/16/20 13:30 104 18 133/65 (87) 97 Room Air 12/16/20 11:57 98.0 98.0 Physcial Exam: GEN: No apparent distress. Alert and oriented HEENT: Normal cephalic, atraumatic, external auditory canals are patent EYES: Extraocular muscles are intact, pupil are equally round and reactive to light and accommodation MUSCULOSKELETAL: Well developed , well nourished, good range of motion ENDOCRINE: No thyromegaly was palpated LYMPHATICS: No cervical chain or axillary nodes were noted HEMATOPOIETIC: No bruising NECK: Supple, no JVD, no thyromegaly was noted LUNGS: Clear to auscultation in all lung [place] without rhonchi or wheezing HEART: RRR, S!, S2 present. Peripheral pulses intact, no obvious murmurs noted ABDOMEN: Soft, nontender. Positive bowel sounds, no organomegaly, normal bowel sounds EXTREMITIES: Without clubbing, cyanosis, or edema. Pedal pulses intact. Negative Homans sign NEUROLOGIC: Normal speech and tone. A&O x 3, moves all extremities, no obvious focal deficits PSYCHIATRIC: Normal affect, normal mood. Stable SKIN: No ulcerations or rashes, good skin turgor, no jaundice VASCULAR: Good capillary refill, neurovascular bundle appears to be intact Labs: Labs: Laboratory Tests Test 12/16/20 12:37 12/16/20 14:53 12/16/20 15:40 White Blood Count 7.8 x10^3/uL (4.0-11.0) Red Blood Count 3.11 x10^6/uL (3.50-5.40) Hemoglobin 9.5 g/dL (12.0-15.5) 9.1 g/dL (12.0-15.5) Hematocrit 28.5 % (36.0-47.0) Mean Corpuscular Volume 91 fL (79-100) Mean Corpuscular Hemoglobin 30 pg (25-35) Mean Corpuscular Hemoglobin Concent 33 g/dL (31-37) Red Cell Distribution Width 16.7 % (11.5-14.5) Platelet Count 142 x10^3/uL (140-400) Neutrophils (%) (Auto) 77 % (31-73) Lymphocytes (%) (Auto) 15 % (24-48) Monocytes (%) (Auto) 6 % (0-9) Eosinophils (%) (Auto) 1 % (0-3) Basophils (%) (Auto) 1 % (0-3) Neutrophils # (Auto) 6.0 x10^3/uL (1.8-7.7) Lymphocytes # (Auto) 1.2 x10^3/uL (1.0-4.8) Monocytes # (Auto) 0.5 x10^3/uL (0.0-1.1) Eosinophils # (Auto) 0.0 x10^3/uL (0.0-0.7) Basophils # (Auto) 0.1 x10^3/uL (0.0-0.2) Prothrombin Time 13.6 SEC (11.7-14.0) Prothromb Time International Ratio 1.1 (0.8-1.1) Sodium Level 138 mmol/L (136-145) Potassium Level 4.4 mmol/L (3.5-5.1) Chloride Level 103 mmol/L (98-107) Carbon Dioxide Level 19 mmol/L (21-32) Anion Gap 16 (6-14) Blood Urea Nitrogen 43 mg/dL (7-20) Creatinine 1.0 mg/dL (0.6-1.0) Estimated GFR (Cockcroft-Gault) 55.6 Glucose Level 344 mg/dL (70-99) Calcium Level 9.2 mg/dL (8.5-10.1) Total Bilirubin 0.5 mg/dL (0.2-1.0) Direct Bilirubin 0.1 mg/dL (0.0-0.2) Aspartate Amino Transf (AST/SGOT) 21 U/L (15-37) Alanine Aminotransferase (ALT/SGPT) 61 U/L (14-59) Alkaline Phosphatase 99 U/L (46-116) Total Protein 6.6 g/dL (6.4-8.2) Albumin 3.3 g/dL (3.4-5.0) Stool Occult Blood Positive (NEG) Laboratory Tests Test 12/16/20 12:37 12/16/20 14:53 12/16/20 15:40 White Blood Count 7.8 x10^3/uL (4.0-11.0) Red Blood Count 3.11 x10^6/uL (3.50-5.40) Hemoglobin 9.5 g/dL (12.0-15.5) 9.1 g/dL (12.0-15.5) Hematocrit 28.5 % (36.0-47.0) Mean Corpuscular Volume 91 fL (79-100) Mean Corpuscular Hemoglobin 30 pg (25-35) Mean Corpuscular Hemoglobin Concent 33 g/dL (31-37) Red Cell Distribution Width 16.7 % (11.5-14.5) Platelet Count 142 x10^3/uL (140-400) Neutrophils (%) (Auto) 77 % (31-73) Lymphocytes (%) (Auto) 15 % (24-48) Monocytes (%) (Auto) 6 % (0-9) Eosinophils (%) (Auto) 1 % (0-3) Basophils (%) (Auto) 1 % (0-3) Neutrophils # (Auto) 6.0 x10^3/uL (1.8-7.7) Lymphocytes # (Auto) 1.2 x10^3/uL (1.0-4.8) Monocytes # (Auto) 0.5 x10^3/uL (0.0-1.1) Eosinophils # (Auto) 0.0 x10^3/uL (0.0-0.7) Basophils # (Auto) 0.1 x10^3/uL (0.0-0.2) Prothrombin Time 13.6 SEC (11.7-14.0) Prothromb Time International Ratio 1.1 (0.8-1.1) Sodium Level 138 mmol/L (136-145) Potassium Level 4.4 mmol/L (3.5-5.1) Chloride Level 103 mmol/L (98-107) Carbon Dioxide Level 19 mmol/L (21-32) Anion Gap 16 (6-14) Blood Urea Nitrogen 43 mg/dL (7-20) Creatinine 1.0 mg/dL (0.6-1.0) Estimated GFR (Cockcroft-Gault) 55.6 Glucose Level 344 mg/dL (70-99) Calcium Level 9.2 mg/dL (8.5-10.1) Total Bilirubin 0.5 mg/dL (0.2-1.0) Direct Bilirubin 0.1 mg/dL (0.0-0.2) Aspartate Amino Transf (AST/SGOT) 21 U/L (15-37) Alanine Aminotransferase (ALT/SGPT) 61 U/L (14-59) Alkaline Phosphatase 99 U/L (46-116) Total Protein 6.6 g/dL (6.4-8.2) Albumin 3.3 g/dL (3.4-5.0) Stool Occult Blood Positive (NEG) Assessment/Plan Assessment/Plan Acute lower GI bleeding with melenic stools Normocytic anemia secondary to GI blood loss Prerenal azotemia Admit to medicine for further management Trend H&H GI consult Continue octreotide and Protonix drip Contraindicated for DVT prophylaxis Octreotide and Protonix drip GI prophylaxis N.p.o. at midnight Full code Discussed with RN and SW Disposition inpatient management as above Surrogate decision maker is Jose Cancino Justifications for Admission Other Justification SANJUANA MAXWELL MD Dec 16, 2020 17:51
[2020-12-16] MEDS: OCTREOTIDE 500 MCG in IV NORMAL SALINE 100ML 100 ML IV PRN (18:03)
[2020-12-16] MEDS ORDERED: ONDANSETRON PF 4 MG/2 ML VIAL. IVP PRN (18:45)
[2020-12-16] MEDS ORDERED: ACETAMINOPHEN 325 MG TABLET. PO PRN (18:45)
[2020-12-16] MEDS ORDERED: DOCUSATE SODIUM 100 MG CAPSULE. PO PRN (18:45)
[2020-12-16] MEDS ORDERED: SENNOSIDES 8.6 MG TABLET PO PRN (18:45)
[2020-12-16] MEDS ORDERED: DEXTROSE 50% 25 GM / 50ML DISP.SYRIN. IV PRN ×2 (18:45)
--- NOTE | 2020-12-16 20:05 | NUR ---
The patient, MARBELLA BURRELL, 65 y/o, F admitted by JUAN TREVINO MD, was given written information regarding hospital policies, unit procedures and contact persons. Valuables were checked and left with her.
[2020-12-16 23:00] VITALS: BP 106/61
[2020-12-17 02:52] LABS: BASO # 0.1 x10^3/uL (0.0-0.2); BASO % 1 % (0-3); EOS # 0.1 x10^3/uL (0.0-0.7); EOS % 1 % (0-3); HEMATOCRIT 25.2 % (36.0-47.0); HEMOGLOBIN 8.4 g/dL (12.0-15.5); LYMPH % 36 % (24-48); MEAN CORPUSCULAR HEMOGLOBIN 30 pg (25-35); MEAN CORPUSCULAR HGB CONC 33 g/dL (31-37); MEAN CORPUSCULAR VOLUME 92 fL (79-100); MONO # 0.5 x10^3/uL (0.0-1.1); MONO % 9 % (0-9); NEUT # 2.9 x10^3/uL (1.8-7.7); NEUT % 54 % (31-73); PLATELET COUNT 105 x10^3/uL (140-400); RED BLOOD COUNT 2.75 x10^6/uL (3.50-5.40); RED CELL DISTRIBUTION WIDTH 17.2 % (11.5-14.5); WHITE BLOOD COUNT 5.5 x10^3/uL (4.0-11.0)
[2020-12-17 03:00] VITALS: BP 118/67
[2020-12-17 03:04] LABS: CALCIUM 8.7 mg/dL (8.5-10.1); GFR 55.6; MAGNESIUM 2.3 mg/dL (1.8-2.4); PHOSPHORUS 4.5 mg/dL (2.6-4.7); POTASSIUM 4.2 mmol/L (3.5-5.1)
[2020-12-17] MEDS: OCTREOTIDE 500 MCG in IV NORMAL SALINE 100ML 100 ML IV PRN (05:40)
[2020-12-17 07:59] VITALS: BP 110/68
[2020-12-17] MEDS ORDERED: INSULIN LISPRO 300 UNITS/3 ML VIAL. SQ SCH (08:00)
[2020-12-17] MEDS ORDERED: DEXTROSE 50% 25 GM / 50ML DISP.SYRIN. IV PRN (10:00)
[2020-12-17] MEDS: INSULIN LISPRO 300 UNITS/3 ML VIAL. SQ SCH ×3 (10:00→18:00)
[2020-12-17] MEDS ORDERED: oxyCODONE/APAP 5/325 1 TAB TABLET PO PRN (10:15)
[2020-12-17] MEDS: IV 1/2 NORMAL SALINE 1,000 ML IV SCH (11:19)
--- NOTE | 2020-12-17 11:32 | HP ---
ADMIT DATE: 12/16/2020 HISTORY OF PRESENT ILLNESS: The patient is a 65-year-old female patient who came to the Emergency Room complaining of having black tarry stool. She apparently was diagnosed with liver cirrhosis due to nonalcoholic steatohepatitis about 5 months ago. She has had esophagogastroduodenoscopy and variceal banding monthly in August, October and October and followed by Dr. Masters. She denied any nausea or vomiting. Denied any hematemesis. Denied any fresh blood per rectum. Did complain of some dizziness and lightheadedness. Denied any abdominal pain. She apparently was evaluated in the Emergency Room and has had lab work, which showed that her hemoglobin was 9.5, hematocrit 28, with normal white cell count and platelets. Her prothrombin time and INR are normal and her chemistry showed that her BUN is disproportionately high to creatinine with a BUN of 43, creatinine 1. Her stool for occult blood was positive. The patient was admitted, kept n.p.o. and was started on IV octreotide as well as Protonix drip and was continued on Zofran 4 mg IV every 6 hours as needed for nausea and vomiting and the solutions sales consultant was consulted. PAST MEDICAL HISTORY: Significant for hypertension, hyperlipidemia, type 2 diabetes mellitus, gout, nonalcoholic steatohepatitis and generalized osteoarthritis. PAST SURGICAL HISTORY: Significant for left total knee arthroplasty, esophagogastroduodenoscopy and colonoscopy done about 4 years ago. The course of investigation for iron deficiency anemia. She has total abdominal hysterectomy, bilateral salpingo-oophorectomy, tonsillectomy. She underwent banding of esophageal varices x 3, last August, October and October. ALLERGIES: SHE IS INTOLERANT TO STATINS, LATEX AND ZETIA. MEDICATIONS: She is currently on following medications: She is on diphenhydramine 25 mg at bedtime, promethazine 25 mg every 6 hours as needed, loratadine 10 mg daily. She is on losartan potassium 50 mg daily, hydrocodone/APAP 10/325 one tablet every 4 hours as needed, Tylenol 1000 mg every 6 hours, lactulose 30 mL p.o. daily p.r.n. for constipation, potassium chloride 20 mEq once a day, furosemide 40 mg once a day, magnesium oxide 800 mg at bedtime. She is on FiberCon 2 tablets twice a day with meals. She is on ondansetron 8 mg every 8 hours. She is on Protonix 40 mg daily, metformin 1000 mg twice a day, sitagliptin phosphate 100 mg once a day and she is on Farxiga 10 mg daily. She is on glimepiride 4 mg p.o. b.i.d., levothyroxine sodium she takes 224 mcg once a day. She is on clobetasol propionate cream applied topically twice a day, vitamin D 50,000 International Unit once a week, and allopurinol 300 mg daily. FAMILY HISTORY: She has two brothers. One has multiple medical problems including type 2 diabetes mellitus, coronary artery disease, status post myocardial infarction, rheumatoid arthritis, and CVA. Her younger brother has gastroesophageal reflux disease and esophageal stricture. Her father at the age of 87 with the complication of end-stage renal disease and myocardial infarction. Mother at the age of 63 due to smoke inhalation in a house fire. SOCIAL HISTORY: She is , has 2 sons. She never smoked, does not drink alcohol or use recreational drugs. 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 REVIEW OF SYSTEMS: As per history of present illness. PHYSICAL EXAMINATION: GENERAL: On arrival to the Emergency Room, the patient looked pale, but no jaundice, cyanosis, or thyromegaly. No jugular venous distension. No lower limb edema. VITAL SIGNS: Her heart rate was 89, blood pressure was 112/58, temperature was 98, respiratory rate was 18 and oxygen saturation was 97% on room air. HEAD, EYES, EARS, NOSE AND THROAT: Showed normocephalic, atraumatic. NECK: Supple. HEART: Showed normal first and second heart sounds. No gallop or murmur. CHEST: Clear to auscultation. No crepitation or rhonchi. ABDOMEN: Distended, soft, nontender. No guarding or rigidity. No organomegaly. All hernial orifice intact. Bowel sounds normal. NEUROLOGIC: She was awake, alert, responding appropriately. All cranial nerves intact. EXTREMITIES: She moves extremities without difficulty. She ambulates without assistance or assistive devices. LABORATORY DATA: Her lab work on arrival to the Emergency Room showed a white cell count of 7800, hemoglobin 9.5, hematocrit 28.5, MCV 91, and platelet count of 142,000 with a manual differential shows 77% polymorphs, 15% lymphocytes and 6% monocytes. Her prothrombin time was 13.6, INR 1.1. Her chemistry showed a serum sodium 138, potassium 4.4, chloride 103, bicarbonate 19, anion gap of 16, BUN 43, creatinine 1, estimated GFR was 55 mL per minute. Her glucose was 344, calcium was 9.2. Total bilirubin, AST, ALT, alkaline phosphatase normal. Total protein 6.6, albumin 3.3. Her stool for occult blood was positive. Her coronavirus rapid testing was negative. ASSESSMENT AND PLAN: The patient was admitted to continue on IV octreotide and Protonix drip as well as IV fluid. We will continue to monitor her blood sugar and start her on insulin. We have consulted the solutions sales consultant for further evaluation. We will monitor her H and H every 6 hours and transfuse as needed. JUAN TREVINO MD DR: PATY/robert JOB#: [id number] / [id number]
--- NOTE | 2020-12-17 11:40 | PN ---
DATE: 12/17/2020 SUBJECTIVE: The patient is sitting comfortably in her recliner, in no apparent distress. Apart from being thirsty, she denied any other complaints. In particular, denied any nausea, vomiting, diarrhea, or constipation. Denied any hematemesis, melena, or hematochezia. Her last bowel movement was yesterday and it was dark tarry stool. Denied any abdominal pain. PHYSICAL EXAMINATION: GENERAL: When I saw her this morning, she looked pale, no jaundice, cyanosis or thyromegaly. No jugular venous distention. No limb edema. VITAL SIGNS: Her heart rate was 80, blood pressure was 110/68, temperature was 98.6, respiratory rate was 18 and oxygen saturation was 99% on room air. HEAD, EYES, EARS, NOSE, AND THROAT: Showed normocephalic, atraumatic. NECK: Supple. HEART: Showed normal first and second sounds. No gallop or murmur. CHEST: Clear to auscultation. No crepitation or rhonchi. ABDOMEN: Distended, soft, nontender. NEUROLOGIC: She is awake, alert, responding appropriately. All cranial nerves intact. She moves extremities without difficulty. She has no flapping tremor. LABORATORY DATA: Her intake and output were incompletely recorded as of this morning. Her serum sodium was 140, potassium 4.2, chloride 106, bicarbonate 24, anion gap of 10, BUN 35, creatinine 1, estimated GFR was 55 mL per minute. Her glucose was 101, calcium was 8.7, total phosphorus 4.5, and magnesium was 2.3. Her white cell count was 5500; hemoglobin 8.4; hematocrit 25; MCV 92; and platelet count of 105,000. ASSESSMENT: This is a 65-year-old female patient who presented with black tarry stool, likely due to esophageal varices, although other possibilities like peptic ulcer disease, possible. The patient was started on IV fluid, IV Protonix and IV ondansetron continue to monitor her hemoglobin and hematocrit every 6 hours and we will transfuse if the hemoglobin came down to 7 or less than 7. She is still n.p.o. obviously awaiting the Gastroenterology evaluation whether will arrange for her to have upper gastrointestinal endoscopy. JUAN TREVINO MD DR: PATY/robert JOB#: [id number] / [id number]
[2020-12-17 11:59] VITALS: BP 104/57
[2020-12-17 12:00] LABS: HEMATOCRIT 25.6 % (36.0-47.0); HEMOGLOBIN 8.7 g/dL (12.0-15.5)
[2020-12-17 12:11] LABS: PROTHROMBIN TIME PATIENT 13.6 SEC (11.7-14.0)
[2020-12-17 12:14] LABS: CALCIUM 8.8 mg/dL (8.5-10.1); CREATININE 0.9 mg/dL (0.6-1.0); GFR 62.8; POTASSIUM 4.5 mmol/L (3.5-5.1)
[2020-12-17] MEDS: PANTOPRAZOLE SODIUM IV DRIP 80 MG in IV NORMAL SALINE 100ML 100 ML IV PRN ×2 (12:14→22:03)
[2020-12-17 15:59] VITALS: BP 106/56
[2020-12-17 17:03] LABS: HEMATOCRIT 25.2 % (36.0-47.0); HEMOGLOBIN 8.3 g/dL (12.0-15.5)
--- NOTE | 2020-12-17 18:34 | NUR ---
Pt did not eat but a couple bites of dinner, that is the reasoning for holding pt's insulin.
[2020-12-17 19:00] VITALS: BP 109/51
[2020-12-17 21:24] LABS: HEMATOCRIT 26.2 % (36.0-47.0); HEMOGLOBIN 8.5 g/dL (12.0-15.5)
[2020-12-17] MEDS ORDERED: INSULIN GLARGINE SYRINGE. SQ SCH (22:00)
[2020-12-17 23:00] VITALS: BP 99/53
[2020-12-18] MEDS: IV 1/2 NORMAL SALINE 1,000 ML IV SCH (01:55)
[2020-12-18 03:00] VITALS: BP 106/59
[2020-12-18] MEDS: OCTREOTIDE 500 MCG in IV NORMAL SALINE 100ML 100 ML IV PRN (04:07)
[2020-12-18 07:00] VITALS: BP 106/46
[2020-12-18 07:25] LABS: HEMATOCRIT 22.6 % (36.0-47.0); HEMOGLOBIN 7.5 g/dL (12.0-15.5); RED BLOOD COUNT 2.43 x10^6/uL (3.50-5.40); RED CELL DISTRIBUTION WIDTH 16.2 % (11.5-14.5); WHITE BLOOD COUNT 3.8 x10^3/uL (4.0-11.0)
[2020-12-18] MEDS: INSULIN LISPRO 300 UNITS/3 ML VIAL. SQ SCH ×3 (07:30→17:59)
[2020-12-18 07:56] LABS: ALBUMIN 2.9 g/dL (3.4-5.0); ALBUMIN/GLOBULIN RATIO 0.9 (1.0-1.7); CALCIUM 8.3 mg/dL (8.5-10.1); CREATININE 0.8 mg/dL (0.6-1.0); POTASSIUM 3.8 mmol/L (3.5-5.1); TOTAL BILIRUBIN 0.3 mg/dL (0.2-1.0); TOTAL PROTEIN 6.1 g/dL (6.4-8.2)
--- NOTE | 2020-12-18 10:02 | NUR ---
SW following. Discussed with RN, pt from home, room air, NPO, COVID-19 negative. No PT/OT needs. GI consulted. SW will continue to follow.
--- NOTE | 2020-12-18 10:33 | PN ---
DATE: 12/18/2020 SUBJECTIVE: The patient is resting, slightly propped up in her recliner, in no apparent respiratory distress. She denied any nausea or vomiting. Denied any hematemesis, melena, or hematochezia. In fact, she has not had any bowel movement since Friday. Denied any abdominal pain. PHYSICAL EXAMINATION: GENERAL: When I examined her, she was pale, but no jaundice, cyanosis or thyromegaly. No jugular venous distention. No limb edema. VITAL SIGNS: Her heart rate was 59, blood pressure was 106/45, temperature was 97.4, respiratory rate was 17 and oxygen saturation was 100% on room air. HEAD, EYES, EARS, NOSE AND THROAT: Showed normocephalic, atraumatic. NECK: Supple. HEART: Normal first and second heart sounds. No gallop, rub or murmur. CHEST: Clear to auscultation. No crepitation or rhonchi. ABDOMEN: Distended, soft, nontender. NEUROLOGIC: She is awake, alert, responding appropriately. All cranial nerves intact. She moves extremities without difficulty. She ambulates without assistance or assistive devices. Her intake over the last 24 hours was 1000. No output was recorded. LABORATORY DATA: Her lab work this morning showed her white cell count was 3800; hemoglobin was 7.5, hematocrit 22.6, MCV 93, and platelet count of 98,000. Her prothrombin time was 13.6, INR 1.1. Her chemistry showed a serum sodium of 139, potassium 3.8, chloride 106, bicarbonate 23, anion gap of 10, BUN 19, creatinine 0.8, estimated GFR was 72 mL per minute. Her glucose 183, calcium was 8.3. Total bilirubin, AST, ALT, alkaline phosphatase were normal. Her total protein was 6.1. Albumin was 2.9. Her coronavirus by PCR was not detectable. ASSESSMENT: 1. The patient was admitted with recurrent bouts of black tarry stool. 2. Acute blood loss anemia. 3. The patient is known to have nonalcoholic steatohepatitis induced liver cirrhosis, esophageal varices, for which she has had banding done on 3 consecutive months August, October and October of last year. PLAN: She was seen actually by the Gastroenterology team. Her octreotide and Protonix drips were discontinued. She is scheduled for upper GI endoscopy and possible esophageal varices banding tomorrow. JUAN TREVINO MD DR: PATY/robert JOB#: [id number] / [id number]
--- NOTE | 2020-12-18 10:42 | PDOC2 ---
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 Has seen Dr. Masters in the past. H/o cirrhosis (likely CHAVEZ) and esophageal varices - EGD w/ banding planned for this Friday (12/20/20). She had melena on Friday - says she called our office and was told there were no openings for EGDs that day and was advised to monitor symptoms. She felt bad on Friday so she came to the ER and was admitted. No melena since Friday. Says admission has been "a comedy of errors that's not funny." Hgb 9.5 on 12/16 - has drifted to 7.5. Plt 98, normal INR. BUN 43 on admission, now 19. Hemoccult positive. H/o GERD on omeprazole QD. H/o constipation on Colace, Fibercon, magnesium, and lactulose PRN. No longer takes Meloxicam for arthritis - using Tylenol and hydrocodone as needed. H/o GÓMEZ. Sees Dr. Ferguson for labs and iron infusions - thinks last was in Oct. or Oct. Past GI workup: EGD 08/2017: normal esophagus, chronic gastritis, normal duodenum - no biopsies. Colonoscopy 08/2016: non-bleeding internal hemorrhoids, 9mm adenomatous polyp in rectum, 8mm adenomatous polyp in transverse colon. SBS 03/2018: normal. SBCE 05/2018: minimal inflammation of ileum. EGD and colonoscopy as inpt in 08/2020 for melena: esophageal varices s/p banding x 6, adenomatous polyp in ascending colon, internal and external hemorrhoids. Also had EGD for variceal banding in 10/2020 and 10/2020. Diverticulosis (colon, duodenal) on past CTs. Cirrhosis on past CT, patent PV on doppler 08/2020. AFP, B12, celiac serology, and Hepatitis panel normal/negative in the past. PMH: PMH: HTN, HLD, hypothyroidism, OA, DM, gout hysterectomy, tonsillectomy, left knee surgery FH: Family History: Cancer (breast - mother), DM, Hypertension, Other ([place]) Social History: Smoke: No ALCOHOL: none Drugs: None ROS: GEN: Denies fevers, chills, sweats HEENT: Denies blurred vision, sore throat CV: Denies chest pain RESP: Denies shortness of air, cough GI: Per HPI : Denies hematuria, dysuria ENDO: Denies weight changes NEURO: Denies confusion, dizziness MSK: Denies weakness, joint pain/swelling SKIN: Denies jaundice, pruritus Vitals: Vitals: Vital Signs Date Time Temp Pulse Resp B/P (MAP) Pulse Ox O2 Delivery O2 Flow Rate FiO2 12/18/20 07:00 97.4 59 17 106/46 (66) 100 Room Air 97.4 Labs: Labs: Laboratory Tests Test 12/17/20 10:55 12/17/20 16:50 12/17/20 19:56 12/17/20 21:00 Hemoglobin 8.7 g/dL (12.0-15.5) 8.3 g/dL (12.0-15.5) 8.5 g/dL (12.0-15.5) Hematocrit 25.6 % (36.0-47.0) 25.2 % (36.0-47.0) 26.2 % (36.0-47.0) Prothrombin Time 13.6 SEC (11.7-14.0) Prothromb Time International Ratio 1.1 (0.8-1.1) Sodium Level 141 mmol/L (136-145) Potassium Level 4.5 mmol/L (3.5-5.1) Chloride Level 106 mmol/L (98-107) Carbon Dioxide Level 24 mmol/L (21-32) Anion Gap 11 (6-14) Blood Urea Nitrogen 29 mg/dL (7-20) Creatinine 0.9 mg/dL (0.6-1.0) Estimated GFR (Cockcroft-Gault) 62.8 Glucose Level 233 mg/dL (70-99) Calcium Level 8.8 mg/dL (8.5-10.1) Glucose (Fingerstick) 271 mg/dL (70-99) Test 12/18/20 02:42 12/18/20 06:05 12/18/20 07:16 Glucose (Fingerstick) 187 mg/dL (70-99) 192 mg/dL (70-99) White Blood Count 3.8 x10^3/uL (4.0-11.0) Red Blood Count 2.43 x10^6/uL (3.50-5.40) Hemoglobin 7.5 g/dL (12.0-15.5) Hematocrit 22.6 % (36.0-47.0) Mean Corpuscular Volume 93 fL (79-100) Mean Corpuscular Hemoglobin 31 pg (25-35) Mean Corpuscular Hemoglobin Concent 33 g/dL (31-37) Red Cell Distribution Width 16.2 % (11.5-14.5) Platelet Count 98 x10^3/uL (140-400) Sodium Level 139 mmol/L (136-145) Potassium Level 3.8 mmol/L (3.5-5.1) Chloride Level 106 mmol/L (98-107) Carbon Dioxide Level 23 mmol/L (21-32) Anion Gap 10 (6-14) Blood Urea Nitrogen 19 mg/dL (7-20) Creatinine 0.8 mg/dL (0.6-1.0) Estimated GFR (Cockcroft-Gault) 72.0 BUN/Creatinine Ratio 24 (6-20) Glucose Level 183 mg/dL (70-99) Calcium Level 8.3 mg/dL (8.5-10.1) Total Bilirubin 0.3 mg/dL (0.2-1.0) Aspartate Amino Transf (AST/SGOT) 30 U/L (15-37) Alanine Aminotransferase (ALT/SGPT) 48 U/L (14-59) Alkaline Phosphatase 79 U/L (46-116) Total Protein 6.1 g/dL (6.4-8.2) Albumin 2.9 g/dL (3.4-5.0) Albumin/Globulin Ratio 0.9 (1.0-1.7) Allergies: Coded Allergies: latex (Verified Allergy, Intermediate, RASH, 11/16/20) ezetimibe (Verified Adverse Reaction, Intermediate, BODY ACHES, 11/16/20) rosuvastatin (Verified Adverse Reaction, Intermediate, BODY ACHES, 11/16/20) Medications: Current Medications Medications (Trade) Dose Ordered Sig/Brandy Route PRN Reason Start Time Stop Time Status Last Admin Dose Admin Insulin Glargine (Lantus Syringe) 8 unit QHS SQ 12/17/20 22:00 12/18/20 10:13 DC 12/17/20 21:51 PE: GEN: NAD HEENT: Atraumatic, PERRL LUNGS: CTAB HEART: RRR ABD: NABS, S/ND/NT EXTREMITY: No edema SKIN: No rashes, no jaundice NEURO/PSYCH: A & O 3 A/P: A/P: Melena - resolved Cirrhosis/CHAVEZ, h/o esophageal varices/banding - last EGD 10/2020 Pancytopenia/GÓMEZ - gets iron infusions per hematology - drift in Hgb here from 9.5 to 7.5 GERD - on PPI QD Constipation - controlled w/ Colace, FiberCon, magnesium, and lactulose CRC screen, h/o adenomatous polyps - UTD Diverticulosis, hemorrhoids COVID negative 12/17/20 -- Has regular diet ordered - okay per GI. Stop PPI and octreotide drips. PO PPI. Resume constipation medications. Monitor Hgb, transfuse as needed. ?IV iron? D/w Dr. Masters and GI lab re: anesthesia availability - plan for EGD tomorrow at 1:00 p.m. D/w Dr. Hirsch, nurse, and returned to d/w pt as well. RENY FRIAS Dec 18, 2020 10:42
[2020-12-18 11:00] VITALS: BP 110/49
[2020-12-18] MEDS ORDERED: LACTULOSE 20 GM/30 ML SOLUTION. PO PRN (11:15)
[2020-12-18] MEDS: LACTULOSE 20 GM/30 ML SOLUTION. PO SCH ×2 (11:15→21:00)
[2020-12-18] MEDS: CALCIUM POLYCARBOPHIL 625 MG TABLET PO SCH (12:23)
[2020-12-18] MEDS: DOCUSATE SODIUM 100 MG CAPSULE. PO SCH (12:23)
[2020-12-18 15:00] VITALS: BP 98/52
[2020-12-18 19:00] VITALS: BP 116/58
[2020-12-18] MEDS: oxyCODONE IR 5 MG TABLET PO PRN (21:40)
[2020-12-18 23:00] VITALS: BP 109/52
[2020-12-19 03:00] VITALS: BP 115/52
--- NOTE | 2020-12-19 05:30 | EKG ---
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
[2020-12-19 07:00] VITALS: BP 117/58
[2020-12-19] MEDS ORDERED: IV RINGERS,LACTATED 1000ML 1,000 ML IV SCH (07:00)
[2020-12-19] MEDS ORDERED: PANTOPRAZOLE 40 MG TABLET.DR. PO SCH (07:30)
--- NOTE | 2020-12-19 08:00 | NUR ---
PATIENT REMAINS NPO AT THIS TIME FOR EGD AT NOON TODAY, PATIENT DENIES PAIN/DISCOMFORT BUT STATES "I'M JUST TIRED AND WANT TO SLEEP", PATIENTS' HGB 7.5, WILL MONITOR.
[2020-12-19 08:16] LABS: HEMATOCRIT 22.7 % (36.0-47.0); HEMOGLOBIN 7.5 g/dL (12.0-15.5)
[2020-12-19 08:37] LABS: CALCIUM 8.1 mg/dL (8.5-10.1); CREATININE 0.8 mg/dL (0.6-1.0); POTASSIUM 3.9 mmol/L (3.5-5.1)
[2020-12-19] MEDS: INSULIN LISPRO 300 UNITS/3 ML VIAL. SQ SCH ×2 (09:38→11:30)
--- NOTE | 2020-12-19 09:46 | NUR ---
SW following. Discussed with RN, pt from home, room air, NPO for EGD today. Dr. Hirsch advised pt can discharge home after the EGD. RN advised no SW needs at this time. SW will continue to follow.
[2020-12-19 11:00] VITALS: BP 101/55
--- NOTE | 2020-12-19 11:59 | PN ---
DATE: 12/19/2020 SUBJECTIVE: The patient is resting, slightly propped up in her recliner comfortably, in no apparent distress. On questioning her, denied any complaint. She is apparently scheduled for esophagogastroduodenoscopy and possible esophageal banding again today at noon. PHYSICAL EXAMINATION: GENERAL: When I examined her, she was pale, no jaundice, cyanosis or thyromegaly. No jugular venous distention or limb edema. VITAL SIGNS: Her heart rate was 67, blood pressure 117/58, temperature was 98.6, respiratory rate was 16, and oxygen saturation was 98% on room air. HEAD, EYES, EARS, NOSE AND THROAT: Showed normocephalic, atraumatic. NECK: Supple. HEART: Normal first and second heart sounds. No gallop or murmur. CHEST: Clear to auscultation. No crepitation or rhonchi. ABDOMEN: Slightly distended, soft, nontender. NEUROLOGIC: She is grossly intact. Her intake over the last 24 hours and output incompletely recorded. LABORATORY DATA: Her lab work this morning showed hemoglobin 7.5, hematocrit 22.7. Serum sodium was 141, potassium 3.9, chloride 107, bicarbonate 22, anion gap of 12, BUN 12, creatinine 0.8, estimated GFR was 72 mL per minute. Her glucose was 90, calcium was ____. Her prothrombin time was 13.6, INR 1.1. ASSESSMENT: 1. Recurrent bouts of black tarry stool. 2. Acute blood loss anemia. Her hemoglobin and hematocrit has dropped from 9.5 and 28.5 to 7.5 and 22.7. 3. Thrombocytopenia. 4. Liver cirrhosis due to nonalcoholic steatohepatitis. 5. Esophageal varices for which she underwent banding done on 3 consecutive months of August, October and October. PLAN: The patient is scheduled for esophageal varices banding today and obviously if she remains stable, she can be discharged home this afternoon. JUAN TREVINO MD DR: PATY/robert JOB#: [id number] / [id number]
[2020-12-19] MEDS ORDERED: PROPOFOL 10 MG/ML (20ML) VIAL. IV ONE (12:22)
[2020-12-19] MEDS ORDERED: LIDOCAINE 2% PF 5 ML VIAL. ONE (12:22)
--- NOTE | 2020-12-19 13:06 | PDOC4 ---
Operative Note Operative Note EGD with band ligation Meds propofol per anesthesia Pre-op dx Cirrhosis/history of bleeding varices Post-op dx s/p band liation esophageal varices times 3 multiple gastric polyps Plan resume diet and release home today o/p [facility] liver transplant referral REMINGTON NIXON MD Dec 19, 2020 13:06
[2020-12-19 13:38] VITALS: BP 131/62
--- NOTE | 2020-12-19 13:55 | NUR ---
PATIENT RETURNED TO THE UNIT ALERT AND VERBALLY RESPONSIVE, REGULAR DIET OFFERED, WILL NOTIFY DR. TREVINO OF ORDER TO DISCHARGE TO HOME IF OK WITH HIM.
[2020-12-19] MEDS: DOCUSATE SODIUM 100 MG CAPSULE. PO SCH (14:01)
[2020-12-19] MEDS: oxyCODONE IR 5 MG TABLET PO PRN (14:01)
[2020-12-19] MEDS: CALCIUM POLYCARBOPHIL 625 MG TABLET PO SCH (14:01)
[2020-12-19] MEDS: LACTULOSE 20 GM/30 ML SOLUTION. PO SCH (14:02)
[2020-12-19] MEDS ORDERED: OXYC5TAB4 PO (16:18)
--- NOTE | 2020-12-19 17:00 | NUR ---
DISCHARGE INSTRUCTIONS GIVEN, QUESTIONS AND CONCERNS ANSWERED, PATIENT VERBALIZED UNDERSTANDING OF DISCHARGE INFORMATION INCLUDING TAKING ALL MEDICATIONS INSTRUCTED AND FOLLOWING UP WITH HER PRIMARY PROVIDER AND DR. NIXON INSTRUCTED, SALINE LOCK REMOVED PER THIS RN CARE MANAGER, BANDAGE APPLIED.
--- NOTE | 2020-12-19 17:17 | NUR ---
PATIENT LEAVES THE UNIT PER W/C AND ACCOMPANIED BY THIS MISSION COMMANDER AND HER SON, EMOTIONAL SUPPORT GIVEN, FOLLOW UP APPOINTMENTS ENCOURAGED.
--- NOTE | 2021-01-08 13:58 | DS ---
DATE OF DISCHARGE: 12/19/2020 HOSPITAL COURSE: The patient is a 65-year-old female patient who was admitted to the emergency room with a complaint of having black tarry stools. She apparently was diagnosed with liver cirrhosis due to nonalcoholic steatohepatitis about 5 months ago. She has had an esophagogastroduodenoscopy and variceal banding monthly in August, October and October, was followed by Dr. Masters. She denied any nausea or vomiting. Denied any hematemesis. Denied any fresh blood per rectum. Did complain of some dizziness and lightheadedness. Denied any abdominal pain. She apparently was evaluated in the emergency room and has had lab work, which showed that her hemoglobin was 9.5, hematocrit 28 with normal white cell count and platelets. Her prothrombin time and INR are normal and her chemistry showed the BUN is disproportionately high to creatinine at 43 with a creatinine of 1. Her stool for occult blood was positive. The patient was admitted, kept n.p.o. and was started on IV octreotide as well as Protonix and continued on IV fluid and Zofran. We trended her H and H and her hemoglobin has dropped down to 7.5. She was seen in consultation by the Gastroenterology team and she underwent esophagogastroduodenoscopy on 12/19/2020 and she was found to have esophageal varices, status post band ligation of her esophageal varices x 3. She has multiple gastric polyps and the administrative operations coordinator recommended resuming her diet and releasing home and to follow at [facility] for liver transplant referral. PHYSICAL EXAMINATION: GENERAL: On the day of discharge, the patient looked well and was clearly in no apparent respiratory distress and pale, but no jaundice, cyanosis or thyromegaly. No jugular venous distention. No limb edema. VITAL SIGNS: Her heart rate was 73, blood pressure was 131/62, temperature was 97.4, respiratory rate was 18 and oxygen saturation was 99% on room air. HEAD, EYES, EARS, NOSE AND THROAT: Normocephalic, atraumatic. NECK: Supple. HEART: Showed normal first and second heart sounds. No gallop or murmur. CHEST: Clear to auscultation. No crepitation or rhonchi. ABDOMEN: Soft, nontender. NEUROLOGIC: She is grossly intact. She has no flapping tremor. Her intake and output were incompletely recorded. LABORATORY DATA: Her lab work on the day of discharge showed hemoglobin 7.5, hematocrit 22.7 with normal white cell count and platelet of 98,000. Her serum sodium was 141, potassium 3.9, chloride 107, bicarbonate 22, anion gap of 12, BUN 12, creatinine 0.8, estimated GFR was 72 mL per minute. Her glucose was 190, calcium was 8.1. Her prothrombin time was 13.6, INR 1.1. Her stool for occult blood was positive and her coronavirus by PCR was not detectable. DISCHARGE MEDICATIONS: She was discharged home to continue on following medications: Oxycodone immediate release 5 mg every 6 hours as needed, allopurinol 300 mg once a day, calcium polycarbophil for FiberCon 625 mg twice a day with meals, cholecalciferol 50,000 units once a week, clobetasol propionate 15 grams applied topically twice a day, Farxiga 10 mg once a day, diphenhydramine 25 mg at bedtime, furosemide 40 mg once a day, glimepiride 4 mg twice a day, lactulose 30 mL p.o. daily p.r.n. for constipation, levothyroxine sodium 112 mcg once a day, loratadine 10 mg once a day, losartan potassium for Cozaar 50 mg once a day, magnesium oxide 400 mg at bedtime and metformin 1000 mg twice a day, ondansetron 8 mg every 8 hours, Protonix 40 mg once a day, potassium chloride 20 mEq once a day, promethazine 25 mg every 6 hours and sitagliptin phosphate for Januvia 100 mg once a day. FINAL DISCHARGE DIAGNOSES: 1. Recurrent bouts of black tarry stool. 2. Acute blood loss anemia. Her hemoglobin and hematocrit dropped down from 9.5 and 28-7.5 and 22. 3. Thrombocytopenia. 4. Liver cirrhosis due to nonalcoholic steatohepatitis. 5. Esophageal varices for which she underwent banding done on 3 consecutive months August, October and October. 6. Type 2 diabetes mellitus. 7. Hypothyroidism. 8. Hypertension. JUAN TREVINO MD DR: PATY/robert JOB#: [id number] / [id number]
== END 2020-12-19 17:17 | disposition home or self-care (01) | DRG 432 ==
LOC: ER 11:50 → OBSVTOIN 19:22 → 5 NORTH 19:22
PROVIDERS: ADMIT Internal Medicine; ATTEND Internal Medicine
PROC: 06L38CZ Occlusion of Esophageal Vein with Extraluminal Device, Via Natural or Artificial Opening Endoscopic (ICD-10-PCS; principal; 2020-12-19 13:00)
DX: K74.60 Unspecified cirrhosis of liver (principal); I85.11 Secondary esophageal varices with bleeding; D62 Acute posthemorrhagic anemia; K75.81 Nonalcoholic steatohepatitis (NASH); D69.6 Thrombocytopenia, unspecified; E11.9 Type 2 diabetes mellitus without complications; K21.9 Gastro-esophageal reflux disease without esophagitis; K64.9 Unspecified hemorrhoids; Z20.822 Contact with and (suspected) exposure to COVID-19; D12.2 Benign neoplasm of ascending colon; E03.9 Hypothyroidism, unspecified; E78.5 Hyperlipidemia, unspecified; I10 Essential (primary) hypertension; M10.9 Gout, unspecified; Z96.652 Presence of left artificial knee joint; M19.90 Unspecified osteoarthritis, unspecified site; Z80.3 Family history of malignant neoplasm of breast; Z82.3 Family history of stroke; Z82.49 Family history of ischemic heart disease and other diseases of the circulatory system; Z83.3 Family history of diabetes mellitus; Z86.010 Personal history of colon polyps; Z90.710 Acquired absence of both cervix and uterus; Z82.61 Family history of arthritis; Z88.8 Allergy status to other drugs, medicaments and biological substances; Z91.040 Latex allergy status
CPT/HCPCS: 36415; 43244; 80048; 80053; 80076; 82274; 82962; 83735; 84100; 85014; 85018; 85025; 85027; 85610; 86850; 86900; 86901; 87426; 93005; 96361; 96365; C9113; J1815; J2354; J2704; J3490; J7030; J7120; U0003; 99285-25; G0378

== ENCOUNTER → 2020-12-27 | Outpatient (CLI) | payer OTHER ==
[2020-12-19 13:38] VITALS: BP 131/62
[~2020-12-27] MED LIST changes: +OXYC5TAB4 PO
[2020-12-27 11:01] LABS: BASO % 1 % (0-3); EOS % 1 % (0-3); HEMATOCRIT 25.7 % (36.0-47.0); HEMOGLOBIN 8.4 g/dL (12.0-15.5); LYMPH # 0.8 x10^3/uL (1.0-4.8); LYMPH % 21 % (24-48); MEAN CORPUSCULAR HEMOGLOBIN 30 pg (25-35); MEAN CORPUSCULAR HGB CONC 33 g/dL (31-37); MEAN CORPUSCULAR VOLUME 91 fL (79-100); MONO # 0.3 x10^3/uL (0.0-1.1); MONO % 8 % (0-9); NEUT # 2.7 x10^3/uL (1.8-7.7); NEUT % 69 % (31-73); PLATELET COUNT 133 x10^3/uL (140-400); RED BLOOD COUNT 2.83 x10^6/uL (3.50-5.40); RED CELL DISTRIBUTION WIDTH 16.7 % (11.5-14.5); WHITE BLOOD COUNT 3.9 x10^3/uL (4.0-11.0)
[2020-12-27 11:29] LABS: ALBUMIN 3.4 g/dL (3.4-5.0); ALBUMIN/GLOBULIN RATIO 0.9 (1.0-1.7); CALCIUM 9.6 mg/dL (8.5-10.1); CREATININE 1.1 mg/dL (0.6-1.0); GFR 49.8; POTASSIUM 3.7 mmol/L (3.5-5.1); TOTAL BILIRUBIN 0.3 mg/dL (0.2-1.0); TOTAL PROTEIN 7.3 g/dL (6.4-8.2)
== END ==
LOC: ONCLAB 10:29
PROVIDERS: ATTEND Internal Medicine Hematology & Oncology
DX: D50.0 Iron deficiency anemia secondary to blood loss (chronic) (principal)
CPT/HCPCS: 36415; 80053; 82728; 83540; 83550; 85025

== ENCOUNTER → 2021-01-16 | Outpatient (CLI) | payer OTHER ==
[2020-12-19 13:38] VITALS: BP 131/62
[2021-01-16 11:35] LABS: BASO % 1 % (0-3); EOS % 1 % (0-3); HEMATOCRIT 34.4 % (36.0-47.0); HEMOGLOBIN 11.2 g/dL (12.0-15.5); LYMPH # 0.7 x10^3/uL (1.0-4.8); LYMPH % 20 % (24-48); MEAN CORPUSCULAR HEMOGLOBIN 30 pg (25-35); MEAN CORPUSCULAR HGB CONC 33 g/dL (31-37); MEAN CORPUSCULAR VOLUME 93 fL (79-100); MONO # 0.3 x10^3/uL (0.0-1.1); MONO % 9 % (0-9); NEUT # 2.5 x10^3/uL (1.8-7.7); NEUT % 69 % (31-73); PLATELET COUNT 89 x10^3/uL (140-400); RED BLOOD COUNT 3.71 x10^6/uL (3.50-5.40); RED CELL DISTRIBUTION WIDTH 20.4 % (11.5-14.5); WHITE BLOOD COUNT 3.6 x10^3/uL (4.0-11.0)
[2021-01-16 11:43] LABS: ALBUMIN 3.5 g/dL (3.4-5.0); C-REACTIVE PROTEIN 6.5 mg/L (0-3.3); CALCIUM 8.8 mg/dL (8.5-10.1); CREATININE 0.8 mg/dL (0.6-1.0)
[2021-01-16 11:44] LABS: PROTHROMBIN TIME PATIENT 13.4 SEC (11.7-14.0)
[2021-01-16 13:25] LABS: ANISOCYTOSIS SLIGHT; PLT ESTIMATE DECREASED (ADEQUATE)
--- NOTE | 2021-01-16 14:06 | RAD ---
EXAM: Chest, 2 views. HISTORY: Arthroplasty. Hypertension. COMPARISON: None. FINDINGS: 2 views of the chest are obtained. There is no infiltrate, pleural effusion or pneumothorax . The heart is normal in size. IMPRESSION: No acute pulmonary finding. Electronically signed by: Morenita Fu MD (01/16/2021 2:04 PM) [id number]
[2021-01-17 01:09] LABS: HEMOGLOBIN A1C 6.8 % (4.8-5.6)
== END ==
LOC: SURGPAT 10:05
PROVIDERS: ATTEND Orthopaedic Surgery
DX: Z01.818 Encounter for other preprocedural examination (principal); M17.11 Unilateral primary osteoarthritis, right knee; I10 Essential (primary) hypertension
CPT/HCPCS: 36415; 71046; 80048; 82040; 82306; 83036; 85025; 85610; 85730; 86140; 87641

== ENCOUNTER → 2021-02-02 | Outpatient (CLI) | payer OTHER ==
[2021-02-02 10:43] LABS: BASO % 1 % (0-3); EOS # 0.1 x10^3/uL (0.0-0.7); EOS % 1 % (0-3); HEMATOCRIT 36.5 % (36.0-47.0); LYMPH # 0.8 x10^3/uL (1.0-4.8); LYMPH % 20 % (24-48); MEAN CORPUSCULAR HEMOGLOBIN 30 pg (25-35); MEAN CORPUSCULAR HGB CONC 33 g/dL (31-37); MEAN CORPUSCULAR VOLUME 93 fL (79-100); MONO # 0.4 x10^3/uL (0.0-1.1); MONO % 9 % (0-9); NEUT # 2.8 x10^3/uL (1.8-7.7); NEUT % 69 % (31-73); PLATELET COUNT 89 x10^3/uL (140-400); RED BLOOD COUNT 3.95 x10^6/uL (3.50-5.40); RED CELL DISTRIBUTION WIDTH 18.5 % (11.5-14.5); WHITE BLOOD COUNT 4.1 x10^3/uL (4.0-11.0)
== END ==
LOC: ONCLAB 10:20
PROVIDERS: ATTEND Internal Medicine Hematology & Oncology
DX: D50.0 Iron deficiency anemia secondary to blood loss (chronic) (principal)
CPT/HCPCS: 36415; 82728; 83540; 83550; 85025

== ENCOUNTER → 2021-04-04 | Outpatient (CLI) | payer OTHER ==
[2021-04-04 11:00] LABS: BASO % 0 % (0-3); EOS % 1 % (0-3); HEMATOCRIT 36.1 % (36.0-47.0); HEMOGLOBIN 12.6 g/dL (12.0-15.5); LYMPH # 1.1 x10^3/uL (1.0-4.8); LYMPH % 26 % (24-48); MEAN CORPUSCULAR HEMOGLOBIN 31 pg (25-35); MEAN CORPUSCULAR HGB CONC 35 g/dL (31-37); MEAN CORPUSCULAR VOLUME 90 fL (79-100); MONO # 0.4 x10^3/uL (0.0-1.1); MONO % 10 % (0-9); NEUT # 2.6 x10^3/uL (1.8-7.7); NEUT % 62 % (31-73); PLATELET COUNT 93 x10^3/uL (140-400); RED BLOOD COUNT 4.03 x10^6/uL (3.50-5.40); WHITE BLOOD COUNT 4.2 x10^3/uL (4.0-11.0)
== END ==
LOC: ONCLAB 10:35
PROVIDERS: ATTEND Internal Medicine Hematology & Oncology
DX: D50.0 Iron deficiency anemia secondary to blood loss (chronic) (principal)
CPT/HCPCS: 36415; 82728; 83540; 83550; 85025

== ENCOUNTER → 2021-06-05 | Outpatient (CLI) | payer OTHER ==
[~2021-06-05] MED LIST changes: +CYCL10TA19 PO; -CYCL10TA2 PO; +MAGN400T48 PO; -MAGN400T5 PO; +OXYC20TA PO; +POTA-121 PO; -POTA20TA4 PO
[2021-06-05 11:09] LABS: BASO % 1 % (0-3); EOS % 1 % (0-3); HEMATOCRIT 38.6 % (36.0-47.0); HEMOGLOBIN 12.7 g/dL (12.0-15.5); LYMPH # 0.8 x10^3/uL (1.0-4.8); LYMPH % 19 % (24-48); MEAN CORPUSCULAR HEMOGLOBIN 30 pg (25-35); MEAN CORPUSCULAR HGB CONC 33 g/dL (31-37); MEAN CORPUSCULAR VOLUME 92 fL (79-100); MONO # 0.4 x10^3/uL (0.0-1.1); MONO % 8 % (0-9); NEUT # 3.2 x10^3/uL (1.8-7.7); NEUT % 72 % (31-73); PLATELET COUNT 95 x10^3/uL (140-400); WHITE BLOOD COUNT 4.5 x10^3/uL (4.0-11.0)
[2021-06-05 11:22] LABS: CALCIUM 9.5 mg/dL (8.5-10.1); CREATININE 0.8 mg/dL (0.6-1.0); POTASSIUM 4.2 mmol/L (3.5-5.1)
[2021-06-05 11:40] LABS: ALBUMIN 3.8 g/dL (3.4-5.0); TOTAL BILIRUBIN 0.5 mg/dL (0.2-1.0); TOTAL PROTEIN 7.7 g/dL (6.4-8.2)
== END ==
LOC: ONCLAB 10:43
PROVIDERS: ATTEND Internal Medicine Hematology & Oncology
DX: D50.0 Iron deficiency anemia secondary to blood loss (chronic) (principal)
CPT/HCPCS: 36415; 80053; 82607; 82728; 82746; 83540; 83550; 85025

== ENCOUNTER → 2021-08-30 | Outpatient (CLI) | payer OTHER ==
[~2021-08-30] MED LIST changes: -CYCL10TA19 PO; +CYCL10TA2 PO; -OXYC20TA PO
--- NOTE | 2021-08-30 16:52 | CARD ---
MR#: [id number] Date of Study: 08/30/2021 Ordering Physician: ADRIÁN CHERY, Referring Physician: Yasmine MELVIN: Elpidio Richardson [facility] APPROVED REPORT EXAM: Two-dimensional and M-mode echocardiogram with Doppler and color Doppler. Other Information Quality : GoodHR: 68bpm Rhythm : NSR INDICATION Hypertension/HCVD RISK FACTORS Hypertension Diabetes Non alcoholic liver cirrhosis 2D DIMENSIONS Left Atrium(2D)4.4 (1.6-4.0cm)IVSd0.9 (0.7-1.1cm) Aortic Root(2D)2.8 (2.0-3.7cm)LVDd3.3 (3.9-5.9cm) LVOT Diameter1.8 (1.8-2.4cm)PWd0.8 (0.7-1.1cm) LVDs1.8 (2.5-4.0cm)FS (%) 45.7 % SV33.5 ml Aortic Valve AoV Peak Zeferino.150.0cm/sAoV VTI35.2cm AO Peak GR.9.0mmHgLVOT Peak Zeferino.125.0cm/s AO Mean GR.6mmHgAVA (VMAX)2.23cm2 Mitral Valve MV E Drzufkyu97.5cm/sMV E Peak Gr.4mmHg MV DECEL [id number] A Juuqtuyp821.3cm/s MV E Mean Gr.2mmHgE/A Ratio1.0 Pulmonary Valve PV Peak Ijfvoidw034.2cm/s Tricuspid Valve TR P. Uuikqjej988wc/sTR Peak Gr.22mmHg Pulmonary Vein S1 Stsikcze52.7cm/sD2 Iiluaxfx22.5cm/s PVa [id number] LEFT VENTRICLE The left ventricle is normal size. There is normal left ventricular wall thickness. The left ventricu lar systolic function is normal. LV ejection fraction is 55 to 60%. There is normal LV segmental wall motion. No left ventricle thrombus noted on this study. There is no ventricular septal defect visual ized. There is no left ventricular aneurysm. There is no mass noted in the left ventricle. RIGHT VENTRICLE The right ventricle is normal size. There is normal right ventricular wall thickness. The right ventr icular systolic function is normal. ATRIA The left atrium is mildly dilated. The right atrium size is normal. The interatrial septum is intact with no evidence for an atrial septal defect or patent foramen ovale as noted on 2-D or Doppler imagi ng. AORTIC VALVE The aortic valve is mildly sclerotic. The aortic valve is trileaflet. Doppler and Color Flow revealed no significant aortic regurgitation. There is no significant aortic valvular stenosis. There is no a ortic valvular vegetation. MITRAL VALVE The mitral valve is normal in structure and function. There is no evidence of mitral valve prolapse. There is no mitral valve stenosis. Doppler and Color Flow revealed no mitral valve regurgitation note d. TRICUSPID VALVE The tricuspid valve is normal in structure and function. Doppler and Color Flow revealed trace to mil d tricuspid regurgitation. The PA pressure was estimated at 27 mmHg. There is no tricuspid valve prol apse or vegetation. There is no tricuspid valve stenosis. PULMONIC VALVE The pulmonary valve is normal in structure and function. Doppler and Color Flow revealed trace pulmon ic regurgitation There is no pulmonic valvular stenosis. GREAT VESSELS The aortic root is normal in size. The ascending aorta is normal in size. The pulmonary artery is nor mal. The IVC is normal in size and collapses >50% with inspiration. PERICARDIAL EFFUSION There is no pleural effusion. There is no evidence of significant pericardial effusion. Critical Notification Critical Value: No <Conclusion> The left ventricle is normal size. The left ventricular systolic function is normal. LV ejection fraction is 55 to 60%. Doppler and Color Flow revealed no significant aortic regurgitation. There is no significant aortic valvular stenosis. Doppler and Color Flow revealed no mitral valve regurgitation noted. Doppler and Color Flow revealed trace to mild tricuspid regurgitation. The PA pressure was estimated at 27 mmHg. Signed by : Michael Estrada MD Electronically Approved : 08/30/2021 16:51:48
== END ==
LOC: ECHO 09:48
PROVIDERS: ATTEND Internal Medicine Cardiovascular Disease
DX: I08.2 Rheumatic disorders of both aortic and tricuspid valves (principal); I10 Essential (primary) hypertension; K74.69 Other cirrhosis of liver; E11.9 Type 2 diabetes mellitus without complications
CPT/HCPCS: 93306

== ENCOUNTER → 2021-09-05 | Outpatient (CLI) | payer OTHER ==
[2021-09-05 12:34] LABS: BASO % 1 % (0-3); EOS % 1 % (0-3); HEMATOCRIT 36.6 % (36.0-47.0); HEMOGLOBIN 11.9 g/dL (12.0-15.5); LYMPH # 0.8 x10^3/uL (1.0-4.8); LYMPH % 23 % (24-48); MEAN CORPUSCULAR HEMOGLOBIN 29 pg (25-35); MEAN CORPUSCULAR HGB CONC 32 g/dL (31-37); MEAN CORPUSCULAR VOLUME 88 fL (79-100); MONO # 0.3 x10^3/uL (0.0-1.1); MONO % 10 % (0-9); NEUT # 2.2 x10^3/uL (1.8-7.7); NEUT % 65 % (31-73); PLATELET COUNT 103 x10^3/uL (140-400); RED BLOOD COUNT 4.17 x10^6/uL (3.50-5.40); RED CELL DISTRIBUTION WIDTH 15.3 % (11.5-14.5); WHITE BLOOD COUNT 3.3 x10^3/uL (4.0-11.0)
[2021-09-05 12:43] LABS: CALCIUM 8.7 mg/dL (8.5-10.1); CREATININE 0.9 mg/dL (0.6-1.0); GFR 62.6; POTASSIUM 3.9 mmol/L (3.5-5.1)
[2021-09-05 13:01] LABS: ALBUMIN 3.5 g/dL (3.4-5.0); ALBUMIN/GLOBULIN RATIO 0.9 (1.0-1.7); TOTAL BILIRUBIN 0.5 mg/dL (0.2-1.0); TOTAL PROTEIN 7.5 g/dL (6.4-8.2)
== END ==
LOC: ONCLAB 12:02
PROVIDERS: ATTEND Internal Medicine Hematology & Oncology
DX: D50.0 Iron deficiency anemia secondary to blood loss (chronic) (principal)
CPT/HCPCS: 36415; 80053; 82607; 82728; 82746; 83540; 83550; 85025

== ENCOUNTER → 2021-09-14 | Day surgery (SDC) | payer OTHER ==
[~2021-09-14] VITALS: Ht 170.2 cm; Wt 82.0 kg
[~2021-09-14] MED LIST changes: +IV RINGERS,LACTATED 1000ML 1,000 ML IV SCH; +LIDOCAINE 2% PF 5 ML VIAL. ONE; +OXYC20TA PO; +PROPOFOL 10 MG/ML (20ML) VIAL. IV ONE
[2021-09-14 08:47] VITALS: BP 151/72
[2021-09-14 10:33] VITALS: BP 157/71
--- NOTE | 2021-09-15 07:51 | HP ---
ADMIT DATE: 09/14/2021 REASON: Variceal surveillance with cirrhosis. HISTORY OF PRESENT ILLNESS: A 66-year-old female whose past medical history is significant for cirrhosis, varices, colonic polyps, hypothyroidism, hypertension, hyperlipidemia, diabetes, is seen for possible band ligation. Surveillance of varices is recommended. She is undergoing a liver transplant evaluation at [facility]; otherwise, without additional complaints. PAST MEDICAL HISTORY: Hypertension, hypothyroidism, GERD, diabetes, cirrhosis. ALLERGIES: STATINS, EZETIMIBE, LATEX AND ROSUVASTATIN. MEDICATIONS: Allopurinol, calcium, Farxiga, Benadryl, glimepiride, levothyroxine, Claritin, metformin, Zofran, oxycodone, pantoprazole, and Januvia. FAMILY AND SOCIAL HISTORY: Diabetes, hypertension, AL. PAST SURGICAL HISTORY: Joint replacement, tonsillectomy, hysterectomy. REVIEW OF SYSTEMS: Per records. PHYSICAL EXAMINATION: GENERAL: Reveals a well-nourished, well-developed female who is alert, cooperative, in mild distress. VITAL SIGNS: Temperature is 97.1, pulse 64, respiratory rate 18. LUNGS: Clear. CARDIOVASCULAR: Reveals an S1, S2, without S3, S4 or appreciable murmur. ABDOMEN: Reveals a soft abdomen, normal bowel sounds, appreciable hepatosplenomegaly. EXTREMITIES: No cyanosis, clubbing or edema. IMPRESSION: Cirrhosis with varices. Surveillance of varices is recommend at this time. Possible band ligation. Risks and benefits of procedure including risk of hemorrhage and perforation requiring operation were discussed. The patient is willing to proceed at this time. YANI DR: Dm TID: [id number]
== END | disposition home or self-care (01) ==
LOC: SURG 08:16
PROVIDERS: ATTEND Internal Medicine Gastroenterology
DX: I85.00 Esophageal varices without bleeding (principal); K74.60 Unspecified cirrhosis of liver; K29.70 Gastritis, unspecified, without bleeding; K31.89 Other diseases of stomach and duodenum; I10 Essential (primary) hypertension; E03.9 Hypothyroidism, unspecified; K21.9 Gastro-esophageal reflux disease without esophagitis; I25.10 Atherosclerotic heart disease of native coronary artery without angina pectoris; E78.00 Pure hypercholesterolemia, unspecified; M19.90 Unspecified osteoarthritis, unspecified site; M10.9 Gout, unspecified; E11.9 Type 2 diabetes mellitus without complications; Z90.710 Acquired absence of both cervix and uterus; Z98.890 Other specified postprocedural states; Z82.49 Family history of ischemic heart disease and other diseases of the circulatory system; Z83.3 Family history of diabetes mellitus; Z79.899 Other long term (current) drug therapy; Z79.84 Long term (current) use of oral hypoglycemic drugs; Z91.040 Latex allergy status; Z88.8 Allergy status to other drugs, medicaments and biological substances
CPT/HCPCS: 43244; J2704

== ENCOUNTER → 2021-12-06 | Outpatient (CLI) | payer OTHER ==
[2021-09-14 10:33] VITALS: BP 157/71
[~2021-12-06] MED LIST changes: +CYCL10TA19 PO; -CYCL10TA2 PO; -IV RINGERS,LACTATED 1000ML 1,000 ML IV SCH; -LIDOCAINE 2% PF 5 ML VIAL. ONE; -PROPOFOL 10 MG/ML (20ML) VIAL. IV ONE
[2021-12-06 11:39] LABS: BASO % 1 % (0-3); EOS % 1 % (0-3); HEMATOCRIT 30.9 % (36.0-47.0); HEMOGLOBIN 10.1 g/dL (12.0-15.5); LYMPH # 0.9 x10^3/uL (1.0-4.8); LYMPH % 20 % (24-48); MEAN CORPUSCULAR HEMOGLOBIN 26 pg (25-35); MEAN CORPUSCULAR HGB CONC 33 g/dL (31-37); MEAN CORPUSCULAR VOLUME 80 fL (79-100); MONO # 0.3 x10^3/uL (0.0-1.1); MONO % 8 % (0-9); NEUT # 3.1 x10^3/uL (1.8-7.7); NEUT % 70 % (31-73); PLATELET COUNT 125 x10^3/uL (140-400); RED BLOOD COUNT 3.86 x10^6/uL (3.50-5.40); RED CELL DISTRIBUTION WIDTH 15.4 % (11.5-14.5); WHITE BLOOD COUNT 4.4 x10^3/uL (4.0-11.0)
[2021-12-06 11:47] LABS: CALCIUM 8.7 mg/dL (8.5-10.1); CREATININE 0.9 mg/dL (0.6-1.0); GFR 62.6; POTASSIUM 4.6 mmol/L (3.5-5.1)
[2021-12-06 12:04] LABS: ALBUMIN 3.3 g/dL (3.4-5.0); ALBUMIN/GLOBULIN RATIO 0.7 (1.0-1.7); TOTAL BILIRUBIN 0.4 mg/dL (0.2-1.0); TOTAL PROTEIN 7.8 g/dL (6.4-8.2)
== END ==
LOC: ONCLAB 11:11
PROVIDERS: ATTEND Internal Medicine Hematology & Oncology
DX: D50.0 Iron deficiency anemia secondary to blood loss (chronic) (principal)
CPT/HCPCS: 36415; 80053; 82607; 82728; 82746; 83540; 83550; 85025

== ENCOUNTER → 2022-03-06 | Outpatient (CLI) | payer OTHER ==
[2021-09-14 10:33] VITALS: BP 157/71
[2022-03-06 11:00] LABS: BASO % 1 % (0-3); EOS % 1 % (0-3); HEMATOCRIT 37.2 % (36.0-47.0); HEMOGLOBIN 11.8 g/dL (12.0-15.5); LYMPH # 0.7 x10^3/uL (1.0-4.8); LYMPH % 18 % (24-48); MEAN CORPUSCULAR HEMOGLOBIN 28 pg (25-35); MEAN CORPUSCULAR HGB CONC 32 g/dL (31-37); MEAN CORPUSCULAR VOLUME 89 fL (79-100); MONO # 0.4 x10^3/uL (0.0-1.1); MONO % 9 % (0-9); NEUT % 71 % (31-73); PLATELET COUNT 98 x10^3/uL (140-400); RED BLOOD COUNT 4.19 x10^6/uL (3.50-5.40); RED CELL DISTRIBUTION WIDTH 15.8 % (11.5-14.5); WHITE BLOOD COUNT 4.2 x10^3/uL (4.0-11.0)
[2022-03-06 11:14] LABS: CALCIUM 9.1 mg/dL (8.5-10.1); CREATININE 0.9 mg/dL (0.6-1.0); GFR 62.6; POTASSIUM 4.2 mmol/L (3.5-5.1)
[2022-03-06 11:33] LABS: ALBUMIN 3.5 g/dL (3.4-5.0); ALBUMIN/GLOBULIN RATIO 0.8 (1.0-1.7); TOTAL BILIRUBIN 0.5 mg/dL (0.2-1.0); TOTAL PROTEIN 7.8 g/dL (6.4-8.2)
== END ==
LOC: ONCLAB 10:29
PROVIDERS: ATTEND Internal Medicine Hematology & Oncology
DX: D50.0 Iron deficiency anemia secondary to blood loss (chronic) (principal)
CPT/HCPCS: 36415; 80053; 82607; 82728; 82746; 83540; 83550; 85025